=== PATIENT | female | born 1995 | race African-American/Black ===

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

== ENCOUNTER 2017-03-13 23:59 | Emergency (ER) | payer MEDICAID ==
[~2017-03-13] VITALS: Ht 165.1 cm; Wt 60.0 kg
[~2017-03-13 23:59] MED LIST changes: +HYDR-3533 PO
[2017-03-14 00:01] VITALS: BP 138/60; PULSE 87; RESP 18; TEMP 98.9; O2SAT 91
[2017-03-14] MEDS ORDERED: SODIUM CHLOR 0.9% 1000 ML INJ 1,000 ML IV ONE (01:26)
[2017-03-14] MEDS ORDERED: KETOROLAC TROMETHAMINE 30 MG/ML (IVP) VIAL IVP ONE (01:30)
[2017-03-14] MEDS ORDERED: HYDROmorphone HCL PF 1 MG/ML VIAL IVS ONE (01:30)
[2017-03-14] MEDS ORDERED: ONDANSETRON HCL 4 MG/2 ML VIAL IVP ONE (01:30)
[2017-03-14] MEDS ORDERED: diphenhydrAMINE HCL 50 MG/ML VIAL IV PUSH ONE (01:30)
[2017-03-14] MEDS ORDERED: SODIUM CHLORIDE 0.9% FLUSH 10 ML FLUSH IVF PRN (01:30)
--- NOTE | 2017-03-14 01:33 | PD ---
HPI Chief Complaint: Sickle Cell Time Seen by Provider: 01:21 Travel History International Travel<30 days: No Contact w/Intl Traveler<30days: No Traveled to known affect area: No History of Present Illness HPI 21-year-old female complains of back pain, lower extremity pain and anterior chest wall pain. Patient has history of sickle cell disease with frequent sickle cell pain crisis. Patient states that the pain started yesterday. Patient states the pain is sharp pain localized anterior chest wall area, low back area and lower extremity area. Patient denies any fever chills. Patient denies any dysuria or frequency. Patient denies any vaginal discharge or bleeding. Patient denies any nausea vomiting diarrhea. PFSH Past Medical History Hx Anticoagulant Therapy: No Anemia: Yes (sickle cell) Asthma: Yes Autoimmune Disease: No Blood Disorders: No Anxiety: No Depression: No Heart Rhythm Problems: No Cancer: No Cardiovascular Problems: Yes (sickle cell disease and crisis) High Cholesterol: No Chemotherapy: No Chest Pain: No Congestive Heart Failure: No COPD: No Cerebrovascular Accident: No Cystic Fibrosis: No Developmental Delay: No Diabetes: No Diminished Hearing: No Endocrine: No Gastrointestinal Disorders: No Genitourinary: No Heparin Induced Thrombocytopen: No Immune Disorder: No Implanted Vascular Access Dvce: Yes Musculoskeletal: No Neurologic: No Psychiatric: No Reproductive: No Respiratory: Yes (ASTHMA) Immunizations Current: Yes Pneumonia: Yes Radiation Therapy: No Seizures: No Sickle Cell Disease: Yes Sleep Apnea: Yes Thyroid Disease: No PNEUMOCCOCAL Vaccine (Year): 2 ?: Not LMP: 02/13/17 Menopausal: No : 1 Para: 0 Miscarriage: 0 : 0 Past Surgical History Surgical History: No Previous Surgery Hysterectomy: No Other Surgery: No Social History Alcohol Use: No Tobacco Use: No Substance Use: No Allergies-Medications (Allergen,Severity, Reaction): Coded Allergies: codeine (Unverified Allergy, Intermediate, wheezing, SOB, 03/14/17) Reported Meds & Prescriptions Reported Meds & Active Scripts Active Lortab (Hydrocodone-Acetaminophen) 5-325 Mg Tab 1 Tab PO Q6H PRN Reported Flovent Hfa 12 GM Inh (Fluticasone Propionate) 220 Mcg/Act Inh 2 Puff INH BID Use daily at the same time. Folic Acid 1 Mg Tablet 1 Tab PO DAILY Ventolin Hfa 18 GM Inh (Albuterol Sulfate) 90 Mcg/Act Aer 1 Puff INH Q4H PRN Review of Systems General / Constitutional: No: Fever Eyes: No: Visual changes HENT: No: Headaches Cardiovascular: No: Chest Pain or Discomfort Respiratory: No: Shortness of Breath Gastrointestinal: No: Abdominal Pain Genitourinary: No: Dysuria Musculoskeletal: Positive: Pain Skin: No Rash Neurologic: No: Weakness Psychiatric: No: Depression Endocrine: No: Polydipsia Hematologic/Lymphatic: No: Easy Bruising Physical Exam Narrative GENERAL: Well-nourished, well-developed patient. SKIN: Focused skin assessment warm/dry. HEAD: Normocephalic. EYES: No scleral icterus. No injection or drainage. NECK: Supple, trachea midline. No JVD or lymphadenopathy. CARDIOVASCULAR: Regular rate and rhythm without murmurs, gallops, or rubs. RESPIRATORY: Breath sounds equal bilaterally. No accessory muscle use. GASTROINTESTINAL: Abdomen soft, non-tender, nondistended. MUSCULOSKELETAL: No cyanosis, or edema. Mild diffuse tenderness over the low extremity. BACK: Mild diffuse tenderness over the lumbar area, without obvious deformity. No CVA tenderness. Neurologic exam normal. Data Data Last Documented VS Vital Signs Date Time Temp Pulse Resp B/P (MAP) Pulse Ox O2 Delivery O2 Flow Rate FiO2 03/14/17 00:01 98.9 87 18 138/60 (86) 91 Room Air Orders Orders Basic Metabolic Panel (Bmp) (03/14/17 01:26) Complete Blood Count With Diff (03/14/17:26) Retic Count (03/14/17:26) Ecg Monitoring (03/14/17:26) Iv Access Insert/Monitor (03/14/17:26) Oximetry (03/14/17:26) Ketorolac Inj (Toradol Inj) (03/14/17 01:30) Ondansetron Inj (Zofran Inj) (03/14/17 01:30) Sodium Chloride 0.9% Flush (Ns Flush) (03/14/17 01:30) Sodium Chlor 0.9% 1000 Ml Inj (Ns 1000 M (03/14/17 01:26) Hydromorphone Pf Inj (Dilaudid Pf Inj) (03/14/17 01:30) Diphenhydramine Inj (Benadryl Inj) (03/14/17 01:30) Labs Laboratory Tests Test 03/14/17 01:30 White Blood Count 13.5 TH/MM3 Red Blood Count 2.45 MIL/MM3 Hemoglobin 7.7 GM/DL Hematocrit 21.6 % Mean Corpuscular Volume 88.1 FL Mean Corpuscular Hemoglobin 31.5 PG Mean Corpuscular Hemoglobin Concent 35.7 % Red Cell Distribution Width 24.3 % Platelet Count 442 TH/MM3 Mean Platelet Volume 8.3 FL Neutrophils (%) (Auto) 47.2 % Lymphocytes (%) (Auto) 30.7 % Monocytes (%) (Auto) 20.6 % Eosinophils (%) (Auto) 1.1 % Basophils (%) (Auto) 0.4 % Neutrophils # (Auto) 6.4 TH/MM3 Lymphocytes # (Auto) 4.1 TH/MM3 Monocytes # (Auto) 2.8 TH/MM3 Eosinophils # (Auto) 0.2 TH/MM3 Basophils # (Auto) 0.1 TH/MM3 CBC Comment AUTO DIFF Differential Total Cells Counted 100 Neutrophils % (Manual) 41 % Lymphocytes % 41 % Monocytes % 15 % Eosinophils % 2 % Basophils % 1 % Neutrophils # (Manual) 5.5 TH/MM3 Nucleated Red Blood Cells 8 /100 WBC Differential Comment FINAL DIFF MANUAL Platelet Estimate HIGH Platelet Morphology Comment NORMAL Polychromasia 7.3 % Sickle Cells 1+ Target Cells 1+ Vu-[place] Bodies PRESENT Reticulocyte Count 10.9 % Absolute Reticulocyte Count 267.6 MIL/L Blood Urea Nitrogen 4 MG/DL Creatinine 0.38 MG/DL Random Glucose 74 MG/DL Calcium Level 8.4 MG/DL Sodium Level 138 MEQ/L Potassium Level 4.0 MEQ/L Chloride Level 106 MEQ/L Carbon Dioxide Level 25.5 MEQ/L Anion Gap 7 MEQ/L Estimat Glomerular Filtration Rate 264 ML/MIN [facility] Medical Decision Making Medical Screen Exam Complete: Yes Emergency Medical Condition: Yes Interpretation(s) 2:49 AM. CBC WBC 13.5. Hemoglobin 7.7 hematocrit 21.6. Patient at baseline. BMP within normal limit. Calcium 8.4. Reticulocyte count 10.9. Differential Diagnosis Differential diagnosis including sickle cell pain crisis, myalgia, arthralgia. Narrative Course 21-year-old female with back pain chest pain and extremity pain. History of sickle cell disease. Normal saline solution 1 L IV bolus. Dilaudid 1 mg IV. Zofran 4 mg IV. Benadryl 25 mg IV. Toradol 30 mg IV. Diagnosis Primary Impression: Sickle cell pain crisis Patient Instructions: General Instructions Additional Instructions: Encourage by mouth fluids. Follow-up with personal physician. Return if worse. Med/Other Pt SpecificInfo: No Change to Meds Disposition: 01 DISCHARGE HOME Condition: Stable Pa Mcfadden MD Mar 14, 2017 01:33
[2017-03-14 01:48] LABS: AUTOMATED NEUTROPHIL # 6.4 TH/MM3 (1.8-7.7); BASOPHIL # 0.1 TH/MM3 (0-0.2); BASOPHIL % 0.4 % (0.0-2.0); EOSINOPHIL # 0.2 TH/MM3 (0-0.4); EOSINOPHIL % 1.1 % (0.0-4.0); HEMATOCRIT 21.6 % (35.0-46.0); LYMPH % 30.7 % (9.0-44.0); LYMPHOCYTE # 4.1 TH/MM3 (1.0-4.8); MEAN CELL VOLUME 88.1 FL (80.0-100.0); MEAN CORPUSCULAR HEMOGLOBIN 31.5 PG (27.0-34.0); MEAN CORPUSCULAR HGB CONC 35.7 % (32.0-36.0); MONO % 20.6 % (0.0-8.0); NEUT % 47.2 % (16.0-70.0); PLATELET COUNT 442 TH/MM3 (150-450); RED BLOOD COUNT 2.45 MIL/MM3 (4.00-5.30); RED CELL DISTRIBUTION WIDTH 24.3 % (11.6-17.2); RETIC % 10.9 % (0.4-3.0); WHITE BLOOD COUNT 13.5 TH/MM3 (4.0-11.0)
[2017-03-14 01:49] LABS: HEMO FLAGS AUTO DIFF; REVIEW FLAG AUTO DIFF
[2017-03-14 02:14] LABS: BICARBONATE 25.5 MEQ/L (21.0-32.0)
[2017-03-14 02:27] LABS: BASOPHILS 1 % (0-2); CORRECTED NUCLEATED RBC 8 /100 WBC (0-0); EOSINOPHILS 2 % (0-4); NEUTROPHIL # MANUAL DIFF 5.5 TH/MM3 (1.8-7.7); POLYS (SEG NEUTROPHILS) 41 % (16-70); SCAN/DIFF FINAL DIFF MANUAL; WBC DIFF SAMPLE 100
[2017-03-14 02:28] LABS: HOWELL-JOLLY BODIES PRESENT (NONE SEEN); PLATELET ESTIMATE SMEAR HIGH (NORMAL); PLATELET MORPHOLOGY NORMAL (NORMAL); SICKLE CELLS 1+ (NORMAL)
[2017-03-14 02:31] LABS: POLYCHROMASIA 7.3 % (0.0-1.9); TARGET CELLS 1+ (NORMAL)
== END 2017-03-14 03:44 | disposition home or self-care (01) ==
LOC: NEPC 23:59
DX: D57.00 Hb-SS disease with crisis, unspecified (principal); J45.909 Unspecified asthma, uncomplicated; Z79.899 Other long term (current) drug therapy
CPT/HCPCS: 80048; 85007; 85027; 85044; 96361; 96374; 96375; 99284; J1170; J1200; J1885; J2405; J7030

== ENCOUNTER 2017-07-18 20:44 | Emergency (ER) | payer MEDICAID ==
[~2017-07-18] VITALS: Ht 165.1 cm; Wt 62.5 kg
[2017-07-18 20:45] VITALS: BP 126/53; PULSE 95; RESP 18; TEMP 98.7; O2SAT 98
[2017-07-18] MEDS ORDERED: SODIUM CHLOR 0.9% 1000 ML INJ 1,000 ML IV ONE (20:58)
[2017-07-18] MEDS ORDERED: ONDANSETRON HCL 4 MG/2 ML VIAL IVP ONE (21:00)
[2017-07-18] MEDS ORDERED: diphenhydrAMINE HCL 50 MG/ML VIAL IV PUSH ONE ×2 (21:00→23:15)
[2017-07-18] MEDS ORDERED: SODIUM CHLORIDE 0.9% FLUSH 10 ML FLUSH IVF PRN (21:00)
[2017-07-18] MEDS ORDERED: HYDROmorphone HCL PF 1 MG/ML VIAL IVS ONE (21:00)
[2017-07-18 21:05] VITALS: BP 126/53; PULSE 95; RESP 18; TEMP 98.7; O2SAT 98
--- NOTE | 2017-07-18 21:11 | PD ---
HPI Chief Complaint: Sickle Cell Time Seen by Provider: 20:56 Travel History International Travel<30 days: No Contact w/Intl Traveler<30days: No Traveled to known affect area: No History of Present Illness HPI The patient is a 21-year-old female who complains of bilateral back and bilateral leg pain, typical of her sickle cell pain crisis going on for 4 days. She states the pain is a 10 over 10 in both sharp and achy-type pain. She states that she believes she is and her last menstrual period was sometime in May. She states she wants an . She denies any vaginal bleeding. PFSH Past Medical History Hx Anticoagulant Therapy: No Anemia: Yes (sickle cell) Asthma: Yes Autoimmune Disease: No Blood Disorders: No Anxiety: No Depression: No Heart Rhythm Problems: No Cancer: No Cardiovascular Problems: Yes (sickle cell disease and crisis) High Cholesterol: No Chemotherapy: No Chest Pain: No Congestive Heart Failure: No COPD: No Cerebrovascular Accident: No Cystic Fibrosis: No Developmental Delay: No Diabetes: No Diminished Hearing: No Endocrine: No Gastrointestinal Disorders: No Genitourinary: No Heparin Induced Thrombocytopen: No Immune Disorder: No Implanted Vascular Access Dvce: Yes Musculoskeletal: No Neurologic: No Psychiatric: No Reproductive: No Respiratory: Yes (ASTHMA) Immunizations Current: Yes Pneumonia: Yes Radiation Therapy: No Seizures: No Sickle Cell Disease: Yes Sleep Apnea: Yes Thyroid Disease: No PNEUMOCCOCAL Vaccine (Year): 2 Menopausal: No : 1 Para: 0 Miscarriage: 0 : 0 Past Surgical History Hysterectomy: No Other Surgery: No Social History Alcohol Use: No Tobacco Use: No Substance Use: No Allergies-Medications (Allergen,Severity, Reaction): Coded Allergies: codeine (Verified Allergy, Intermediate, wheezing, SOB, 07/18/17) Reported Meds & Prescriptions Reported Meds & Active Scripts Active Reported Hydrocodone-Acetaminophen 5-325 mg Tab 1 Tab PO Q4H PRN Flovent Hfa 12 GM Inh (Fluticasone Propionate) 220 Mcg/Act Inh 2 Puff INH BID Use daily at the same time. Folic Acid 1 Mg Tablet 1 Tab PO DAILY Ventolin Hfa 18 GM Inh (Albuterol Sulfate) 90 Mcg/Act Aer 1 Puff INH Q4H PRN Review of Systems Except as stated in HPI: all other systems reviewed are Neg Physical Exam Narrative GENERAL: The patient is alert, oriented 3 in moderate apparent distress with her back and leg pain. Her vital signs are normal. She does appear at least mildly dehydrated. SKIN: Focused skin assessment warm/dry. HEAD: Atraumatic. Normocephalic. EYES: Pupils equal and round. No scleral icterus. No injection or drainage. ENT: No nasal bleeding or discharge. Mucous membranes pink and moist. NECK: Trachea midline. No JVD. CARDIOVASCULAR: Regular rate and rhythm. No murmur appreciated. RESPIRATORY: No accessory muscle use. Clear to auscultation. Breath sounds equal bilaterally. GASTROINTESTINAL: Abdomen soft, non-tender, nondistended. Hepatic and splenic margins not palpable. The uterus is palpable and feels approximately 10 weeks in size. MUSCULOSKELETAL: No obvious deformities. No clubbing. No cyanosis. No edema. There is tenderness to direct palpation of the musculature of the back and bilateral upper legs. NEUROLOGICAL: Awake and alert. No obvious cranial nerve deficits. Motor grossly within normal limits. Normal speech. PSYCHIATRIC: Appropriate mood and affect; insight and judgment normal. Data Data Last Documented VS Vital Signs Date Time Temp Pulse Resp B/P (MAP) Pulse Ox O2 Delivery O2 Flow Rate FiO2 07/18/17 22:58 98 14 117/47 (70) 96 Room Air 07/18/17 21:05 98.7 Orders Orders Basic Metabolic Panel (Bmp) (07/18/17 20:58) Complete Blood Count With Diff (07/18/17 20:58) Retic Count (07/18/17 20:58) Urinalysis - C+S If Indicated (07/18/17 20:58) Ecg Monitoring (07/18/17 20:58) Iv Access Insert/Monitor (07/18/17 20:58) Oximetry (07/18/17 20:58) Ondansetron Inj (Zofran Inj) (07/18/17 21:00) Sodium Chloride 0.9% Flush (Ns Flush) (07/18/17 21:00) Sodium Chlor 0.9% 1000 Ml Inj (Ns 1000 M (07/18/17 20:58) Diphenhydramine Inj (Benadryl Inj) (07/18/17 21:00) Beta Hcg (Quant/Titer) (07/18/17 20:58) Hydromorphone Pf Inj (Dilaudid Pf Inj) (07/18/17 21:45) Ondansetron Inj (Zofran Inj) (07/18/17 22:45) Hydromorphone Pf Inj (Dilaudid Pf Inj) (07/18/17 22:45) Sodium Chlor 0.9% 1000 Ml Inj (Ns 1000 M (07/18/17 22:45) Diphenhydramine Inj (Benadryl Inj) (07/18/17 23:15) Labs Laboratory Tests Test 07/18/17 21:35 07/18/17 23:50 White Blood Count 25.3 TH/MM3 Corrected White Blood Count 21.6 TH/MM3 Red Blood Count 2.76 MIL/MM3 Hemoglobin 8.9 GM/DL Hematocrit 25.7 % Mean Corpuscular Volume 93.3 FL Mean Corpuscular Hemoglobin 32.4 PG Mean Corpuscular Hemoglobin Concent 34.8 % Red Cell Distribution Width 22.4 % Platelet Count 491 TH/MM3 Mean Platelet Volume 7.9 FL CBC Comment AUTO DIFF Differential Total Cells Counted 100 Neutrophils % (Manual) 64 % Lymphocytes % 22 % Monocytes % 12 % Eosinophils % 1 % Basophils % 1 % Neutrophils # (Manual) 13.8 TH/MM3 Nucleated Red Blood Cells 17 /100 WBC Differential Comment FINAL DIFF MANUAL Platelet Estimate HIGH Platelet Morphology Comment NORMAL Sickle Cells 3+ Target Cells 1+ Tear Drop Cells 1+ Ovalocytes 2+ Vu-[place] Bodies PRESENT Keratocytes 1+ Reticulocyte Count 10.9 % Absolute Reticulocyte Count 293.1 MIL/L Blood Urea Nitrogen 7 MG/DL Creatinine 0.42 MG/DL Random Glucose 74 MG/DL Calcium Level 8.7 MG/DL Sodium Level 135 MEQ/L Potassium Level 3.8 MEQ/L Chloride Level 104 MEQ/L Carbon Dioxide Level 23.2 MEQ/L Anion Gap 8 MEQ/L Estimat Glomerular Filtration Rate 235 ML/MIN Human Chorionic Gonadotropin, Quant 642548 MIU/ML Urine Color YELLOW Urine Turbidity CLEAR Urine pH 6.5 Urine Specific [place] 1.010 Urine Protein NEG mg/dL Urine Glucose (UA) NEG mg/dL Urine Ketones NEG mg/dL Urine Occult Blood TRACE Urine Nitrite NEG Urine Bilirubin NEG Urine Leukocyte Esterase NEG Urine RBC 0-3 /hpf Urine WBC 0-2 /hpf Urine Squamous Epithelial Cells 0-5 /hpf Urine Bacteria NONE /hpf Microscopic Urinalysis Comment CULT NOT INDICATED MDM Medical Decision Making Medical Screen Exam Complete: Yes Emergency Medical Condition: Yes Medical Record Reviewed: Yes Interpretation(s) The white count shows 25,300 with corrected white count 21,600. The hemoglobin is 8.9 and the hematocrit is 25.7. The absolute reticulocyte count is 293. The sodium is 135 but the basic metabolic profile is otherwise normal. The beta -hCG is 117,711. The urinalysis is normal. Differential Diagnosis Sickle cell pain crisis, anemia, , electrolyte disorder, aplastic crisis, urinary tract infection, other infection Narrative Course The patient's white count is usually elevated. Today's white count elevation was more than it has been in the past. This may be due to dehydration. The white count is also elevated by the . It is now 0035 in the morning and the patient feels better and wants to go home. She will be given a prescription for Percocet 5/325-# 20. Impressions: Sickle cell pain crisis, dehydration, intrauterine Diagnosis Primary Impression: Sickle cell pain crisis Additional Impressions: Dehydration, mild Intrauterine Med/Other Pt SpecificInfo: Prescription(s) given Disposition: 01 DISCHARGE HOME Condition: Stable Antoine Alba MD Jul 18, 2017 21:11
[2017-07-18] MEDS ORDERED: HYDROmorphone HCL PF 2 MG/ML VIAL IV PUSH ONE ×2 (21:45→22:45)
[2017-07-18 22:10] LABS: HEMATOCRIT 25.7 % (35.0-46.0); HEMOGLOBIN 8.9 GM/DL (11.6-15.3); MEAN CELL VOLUME 93.3 FL (80.0-100.0); MEAN CORPUSCULAR HEMOGLOBIN 32.4 PG (27.0-34.0); MEAN CORPUSCULAR HGB CONC 34.8 % (32.0-36.0); MEAN PLATELET VOLUME 7.9 FL (7.0-11.0); PLATELET COUNT 491 TH/MM3 (150-450); RED BLOOD COUNT 2.76 MIL/MM3 (4.00-5.30); RED CELL DISTRIBUTION WIDTH 22.4 % (11.6-17.2); WHITE BLOOD COUNT 25.3 TH/MM3 (4.0-11.0)
[2017-07-18 22:23] LABS: BICARBONATE 23.2 MEQ/L (21.0-32.0); CALCIUM 8.7 MG/DL (8.5-10.1)
[2017-07-18 22:27] LABS: CREATININE 0.42 MG/DL (0.50-1.00)
[2017-07-18 22:36] LABS: BASOPHILS 1 % (0-2); CORRECTED NUCLEATED RBC 17 /100 WBC (0-0); CORRECTED WBC 21.6 TH/MM3 (4.0-11.0); LYMPHOCYTES 22 % (9-44); MONOCYTES 12 % (0-8); NEUTROPHIL # MANUAL DIFF 13.8 TH/MM3 (1.8-7.7); NUCLEATED RED BLOOD CELL 17 (0-0); POLYS (SEG NEUTROPHILS) 64 % (16-70)
[2017-07-18 22:37] LABS: KERATOCYTES 1+ (NORMAL); OVALOCYTES 2+ (NORMAL); SICKLE CELLS 3+ (NORMAL); TARGET CELLS 1+ (NORMAL); TEARDROP RBCS 1+ (NORMAL)
[2017-07-18 22:38] LABS: HOWELL-JOLLY BODIES PRESENT (NONE SEEN)
[2017-07-18] MEDS ORDERED: SODIUM CHLOR 0.9% 1000 ML INJ 1,000 ML IV SCH (22:45)
[2017-07-18] MEDS ORDERED: ONDANSETRON HCL 4 MG/2 ML VIAL IV ONE (22:45)
[2017-07-18 22:48] LABS: RETIC # 293.1 MIL/L (20.0-150.0); RETIC % 10.9 % (0.4-3.0)
[2017-07-18 22:58] VITALS: BP 117/47; PULSE 98; RESP 14; O2SAT 96
[2017-07-18] MEDS ORDERED: HYDR-3516 PO (23:34)
[2017-07-19] LABS: BILIRUBIN, URINE NEG (NEG); GLUCOSE,URINE NEG (NEG); KETONE, URINE NEG (NEG); NITRITE,URINE NEG (NEG); PH, URINE 6.5 (5.0-8.5); URINE LEUKOCYTE ESTERASE NEG (NEG)
[2017-07-19 00:03] LABS: BLOOD, URINE TRACE (NEG)
[2017-07-19 00:04] LABS: RBC, URINE 0-3 /hpf (0-3); SQUAMOUS EPITHELIAL CELL URINE 0-5 /hpf (0-5); URINE COLOR YELLOW (YELLW/STRAW); WBC, URINE 0-2 /hpf (0-5)
[2017-07-19] MEDS ORDERED: PERC5TAB12 PO (00:39)
[2017-07-19 00:45] VITALS: BP 114/58; PULSE 93; RESP 14; O2SAT 92
== END 2017-07-19 01:00 | disposition home or self-care (01) ==
LOC: PHED 20:44
DX: O99.019 Anemia complicating pregnancy, unspecified trimester (principal); D57.00 Hb-SS disease with crisis, unspecified; O99.280 Endocrine, nutritional and metabolic diseases complicating pregnancy, unspecified trimester; E86.0 Dehydration; Z3A.00 Weeks of gestation of pregnancy not specified
CPT/HCPCS: 80048; 81001; 84702; 85007; 85027; 85044; 96361; 96374; 96375; 99284; J1170; J1200; J2405; J7030

== ENCOUNTER 2017-08-21 14:21 | Emergency (ER) | payer MEDICAID ==
[~2017-08-21] VITALS: Ht 165.1 cm; Wt 62.5 kg
[~2017-08-21 14:21] MED LIST changes: +HYDR-3516 PO; -HYDR-3533 PO; +PERC5TAB12 PO
[2017-08-21 14:23] VITALS: BP 126/58; PULSE 94; RESP 18; TEMP 98.6; O2SAT 94
[2017-08-21] MEDS ORDERED: SODIUM CHLOR 0.9% 1000 ML INJ 1,000 ML IV ONE (14:43)
[2017-08-21] MEDS ORDERED: MONT10TA2 PO (14:43)
[2017-08-21] MEDS ORDERED: ONDANSETRON HCL 4 MG/2 ML VIAL IVP ONE (14:45)
[2017-08-21] MEDS ORDERED: SODIUM CHLORIDE 0.9% FLUSH 10 ML FLUSH IVF PRN (14:45)
[2017-08-21] MEDS ORDERED: HYDROmorphone HCL PF 2 MG/ML VIAL IV PUSH ONE ×2 (14:45→16:30)
--- NOTE | 2017-08-21 14:51 | PD ---
HPI Chief Complaint: Sickle Cell Time Seen by Provider: 14:32 Travel History International Travel<30 days: No Contact w/Intl Traveler<30days: No Traveled to known affect area: No History of Present Illness HPI This 22-year-old female is complaining of pain all over. She has a history of sickle cell anemia and says she is having a crisis. She is currently and is scheduled for termination of . She has not had fever or chills. She has not been taking BC powder at home for pain. PFSH Past Medical History Hx Anticoagulant Therapy: No Anemia: Yes (sickle cell) Asthma: Yes Autoimmune Disease: No Blood Disorders: No Anxiety: No Depression: No Heart Rhythm Problems: No Cancer: No Cardiovascular Problems: Yes (sickle cell disease and crisis) High Cholesterol: No Chemotherapy: No Chest Pain: No Congestive Heart Failure: No COPD: No Cerebrovascular Accident: No Cystic Fibrosis: No Developmental Delay: No Diabetes: No Diminished Hearing: No Endocrine: No Gastrointestinal Disorders: No Genitourinary: No Headaches: No Heparin Induced Thrombocytopen: No Immune Disorder: No Implanted Vascular Access Dvce: Yes Musculoskeletal: No Neurologic: No Psychiatric: No Reproductive: No Respiratory: Yes (ASTHMA) Immunizations Current: Yes Pneumonia: Yes Radiation Therapy: No Seizures: No Sickle Cell Disease: Yes Sleep Apnea: Yes Thyroid Disease: No PNEUMOCCOCAL Vaccine (Year): 2 ?: LMP: 17wks Menopausal: No : 1 Para: 0 Miscarriage: 0 : 0 Past Surgical History Abdominal Surgery: No Hysterectomy: No Neurologic Surgery: No Thoracic Surgery: No Other Surgery: No Social History Alcohol Use: No Tobacco Use: No Substance Use: No Allergies-Medications (Allergen,Severity, Reaction): Coded Allergies: codeine (Verified Allergy, Intermediate, wheezing, SOB, 08/21/17) Reported Meds & Prescriptions Reported Meds & Active Scripts Active Reported Singulair (Montelukast Sodium) 10 Mg Tab 10 Mg PO HS Flovent Hfa 12 GM Inh (Fluticasone Propionate) 220 Mcg/Act Inh 2 Puff INH BID Use daily at the same time. Folic Acid 1 Mg Tablet 1 Tab PO DAILY Ventolin Hfa 18 GM Inh (Albuterol Sulfate) 90 Mcg/Act Aer 1 Puff INH Q4H PRN Review of Systems General / Constitutional: No: Fever, Chills Eyes: No: Diploplia, Blurred Vision HENT: No: Headaches, Vertigo Cardiovascular: No: Chest Pain or Discomfort, Palpitations Respiratory: No: Cough, Shortness of Breath Gastrointestinal: No: Nausea, Vomiting Genitourinary: No: Urgency, Frequency Musculoskeletal: No: Myalgias, Arthralgias Skin: No Rash, No Itching Neurologic: No: Weakness Hematologic/Lymphatic: No: Easy Bruising Physical Exam Narrative GENERAL: Well-developed female SKIN: Focused skin assessment warm/dry. HEAD: Atraumatic. Normocephalic. EYES: Pupils equal and round. No scleral icterus. No injection or drainage. ENT: No nasal bleeding or discharge. Mucous membranes pink and moist. NECK: Trachea midline. No JVD. CARDIOVASCULAR: Regular rate and rhythm. No murmur appreciated. RESPIRATORY: No accessory muscle use. Clear to auscultation. Breath sounds equal bilaterally. GASTROINTESTINAL: Abdomen soft, non-tender, uterus palpable just below the umbilicus hepatic and splenic margins not palpable. MUSCULOSKELETAL: No obvious deformities. No clubbing. No cyanosis. No edema. NEUROLOGICAL: Awake and alert. No obvious cranial nerve deficits. Motor grossly within normal limits. Normal speech. PSYCHIATRIC: Appropriate mood and affect; insight and judgment normal. Data Data Last Documented VS Vital Signs Date Time Temp Pulse Resp B/P (MAP) Pulse Ox O2 Delivery O2 Flow Rate FiO2 08/21/17 14:58 16 93 Room Air 08/21/17 14:23 98.6 94 126/58 (80) Orders Orders Complete Blood Count With Diff (08/21/17 14:43) Comprehensive Metabolic Panel (08/21/17 14:43) Ecg Monitoring (08/21/17 14:43) Iv Access Insert/Monitor (08/21/17 14:43) Oximetry (08/21/17 14:43) Ondansetron Inj (Zofran Inj) (08/21/17 14:45) Sodium Chloride 0.9% Flush (Ns Flush) (08/21/17 14:45) Sodium Chlor 0.9% 1000 Ml Inj (Ns 1000 M (08/21/17 14:43) Hydromorphone Pf Inj (Dilaudid Pf Inj) (08/21/17 14:45) Diphenhydramine Inj (Benadryl Inj) (08/21/17 15:30) Labs Laboratory Tests Test 08/21/17 14:49 White Blood Count 24.4 TH/MM3 Red Blood Count 2.58 MIL/MM3 Hemoglobin 8.9 GM/DL Hematocrit 24.9 % Mean Corpuscular Volume 96.4 FL Mean Corpuscular Hemoglobin 34.5 PG Mean Corpuscular Hemoglobin Concent 35.8 % Red Cell Distribution Width 25.5 % Platelet Count 411 TH/MM3 Mean Platelet Volume 7.6 FL CBC Comment AUTO DIFF Blood Urea Nitrogen 5 MG/DL Creatinine 0.38 MG/DL Random Glucose 72 MG/DL Total Protein 7.7 GM/DL Albumin 3.3 GM/DL Calcium Level 8.4 MG/DL Alkaline Phosphatase 93 U/L Aspartate Amino Transf (AST/SGOT) 102 U/L Alanine Aminotransferase (ALT/SGPT) 52 U/L Total Bilirubin 2.3 MG/DL Sodium Level 134 MEQ/L Potassium Level 4.0 MEQ/L Chloride Level 105 MEQ/L Carbon Dioxide Level 21.5 MEQ/L Anion Gap 8 MEQ/L Estimat Glomerular Filtration Rate 261 ML/MIN [facility] Medical Decision Making Medical Screen Exam Complete: Yes Emergency Medical Condition: Yes Medical Record Reviewed: Yes Differential Diagnosis Differential includes sickle cell crisis Narrative Course Hemoglobin is 8.9. Her white count is elevated at 24,000. She was in the ER a few weeks ago and was 25,000 and then thought elevated secondary to as well as the sickle cell. She is feeling better after with a single dose of Dilaudid. She will be released Diagnosis Primary Impression: Sickle cell pain crisis Scripts Oxycodone-Acetaminophen (Percocet) 10-325 mg Tab 1 TAB PO Q4H Y for PAIN, #12 TAB 0 Refills Prov: Calixto Collins MD 08/21/17 Disposition: 01 DISCHARGE HOME Condition: Stable Calixto Collins MD Aug 21, 2017 14:51
[2017-08-21 14:58] VITALS: RESP 16; O2SAT 93
[2017-08-21 15:09] LABS: HEMATOCRIT 24.9 % (35.0-46.0); HEMOGLOBIN 8.9 GM/DL (11.6-15.3); MEAN CELL VOLUME 96.4 FL (80.0-100.0); MEAN CORPUSCULAR HEMOGLOBIN 34.5 PG (27.0-34.0); MEAN CORPUSCULAR HGB CONC 35.8 % (32.0-36.0); MEAN PLATELET VOLUME 7.6 FL (7.0-11.0); PLATELET COUNT 411 TH/MM3 (150-450); RED BLOOD COUNT 2.58 MIL/MM3 (4.00-5.30); RED CELL DISTRIBUTION WIDTH 25.5 % (11.6-17.2); WHITE BLOOD COUNT 24.4 TH/MM3 (4.0-11.0)
[2017-08-21 15:22] LABS: CHLORIDE 105 MEQ/L (98-107); SODIUM (NA) 134 MEQ/L (136-145)
[2017-08-21 15:25] LABS: CALCIUM 8.4 MG/DL (8.5-10.1)
[2017-08-21 15:26] LABS: ALBUMIN 3.3 GM/DL (3.4-5.0); BICARBONATE 21.5 MEQ/L (21.0-32.0); BLOOD UREA NITROGEN 5 MG/DL (7-18); GLUCOSE,RANDOM 72 MG/DL (74-106)
[2017-08-21 15:29] LABS: ALT (GPT) 52 U/L (9-42); AST (GOT) 102 U/L (16-38); CREATININE 0.38 MG/DL (0.50-1.00); GLOMERULAR FILTRATION RATE 261 ML/MIN (>89)
[2017-08-21] MEDS ORDERED: diphenhydrAMINE HCL 50 MG/ML VIAL IV PUSH ONE ×2 (15:30→16:30)
[2017-08-21 15:31] LABS: TOTAL BILIRUBIN ADULT 2.3 MG/DL (0.2-1.0); TOTAL PROTEIN 7.7 GM/DL (6.4-8.2)
[2017-08-21 15:32] LABS: ALKALINE PHOSPHATASE 93 U/L (45-117)
[2017-08-21] MEDS ORDERED: PERC10TA27 PO (15:45)
[2017-08-21 16:43] LABS: CORRECTED NUCLEATED RBC 17 /100 WBC (0-0); CORRECTED WBC 20.9 TH/MM3 (4.0-11.0); LYMPHOCYTES 8 % (9-44); MONOCYTES 3 % (0-8); NEUTROPHIL # MANUAL DIFF 18.6 TH/MM3 (1.8-7.7); NUCLEATED RED BLOOD CELL 17 (0-0); POLYS (SEG NEUTROPHILS) 89 % (16-70)
[2017-08-21 16:44] LABS: SICKLE CELLS 3+ (NORMAL); TARGET CELLS 1+ (NORMAL); TEARDROP RBCS 2+ (NORMAL)
[2017-08-21 16:45] LABS: OVALOCYTES 2+ (NORMAL)
[2017-08-21 17:09] VITALS: BP 121/63
== END 2017-08-21 17:17 | disposition home or self-care (01) ==
LOC: PHED 14:21
DX: O99.019 Anemia complicating pregnancy, unspecified trimester (principal); D57.00 Hb-SS disease with crisis, unspecified; D72.829 Elevated white blood cell count, unspecified; J45.909 Unspecified asthma, uncomplicated; G47.30 Sleep apnea, unspecified; Z3A.00 Weeks of gestation of pregnancy not specified
CPT/HCPCS: 80053; 85007; 85027; 96361; 96374; 96375; 96376; 99284; J1170; J1200; J2405; J7030

== ENCOUNTER 2017-08-23 21:02 | Emergency (ER) | payer MEDICAID ==
[~2017-08-23 21:02] MED LIST changes: -HYDR-3516 PO; +MONT10TA2 PO; +PERC10TA27 PO; -PERC5TAB12 PO
[2017-08-23 21:09] VITALS: BP 129/59; PULSE 98; RESP 20; TEMP 99.2; O2SAT 94
[2017-08-23 21:43] VITALS: RESP 18; O2SAT 91; O2SAT 95
[2017-08-23 23:11] LABS: HEMATOCRIT 24.6 % (35.0-46.0); HEMOGLOBIN 8.4 GM/DL (11.6-15.3); MEAN CELL VOLUME 97.7 FL (80.0-100.0); MEAN CORPUSCULAR HEMOGLOBIN 33.3 PG (27.0-34.0); MEAN CORPUSCULAR HGB CONC 34.1 % (32.0-36.0); MEAN PLATELET VOLUME 8.3 FL (7.0-11.0); PLATELET COUNT 426 TH/MM3 (150-450); RED BLOOD COUNT 2.52 MIL/MM3 (4.00-5.30); RED CELL DISTRIBUTION WIDTH 25.9 % (11.6-17.2); WHITE BLOOD COUNT 24.9 TH/MM3 (4.0-11.0)
[2017-08-24 00:02] LABS: CORRECTED NUCLEATED RBC 75 /100 WBC (0-0); CORRECTED WBC 14.2 TH/MM3 (4.0-11.0); LYMPHOCYTES 29 % (9-44); MONOCYTES 12 % (0-8); NEUTROPHIL # MANUAL DIFF 8.2 TH/MM3 (1.8-7.7); NUCLEATED RED BLOOD CELL 75 (0-0); OVALOCYTES 2+ (NORMAL); PLASMA CELLS 1 % (0-0); POLYS (SEG NEUTROPHILS) 58 % (16-70); SICKLE CELLS 3+ (NORMAL); TEARDROP RBCS 1+ (NORMAL)
[2017-08-24 00:03] LABS: KERATOCYTES 1+ (NORMAL); TARGET CELLS 1+ (NORMAL)
[2017-08-24] MEDS ORDERED: SODIUM CHLOR 0.9% 1000 ML INJ 1,000 ML IV ONE (00:08)
[2017-08-24] MEDS ORDERED: SODIUM CHLORIDE 0.9% FLUSH 10 ML FLUSH IVF PRN (00:15)
[2017-08-24] MEDS ORDERED: HYDROmorphone HCL PF 1 MG/ML VIAL IVS ONE (00:15)
[2017-08-24] MEDS ORDERED: HYDROmorphone HCL PF 2 MG/ML VIAL IV ONE (00:15)
[2017-08-24] MEDS ORDERED: diphenhydrAMINE HCL 50 MG/ML VIAL IV PUSH ONE ×3 (00:15→04:30)
[2017-08-24] MEDS ORDERED: ONDANSETRON HCL 4 MG/2 ML VIAL IVP ONE (00:15)
[2017-08-24 00:32] LABS: RETIC # 371.3 MIL/L (20.0-150.0); RETIC % 16.9 % (0.4-3.0)
[2017-08-24 00:36] VITALS: BP 128/64; PULSE 109; RESP 19; O2SAT 96
[2017-08-24] MEDS ORDERED: diphenhydrAMINE HCL 50 MG/ML VIAL IV ONE (02:45)
[2017-08-24 03:05] VITALS: BP 138/78; PULSE 88; RESP 17; O2SAT 98
--- NOTE | 2017-08-24 03:05 | PD ---
HPI Chief Complaint: Sickle Cell Time Seen by Provider: 23:35 Travel History International Travel<30 days: No Contact w/Intl Traveler<30days: No Traveled to known affect area: No History of Present Illness HPI The patient is a 22-year-old female with a history of sickle cell and frequent visitor to emergency department who complains of sickle cell pain for 5 days. She was recently admitted to [facility]. She was just here 2 days ago. She states she has a low-grade fever. The temperature here is 99.2. She does have a very minimal cough. The patient is 17 weeks . Initially she told me she wanted to have an but now she says she wants to keep the baby. The patient is G2, P0, A1-spontaneous . PFSH Past Medical History Hx Anticoagulant Therapy: No Anemia: Yes (sickle cell) Asthma: Yes Autoimmune Disease: No Blood Disorders: No Anxiety: No Depression: No Heart Rhythm Problems: No Cancer: No Cardiovascular Problems: Yes (sickle cell disease and crisis) High Cholesterol: No Chemotherapy: No Chest Pain: No Congestive Heart Failure: No COPD: No Cerebrovascular Accident: No Cystic Fibrosis: No Developmental Delay: No Diabetes: No Diminished Hearing: No Endocrine: No Gastrointestinal Disorders: No Genitourinary: No Headaches: No Heparin Induced Thrombocytopen: No Immune Disorder: No Implanted Vascular Access Dvce: Yes Musculoskeletal: No Neurologic: No Psychiatric: No Reproductive: No Respiratory: Yes (ASTHMA) Immunizations Current: Yes Pneumonia: Yes Radiation Therapy: No Seizures: No Sickle Cell Disease: Yes Sleep Apnea: Yes Thyroid Disease: No Tetanus Vaccination: > 5 Years Influenza Vaccination: Yes PNEUMOCCOCAL Vaccine (Year): 2 ?: Unknown Menopausal: No : 1 Para: 0 Miscarriage: 0 : 0 Past Surgical History Surgical History: No Previous Surgery Abdominal Surgery: No Hysterectomy: No Neurologic Surgery: No Thoracic Surgery: No Other Surgery: No Social History Alcohol Use: No Tobacco Use: No Substance Use: No Allergies-Medications (Allergen,Severity, Reaction): Coded Allergies: codeine (Verified Allergy, Intermediate, wheezing, SOB, 08/23/17) Reported Meds & Prescriptions Reported Meds & Active Scripts Active Percocet (Oxycodone-Acetaminophen) 10-325 mg Tab 1 Tab PO Q4H PRN Reported Singulair (Montelukast Sodium) 10 Mg Tab 10 Mg PO HS Flovent Hfa 12 GM Inh (Fluticasone Propionate) 220 Mcg/Act Inh 2 Puff INH BID Use daily at the same time. Folic Acid 1 Mg Tablet 1 Tab PO DAILY Ventolin Hfa 18 GM Inh (Albuterol Sulfate) 90 Mcg/Act Aer 1 Puff INH Q4H PRN Review of Systems Except as stated in HPI: all other systems reviewed are Neg Physical Exam Narrative GENERAL: The patient is alert, oriented 3 in moderate apparent distress with her sickle cell pain. Her vital signs show pulse of 98, blood pressure 129/59 on oximetry 94%. SKIN: Focused skin assessment warm/dry. HEAD: Atraumatic. Normocephalic. EYES: Pupils equal and round. No scleral icterus. No injection or drainage. ENT: No nasal bleeding or discharge. Mucous membranes pink and moist. NECK: Trachea midline. No JVD. CARDIOVASCULAR: Regular rate and rhythm. No murmur appreciated. RESPIRATORY: No accessory muscle use. Clear to auscultation. Breath sounds equal bilaterally. GASTROINTESTINAL: Abdomen soft, with tenderness to direct palpation of the bilateral lower quadrants, nondistended. Hepatic and splenic margins not palpable. No flank tenderness is present and no guarding or rebound is present. MUSCULOSKELETAL: No obvious deformities. No clubbing. No cyanosis. No edema. NEUROLOGICAL: Awake and alert. No obvious cranial nerve deficits. Motor grossly within normal limits. Normal speech. PSYCHIATRIC: Appropriate mood and affect; insight and judgment normal. Data Data Last Documented VS Vital Signs Date Time Temp Pulse Resp B/P (MAP) Pulse Ox O2 Delivery O2 Flow Rate FiO2 08/24/17 03:05 88 17 138/78 (98) 98 Room Air 08/24/17 00:36 3.00 08/23/17 21:09 99.2 Orders Orders Complete Blood Count With Diff (08/23/17 22:47) Retic Count (08/23/17 22:47) Iv Access Insert/Monitor (08/23/17 22:47) Ecg Monitoring (08/24/17 00:08) Oximetry (08/24/17 00:08) Ondansetron Inj (Zofran Inj) (08/24/17 00:15) Sodium Chloride 0.9% Flush (Ns Flush) (08/24/17 00:15) Sodium Chlor 0.9% 1000 Ml Inj (Ns 1000 M (08/24/17 00:08) Diphenhydramine Inj (Benadryl Inj) (08/24/17 00:15) Hydromorphone Pf Inj (Dilaudid Pf Inj) (08/24/17 00:15) Diphenhydramine Inj (Benadryl Inj) (08/24/17 02:45) Urinalysis - C+S If Indicated (08/24/17 03:05) Hydromorphone Pf Inj (Dilaudid Pf Inj) (08/24/17 03:15) Diphenhydramine Inj (Benadryl Inj) (08/24/17 03:15) Hydromorphone Pf Inj (Dilaudid Pf Inj) (08/24/17 04:30) Diphenhydramine Inj (Benadryl Inj) (08/24/17 04:30) Labs Laboratory Tests Test 08/23/17 22:52 08/24/17 03:10 White Blood Count 24.9 TH/MM3 Corrected White Blood Count 14.2 TH/MM3 Red Blood Count 2.52 MIL/MM3 Hemoglobin 8.4 GM/DL Hematocrit 24.6 % Mean Corpuscular Volume 97.7 FL Mean Corpuscular Hemoglobin 33.3 PG Mean Corpuscular Hemoglobin Concent 34.1 % Red Cell Distribution Width 25.9 % Platelet Count 426 TH/MM3 Mean Platelet Volume 8.3 FL CBC Comment AUTO DIFF Differential Total Cells Counted 100 Neutrophils % (Manual) 58 % Lymphocytes % 29 % Monocytes % 12 % Neutrophils # (Manual) 8.2 TH/MM3 Nucleated Red Blood Cells 75 /100 WBC Differential Comment FINAL DIFF MANUAL Atypical Lymphocytes % Plasma Cells 1 % Platelet Estimate NORMAL Platelet Morphology Comment NORMAL Sickle Cells 3+ Target Cells 1+ Tear Drop Cells 1+ Ovalocytes 2+ Crenated Cell 1+ Keratocytes 1+ Reticulocyte Count 16.9 % Absolute Reticulocyte Count 371.3 MIL/L Urine Color YELLOW Urine Turbidity SL CLOUDY Urine pH 6.0 Urine Specific [place] 1.010 Urine Protein NEG mg/dL Urine Glucose (UA) NEG mg/dL Urine Ketones NEG mg/dL Urine Occult Blood NEG Urine Nitrite NEG Urine Bilirubin NEG Urine Urobilinogen 0.2 MG/DL Urine Leukocyte Esterase SMALL Urine RBC 0-3 /hpf Urine WBC 3-5 /hpf Urine Squamous Epithelial Cells 0-5 /hpf Microscopic Urinalysis Comment CULT NOT INDICATED MDM Medical Decision Making Medical Screen Exam Complete: Yes Emergency Medical Condition: Yes Medical Record Reviewed: Yes Interpretation(s) The CBC shows a white count of 24,900. The reticulocyte count is 17%. Differential Diagnosis Sepsis, sickle cell pain crisis, drug-seeking behavior, anemia Narrative Course It is now 440 in the morning and the patient feels better and wants to go home. It took 3 shots of 1 mg Dilaudid this time. Possibly due to the increased metabolism of the Dilaudid did not work as it usually does. The elevated white count is likely due to . Impression: Sickle cell pain crisis Diagnosis Primary Impression: Sickle cell pain crisis Additional Instructions: As you know, increase her liquid intake. Follow-up with your primary care physician. You are running out of time to have an in this state. Make sure you follow-up with your physician quickly. Med/Other Pt SpecificInfo: No Change to Meds Disposition: 01 DISCHARGE HOME Condition: Stable Antoine Alba MD Aug 24, 2017 03:05
[2017-08-24] MEDS ORDERED: HYDROmorphone HCL PF 1 MG/ML VIAL IV PUSH ONE ×2 (03:15→04:30)
[2017-08-24 03:41] LABS: BILIRUBIN, URINE NEG (NEG); BLOOD, URINE NEG (NEG); GLUCOSE,URINE NEG (NEG); KETONE, URINE NEG (NEG); NITRITE,URINE NEG (NEG); URINE COLOR YELLOW (YELLW/STRAW); URINE LEUKOCYTE ESTERASE SMALL (NEG)
[2017-08-24 03:59] LABS: RBC, URINE 0-3 /hpf (0-3); SQUAMOUS EPITHELIAL CELL URINE 0-5 /hpf (0-5)
[2017-08-24 05:40] VITALS: BP 119/63
== END 2017-08-24 05:53 | disposition home or self-care (01) ==
LOC: PHED 21:02
DX: O99.012 Anemia complicating pregnancy, second trimester (principal); D57.00 Hb-SS disease with crisis, unspecified; R50.81 Fever presenting with conditions classified elsewhere; O99.512 Diseases of the respiratory system complicating pregnancy, second trimester; J45.909 Unspecified asthma, uncomplicated; Z3A.17 17 weeks gestation of pregnancy
CPT/HCPCS: 81001; 85007; 85027; 85044; 96361; 96374; 96375; 96376; 99284; J1170; J1200; J2405; J7030

== ENCOUNTER → 2017-10-08 | Outpatient (CLI) | payer MEDICAID ==
[~2017-10-08] MED LIST changes: +CEPH-460 PO
== END ==
LOC: HPND 08:06
PROVIDERS: ATTEND Obstetrics & Gynecology
DX: O35.1XX0 Maternal care for (suspected) chromosomal abnormality in fetus, not applicable or unspecified (principal); O99.012 Anemia complicating pregnancy, second trimester; O35.8XX0 Maternal care for other (suspected) fetal abnormality and damage, not applicable or unspecified
CPT/HCPCS: 76811; 76825; 76827; 93325

== ENCOUNTER → 2017-10-15 | Outpatient (CLI) | payer MEDICAID ==
[~2017-10-15] MED LIST changes: +ACET325T15 PO; +OXYC-395 PO; +PRENCAP PO
== END ==
LOC: HPND 10:41
PROVIDERS: ATTEND Obstetrics & Gynecology
DX: O35.8XX0 Maternal care for other (suspected) fetal abnormality and damage, not applicable or unspecified (principal); O99.012 Anemia complicating pregnancy, second trimester; O35.1XX0 Maternal care for (suspected) chromosomal abnormality in fetus, not applicable or unspecified; Z3A.00 Weeks of gestation of pregnancy not specified
CPT/HCPCS: 76815

== ENCOUNTER 2017-10-16 13:18 | Emergency (ER) | END 2017-10-16 16:45 | disposition home or self-care (01) | DX: O99.012 Anemia complicating pregnancy, second trimester (principal); D57.00 Hb-SS disease with crisis, unspecified; O23.12 Infections of bladder in pregnancy, second trimester; Z3A.26 26 weeks gestation of pregnancy | CPT/HCPCS: 71045; 80048; 81001; 85007; 85027; 85044; 87077; 87086; 87186; 96374; 96375; 99284; J1170; J1200; J7030 ==

== ENCOUNTER 2017-10-23 23:18 | Inpatient (IN) | payer MEDICAID ==
[~2017-10-23] VITALS: Ht 165.1 cm; Wt 67.0 kg
[~2017-10-23 23:18] MED LIST changes: -ACET325T15 PO; -MONT10TA2 PO; -OXYC-395 PO; -PERC10TA27 PO; -PRENCAP PO
[2017-10-23 23:36] VITALS: BP 103/66; PULSE 89; RESP 16; TEMP 98.9; O2SAT 92
[2017-10-24] MEDS ORDERED: SODIUM CHLORID 0.9% 500 ML INJ 500 ML in SYRINGE/BAG 1 EA IV STA (01:39)
[2017-10-24] MEDS ORDERED: SODIUM CHLOR 0.9% 1000 ML INJ 1,000 ML IV SCH ×2 (01:45→03:30)
[2017-10-24 02:18] LABS: HEMATOCRIT 23.7 % (35.0-46.0); HEMOGLOBIN 8.6 GM/DL (11.6-15.3); MEAN CELL VOLUME 91.8 FL (80.0-100.0); MEAN CORPUSCULAR HEMOGLOBIN 33.6 PG (27.0-34.0); MEAN PLATELET VOLUME 7.8 FL (7.0-11.0); PLATELET COUNT 438 TH/MM3 (150-450); RED BLOOD COUNT 2.58 MIL/MM3 (4.00-5.30); RED CELL DISTRIBUTION WIDTH 24.6 % (11.6-17.2); RETIC # 418.3 MIL/L (20.0-150.0); RETIC % 16.2 % (0.4-3.0)
[2017-10-24 02:19] LABS: MEAN CORPUSCULAR HGB CONC 36.5 % (32.0-36.0)
[2017-10-24 02:39] LABS: BICARBONATE 24.2 MEQ/L (21.0-32.0); CALCIUM 9.2 MG/DL (8.5-10.1); CREATININE 0.45 MG/DL (0.50-1.00)
[2017-10-24 02:57] LABS: BANDS 1 % (0-6); CORRECTED NUCLEATED RBC 24 /100 WBC (0-0); LYMPHOCYTES 11 % (9-44); MONOCYTES 13 % (0-8); NUCLEATED RED BLOOD CELL 24 (0-0); POLYS (SEG NEUTROPHILS) 75 % (16-70)
[2017-10-24 02:58] LABS: POLYCHROMASIA 3.8 % (0.0-1.9); SICKLE CELLS 3+ (NORMAL)
[2017-10-24 02:59] LABS: HOWELL-JOLLY BODIES PRESENT (NONE SEEN)
[2017-10-24 03:00] LABS: TOXIC VACUOLATION PRESENT (NONE SEEN)
[2017-10-24] MEDS ORDERED: PRENCAP PO (03:10)
[2017-10-24 03:15] LABS: BACTERIA, URINE RARE /hpf; BILIRUBIN, URINE NEG (NEG); BLOOD, URINE NEG (NEG); GLUCOSE,URINE NEG (NEG); KETONE, URINE NEG (NEG); MUCUS URINE FEW /lpf (OCC); NITRITE,URINE NEG (NEG); RENAL EPITHELIAL CELLS <1 /hpf; SQUAMOUS EPITHELIAL CELL URINE 8 /hpf (0-5); URINE COLOR YELLOW (YELLW/STRAW); URINE LEUKOCYTE ESTERASE TRACE (NEG)
[2017-10-24] MEDS ORDERED: ONDANSETRON ODT 4 MG TAB SL PRN (03:30)
[2017-10-24] MEDS ORDERED: diphenhydrAMINE HCL 50 MG/ML VIAL IV PRN (03:30)
[2017-10-24] MEDS: diphenhydrAMINE HCL 50 MG/ML VIAL IV PRN ×4 (03:40→20:56)
[2017-10-24] MEDS: LACTATED RINGER'S 1000 ML INJ 1,000 ML IV SCH ×2 (03:40→11:19)
--- NOTE | 2017-10-24 08:54 | PD ---
HPI Chief Complaint Diffuse pain Date Seen: October 24, 2017 Travel History International Travel<30 Days: No Contact w/Intl Traveler<30Days: No Known Affected Area: No History of Present Illness HPI The patient is a very pleasant 22-year-old woman with PMH significant for sickle cell anemia and asthma at 27/2 weeks gestation who presented with complaints of diffuse and severe pain. She states she has been feeling this character pain for about the past 2 weeks duration. She endorses pain primarily in her lower extremities bilaterally. Endorses a less sharp centrally located chest pain, nonpleuritic. She reports possibly having a subjective fever about 2-3 days ago. Denies fevers or chills more recently. She does endorse feeling mildly short of breath as well as having a dry nonproductive cough. Denies urinary complaints, no dysuria or pyuria. She reports history of being hospitalized with a pneumonia about 4 times total in her life. She does not currently have a supply chain planner. She states she last had a supply chain planner about 2 years ago and had been taking folic acid as well as hydroxyurea however these were discontinued as she was having very frequent hospitalizations. She is not currently taking any medications for her sickle cell anemia. She also endorses nausea and vomiting, she reports one episode of emesis nonbloody nonbilious. She reports trying to be adequately hydrated with good p.o. intake of solids at home and denies having symptoms of nausea or vomiting at home prior to her admission here. Para: 0 : 2 Miscarriage: 1 History Past Medical History Narrative Medical Sickle cell anemia Asthma Obstetric History Obstetric History 1 prior miscarriage at about 12-13 weeks gestation Past Surgical History Surgical History: No Previous Surgery Family History Family History: Negative Social History Alcohol Use: No Tobacco Use: No Substance Abuse: No Allergies-Medications (Allergen,Severity, Reaction): Coded Allergies: codeine (Verified Allergy, Intermediate, wheezing, SOB, 10/23/17) Home Meds Reported Medications 57/Iron/Folic/Dss/Dha (Extra-Virt Plus Dha Softgel) 29 Mg Iron-1.25 Mg- 55 Mg-350 Mg Capsule, 1 TAB PO BID 10/24/17 Fluticasone 12 GM Inh (Flovent Hfa 12 GM Inh) 220 Mcg/Act Inh, 2 PUFF INH BID for Asthma Management, #1 INHALER 0 Refills Use daily at the same time. 12/04/16 Albuterol 18 GM Inh (Ventolin Hfa 18 GM Inh) 90 Mcg/Act Aer, 1 PUFF INH Q4H Y for SHORTNESS OF BREATH, INHALER 0 Refills 04/06/16 Discontinued Reported Medications Folic Acid (Folic Acid) 1 Mg Tablet, 1 TAB PO DAILY 11/08/16 Discontinued Scripts Cephalexin (Keflex) 500 Mg Cap, 500 MG PO Q12H for Infection for 7 Days, #14 CAP 0 Refills Prov:Alexia Gamble 10/16/17 Review of Systems Except as stated in HPI: all other systems reviewed are Neg Physical Exam Vital Signs Date Time Temp Pulse Resp B/P (MAP) Pulse Ox O2 Delivery O2 Flow Rate FiO2 10/24/17 07:22 18 10/23/17 23:36 98.9 89 16 103/66 (78) 92 Narrative GENERAL: Well-nourished, well-developed patient. SKIN: Warm and dry. HEAD: Normocephalic and atraumatic. EYES: No scleral icterus. No injection or drainage. ENT: No nasal drainage noted. Mucous membranes pink. Airway patent. NECK: Supple, trachea midline. No JVD. CARDIOVASCULAR: Regular rate and rhythm without murmurs, gallops, or rubs. RESPIRATORY: Breath sounds equal bilaterally. No accessory muscle use. ABDOMEN/GI: Abdomen soft, non-tender, bowel sounds present, no rebound, no guarding Gravid to 27 weeks size Uterine Contractions: Irregular FHT's: Category: I Baseline: 140s Reactive: +accels Variability: Moderate Decels: None noted EXTREMITIES: No cyanosis or edema. BACK: Nontender without obvious deformity. No CVA tenderness. NEUROLOGICAL: Awake and alert. Motor and sensory grossly within normal limits. Normal speech. Data Data Vital Signs Reviewed: Yes Orders Orders Basic Metabolic Panel (Bmp) (10/24/17 01:39) Complete Blood Count With Diff (10/24/17 01:39) Urinalysis - C+S If Indicated (10/24/17 01:39) Ldh Serum (10/24/17 01:39) Retic Count (10/24/17 01:39) Fentanyl Inj (Fentanyl Inj) (10/24/17 01:45) Resp Oxygen Nicanor C Titrat 1-4 L (10/24/17 ) Sodium Chlor 0.9% 1000 Ml Inj (Ns 1000 M (10/24/17 01:45) Sodium Chlorid 0.9% 500 Ml Inj (Ns 500 M (10/24/17 01:39) Ob (2e) Additional Admit Info (10/24/17 02:06) Diphenhydramine Inj (Benadryl Inj) (10/24/17 03:30) Diphenhydramine Inj (Benadryl Inj) (10/24/17 03:30) Ondansetron Odt (Zofran Odt) (10/24/17 03:30) Diet Regular Basic (10/24/17 Breakfast) Sodium Chlor 0.9% 1000 Ml Inj (Ns 1000 M (10/24/17 03:30) Lactated Ringer's 1000 Ml Inj (Lr 1000 M (10/24/17 07:30) Labs Laboratory Tests Test 10/24/17 02:00 10/24/17 02:20 White Blood Count 21.0 Red Blood Count 2.58 Hemoglobin 8.6 Hematocrit 23.7 Mean Corpuscular Volume 91.8 Mean Corpuscular Hemoglobin 33.6 Mean Corpuscular Hemoglobin Concent 36.5 Red Cell Distribution Width 24.6 Platelet Count 438 Mean Platelet Volume 7.8 CBC Comment AUTO DIFF Differential Total Cells Counted 100 Neutrophils % (Manual) 75 Band Neutrophils % 1 Lymphocytes % 11 Monocytes % 13 Neutrophils # (Manual) 16.0 Nucleated Red Blood Cells 24 Differential Comment FINAL DIFF MANUAL Toxic Vacuolation PRESENT Platelet Estimate NORMAL Platelet Morphology Comment NORMAL Polychromasia 3.8 Sickle Cells 3+ Vu-[place] Bodies PRESENT Reticulocyte Count 16.2 Absolute Reticulocyte Count 418.3 Blood Urea Nitrogen 9 Creatinine 0.45 Random Glucose 72 Calcium Level 9.2 Lactate Dehydrogenase 627 Sodium Level 141 Potassium Level 4.3 Chloride Level 106 Carbon Dioxide Level 24.2 Anion Gap 11 Estimat Glomerular Filtration Rate 215 Urine Color YELLOW Urine Turbidity CLEAR Urine pH 7.0 Urine Specific [place] 1.009 Urine Protein NEG Urine Glucose (UA) NEG Urine Ketones NEG Urine Occult Blood NEG Urine Nitrite NEG Urine Bilirubin NEG Urine Urobilinogen LESS THAN 2.0 Urine Leukocyte Esterase TRACE Urine RBC LESS THAN 1 Urine WBC 2 Urine Squamous Epithelial Cells 8 Urine Renal Epithelial Cells <1 Urine Bacteria RARE Urine Mucus FEW Microscopic Urinalysis Comment CULT NOT INDICATED MDM Medical Record Reviewed: Yes Plan 22 year old at 27/2 weeks gestation with PMH significant for sickle cell anemia and asthma admitted with vaso-occlusive pain crisis during her . 1. Sickle cell anemia complicated by vaso-occlusive pain crisis - Pain control attempted initially with Fentanyl 50 mcg IV q1h however noted to not adequately be controlling her pain - Will start patient on a Dilaudid CUB REPORTER pump at 0.2 mg q10 minutes with basal at 1mg/hour, no maximum - Discontinue IV fentanyl - Continue MIVF with LR at 125 cc/hr - Reticulocyte count appropriate, will repeat CBC, retic count, and LDH - Chest pain improving, no hypoxia or increasing O2 requirements, no concerns for acute chest syndrome at this time - Will give patient Pneumovax, as previously recommended by MFM 2. IUP, maguire - Category I tracing, will place patient on continuous EFM while receiving CUB REPORTER with Dilaudid - Monitor FHTs closely as well as maternal VS - Irregular contractions - Patient is following at [facility] with [facility]FM, last seen on 10/15 and noted to have normal amniotic fluid, normal cardiac rate and rhythm, patient was scheduled for rescan in 3 weeks for follow-up growth from that appointment, and recommended to start testing at 32 weeks [address] MD R2 October 24, 2017 08:54
[2017-10-24] MEDS ORDERED: NALOXONE HCL 0.4 MG/ML AMP IV PUSH PRN (10:45)
[2017-10-24] MEDS ORDERED: HYDROmorphone HCL PF 1 MG/ML VIAL IV PUSH SCH (10:45)
--- NOTE | 2017-10-24 11:19 | HHI.HP ---
History & Physical H&P HPI Chief Complaint Diffuse pain Date Seen: October 24, 2017 Travel History International Travel<30 Days: No Contact w/Intl Traveler<30Days: No Known Affected Area: No History of Present Illness HPI The patient is a very pleasant 22-year-old woman with PMH significant for sickle cell anemia and asthma at 27/2 weeks gestation who presented with complaints of diffuse and severe pain. She states she has been feeling this character pain for about the past 2 weeks duration. She endorses pain primarily in her lower extremities bilaterally. Endorses a less sharp centrally located chest pain, nonpleuritic. She reports possibly having a subjective fever about 2-3 days ago. Denies fevers or chills more recently. She does endorse feeling mildly short of breath as well as having a dry nonproductive cough. Denies urinary complaints, no dysuria or pyuria. She reports history of being hospitalized with a pneumonia about 4 times total in her life. She does not currently have a ell tutor. She states she last had a ell tutor about 2 years ago and had been taking folic acid as well as hydroxyurea however these were discontinued as she was having very frequent hospitalizations. She is not currently taking any medications for her sickle cell anemia. She also endorses nausea and vomiting, she reports one episode of emesis nonbloody nonbilious. She reports trying to be adequately hydrated with good p.o. intake of solids at home and denies having symptoms of nausea or vomiting at home prior to her admission here. Para: 0 : 2 Miscarriage: 1 History Past Medical History Narrative Medical Sickle cell anemia Asthma Obstetric History Obstetric History 1 prior miscarriage at about 12-13 weeks gestation Past Surgical History Surgical History: No Previous Surgery Family History Family History: Negative Social History Alcohol Use: No Tobacco Use: No Substance Abuse: No Allergies-Medications (Allergen,Severity, Reaction): Coded Allergies: codeine (Verified Allergy, Intermediate, wheezing, SOB, 10/23/17) Home Meds Reported Medications 57/Iron/Folic/Dss/Dha (Extra-Virt Plus Dha Softgel) 29 Mg Iron-1.25 Mg- 55 Mg-350 Mg Capsule, 1 TAB PO BID 10/24/17 Fluticasone 12 GM Inh (Flovent Hfa 12 GM Inh) 220 Mcg/Act Inh, 2 PUFF INH BID for Asthma Management, #1 INHALER 0 Refills Use daily at the same time. 12/04/16 Albuterol 18 GM Inh (Ventolin Hfa 18 GM Inh) 90 Mcg/Act Aer, 1 PUFF INH Q4H Y for SHORTNESS OF BREATH, INHALER 0 Refills 04/06/16 Discontinued Reported Medications Folic Acid (Folic Acid) 1 Mg Tablet, 1 TAB PO DAILY 11/08/16 Discontinued Scripts Cephalexin (Keflex) 500 Mg Cap, 500 MG PO Q12H for Infection for 7 Days, #14 CAP 0 Refills Prov:Alexia Gamble 10/16/17 Review of Systems Except as stated in HPI: all other systems reviewed are Neg Physical Exam Vital Signs Date Time Temp Pulse Resp B/P (MAP) Pulse Ox O2 Delivery O2 Flow Rate FiO2 10/24/17 07:22 18 10/23/17 23:36 98.9 89 16 103/66 (78) 92 Narrative GENERAL: Well-nourished, well-developed patient. SKIN: Warm and dry. HEAD: Normocephalic and atraumatic. EYES: No scleral icterus. No injection or drainage. ENT: No nasal drainage noted. Mucous membranes pink. Airway patent. NECK: Supple, trachea midline. No JVD. CARDIOVASCULAR: Regular rate and rhythm without murmurs, gallops, or rubs. RESPIRATORY: Breath sounds equal bilaterally. No accessory muscle use. ABDOMEN/GI: Abdomen soft, non-tender, bowel sounds present, no rebound, no guarding Gravid to 27 weeks size Uterine Contractions: Irregular FHT's: Category: I Baseline: 140s Reactive: +accels Variability: Moderate Decels: None noted EXTREMITIES: No cyanosis or edema. BACK: Nontender without obvious deformity. No CVA tenderness. NEUROLOGICAL: Awake and alert. Motor and sensory grossly within normal limits. Normal speech. Data Data Vital Signs Reviewed: Yes Orders Orders Basic Metabolic Panel (Bmp) (10/24/17 01:39) Complete Blood Count With Diff (10/24/17 01:39) Urinalysis - C+S If Indicated (10/24/17 01:39) Ldh Serum (10/24/17 01:39) Retic Count (10/24/17 01:39) Fentanyl Inj (Fentanyl Inj) (10/24/17 01:45) Resp Oxygen Nicanor C Titrat 1-4 L (10/24/17 ) Sodium Chlor 0.9% 1000 Ml Inj (Ns 1000 M (10/24/17 01:45) Sodium Chlorid 0.9% 500 Ml Inj (Ns 500 M (10/24/17 01:39) Ob (2e) Additional Admit Info (10/24/17 02:06) Diphenhydramine Inj (Benadryl Inj) (10/24/17 03:30) Diphenhydramine Inj (Benadryl Inj) (10/24/17 03:30) Ondansetron Odt (Zofran Odt) (10/24/17 03:30) Diet Regular Basic (10/24/17 Breakfast) Sodium Chlor 0.9% 1000 Ml Inj (Ns 1000 M (10/24/17 03:30) Lactated Ringer's 1000 Ml Inj (Lr 1000 M (10/24/17 07:30) Labs Laboratory Tests Test 10/24/17 02:00 10/24/17 02:20 White Blood Count 21.0 Red Blood Count 2.58 Hemoglobin 8.6 Hematocrit 23.7 Mean Corpuscular Volume 91.8 Mean Corpuscular Hemoglobin 33.6 Mean Corpuscular Hemoglobin Concent 36.5 Red Cell Distribution Width 24.6 Platelet Count 438 Mean Platelet Volume 7.8 CBC Comment AUTO DIFF Differential Total Cells Counted 100 Neutrophils % (Manual) 75 Band Neutrophils % 1 Lymphocytes % 11 Monocytes % 13 Neutrophils # (Manual) 16.0 Nucleated Red Blood Cells 24 Differential Comment FINAL DIFF MANUAL Toxic Vacuolation PRESENT Platelet Estimate NORMAL Platelet Morphology Comment NORMAL Polychromasia 3.8 Sickle Cells 3+ Vu-[place] Bodies PRESENT Reticulocyte Count 16.2 Absolute Reticulocyte Count 418.3 Blood Urea Nitrogen 9 Creatinine 0.45 Random Glucose 72 Calcium Level 9.2 Lactate Dehydrogenase 627 Sodium Level 141 Potassium Level 4.3 Chloride Level 106 Carbon Dioxide Level 24.2 Anion Gap 11 Estimat Glomerular Filtration Rate 215 Urine Color YELLOW Urine Turbidity CLEAR Urine pH 7.0 Urine Specific [place]cc[place] 1.009 Urine Protein NEG Urine Glucose (UA) NEG Urine Ketones NEG Urine Occult Blood NEG Urine Nitrite NEG Urine Bilirubin NEG Urine Urobilinogen LESS THAN 2.0 Urine Leukocyte Esterase TRACE Urine RBC LESS THAN 1 Urine WBC 2 Urine Squamous Epithelial Cells 8 Urine Renal Epithelial Cells <1 Urine Bacteria RARE Urine Mucus FEW Microscopic Urinalysis Comment CULT NOT INDICATED MDM Medical Record Reviewed: Yes Plan 22 year old at 27/2 weeks gestation with PMH significant for sickle cell anemia and asthma admitted with vaso-occlusive pain crisis during her . 1. Sickle cell anemia complicated by vaso-occlusive pain crisis - Pain control attempted initially with Fentanyl 50 mcg IV q1h however noted to not adequately be controlling her pain - Will start patient on a Dilaudid TUBE DISPATCHER pump at 0.2 mg q10 minutes with basal at 1mg/hour, no maximum - Discontinue IV fentanyl - Continue MIVF with LR at 125 cc/hr - Reticulocyte count appropriate, will repeat CBC, retic count, and LDH - Chest pain improving, no hypoxia or increasing O2 requirements, no concerns for acute chest syndrome at this time - Will give patient Pneumovax, as previously recommended by [facility] 2. IUP, maguire - Category I tracing, will place patient on continuous EFM while receiving TUBE DISPATCHER with Dilaudid - Monitor FHTs closely as well as maternal VS - Irregular contractions - Patient is following at OB diagnostics with [facility], last seen on 10/15 and noted to have normal amniotic fluid, normal cardiac rate and rhythm, patient was scheduled for rescan in 3 weeks for follow-up growth from that appointment, and recommended to start testing at [address] MD R2 October 24, 2017 11:19
[2017-10-24] MEDS: HYDROmorphone HCL PCA 6 MG/30 ML IV SCH ×2 (11:38→15:37)
[2017-10-24] MEDS ORDERED: PNEUMOCOCCAL POLYVALENT INJ 25 MCG/0.5 ML SYR IM ONE (12:00)
[2017-10-24 12:10] LABS: AUTOMATED NEUTROPHIL # 11.8 TH/MM3 (1.8-7.7); BASOPHIL # 0.1 TH/MM3 (0-0.2); BASOPHIL % 0.3 % (0.0-2.0); EOSINOPHIL % 0.3 % (0.0-4.0); HEMATOCRIT 23.4 % (35.0-46.0); HEMOGLOBIN 8.3 GM/DL (11.6-15.3); LYMPH % 15.4 % (9.0-44.0); LYMPHOCYTE # 2.7 TH/MM3 (1.0-4.8); MEAN CELL VOLUME 92.6 FL (80.0-100.0); MEAN CORPUSCULAR HEMOGLOBIN 32.7 PG (27.0-34.0); MEAN CORPUSCULAR HGB CONC 35.3 % (32.0-36.0); MEAN PLATELET VOLUME 7.8 FL (7.0-11.0); MONO % 17.6 % (0.0-8.0); MONOCYTE # 3.1 TH/MM3 (0-0.9); NEUT % 66.4 % (16.0-70.0); PLATELET COUNT 432 TH/MM3 (150-450); RED BLOOD COUNT 2.53 MIL/MM3 (4.00-5.30); RED CELL DISTRIBUTION WIDTH 23.4 % (11.6-17.2); RETIC # 357.8 MIL/L (20.0-150.0); RETIC % 14.2 % (0.4-3.0); WHITE BLOOD COUNT 17.8 TH/MM3 (4.0-11.0)
[2017-10-24 12:48] LABS: CORRECTED NUCLEATED RBC 32 /100 WBC (0-0); LYMPHOCYTES 7 % (9-44); MONOCYTES 13 % (0-8); NEUTROPHIL # MANUAL DIFF 14.1 TH/MM3 (1.8-7.7); NUCLEATED RED BLOOD CELL 32 (0-0); POLYS (SEG NEUTROPHILS) 79 % (16-70)
[2017-10-24 12:49] LABS: OVALOCYTES 1+ (NORMAL); SICKLE CELLS 2+ (NORMAL); TARGET CELLS 1+ (NORMAL)
[2017-10-24 12:50] LABS: TEARDROP RBCS 1+ (NORMAL)
[2017-10-24] MEDS ORDERED: EUCERIN CREAM 120 GM JAR TOPICAL PRN (14:45)
[2017-10-24] MEDS ORDERED: HYDROmorphone HCL PCA 6 MG/30 ML IV ONE (15:33)
[2017-10-24] MEDS ORDERED: diphenhydrAMINE HCL 50 MG/ML VIAL ONE (17:06)
--- NOTE | 2017-10-24 18:33 | PD.CONS ---
History of Present Illness Service Hematology/oncology. Consult Requested By Inpatient obstetrics service. Reason for Consult Patient with diagnosis of hemoglobin sickle cell disease (SS) presenting with sickle cell crisis for the past 2 weeks. Primary Care Physician No Primary Care Physician Diagnoses: History of Present Illness Chief complaint: Generalized skeletal pain for the past 2 weeks. Pain particularly is intense in her legs. History of presenting illness: Ms. Canas is a 22-year-old female who is at 27 months gestation, she is . 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 She had been primarily following with her primary care physician and intermittently had been seeing a pediatric set up mechanic at the [facility]. The patient tells me she has been in the process of trying to establish hematology follow-up with an adult set up mechanic. Presently she is not on any disease modifying therapy and reports not having been on hydroxyurea for well over one year. Ms. Canas reports developing muscular skeletal aches and pains consistent with a typical sickle cell pain crisis about 2 weeks ago, she had been trying to control her pain with extra strength Tylenol tablets and oral hydration. Her symptoms progressed and she presented to [facility] on 10/24/2017 for further evaluation. She is currently in the OB observation unit, she is receiving IV fluid hydration with Ringer's lactate and is also on a hydromorphone PUMP SERVICER pump. She tells me her pain control is slightly improved with the PUMP SERVICER pump. Additional issues include hypoxia, she is currently dependent on oxygen supplementation via nasal cannula to maintain O2 sats over 94%. The OB nurse was at bedside, the nurse reports the monitor indicates decelerations when the patient uses her Hydromorphone PUMP SERVICER. Review of Systems Constitutional: COMPLAINS OF: Fatigue, Weight gain, DENIES: Diaphoretic episodes, Fever, Weight loss, Chills, Dizziness, Change in appetite, Night Sweats Endocrine: DENIES: Abnorml menstrual pattern, Heat/cold intolerance, Polydipsia , Polyuria, Polyphagia Eyes: DENIES: Blurred vision, Diplopia, Eye inflammation, Eye pain, Vision loss , Photosensitivity, Double Vision Ears, nose, mouth, throat: DENIES: Tinnitus, Hearing loss, Vertigo, Nasal discharge, Oral lesions, Throat pain, Hoarseness, Ear Pain, Running Nose, Epistaxis, Sinus Pain, Toothache, Odynophagia Respiratory: COMPLAINS OF: Apneas (At nighttime), Wheezing (Has history of asthma), Shortness of breath, DENIES: Cough, Snoring, Hemoptysis, Sputum production Cardiovascular: COMPLAINS OF: Palpitations, Dyspnea on Exertion, Lower Extremity Edema, DENIES: Chest pain, Syncope, PND, Orthopnea, Claudication Gastrointestinal: COMPLAINS OF: Nausea, DENIES: Abdominal pain, Black stools, Bloody stools, Constipation, Diarrhea, Vomiting, Difficulty Swallowing, Anorexia Genitourinary: COMPLAINS OF: Abnormal vaginal bleeding, DENIES: Dysmenorrhea, Dyspareunia, Sexual dysfunction, Urinary frequency, Urinary incontinence, Urgency, Hematuria, Dysuria, Nocturia, Vaginal discharge Musculoskeletal: COMPLAINS OF: Joint pain, Muscle aches, Stiffness, Back pain, Neck pain, DENIES: Joint Swelling Integumentary: DENIES: Abnormal pigmentation, Pruritus, Rash, Nail changes, Breast masses, Breast skin changes, Nipple discharge Hematologic/lymphatic: DENIES: Bruising, Lymphadenopathy Immunologic/allergic: DENIES: Eczema, Urticaria Neurologic: COMPLAINS OF: Headache, DENIES: Abnormal gait, Localized weakness, Paresthesias, Seizures, Speech Problems, Tremor, Poor Balance Psychiatric: COMPLAINS OF: Anxiety, Confusion, DENIES: Mood changes, Depression , Hallucinations, Agitation, Suicidal Ideation, Homicidal Ideation, Delusions Except as stated in HPI: all other systems reviewed are Neg Past Family Social History Allergies: Coded Allergies: codeine (Verified Allergy, Intermediate, wheezing, SOB, 10/23/17) Past Medical History Hemoglobin sickle cell disease. Asthma Sleep apnea Recurrent pain crises Multiple red cell transfusions Reported history of acute chest syndrome Past Surgical History She denies any major surgical interventions. Active Ordered Medications Half normal saline 1 25 cc/h Diphenhydramine 25 milligrams IV every 4 hours needed for itching hydromorphone via PUMP SERVICER pump intravenous Zofran 4 mg p.o. every 4 hours needed for nausea and vomiting Naloxone 0.4 mg IV push as needed for respiratory suppression. Family History Mother: Sickle cell trait and hypertension. Father: Sickle cell trait. Social History Lives at home with her mother, high school graduate. Previously had been working at a [employer]. Physical Exam Vital Signs Vital Signs Date Time Temp Pulse Resp B/P (MAP) Pulse Ox O2 Delivery O2 Flow Rate FiO2 10/24/17 12:23 16 10/24/17 07:22 18 10/23/17 23:36 98.9 89 16 103/66 (78) 92 Physical Exam GENERAL: Young female sitting up in bed, appears to be in pain, she does not appear to be in respiratory distress. She has nasal cannulas on. SKIN: No rashes, ecchymoses or lesions. Cool and dry. HEAD: Atraumatic. Normocephalic. No temporal or scalp tenderness. EYES: Pupils equal round and reactive. Extraocular motions intact. No injection or drainage. Conjunctivae are pale sclerae mildly icteric ENT: Nose without bleeding, purulent drainage or septal hematoma. Throat without erythema, tonsillar hypertrophy or exudate. Uvula midline. Airway patent. NECK: Trachea midline. No JVD or lymphadenopathy. Supple, nontender, no meningeal signs. CARDIOVASCULAR: Regular rate and rhythm without murmurs, gallops, or rubs. RESPIRATORY: Clear to auscultation. Breath sounds equal bilaterally. No wheezes , rales, or rhonchi. GASTROINTESTINAL: Gravid abdomen no palpable organ enlargement noted no tenderness. MUSCULOSKELETAL: Extremities without clubbing, cyanosis, or edema. No joint tenderness, effusion, or edema noted. No calf tenderness. Negative Homans sign bilaterally. Reports tenderness involving the legs NEUROLOGICAL: Awake and alert. Cranial nerves II through XII intact. Motor and sensory grossly within normal limits. Five out of 5 muscle strength in all muscle groups. Normal speech. Laboratory Laboratory Tests Test 10/24/17 02:00 10/24/17 02:20 10/24/17 11:45 White Blood Count 21.0 17.8 Red Blood Count 2.58 2.53 Hemoglobin 8.6 8.3 Hematocrit 23.7 23.4 Mean Corpuscular Volume 91.8 92.6 Mean Corpuscular Hemoglobin 33.6 32.7 Mean Corpuscular Hemoglobin Concent 36.5 35.3 Red Cell Distribution Width 24.6 23.4 Platelet Count 438 432 Mean Platelet Volume 7.8 7.8 CBC Comment AUTO DIFF AUTO DIFF Differential Total Cells Counted 100 100 Neutrophils % (Manual) 75 79 Band Neutrophils % 1 Lymphocytes % 11 7 Monocytes % 13 13 Neutrophils # (Manual) 16.0 14.1 Nucleated Red Blood Cells 24 32 Differential Comment FINAL DIFF MANUAL FINAL DIFF MANUAL Toxic Vacuolation PRESENT Platelet Estimate NORMAL HIGH Platelet Morphology Comment NORMAL NORMAL Polychromasia 3.8 Sickle Cells 3+ 2+ Vu-[place] Bodies PRESENT Reticulocyte Count 16.2 14.2 Absolute Reticulocyte Count 418.3 357.8 Blood Urea Nitrogen 9 Creatinine 0.45 Random Glucose 72 Calcium Level 9.2 Lactate Dehydrogenase 627 542 Sodium Level 141 Potassium Level 4.3 Chloride Level 106 Carbon Dioxide Level 24.2 Anion Gap 11 Estimat Glomerular Filtration Rate 215 Urine Color YELLOW Urine Turbidity CLEAR Urine pH 7.0 Urine Specific [place] 1.009 Urine Protein NEG Urine Glucose (UA) NEG Urine Ketones NEG Urine Occult Blood NEG Urine Nitrite NEG Urine Bilirubin NEG Urine Urobilinogen LESS THAN 2.0 Urine Leukocyte Esterase TRACE Urine RBC LESS THAN 1 Urine WBC 2 Urine Squamous Epithelial Cells 8 Urine Renal Epithelial Cells <1 Urine Bacteria RARE Urine Mucus FEW Microscopic Urinalysis Comment CULT NOT INDICATED Neutrophils (%) (Auto) 66.4 Lymphocytes (%) (Auto) 15.4 Monocytes (%) (Auto) 17.6 Eosinophils (%) (Auto) 0.3 Basophils (%) (Auto) 0.3 Neutrophils # (Auto) 11.8 Lymphocytes # (Auto) 2.7 Monocytes # (Auto) 3.1 Eosinophils # (Auto) 0.0 Basophils # (Auto) 0.1 Eosinophils % 1 Target Cells 1+ Tear Drop Cells 1+ Ovalocytes 1+ Result Diagram: 10/24/17 1145 10/24/17 0200 Imaging Chest x-ray dated 10/16/2017: Normal examination for patient of this age noted.no significant changes symmetric aeration of the lungs. No infiltrates or effusions. Mediastinal contours are unremarkable. Osseous structures are intact. Assessment and Plan Assessment and Plan Ms. Garcia is a 22-year-old female with a diagnosis of hemoglobin sickle cell disease, she is 27 weeks . She presents for further workup and management of a sickle cell pain crisis. Patient reports her current crisis started about 2 weeks ago and has not responded to oral hydration and oral analgesia (patient had been using extra strength Tylenol tablets at home). Hematology has been asked to see her to help manage her sickle cell crisis. Plan: 1. Sickle cell pain crisis: I would recommend hydration with a hypotonic saline solution to help intracellular hydration of the red cells and in doing so help prevent further sickling. Continue oxygen supplementation. I will initiate incentive spirometry as this has been shown to decrease hospitalization length and help improve pain control. Continue analgesia with the hydromorphone PUMP SERVICER pump, if she is not requiring as needed dosing every hour I would recommend transitioning her to an oral opioid analgesic. I would have a low threshold for transfusing red blood cells to manage her pain crisis because she is . Consider DVT prophylaxis with Lovenox. 2. Hypoxia: May be related to sickle cell disease. Consider obtaining an echocardiogram to assess right heart function and to rule out pulmonary hypertension. Discussed Condition With Patient and obstetrics nurse. Ian Liu MD October 24, 2017 18:33
[2017-10-24] MEDS: PCA - TOTAL MG DILAUDID DELIVERED PER SHIFT OTHER SCH ×2 (19:15→22:00)
[2017-10-24] MEDS: SODIUM CHLOR 0.45% 1000 ML INJ 1,000 ML IV SCH (21:05)
[2017-10-24] MEDS: hydrOXYzine HCL 25 MG TAB PO PRN (22:31)
[2017-10-25] MEDS: ACETAMINOPHEN 325 MG TAB PO PRN ×2 (00:59→17:20)
[2017-10-25] MEDS: diphenhydrAMINE HCL 50 MG/ML VIAL IV PRN ×5 (00:59→21:28)
[2017-10-25] MEDS: SODIUM CHLOR 0.45% 1000 ML INJ 1,000 ML IV SCH ×3 (02:00→22:41)
[2017-10-25] MEDS: PCA - TOTAL MG DILAUDID DELIVERED PER SHIFT OTHER SCH ×3 (05:59→22:00)
[2017-10-25] MEDS: hydrOXYzine HCL 25 MG TAB PO PRN ×3 (06:04→18:25)
--- NOTE | 2017-10-25 08:38 | PD.OB.ANTE ---
Subjective Diagnosis: (1) Sickle cell anemia with pain (2) Sickle cell disease Interval History 27 week intrauterine with sickle cell crisis she has a required a Dilaudid pump for pain control and still complains of pain in her legs mainly also is having a lot of itching from the narcotic. She has noted a very small amount of spotting after she has been checked a couple of times. I did a speculum exam last night because they described a discharge that time. The speculum exam was negative for any abnormality and her cervix is closed and posterior, her NST is reactive she is not keo. She was seen by hem onc last night and they recommended an echo for today to rule out pulmonary hypertension since she had had a decrease in her O2 sat in the night also decrease in respiratory rate and a maternal bradycardia Objective Vital Signs Vital Signs Date Time Temp Pulse Resp B/P (MAP) Pulse Ox O2 Delivery O2 Flow Rate FiO2 10/25/17 05:59 16 10/25/17 04:02 16 10/24/17 22:36 Nasal Cannula 2.00 10/24/17 22:00 16 10/24/17 21:04 16 10/24/17 19:15 18 10/24/17 12:23 16 Lab & Micro Results Test 10/24/17 11:45 White Blood Count 17.8 TH/MM3 Red Blood Count 2.53 MIL/MM3 Hemoglobin 8.3 GM/DL Hematocrit 23.4 % Mean Corpuscular Volume 92.6 FL Mean Corpuscular Hemoglobin 32.7 PG Mean Corpuscular Hemoglobin Concent 35.3 % Red Cell Distribution Width 23.4 % Platelet Count 432 TH/MM3 Mean Platelet Volume 7.8 FL Neutrophils (%) (Auto) 66.4 % Lymphocytes (%) (Auto) 15.4 % Monocytes (%) (Auto) 17.6 % Eosinophils (%) (Auto) 0.3 % Basophils (%) (Auto) 0.3 % Neutrophils # (Auto) 11.8 TH/MM3 Lymphocytes # (Auto) 2.7 TH/MM3 Monocytes # (Auto) 3.1 TH/MM3 Eosinophils # (Auto) 0.0 TH/MM3 Basophils # (Auto) 0.1 TH/MM3 CBC Comment AUTO DIFF Differential Total Cells Counted 100 Neutrophils % (Manual) 79 % Lymphocytes % 7 % Monocytes % 13 % Eosinophils % 1 % Neutrophils # (Manual) 14.1 TH/MM3 Nucleated Red Blood Cells 32 /100 WBC Differential Comment FINAL DIFF MANUAL Platelet Estimate HIGH Platelet Morphology Comment NORMAL Sickle Cells 2+ Target Cells 1+ Tear Drop Cells 1+ Ovalocytes 1+ Reticulocyte Count 14.2 % Absolute Reticulocyte Count 357.8 MIL/L Lactate Dehydrogenase 542 U/L Physical Exam GENERAL: Well-nourished, well-developed patient. CARDIOVASCULAR: Regular rate and rhythm without murmurs, gallops, or rubs. RESPIRATORY: Breath sounds equal bilaterally. No accessory muscle use. ABDOMEN/GI: Abdomen soft, non-tender. Fundus: [-] GENITOURINARY: External Genitalia: intact and normal in appearance Cervix: [-] Dilatation: [-0] Effacement: [0-] Station: [-3] [-] Membranes: [Intact-] Uterine Contractions: [-none] FHT's: Category: [1-] Baseline: [133-] Reactive: [-R] Variability: [-mod] Decels: [0-] EXTREMITIES: No cyanosis or edema, non-tender, without signs of DVT. Assessment and Plan Assessment and Plan 27 week intrauterine with sickle cell crisis on a Dilaudid pump plan to try and switch that over to p.o. Dilaudid today As recommended by hem onc to get echo to evaluate right-sided heart function and pulmonary artery pressure Also recommended by Hem onc starting Lovenox will begin 40 subcu daily Justin Montenegro II, MD October 25, 2017 08:38
[2017-10-25] MEDS: ENOXAPARIN SODIUM 40 MG/0.4 ML SYRINGE SQ SCH (10:17)
--- NOTE | 2017-10-25 10:41 | ECHRPT ---
Indication: Shortness Of Breath CONCLUSIONS Normal left ventricular size and wall thickness. The left ventricular systolic function is normal wi th an estimated ejection fraction in the range of 60-65%. Normal wall motion. Normal right ventricular size and systolic function. Structurally normal mitral valve. Mild mitral valve regurgitation. There is mild tricuspid regurgitation. The estimated pulmonary arterial pressure is 40 mmHg. There is a trivial pericardial effusion present. BP: / HR: 89 Rhythm: Sinus MEASUREMENTS (Male / Female) Normal Values Technical Quality:Fair 2D ECHO LV Diastolic Diameter PLAX 5.5 cm 4.2 - 5.9 / 3.9 - 5.3 cm LV Systolic Diameter PLAX 3.9 cm IVS Diastolic Thickness 0.8 cm 0.6 - 1.0 / 0.6 - 0.9 cm LVPW Diastolic Thickness 0.8 cm 0.6 - 1.0 / 0.6 - 0.9 cm LV Relative Wall Thickness 0.3 RV Internal Dim ED PLAX 3.0 cm LVOT Diameter 2.1 cm LA Systolic Diameter LX 3.5 cm 3.0 - 4.0 / 2.7 - 3.8 cm M-MODE Aortic Root Diameter MM 2.3 cm LA Systolic Diameter MM 3.6 cm LA Ao Ratio MM 1.6 AV Cusp Separation MM 1.9 cm DOPPLER AV Peak Velocity 175.0 cm/s AV Peak Gradient 12.3 mmHg LVOT Peak Velocity 128.0 cm/s LVOT Peak Gradient 6.6 mmHg AV Area Cont Eq pk 2.5 cm MV Area PHT 4.3 cm Mitral E Point Velocity 145.0 cm/s Mitral A Point Velocity 48.0 cm/s Mitral E to A Ratio 3.0 LV E' Lateral Velocity 17.5 cm/s Mitral E to LV E' Lateral Ratio 8.3 LV E' Septal Velocity 13.2 cm/s Mitral E to LV E' Septal Ratio 11.0 TR Peak Velocity 279.0 cm/s TR Peak Gradient 31.1 mmHg Right Atrial Pressure 10.0 mmHg Pulmonary Artery Systolic Pressu 41.1 mmHg Right Ventricular Systolic Press 41.1 mmHg FINDINGS LEFT VENTRICLE Normal left ventricular size and wall thickness. The left ventricular systolic function is normal wi th an estimated ejection fraction in the range of 60-65%. Normal wall motion. RIGHT VENTRICLE Normal right ventricular size and systolic function. LEFT ATRIUM The left atrial size is normal. RIGHT ATRIUM The right atrial size is normal. ATRIAL SEPTUM Normal atrial septal thickness without atrial level shunting by limited color doppler interrogation. AORTA The aortic root and proximal ascending aorta are normal in size on limited imaging. MITRAL VALVE Structurally normal mitral valve. Mild mitral valve regurgitation. AORTIC VALVE Trileaflet aortic valve. No aortic valve stenosis or regurgitation. TRICUSPID VALVE Structurally normal tricuspid valve. There is mild tricuspid regurgitation. The estimated pulmonary arterial pressure is 40 mmHg. PULMONARY VALVE Mild pulmonary valve regurgitation. VESSELS The inferior vena cava is normal in size. PERICARDIUM There is a trivial pericardial effusion present. Ken Chavarria MD (Electronically Signed) Final Date:25 Oct 2017 10:40
[2017-10-25 13:24] LABS: AUTOMATED NEUTROPHIL # 10.7 TH/MM3 (1.8-7.7); BASOPHIL # 0.1 TH/MM3 (0-0.2); BASOPHIL % 0.3 % (0.0-2.0); EOSINOPHIL # 0.2 TH/MM3 (0-0.4); EOSINOPHIL % 1.1 % (0.0-4.0); HEMOGLOBIN 7.4 GM/DL (11.6-15.3); MEAN CELL VOLUME 90.2 FL (80.0-100.0); MEAN PLATELET VOLUME 7.6 FL (7.0-11.0); MONO % 17.1 % (0.0-8.0); MONOCYTE # 2.7 TH/MM3 (0-0.9); NEUT % 68.5 % (16.0-70.0); PLATELET COUNT 371 TH/MM3 (150-450); RED BLOOD COUNT 2.25 MIL/MM3 (4.00-5.30); RED CELL DISTRIBUTION WIDTH 23.1 % (11.6-17.2); RETIC # 250.8 MIL/L (20.0-150.0); RETIC % 11.2 % (0.4-3.0); WHITE BLOOD COUNT 15.7 TH/MM3 (4.0-11.0)
[2017-10-25 13:29] LABS: MEAN CORPUSCULAR HGB CONC 36.6 % (32.0-36.0)
[2017-10-25 13:32] LABS: HEMATOCRIT 20.3 % (35.0-46.0)
[2017-10-25] MEDS: HYDROmorphone HCL PCA 6 MG/30 ML IV SCH (13:50)
[2017-10-25 13:51] LABS: BICARBONATE 27.4 MEQ/L (21.0-32.0); CALCIUM 8.4 MG/DL (8.5-10.1); CREATININE 0.47 MG/DL (0.50-1.00)
[2017-10-25 14:01] LABS: BANDS 1 % (0-6); CORRECTED NUCLEATED RBC 13 /100 WBC (0-0); LYMPHOCYTES 11 % (9-44); MONOCYTES 22 % (0-8); NEUTROPHIL # MANUAL DIFF 10.5 TH/MM3 (1.8-7.7); NUCLEATED RED BLOOD CELL 13 (0-0); POLYS (SEG NEUTROPHILS) 66 % (16-70); SICKLE CELLS 1+ (NORMAL)
[2017-10-25 14:02] LABS: POLYCHROMASIA 2.1 % (0.0-1.9)
[2017-10-25 14:04] LABS: HOWELL-JOLLY BODIES PRESENT (NONE SEEN)
--- NOTE | 2017-10-25 14:10 | PD.ONC.PN ---
Subjective Subjective Remarks Patient reports she feels better but still has pain Denies any shortness of breath at rest Per antepartum RN, they are planning to transition her from the GALLEY STRIPPER pump to oral analgesics later today Objective Data Date Time Temp Pulse Resp B/P (MAP) Pulse Ox O2 Delivery O2 Flow Rate FiO2 10/25/17 13:50 17 10/25/17 13:45 17 10/25/17 05:59 16 10/25/17 04:02 16 10/24/17 22:36 Nasal Cannula 2.00 10/24/17 22:00 16 10/24/17 21:04 16 10/24/17 19:15 18 Result Diagram: 10/25/17 1312 10/25/17 1312 Laboratory Results Laboratory Tests Test 10/25/17 13:12 White Blood Count 15.7 TH/MM3 Red Blood Count 2.25 MIL/MM3 Hemoglobin 7.4 GM/DL Hematocrit 20.3 % Mean Corpuscular Volume 90.2 FL Mean Corpuscular Hemoglobin 33.0 PG Mean Corpuscular Hemoglobin Concent 36.6 % Red Cell Distribution Width 23.1 % Platelet Count 371 TH/MM3 Mean Platelet Volume 7.6 FL Neutrophils (%) (Auto) 68.5 % Lymphocytes (%) (Auto) 13.0 % Monocytes (%) (Auto) 17.1 % Eosinophils (%) (Auto) 1.1 % Basophils (%) (Auto) 0.3 % Neutrophils # (Auto) 10.7 TH/MM3 Lymphocytes # (Auto) 2.0 TH/MM3 Monocytes # (Auto) 2.7 TH/MM3 Eosinophils # (Auto) 0.2 TH/MM3 Basophils # (Auto) 0.1 TH/MM3 CBC Comment AUTO DIFF Differential Total Cells Counted 100 Neutrophils % (Manual) 66 % Band Neutrophils % 1 % Lymphocytes % 11 % Monocytes % 22 % Neutrophils # (Manual) 10.5 TH/MM3 Nucleated Red Blood Cells 13 /100 WBC Differential Comment FINAL DIFF MANUAL Platelet Estimate NORMAL Platelet Morphology Comment NORMAL Polychromasia 2.1 % Sickle Cells 1+ Vu-[place] Bodies PRESENT Reticulocyte Count 11.2 % Absolute Reticulocyte Count 250.8 MIL/L Blood Urea Nitrogen 4 MG/DL Creatinine 0.47 MG/DL Random Glucose 89 MG/DL Calcium Level 8.4 MG/DL Lactate Dehydrogenase 573 U/L Sodium Level 138 MEQ/L Potassium Level 4.0 MEQ/L Chloride Level 104 MEQ/L Carbon Dioxide Level 27.4 MEQ/L Anion Gap 7 MEQ/L Estimat Glomerular Filtration Rate 204 ML/MIN Administered Medications Medications (Trade) Dose Ordered Sig/[place]apito Route PRN Reason Start Time Stop Time Status Last Admin Dose Admin Diphenhydramine HCl (Benadryl Inj) 25 mg Q4H PRN IV PAIN 1-5 10/24/17 03:30 10/25/17 11:42 Diphenhydramine HCl (Benadryl Inj) 25 mg Q4H PRN IV FOR REPEAT DOSE FOR PAIN 5-10 10/24/17 03:30 10/24/17 03:50 Ondansetron HCl (Zofran Odt) 4 mg Q4H PRN SL NAUSEA OR VOMITING 10/24/17 03:30 10/25/17 00:58 Hydromorphone HCl (Dilaudid GALLEY STRIPPER Inj) 6 mg UNSCH IV 10/24/17 10:45 10/25/17 13:50 GALLEY STRIPPER Dosage Infused (Pha) 1 Q8HR OTHER 10/24/17 14:00 10/25/17 13:45 Multi-Ingredient Ointment (Eucerin Cream) 1 applic Q6H PRN TOPICAL ITCHING, dry skin 10/24/17 14:45 10/24/17 21:05 Sodium Chloride 1,000 ml @ 125 mls/hr Q8H IV 10/24/17 18:00 10/25/17 11:37 Hydroxyzine HCl (Atarax) 25 mg Q6H PRN PO ITCHING 10/24/17 21:45 10/25/17 11:42 Acetaminophen (Tylenol) 650 mg Q4H PRN PO HEADACHE OR FEVER 10/25/17 01:00 10/25/17 00:59 Enoxaparin Sodium (Lovenox Inj) 40 mg Q24H SQ 10/25/17 09:00 10/25/17 10:17 Objective Remarks GENERAL: Young female resting in bed in no obvious distress SKIN: Warm and dry. HEAD: Normocephalic. EYES: No scleral icterus. No injection or drainage. NECK: Supple, trachea midline. No JVD or lymphadenopathy. CARDIOVASCULAR: Regular rate and rhythm without murmurs. RESPIRATORY: clear anteriorly. Breathing unlabored at rest. GASTROINTESTINAL: Abdomen soft, non-tender, nondistended. EXTREMITIES: No cyanosis MUSCULOSKELETAL: Adequate muscle tone. NEUROLOGICAL: No obvious focal deficit. Awake, alert, and oriented x3. Assessment/Plan Problem List: (1) Sickle cell disease ICD Codes: D57.1 - Sickle-cell disease without crisis Status: Acute Assessment Ms. Canas is a 22-year-old female who is at 27 months gestation, she is . 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 She had been primarily following with her primary care physician and intermittently had been seeing a pediatric assembler camper at the [facility]. The patient tells me she has been in the process of trying to establish hematology follow-up with an adult assembler camper. Presently she is not on any disease modifying therapy and reports not having been on hydroxyurea for well over one year. Ms. Canas reports developing muscular skeletal aches and pains consistent with a typical sickle cell pain crisis about 2 weeks ago, she had been trying to control her pain with extra strength Tylenol tablets and oral hydration. Her symptoms progressed and she presented to [facility] on 10/24/2017 for further evaluation. She is currently in the OB observation unit, she is receiving IV fluid hydration with Ringer's lactate and is also on a hydromorphone GALLEY STRIPPER pump. She tells me her pain control is slightly improved with the GALLEY STRIPPER pump. Additional issues include hypoxia, she is currently dependent on oxygen supplementation via nasal cannula to maintain O2 sats over 94%. Plan 1. Continue hypotonic IV fluids. 2. Reviewed echocardiogram; there does not appear to be any sign of right heart dysfunction 3. Noted antepartum team started Lovenox; monitor for bleeding 4. Monitor CBC, reticulocyte count Attending Statement The exam, history, and the medical decision-making described in the above note were completed with the assistance of the mid-level provider. I reviewed and agree with the findings presented. I attest that I had a [id number] encounter with the patient on the same day, and personally performed and documented my assessment and findings in the medical record. Patient seen and examined, vital signs, labs, medications and overnight events reviewed. Case discussed with the patient's nurse as well as the obstetrics attending physician. Overnight, the patient had periods of bradycardia and desaturation. She had been on the GALLEY STRIPPER pump with a basal infusion rate. Basal infusion rate of the hydromorphone was discontinued. She has not had desaturations or bradycardic episodes since then. Patient tells me her pain persists and involves mostly her legs. She has had no additional bleeding vaginally since yesterday evening. Patient underwent echocardiogram yesterday, she was noted to have normal cardiac function without evidence of right heart or right ventricular hypertrophy. Peak pulmonary arterial pressure was 40 mmHg which is within normal limits. I have advised continuing hydration with half normal saline, continue analgesia with hydromorphone GALLEY STRIPPER pump. Proceed with 1 unit packed red blood cell transfusion for hemoglobin 7.4 g/dL. I will arrange outpatient follow-up with myself to coordinate hydration in the clinic. Hopefully periodic and routine hydration will prevent additional pain crises or mitigate them. Plan discussed with the patient's nurse and attending. May Clark October 25, 2017 14:10 Ian Liu MD October 25, 2017 15:00
[2017-10-25] MEDS ORDERED: ACETAMINOPHEN 325 MG TAB PO PRN (14:30)
[2017-10-25] MEDS ORDERED: SODIUM CHLOR 0.9% 250 ML INJ 250 ML IV ONE (14:30)
[2017-10-25] MEDS ORDERED: diphenhydrAMINE HCL 25 MG CAP PO PRN (14:30)
--- NOTE | 2017-10-25 16:12 | RADRPT ---
EXAM DATE: 10/25/2017 4:07 PM EDT AGE/SEX: 22 years / Female INDICATIONS: Leg swelling. CLINICAL DATA: This is the patient's initial encounter. Patient reports that signs and symptoms have been present for 1 day and indicates a pain score of 4/10. MEDICAL/SURGICAL HISTORY: Asthma. Sickle Cell disease. Chronic back pain. . COMPARISON: . No external comparison. TECHNIQUE: Venous ultrasound of both lower extremities was performed from the inguinal ligament to t he proximal calf. Real-time, color Doppler and spectral tracing, compression and augmentation techni ques were used. FINDINGS: Right Leg: There is normal compressibility of the deep venous system from the inguinal region to the proximal calf. No echogenic clot is seen in the lumen of the common femoral, femoral, popliteal, an d posterior tibial veins. There is a normal response of the venous system to proximal and distal aug mentation and respiration. Left Leg: There is normal compressibility of the deep venous system from the inguinal region to the proximal calf. No echogenic clot is seen in the lumen of the common femoral, femoral, popliteal, and posterior tibial veins. There is a normal response of the venous system to proximal and distal augm entation and respiration. CONCLUSION: 1. The study is negative for bilateral lower extremity deep venous thrombosis. Electronically signed by: Vineet Araiza MD 10/25/2017 4:10 PM EDT
[2017-10-25 17:49] VITALS: BP 111/58; PULSE 99; RESP 19; TEMP 99.2; O2SAT 96
[2017-10-25 18:01] VITALS: BP 116/61; PULSE 106; RESP 17; TEMP 98.7; O2SAT 98
[2017-10-25 20:19] VITALS: BP 118/54; PULSE 101; RESP 16; TEMP 98.4; O2SAT 98
[2017-10-25 20:30] VITALS: O2SAT 96
[2017-10-26] MEDS: hydrOXYzine HCL 25 MG TAB PO PRN ×2 (00:49→21:43)
[2017-10-26] MEDS: diphenhydrAMINE HCL 50 MG/ML VIAL IV PRN ×2 (02:14→11:35)
[2017-10-26] MEDS: PCA - TOTAL MG DILAUDID DELIVERED PER SHIFT OTHER SCH (06:00)
[2017-10-26] MEDS: SODIUM CHLOR 0.45% 1000 ML INJ 1,000 ML IV SCH ×3 (06:01→22:22)
[2017-10-26 07:00] VITALS: RESP 16
[2017-10-26] MEDS: HYDROmorphone HCL PCA 6 MG/30 ML IV SCH (07:00)
[2017-10-26 07:16] LABS: AUTOMATED NEUTROPHIL # 9.7 TH/MM3 (1.8-7.7); BASOPHIL # 0.1 TH/MM3 (0-0.2); BASOPHIL % 0.4 % (0.0-2.0); EOSINOPHIL # 0.3 TH/MM3 (0-0.4); EOSINOPHIL % 1.8 % (0.0-4.0); HEMATOCRIT 24.6 % (35.0-46.0); HEMOGLOBIN 9.1 GM/DL (11.6-15.3); LYMPH % 14.6 % (9.0-44.0); LYMPHOCYTE # 2.1 TH/MM3 (1.0-4.8); MEAN CELL VOLUME 92.2 FL (80.0-100.0); MEAN PLATELET VOLUME 7.9 FL (7.0-11.0); MONO % 16.2 % (0.0-8.0); MONOCYTE # 2.3 TH/MM3 (0-0.9); PLATELET COUNT 328 TH/MM3 (150-450); RED BLOOD COUNT 2.67 MIL/MM3 (4.00-5.30); RETIC # 262.9 MIL/L (20.0-150.0); RETIC % 9.9 % (0.4-3.0); WHITE BLOOD COUNT 14.5 TH/MM3 (4.0-11.0)
[2017-10-26 07:17] LABS: MEAN CORPUSCULAR HGB CONC 36.9 % (32.0-36.0)
[2017-10-26 07:28] LABS: BICARBONATE 28.1 MEQ/L (21.0-32.0); CALCIUM 8.3 MG/DL (8.5-10.1); CREATININE 0.48 MG/DL (0.50-1.00)
[2017-10-26 09:03] LABS: CORRECTED NUCLEATED RBC 14 /100 WBC (0-0); HOWELL-JOLLY BODIES PRESENT (NONE SEEN); LYMPHOCYTES 17 % (9-44); MONOCYTES 15 % (0-8); NEUTROPHIL # MANUAL DIFF 9.7 TH/MM3 (1.8-7.7); NUCLEATED RED BLOOD CELL 14 (0-0); POLYS (SEG NEUTROPHILS) 67 % (16-70); SICKLE CELLS 1+ (NORMAL)
[2017-10-26] MEDS: ENOXAPARIN SODIUM 40 MG/0.4 ML SYRINGE SQ SCH (09:39)
--- NOTE | 2017-10-26 09:44 | PD.OB.ANTE ---
Subjective Diagnosis: (1) Sickle cell anemia with pain Diagnosis: Principal (2) Sickle cell disease Diagnosis: Principal Interval History 22 yo at 27/4 weeks with h/o sickle cell anemia admitted for pain crisis. Still feels "a little rough" regarding pain, primarily in BLE and chest. Does not feel short of breath. Overall improved from admission but not 100%. Antepartum ROS: Reports: movement normal, Denies: New complaints, Loss of fluid, Vaginal bleeding, Contractions Objective Vital Signs Vital Signs Date Time Temp Pulse Resp B/P (MAP) Pulse Ox O2 Delivery O2 Flow Rate FiO2 10/26/17 07:00 16 10/26/17 06:00 16 10/25/17 22:00 16 10/25/17 20:30 96 Nasal Cannula 1.00 10/25/17 20:19 98.4 101 16 118/54 98 10/25/17 18:01 98.7 106 17 116/61 98 10/25/17 17:49 99.2 99 19 111/58 96 10/25/17 13:50 17 10/25/17 13:45 17 Intake & Output 10/26/17 10/26/17 07:00 19:00 Intake Total 430 ml Balance 430 ml Packed Cells 400 ml Blood Product IV Normal Saline Flush 30 ml Lab & Micro Results Test 10/25/17 13:12 10/26/17 06:50 White Blood Count 15.7 TH/MM3 14.5 TH/MM3 Red Blood Count 2.25 MIL/MM3 2.67 MIL/MM3 Hemoglobin 7.4 GM/DL 9.1 GM/DL Hematocrit 20.3 % 24.6 % Mean Corpuscular Volume 90.2 FL 92.2 FL Mean Corpuscular Hemoglobin 33.0 PG 34.0 PG Mean Corpuscular Hemoglobin Concent 36.6 % 36.9 % Red Cell Distribution Width 23.1 % 21.0 % Platelet Count 371 TH/MM3 328 TH/MM3 Mean Platelet Volume 7.6 FL 7.9 FL Neutrophils (%) (Auto) 68.5 % 67.0 % Lymphocytes (%) (Auto) 13.0 % 14.6 % Monocytes (%) (Auto) 17.1 % 16.2 % Eosinophils (%) (Auto) 1.1 % 1.8 % Basophils (%) (Auto) 0.3 % 0.4 % Neutrophils # (Auto) 10.7 TH/MM3 9.7 TH/MM3 Lymphocytes # (Auto) 2.0 TH/MM3 2.1 TH/MM3 Monocytes # (Auto) 2.7 TH/MM3 2.3 TH/MM3 Eosinophils # (Auto) 0.2 TH/MM3 0.3 TH/MM3 Basophils # (Auto) 0.1 TH/MM3 0.1 TH/MM3 CBC Comment AUTO DIFF AUTO DIFF Differential Total Cells Counted 100 100 Neutrophils % (Manual) 66 % 67 % Band Neutrophils % 1 % Lymphocytes % 11 % 17 % Monocytes % 22 % 15 % Neutrophils # (Manual) 10.5 TH/MM3 9.7 TH/MM3 Nucleated Red Blood Cells 13 /100 WBC 14 /100 WBC Differential Comment FINAL DIFF MANUAL FINAL DIFF MANUAL Platelet Estimate NORMAL NORMAL Platelet Morphology Comment NORMAL NORMAL Polychromasia 2.1 % 2.0 % Sickle Cells 1+ 1+ Vu-[place] Bodies PRESENT PRESENT Reticulocyte Count 11.2 % 9.9 % Absolute Reticulocyte Count 250.8 MIL/L 262.9 MIL/L Blood Urea Nitrogen 4 MG/DL 5 MG/DL Creatinine 0.47 MG/DL 0.48 MG/DL Random Glucose 89 MG/DL 75 MG/DL Calcium Level 8.4 MG/DL 8.3 MG/DL Lactate Dehydrogenase 573 U/L Sodium Level 138 MEQ/L 139 MEQ/L Potassium Level 4.0 MEQ/L 4.0 MEQ/L Chloride Level 104 MEQ/L 104 MEQ/L Carbon Dioxide Level 27.4 MEQ/L 28.1 MEQ/L Anion Gap 7 MEQ/L 7 MEQ/L Estimat Glomerular Filtration Rate 204 ML/MIN 200 ML/MIN Eosinophils % 1 % Physical Exam GENERAL: Well-nourished, well-developed patient. CARDIOVASCULAR: Regular rate and rhythm, loud blowing 2/6 MIGUEL ÁNGEL heard best at LUSB RESPIRATORY: Breath sounds equal bilaterally. No accessory muscle use. ABDOMEN/GI: Abdomen soft, non-tender. FHT's: Category: 1 Baseline: 150 Reactive: Y Variability: moderate Decels: None EXTREMITIES: No cyanosis or edema, non-tender, without signs of DVT. Assessment and Plan Problem List: (1) Sickle cell anemia with pain ICD Codes: D57.00 - Hb-SS disease with crisis Status: Acute (2) Sickle cell disease ICD Codes: D57.1 - Sickle-cell disease without crisis Status: Chronic Assessment and Plan 27 week intrauterine with sickle cell crisis 1. Sickle Cell pain - Switch to oral tylenol scheduled 1 gm Q6H, oxycodone 5-10 mg PO Q4H PRN for pain scale, Dilaudid 0.2 mg Q3H IV PRN for breakthrough - Heme/onc consulted, appreciate recs - hydration with a hypotonic saline solution to help intracellular hydration of the red cells and in doing so help prevent further sickling - Continue oxygen supplementation - incentive spirometry as this has been shown to decrease hospitalization length and help improve pain control - low threshold for transfusing red blood cells to manage her pain crisis because she is . - Will give 1 unit leuk-reduced RBC today 2. Hypoxia - Down to only 1 L nasal cannula; likely was due to anemia - Echocardiogram showed EF 60-65%, no significant valvular disease, and PA pressure of 40 mmHg - Lower extremity US bilateral negative for DVT - Transfuse 1 unit as above - Attempt to wean oxygen after transfusion - If symptoms develop will obtain chest x-ray Disposition: anticipate additional 1-2 day LOS for management of pain crisis German Garduno MD R2 October 26, 2017 09:43
[2017-10-26 09:54] VITALS: O2SAT 100
[2017-10-26] MEDS ORDERED: ACETAMINOPHEN 500 MG CPLT PO SCH (10:00)
--- NOTE | 2017-10-26 10:14 | PD.ONC.PN ---
Subjective Subjective Remarks Afebrile overnight Per antepartum RN the patient does drop into the 80s on ambulation Denies shortness of breath at rest Reports the pain in her legs is improved however she has somewhat worsening pain in her chest Reports overall she is feeling better Reports there is no blood on tissue paper when she wipes Objective Data Date Time Temp Pulse Resp B/P (MAP) Pulse Ox O2 Delivery O2 Flow Rate FiO2 10/26/17 09:54 100 Nasal Cannula 1.00 10/26/17 07:00 16 10/26/17 06:00 16 10/25/17 22:00 16 10/25/17 20:30 96 Nasal Cannula 1.00 10/25/17 20:19 98.4 101 16 118/54 98 10/25/17 18:01 98.7 106 17 116/61 98 10/25/17 17:49 99.2 99 19 111/58 96 10/25/17 13:50 17 10/25/17 13:45 17 Result Diagram: 10/26/17 0650 10/26/17 0650 Laboratory Results Laboratory Tests Test 10/25/17 13:12 10/26/17 06:50 White Blood Count 15.7 TH/MM3 14.5 TH/MM3 Red Blood Count 2.25 MIL/MM3 2.67 MIL/MM3 Hemoglobin 7.4 GM/DL 9.1 GM/DL Hematocrit 20.3 % 24.6 % Mean Corpuscular Volume 90.2 FL 92.2 FL Mean Corpuscular Hemoglobin 33.0 PG 34.0 PG Mean Corpuscular Hemoglobin Concent 36.6 % 36.9 % Red Cell Distribution Width 23.1 % 21.0 % Platelet Count 371 TH/MM3 328 TH/MM3 Mean Platelet Volume 7.6 FL 7.9 FL Neutrophils (%) (Auto) 68.5 % 67.0 % Lymphocytes (%) (Auto) 13.0 % 14.6 % Monocytes (%) (Auto) 17.1 % 16.2 % Eosinophils (%) (Auto) 1.1 % 1.8 % Basophils (%) (Auto) 0.3 % 0.4 % Neutrophils # (Auto) 10.7 TH/MM3 9.7 TH/MM3 Lymphocytes # (Auto) 2.0 TH/MM3 2.1 TH/MM3 Monocytes # (Auto) 2.7 TH/MM3 2.3 TH/MM3 Eosinophils # (Auto) 0.2 TH/MM3 0.3 TH/MM3 Basophils # (Auto) 0.1 TH/MM3 0.1 TH/MM3 CBC Comment AUTO DIFF AUTO DIFF Differential Total Cells Counted 100 100 Neutrophils % (Manual) 66 % 67 % Band Neutrophils % 1 % Lymphocytes % 11 % 17 % Monocytes % 22 % 15 % Neutrophils # (Manual) 10.5 TH/MM3 9.7 TH/MM3 Nucleated Red Blood Cells 13 /100 WBC 14 /100 WBC Differential Comment FINAL DIFF MANUAL FINAL DIFF MANUAL Platelet Estimate NORMAL NORMAL Platelet Morphology Comment NORMAL NORMAL Polychromasia 2.1 % 2.0 % Sickle Cells 1+ 1+ Vu-[place] Bodies PRESENT PRESENT Reticulocyte Count 11.2 % 9.9 % Absolute Reticulocyte Count 250.8 MIL/L 262.9 MIL/L Blood Urea Nitrogen 4 MG/DL 5 MG/DL Creatinine 0.47 MG/DL 0.48 MG/DL Random Glucose 89 MG/DL 75 MG/DL Calcium Level 8.4 MG/DL 8.3 MG/DL Lactate Dehydrogenase 573 U/L Sodium Level 138 MEQ/L 139 MEQ/L Potassium Level 4.0 MEQ/L 4.0 MEQ/L Chloride Level 104 MEQ/L 104 MEQ/L Carbon Dioxide Level 27.4 MEQ/L 28.1 MEQ/L Anion Gap 7 MEQ/L 7 MEQ/L Estimat Glomerular Filtration Rate 204 ML/MIN 200 ML/MIN Eosinophils % 1 % Administered Medications Medications (Trade) Dose Ordered Sig/[place] Route PRN Reason Start Time Stop Time Status Last Admin Dose Admin Diphenhydramine HCl (Benadryl Inj) 25 mg Q4H PRN IV ITCHING SCALE 1-5 10/24/17 03:30 10/26/17 02:14 Diphenhydramine HCl (Benadryl Inj) 25 mg Q4H PRN IV REPEAT DOSE DOSE ITCHING 5-10 10/24/17 03:30 10/24/17 03:50 Ondansetron HCl (Zofran Odt) 4 mg Q4H PRN SL NAUSEA OR VOMITING 10/24/17 03:30 10/25/17 00:58 Multi-Ingredient Ointment (Eucerin Cream) 1 applic Q6H PRN TOPICAL ITCHING, dry skin 10/24/17 14:45 10/24/17 21:05 Sodium Chloride 1,000 ml @ 125 mls/hr Q8H IV 10/24/17 18:00 10/26/17 06:01 Hydroxyzine HCl (Atarax) 25 mg Q6H PRN PO ITCHING 10/24/17 21:45 10/26/17 00:49 Enoxaparin Sodium (Lovenox Inj) 40 mg Q24H SQ 10/25/17 09:00 10/26/17 09:39 Acetaminophen (Tylenol) 1,000 mg Q6H PO 10/26/17 10:00 10/26/17 09:40 Objective Remarks GENERAL: Young female resting in bed in no obvious distress SKIN: Warm and dry. HEAD: Normocephalic. EYES: No scleral icterus. No injection or drainage. NECK: Supple, trachea midline. No JVD or lymphadenopathy. CARDIOVASCULAR: Regular rate and rhythm without murmurs. RESPIRATORY: clear anteriorly. Breathing unlabored at rest. GASTROINTESTINAL: + EXTREMITIES: No cyanosis MUSCULOSKELETAL: Adequate muscle tone. NEUROLOGICAL: No obvious focal deficit. Awake, alert, and oriented x3. Assessment/Plan Problem List: (1) Sickle cell disease ICD Codes: D57.1 - Sickle-cell disease without crisis Status: Acute Assessment Ms. Canas is a 22-year-old female who is at 27 months gestation, she is . 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 She had been primarily following with her primary care physician and intermittently had been seeing a pediatric student liaison officer at the [facility]. The patient tells me she has been in the process of trying to establish hematology follow-up with an adult student liaison officer. Presently she is not on any disease modifying therapy and reports not having been on hydroxyurea for well over one year. Ms. Canas reports developing muscular skeletal aches and pains consistent with a typical sickle cell pain crisis about 2 weeks ago, she had been trying to control her pain with extra strength Tylenol tablets and oral hydration. Her symptoms progressed and she presented to [facility] on 10/24/2017 for further evaluation. She is currently in the OB observation unit, she is receiving IV fluid hydration with Ringer's lactate and is also on a hydromorphone REMEDIATION TECHNICIAN pump. She tells me her pain control is slightly improved with the REMEDIATION TECHNICIAN pump. Additional issues include hypoxia, she is currently dependent on oxygen supplementation via nasal cannula to maintain O2 sats over 94%. Plan 1. Continue IV fluids 2. Continue to monitor CBC; hemoglobin much improved after packed red blood cells yesterday. 3. Supportive care Attending Statement The exam, history, and the medical decision-making described in the above note were completed with the assistance of the mid-level provider. I reviewed and agree with the findings presented. I attest that I had a [id number] encounter with the patient on the same day, and personally performed and documented my assessment and findings in the medical record. Patient was seen and examined, labs, vital signs reviewed. Medications also reviewed. Overall, patient reports improvement in her pain, she is no longer on the hydromorphone REMEDIATION TECHNICIAN infusion pump. She is now on oral analgesics and is tolerating that well. Her pain is presently localized to her lower back. She denies overt bleeding. Oxygen requirements are decreasing and she is ambulating more comfortably. She remains on IV fluid hydration. She tells me her baby is active and has been taking. Clinical exam was positive for decreased bibasilar breath sounds with inspiratory crackles. The patient tells me she is only using her incentive spirometer's to 3 times a day. I have encouraged her to use the incentive spirometer 5-10 times per hour while she is awake. Recommendations: Continue IV fluid hydration. Continue pain control with oral analgesics. I will order a heat pack or warming blanket for her lower back. May Clark October 26, 2017 10:14 Ian Liu MD October 26, 2017 18:20
[2017-10-26] MEDS: ACETAMINOPHEN 325 MG TAB PO SCH ×3 (11:00→22:24)
[2017-10-26] MEDS: HYDROmorphone HCL PF 0.5 MG/0.5 ML SYRINGE IV PUSH PRN ×2 (14:11→19:59)
[2017-10-26] MEDS ORDERED: DOCUSATE SODIUM 100 MG CAP PO PRN (18:00)
[2017-10-27] MEDS: SODIUM CHLOR 0.45% 1000 ML INJ 1,000 ML IV SCH (02:00)
[2017-10-27] MEDS: ACETAMINOPHEN 325 MG TAB PO SCH (06:26)
--- NOTE | 2017-10-27 08:01 | PD.OB.ANTE ---
Subjective Diagnosis: (1) Sickle cell anemia with pain Diagnosis: Principal (2) Sickle cell disease Diagnosis: Principal Interval History 22 yo at 27/5 weeks with h/o sickle cell anemia admitted for pain crisis. Patient reports she is doing better, states that pain is well controlled. Still complaints of BL back pain and LE pain, stable. Does not feel short of breath. O2 saturation at 100% on 1 L NC. Antepartum ROS: Reports: movement normal, Denies: Loss of fluid, Vaginal bleeding, Contractions Objective Vital Signs Vital Signs Date Time Temp Pulse Resp B/P (MAP) Pulse Ox O2 Delivery O2 Flow Rate FiO2 10/26/17 09:54 100 Nasal Cannula 1.00 Physical Exam GENERAL: Well-nourished, well-developed patient. CARDIOVASCULAR: Regular rate and rhythm without murmurs, gallops, or rubs. RESPIRATORY: Breath sounds equal bilaterally. No accessory muscle use. ABDOMEN/GI: Abdomen soft, non-tender. gravid at 27 weeks GENITOURINARY: External Genitalia: intact and normal in appearance Uterine Contractions: none FHT's: 145 EXTREMITIES: No cyanosis or edema, non-tender, without signs of DVT. Assessment and Plan Problem List: (1) Sickle cell anemia with pain ICD Codes: D57.00 - Hb-SS disease with crisis Status: Acute (2) Sickle cell disease ICD Codes: D57.1 - Sickle-cell disease without crisis Status: Chronic Assessment and Plan 27 week intrauterine with sickle cell crisis 1. Sickle Cell pain - Switch to oral tylenol scheduled 1 gm Q6H, oxycodone 5-10 mg PO Q4H PRN for pain scale, Dilaudid 0.2 mg Q3H IV PRN for breakthrough - Heme/onc consulted, appreciate recs - hydration with a hypotonic saline solution to help intracellular hydration of the red cells and in doing so help prevent further sickling - incentive spirometry as this has been shown to decrease hospitalization length and help improve pain control - s/p 1 unit leuk-reduced RBC on 10/25 with appropriate response 2. Hypoxia - Down to only 1 L nasal cannula; likely was due to anemia - Echocardiogram showed EF 60-65%, no significant valvular disease, and PA pressure of 40 mmHg - Lower extremity US bilateral negative for DVT - Attempt to wean oxygen after transfusion - If symptoms develop will obtain chest x-ray Disposition: anticipate discharge today pending results of oxygen walk test Jose Scruggs MD, R1 October 27, 2017 08:01
[2017-10-27] MEDS: ENOXAPARIN SODIUM 40 MG/0.4 ML SYRINGE SQ SCH (09:25)
[2017-10-27] MEDS ORDERED: ACET325T15 PO (10:08)
[2017-10-27] MEDS ORDERED: OXYC-395 PO (10:08)
--- NOTE | 2017-10-27 10:15 | HHI.DCPOC ---
Discharge Care Plan Diagnosis: (1) 27 weeks gestation of (2) Sickle cell anemia with pain (3) Sickle cell pain crisis Goals to Promote Your Health * To prevent worsening of your condition and complications * To maintain your health at the optimal level Directions to Meet Your Goals Take your medications as prescribed Follow your dietary instruction Follow activity as directed Keep your appointments as scheduled Take your immunizations and boosters as scheduled If your symptoms worsen call your PCP, if no PCP go to Urgent Care Center or Emergency Room Smoking is Dangerous to Your Health. Avoid second hand smoke Call the 24-hour hour crisis hotline for domestic abuse at Jose Scrugsg MD, R1 October 27, 2017 10:15
--- NOTE | 2017-10-27 10:47 | PD.ONC.PN ---
Subjective Subjective Remarks Patient seen and examined, vital signs, labs, medications and overnight events reviewed. Patient is preparing to go home this morning, she reports her pain is improved and the heating pad helped a lot to control the lower back pain. She denies difficulty breathing this morning, she had a walk test and her O2 sats remained over 92% while walking, at rest her O2 sats are 95% on room air. Clinically she appears to be doing well. Objective Data Result Diagram: 10/26/17 0650 10/26/17 0650 Administered Medications Medications (Trade) Dose Ordered Sig/Papito Route PRN Reason Start Time Stop Time Status Last Admin Dose Admin Diphenhydramine HCl (Benadryl Inj) 25 mg Q4H PRN IV ITCHING SCALE 1-5 10/24/17 03:30 10/26/17 11:35 Diphenhydramine HCl (Benadryl Inj) 25 mg Q4H PRN IV REPEAT DOSE DOSE ITCHING 5-10 10/24/17 03:30 10/24/17 03:50 Ondansetron HCl (Zofran Odt) 4 mg Q4H PRN SL NAUSEA OR VOMITING 10/24/17 03:30 10/25/17 00:58 Multi-Ingredient Ointment (Eucerin Cream) 1 applic Q6H PRN TOPICAL ITCHING, dry skin 10/24/17 14:45 10/24/17 21:05 Sodium Chloride 1,000 ml @ 125 mls/hr Q8H IV 10/24/17 18:00 10/27/17 02:00 Hydroxyzine HCl (Atarax) 25 mg Q6H PRN PO ITCHING 10/24/17 21:45 10/26/17 21:43 Enoxaparin Sodium (Lovenox Inj) 40 mg Q24H SQ 10/25/17 09:00 10/27/17 09:25 Diphenhydramine HCl (Benadryl) 25 mg Q4H PRN PO SEE LABEL COMMENTS 10/25/17 14:30 10/27/17 09:41 Oxycodone HCl (Roxicodone) 10 mg Q4H PRN PO PAIN SCALE 6 TO 10 10/26/17 09:30 10/27/17 07:21 Hydromorphone HCl (Dilaudid Pf Inj) 0.2 mg Q3H PRN IV PUSH BREAKTHROUGH PAIN 5/27/18 09:30 10/26/17 19:59 Acetaminophen (Tylenol) 650 mg Q6H PO 10/26/17 11:00 10/27/17 06:26 Docusate Sodium (Colace) 100 mg BID PRN PO CONSTIPATION 10/26/17 18:00 10/26/17 18:04 Objective Remarks GENERAL: Young female sitting up at bedside, nurses in the room with her. Patient denies acute complaints. SKIN: Warm and dry. HEAD: Normocephalic. EYES: No scleral icterus. No injection or drainage. NECK: Supple, trachea midline. No JVD or lymphadenopathy. CARDIOVASCULAR: Regular rate and rhythm without murmurs. RESPIRATORY: clear anteriorly. Breathing unlabored at rest. GASTROINTESTINAL: + EXTREMITIES: No cyanosis MUSCULOSKELETAL: Adequate muscle tone. NEUROLOGICAL: No obvious focal deficit. Awake, alert, and oriented x3. Assessment/Plan Problem List: (1) Sickle cell disease ICD Codes: D57.1 - Sickle-cell disease without crisis Status: Acute Assessment Ms. Canas is a 22-year-old female who is at 27 months gestation, she is . 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 She had been primarily following with her primary care physician and intermittently had been seeing a pediatric office admin at the [facility]. The patient tells me she has been in the process of trying to establish hematology follow-up with an adult office admin. Presently she is not on any disease modifying therapy and reports not having been on hydroxyurea for well over one year. Ms. Canas reports developing muscular skeletal aches and pains consistent with a typical sickle cell pain crisis about 2 weeks ago, she had been trying to control her pain with extra strength Tylenol tablets and oral hydration. Her symptoms progressed and she presented to [facility] on 10/24/2017 for further evaluation. She is currently in the OB observation unit, she is receiving IV fluid hydration with Ringer's lactate and is also on a hydromorphone SENIOR CLIENT ADVISOR pump. She tells me her pain control is slightly improved with the SENIOR CLIENT ADVISOR pump. Additional issues include hypoxia, she is currently dependent on oxygen supplementation via nasal cannula to maintain O2 sats over 94%. Plan 1. Hemoglobin sickle cell disease: I will see her in my office this week to coordinate outpatient hydration. Due to her frequent pain crises she will be candidate for red cell exchange transfusions. I may want to wait until after she delivers her baby to initiate this. 2. I have advised the patient to continue using the incentive spirometer at home. 3. I have advised her to hydrate herself aggressively at home with water and salt-containing solutions. I have provided her my office phone number as well as my new patient referral's office phone number. Her face sheet was faxed over to my new patient referral office to coordinate outpatient follow-up. Ian Liu MD October 27, 2017 10:47
--- NOTE | 2017-10-28 11:16 | HHI.DS ---
Discharge Summary Admission Date October 24, 2017 at 10:50 Discharge Date: October 27, 2017 Admitting Diagnosis Sickle cell pain crisis (1) Sickle cell pain crisis Diagnosis: Principal ICD Codes: D57.00 - Sickle cell pain crisis Status: Acute (2) 27 weeks gestation of Diagnosis: Principal ICD Codes: Z3A.27 - 27 weeks gestation of Consultants Hematology- Dr. Liu CBC/BMP: 10/26/17 0650 10/26/17 0650 Significant Findings Laboratory Tests Test 10/25/17 13:12 10/26/17 06:50 White Blood Count 15.7 TH/MM3 (4.0-11.0) 14.5 TH/MM3 (4.0-11.0) Red Blood Count 2.25 MIL/MM3 (4.00-5.30) 2.67 MIL/MM3 (4.00-5.30) Hemoglobin 7.4 GM/DL (11.6-15.3) 9.1 GM/DL (11.6-15.3) Hematocrit 20.3 % (35.0-46.0) 24.6 % (35.0-46.0) Mean Corpuscular Hemoglobin Concent 36.6 % (32.0-36.0) 36.9 % (32.0-36.0) Red Cell Distribution Width 23.1 % (11.6-17.2) 21.0 % (11.6-17.2) Monocytes (%) (Auto) 17.1 % (0.0-8.0) 16.2 % (0.0-8.0) Neutrophils # (Auto) 10.7 TH/MM3 (1.8-7.7) 9.7 TH/MM3 (1.8-7.7) Monocytes # (Auto) 2.7 TH/MM3 (0-0.9) 2.3 TH/MM3 (0-0.9) Monocytes % 22 % (0-8) 15 % (0-8) Neutrophils # (Manual) 10.5 TH/MM3 (1.8-7.7) 9.7 TH/MM3 (1.8-7.7) Nucleated Red Blood Cells 13 /100 WBC (0-0) 14 /100 WBC (0-0) Polychromasia 2.1 % (0.0-1.9) 2.0 % (0.0-1.9) Sickle Cells 1+ (NORMAL) 1+ (NORMAL) Reticulocyte Count 11.2 % (0.4-3.0) 9.9 % (0.4-3.0) Absolute Reticulocyte Count 250.8 MIL/L (20.0-150.0) 262.9 MIL/L (20.0-150.0) Blood Urea Nitrogen 4 MG/DL (7-18) 5 MG/DL (7-18) Creatinine 0.47 MG/DL (0.50-1.00) 0.48 MG/DL (0.50-1.00) Calcium Level 8.4 MG/DL (8.5-10.1) 8.3 MG/DL (8.5-10.1) Lactate Dehydrogenase 573 U/L (84-246) Hospital Course 22 yo at 27/5 weeks with h/o sickle cell anemia admitted for management of sickle cell pain crisis. Hematology was consulted. Patient received 1 unit of PRBCs with appropriate response. Pain was initially controlled with [employer] UT[employer] SUPERVISOR pump and she was then transitioned to po Roxicodone. Patient reported improvement of pain and SBO. Patient passed oxygen walk test prior to discharge. Patient was hemodynamically stable upon discharge. Patient was advised to f/u with OB doctor within a wk and hematology as an outpatient. Pt Condition on Discharge: Stable Discharge Disposition: Discharge Home Discharge Instructions DIET: Follow Instructions for: As Tolerated, No Restrictions Activities you can perform: Regular-No Restrictions Follow up Referrals: Hematology - 1 Week with Ian Liu MD SURVEY RESEARCH MANAGER - 10/29/17 with Joselo Hernández MD New Medications: Acetaminophen (Eq Acetaminophen) 325 Mg Tab 650 MG PO Q6H, #30 TAB Oxycodone (Oxycodone) 10 Mg Tab 10 MG PO Q4H PRN for PAIN SCALE 6 TO 10, #10 TAB Continued Medications: Albuterol 18 GM Inh (Ventolin Hfa 18 GM Inh) 90 Mcg/Act Aer 1 PUFF INH Q4H PRN for SHORTNESS OF BREATH, INHALER 0 Refills Fluticasone 12 GM Inh (Flovent Hfa 12 GM Inh) 220 Mcg/Act Inh 2 PUFF INH BID for Asthma Management, #1 INHALER 0 Refills Use daily at the same time. 57/Iron/Folic/Dss/Dha (Extra-Virt Plus Dha Softgel) 29 Mg Iron-1.25 Mg- 55 Mg-350 Mg Capsule 1 TAB PO BID Jose Scruggs MD, R1 October 28, 2017 11:16
== END 2017-10-27 10:44 | disposition home or self-care (01) | DRG 781 ==
LOC: HOBED 23:18 → H2EA 10-24 02:07 → OBSVTOIN 10-24 10:50
PROVIDERS: ADMIT Obstetrics & Gynecology; ATTEND Obstetrics & Gynecology
PROC: 30233N1 Transfusion of Nonautologous Red Blood Cells into Peripheral Vein, Percutaneous Approach (ICD-10-PCS; principal; 2017-10-25)
DX: O99.012 Anemia complicating pregnancy, second trimester (principal); D57.00 Hb-SS disease with crisis, unspecified; R00.1 Bradycardia, unspecified; O99.89 Other specified diseases and conditions complicating pregnancy, childbirth and the puerperium; O99.512 Diseases of the respiratory system complicating pregnancy, second trimester; J45.909 Unspecified asthma, uncomplicated; R09.02 Hypoxemia; M79.605 Pain in left leg; M79.604 Pain in right leg; O9A.212 Injury, poisoning and certain other consequences of external causes complicating pregnancy, second trimester; L29.9 Pruritus, unspecified; T50.995A Adverse effect of other drugs, medicaments and biological substances, initial encounter; Z3A.27 27 weeks gestation of pregnancy; Z87.01 Personal history of pneumonia (recurrent); Z23 Encounter for immunization
CPT/HCPCS: 36430; 80048; 81001; 83615; 85007; 85027; 85044; 86850; 86900; 86901; 86920; 86922; 90732; 93306; 93970; 94150; 94618; J1170; J1200; J1650; J3010; J7030; J7050; J7120; P9016

== ENCOUNTER 2017-10-30 00:08 | Inpatient (IN) | payer MEDICAID ==
[2017-10-30] VITALS (7 sets, daily range): BP systolic 111–134; BP diastolic 51–65; PULSE 82–101; RESP 16–18; TEMP 97.9–98.2; O2SAT 94–100
[~2017-10-30] VITALS: Ht 165.1 cm; Wt 68.0 kg
[~2017-10-30 00:08] MED LIST changes: +ACET325T15 PO; -CEPH-460 PO; -FOLI1TAB6 PO; +OXYC-395 PO; +PRENCAP PO
--- NOTE | 2017-10-30 00:56 | PD ---
HPI Chief Complaint Abdominal, back, and lower extremity pain Date Seen: October 30, 2017 Time Seen: 00:52 Travel History International Travel<30 Days: No Contact w/Intl Traveler<30Days: No Known Affected Area: No History of Present Illness HPI 22-year-old who is at 28 weeks 1 day comes in complaining of pain which is most likely from a sickle cell crisis. Patient was admitted about a week ago due to pain crisis and was treated with hydration 1 unit of transfusion and pain medication. She was discharged home on oxycodone 10 mg which she states has not helped and feels that she is gotten steadily worse since the first day after her discharge. Patient has a urine culture that was resulted from 15 October that shows it was positive for 100,000 colonies of E. coli and sensitivities are noted in the chart but she did not unfortunately receive any antibiotics at that time. Patient also had multiple episodes of oxygen desaturation that improved as patient's hematocrit increased and was placed on O2 with nasal cannula at that time. Patient had a hematology oncology consultation while she was here to help with care. Weeks Gestation: 28 Para: 0 : 2 Miscarriage: 1 History Past Medical History Narrative Medical Sickle cell disease Asthma well-controlled with inhaler Obstetric History Obstetric History Spontaneous miscarriage Past Surgical History Surgical History: No Previous Surgery Family History Family History: Negative Social History Alcohol Use: No Tobacco Use: No Substance Abuse: No Allergies-Medications (Allergen,Severity, Reaction): Coded Allergies: codeine (Verified Allergy, Intermediate, wheezing, SOB, 10/23/17) Home Meds Active Scripts Acetaminophen (Eq Acetaminophen) 325 Mg Tab, 650 MG PO Q6H, #30 TAB Prov:Brandy Malhotra MD R2 10/27/17 Oxycodone (Oxycodone) 10 Mg Tab, 10 MG PO Q4H Y for PAIN SCALE 6 TO 10, #10 TAB Prov:Brandy Malhotra MD R2 10/27/17 Reported Medications 57/Iron/Folic/Dss/Dha (Extra-Virt Plus Dha Softgel) 29 Mg Iron-1.25 Mg- 55 Mg-350 Mg Capsule, 1 TAB PO BID 10/24/17 Fluticasone 12 GM Inh (Flovent Hfa 12 GM Inh) 220 Mcg/Act Inh, 2 PUFF INH BID for Asthma Management, #1 INHALER 0 Refills Use daily at the same time. 12/04/16 Albuterol 18 GM Inh (Ventolin Hfa 18 GM Inh) 90 Mcg/Act Aer, 1 PUFF INH Q4H Y for SHORTNESS OF BREATH, INHALER 0 Refills 04/06/16 Discontinued Reported Medications Folic Acid (Folic Acid) 1 Mg Tablet, 1 TAB PO DAILY 11/08/16 Discontinued Scripts Cephalexin (Keflex) 500 Mg Cap, 500 MG PO Q12H for Infection for 7 Days, #14 CAP 0 Refills Prov:Alexia Gamble 10/16/17 Review of Systems Except as stated in HPI: all other systems reviewed are Neg Physical Exam Narrative GENERAL: Well-nourished, well-developed patient. SKIN: Warm and dry. HEAD: Normocephalic and atraumatic. EYES: No scleral icterus. No injection or drainage. ENT: No nasal drainage noted. Mucous membranes pink. Airway patent. NECK: Supple, trachea midline. No JVD. CARDIOVASCULAR: Regular rate and rhythm without murmurs, gallops, or rubs. RESPIRATORY: Breath sounds equal bilaterally. No accessory muscle use. ABDOMEN/GI: Abdomen soft, non-tender, bowel sounds present, no rebound, no guarding Gravid to [26-] weeks size Fundal Height: [-] GENITOURINARY: Deferred External Genitalia: intact and normal in appearance BUS glands: [-] Cervix: [-] Dilatation: [-] Effacement: [-] Station: [-] Presentation: [-] Membranes: [intact or ruptured] Uterine Contractions: [-] FHT's: Category: [-] 1 Baseline: [-] 140 Reactive: [-] Moderate Variability: [-] Moderate Decels: [-] Absent EXTREMITIES: No cyanosis or edema. BACK: Nontender without obvious deformity. No CVA tenderness. NEUROLOGICAL: Awake and alert. Motor and sensory grossly within normal limits. Five out of 5 muscle strength in all muscle groups. Normal speech. Data Data Vital Signs Reviewed: Yes [facility] Medical Record Reviewed: Yes Plan 22-year-old G1 to P1 who is at 28 weeks gestation will sickle cell disease and most likely vaso-occlusive crisis episode that has not resolved since her admission 2 weeks ago Patient is also experiencing some dizziness and occasional desaturation episodes most likely due to anemia of made worse by her sickle cell status Asthma under good control Urinary tract infection with culture showing sensitivity profile -Rocephin will be given to her on this admission Pain crisis will be controlled using [employer] MAINFRAME SYSTEMS PROGRAMMER Goal for hematocrit would be 35% Diagnosis Diagnosis: Primary Impression: 28 weeks gestation of Additional Impressions: Sickle cell crisis Anemia affecting in second trimester Asthma affecting in second trimester Urinary tract infection during in third trimester, antepartum Vanessa Sanabria MD October 30, 2017 00:56
[2017-10-30] MEDS ORDERED: LACTATED RINGER'S 1000 ML INJ 1,000 ML IV ONE (01:15)
[2017-10-30] MEDS ORDERED: diphenhydrAMINE HCL 50 MG/ML VIAL IV PUSH PRN (01:15)
[2017-10-30] MEDS ORDERED: SODIUM CHLORIDE 0.9% FLUSH 10 ML FLUSH IV FLUSH PRN (01:15)
[2017-10-30] MEDS ORDERED: NALOXONE HCL 0.4 MG/ML AMP IV PUSH PRN (01:15)
[2017-10-30 01:54] LABS: AUTOMATED NEUTROPHIL # 11.5 TH/MM3 (1.8-7.7); BASOPHIL # 0.1 TH/MM3 (0-0.2); BASOPHIL % 0.4 % (0.0-2.0); EOSINOPHIL # 0.2 TH/MM3 (0-0.4); HEMATOCRIT 23.4 % (35.0-46.0); HEMOGLOBIN 8.6 GM/DL (11.6-15.3); LYMPH % 16.2 % (9.0-44.0); MEAN CELL VOLUME 89.4 FL (80.0-100.0); MEAN CORPUSCULAR HEMOGLOBIN 32.7 PG (27.0-34.0); MEAN PLATELET VOLUME 8.1 FL (7.0-11.0); MONO % 20.7 % (0.0-8.0); MONOCYTE # 3.9 TH/MM3 (0-0.9); NEUT % 61.7 % (16.0-70.0); PLATELET COUNT 405 TH/MM3 (150-450); RED BLOOD COUNT 2.62 MIL/MM3 (4.00-5.30); RED CELL DISTRIBUTION WIDTH 20.3 % (11.6-17.2); RETIC # 289.8 MIL/L (20.0-150.0); RETIC % 11.1 % (0.4-3.0); WHITE BLOOD COUNT 18.6 TH/MM3 (4.0-11.0)
[2017-10-30] MEDS: cefTRIAXone INJ 1,000 MG in SODIUM CHLORIDE 0.9% INJ 100 ML IV SCH (01:54)
[2017-10-30 01:59] LABS: MEAN CORPUSCULAR HGB CONC 36.6 % (32.0-36.0)
[2017-10-30 02:03] LABS: BACTERIA, URINE RARE /hpf; BILIRUBIN, URINE NEG (NEG); BLOOD, URINE NEG (NEG); GLUCOSE,URINE NEG (NEG); HYALINE CAST, URINE 2 /lpf (RARE); KETONE, URINE NEG (NEG); NITRITE,URINE NEG (NEG); SQUAMOUS EPITHELIAL CELL URINE <1 /hpf (0-5); URINE COLOR YELLOW (YELLW/STRAW); URINE LEUKOCYTE ESTERASE NEG (NEG)
[2017-10-30] MEDS: LACTATED RINGER'S 1000 ML INJ 1,000 ML IV SCH ×3 (02:18→22:52)
[2017-10-30 02:22] LABS: ALKALINE PHOSPHATASE 122 U/L (45-117); TOTAL PROTEIN 6.7 GM/DL (6.4-8.2)
[2017-10-30 02:23] LABS: CORRECTED NUCLEATED RBC 13 /100 WBC (0-0); LYMPHOCYTES 18 % (9-44); MONOCYTES 28 % (0-8); NEUTROPHIL # MANUAL DIFF 9.7 TH/MM3 (1.8-7.7); NUCLEATED RED BLOOD CELL 13 (0-0); POLYS (SEG NEUTROPHILS) 52 % (16-70)
[2017-10-30 02:25] LABS: ALBUMIN 2.6 GM/DL (3.4-5.0); ALT (GPT) 37 U/L (9-42); AST (GOT) 75 U/L (16-38); BICARBONATE 24.1 MEQ/L (21.0-32.0); BLOOD UREA NITROGEN 6 MG/DL (7-18); CALCIUM 8.7 MG/DL (8.5-10.1); CHLORIDE 104 MEQ/L (98-107); CREATININE 0.38 MG/DL (0.50-1.00); GLOMERULAR FILTRATION RATE 261 ML/MIN (>89); GLUCOSE,RANDOM 67 MG/DL (74-106); SICKLE CELLS 2+ (NORMAL); SODIUM (NA) 139 MEQ/L (136-145)
[2017-10-30] MEDS: ENOXAPARIN SODIUM 40 MG/0.4 ML SYRINGE SQ SCH (02:28)
[2017-10-30] MEDS: HYDROmorphone HCL PCA 6 MG/30 ML IV SCH ×2 (02:35→14:13)
[2017-10-30] MEDS: PCA - TOTAL MG DILAUDID DELIVERED PER SHIFT OTHER SCH (06:00)
[2017-10-30] MEDS ORDERED: SODIUM CHLOR 0.9% 250 ML INJ 250 ML IV ONE (08:30)
[2017-10-30] MEDS: SODIUM CHLORIDE 0.9% FLUSH 10 ML FLUSH IV FLUSH SCH ×2 (09:00→21:00)
[2017-10-30] MEDS: DOCUSATE SODIUM 100 MG CAP PO SCH (09:30)
[2017-10-30] MEDS: MULTIVIT/MIN/PREN/FOL AC/IRON PRENATAL TAB PO SCH (09:30)
[2017-10-30] MEDS: FOLIC ACID 1 MG TAB PO SCH (09:30)
[2017-10-30] MEDS: diphenhydrAMINE HCL 50 MG/ML VIAL IV PUSH PRN ×4 (09:48→21:41)
[2017-10-30] MEDS: ONDANSETRON ODT 4 MG TAB PO PRN (09:48)
[2017-10-30] MEDS ORDERED: HYDROmorphone HCL PCA 6 MG/30 ML IV ONE (13:45)
[2017-10-30] MEDS ORDERED: PSEUDOEPHEDRINE HCL 30 MG TAB PO PRN (23:30)
[2017-10-30] MEDS: ZOLPIDEM TARTRATE 5 MG TAB PO PRN (23:56)
[2017-10-30] MEDS: PSEUDOEPHEDRINE HCL 30 MG TAB PO PRN (23:56)
[2017-10-31] MEDS: diphenhydrAMINE HCL 50 MG/ML VIAL IV PUSH PRN ×4 (01:17→22:18)
[2017-10-31] MEDS: ENOXAPARIN SODIUM 40 MG/0.4 ML SYRINGE SQ SCH (01:17)
[2017-10-31] MEDS: cefTRIAXone INJ 1,000 MG in SODIUM CHLORIDE 0.9% INJ 100 ML IV SCH (01:18)
[2017-10-31] MEDS: HYDROmorphone HCL PCA 6 MG/30 ML IV SCH ×2 (03:39→21:23)
[2017-10-31] MEDS: LACTATED RINGER'S 1000 ML INJ 1,000 ML IV SCH (07:23)
[2017-10-31] MEDS: FOLIC ACID 1 MG TAB PO SCH (08:26)
[2017-10-31] MEDS: DOCUSATE SODIUM 100 MG CAP PO SCH (08:26)
[2017-10-31] MEDS: MULTIVIT/MIN/PREN/FOL AC/IRON PRENATAL TAB PO SCH (08:26)
[2017-10-31 08:47] LABS: AUTOMATED NEUTROPHIL # 6.7 TH/MM3 (1.8-7.7); BASOPHIL # 0.1 TH/MM3 (0-0.2); BASOPHIL % 0.6 % (0.0-2.0); EOSINOPHIL # 0.3 TH/MM3 (0-0.4); HEMATOCRIT 33.2 % (35.0-46.0); HEMOGLOBIN 11.7 GM/DL (11.6-15.3); LYMPHOCYTE # 2.6 TH/MM3 (1.0-4.8); MEAN CELL VOLUME 90.9 FL (80.0-100.0); MEAN CORPUSCULAR HEMOGLOBIN 32.1 PG (27.0-34.0); MEAN CORPUSCULAR HGB CONC 35.3 % (32.0-36.0); MEAN PLATELET VOLUME 7.8 FL (7.0-11.0); MONOCYTE # 2.7 TH/MM3 (0-0.9); NEUT % 54.4 % (16.0-70.0); PLATELET COUNT 352 TH/MM3 (150-450); RED BLOOD COUNT 3.66 MIL/MM3 (4.00-5.30); RED CELL DISTRIBUTION WIDTH 18.2 % (11.6-17.2); RETIC # 424.6 MIL/L (20.0-150.0); RETIC % 11.6 % (0.4-3.0); WHITE BLOOD COUNT 12.4 TH/MM3 (4.0-11.0)
[2017-10-31] MEDS: SODIUM CHLORIDE 0.9% FLUSH 10 ML FLUSH IV FLUSH SCH ×2 (09:00→21:00)
[2017-10-31 09:15] LABS: BICARBONATE 22.8 MEQ/L (21.0-32.0); CALCIUM 8.8 MG/DL (8.5-10.1); CREATININE 0.43 MG/DL (0.50-1.00)
--- NOTE | 2017-10-31 09:18 | PD.OB.ANTE ---
Subjective Interval History 22 year old at 28w2d female with history of sickle cell disease doing better today. VS stable overnight. She felt better after receiving 2 units of RBCs yesterday. She notes that she has difficulty ambulating secondary to the pain in her legs. Reports achy pain is mostly in her lower back and legs, grades it a 4/10. Controlled with Dilaudid. She is hydrating well, and tolerating 2 L of O2. Her appetite is decreased. She denies chest pain, shortness of breath, abdominal pain, or dizziness. Antepartum ROS: Denies: Loss of fluid, Vaginal bleeding, Contractions Objective Vital Signs Vital Signs Date Time Temp Pulse Resp B/P (MAP) Pulse Ox O2 Delivery O2 Flow Rate FiO2 10/31/17 03:39 16 10/30/17 14:13 18 10/30/17 14:03 98.2 85 18 115/57 100 10/30/17 13:52 16 10/30/17 13:05 98.1 87 18 114/65 100 10/30/17 11:50 97.9 88 16 111/51 94 10/30/17 11:36 97.9 100 16 118/59 100 10/30/17 09:50 98.0 82 16 134/56 100 10/30/17 09:32 98.2 101 16 120/58 10/30/17 09:24 98.0 85 16 120/58 100 Lab & Micro Results Test 10/31/17 08:35 White Blood Count 12.4 TH/MM3 Red Blood Count 3.66 MIL/MM3 Hemoglobin 11.7 GM/DL Hematocrit 33.2 % Mean Corpuscular Volume 90.9 FL Mean Corpuscular Hemoglobin 32.1 PG Mean Corpuscular Hemoglobin Concent 35.3 % Red Cell Distribution Width 18.2 % Platelet Count 352 TH/MM3 Mean Platelet Volume 7.8 FL Neutrophils (%) (Auto) 54.4 % Lymphocytes (%) (Auto) 21.0 % Monocytes (%) (Auto) 22.0 % Eosinophils (%) (Auto) 2.0 % Basophils (%) (Auto) 0.6 % Neutrophils # (Auto) 6.7 TH/MM3 Lymphocytes # (Auto) 2.6 TH/MM3 Monocytes # (Auto) 2.7 TH/MM3 Eosinophils # (Auto) 0.3 TH/MM3 Basophils # (Auto) 0.1 TH/MM3 CBC Comment AUTO DIFF Reticulocyte Count 11.6 % Absolute Reticulocyte Count 424.6 MIL/L Physical Exam GENERAL: Well-nourished, well-developed patient. CARDIOVASCULAR: Regular rate and rhythm without murmurs, gallops, or rubs. RESPIRATORY: Breath sounds equal bilaterally. No accessory muscle use. ABDOMEN/GI: Abdomen soft, non-tender. no CVA tenderness. EXTREMITIES: No cyanosis or edema, mild tenderness of lower extremities, negative Mariajose sign. Assessment and Plan Problem List: (1) Sickle cell pain crisis ICD Codes: D57.00 - Sickle cell pain crisis Status: Acute Plan: 22 year old at 28w2d presents in sickle cell pain crisis. Received 2 units of blood yesterday. H/H improved from 8.6/23.4 to 11.7/33.2 U/S was done yesterday which showed normal growth. start IV 1/2NS at 125ml/hr. Encouraged patient to continue to hydrate well, and ambulate as tolerated. Pain managed with Dilaudid. will continue to monitor. Heme/onc was consulted and would appreciate further recommendations Ralph Anderson MS4 Jose Scruggs MD, R1 Oct 31, 2017 09:18
[2017-10-31 09:53] LABS: BANDS 2 % (0-6); BASOPHILS 1 % (0-2); CORRECTED NUCLEATED RBC 44 /100 WBC (0-0); LYMPHOCYTES 21 % (9-44); MONOCYTES 10 % (0-8); NEUTROPHIL # MANUAL DIFF 7.8 TH/MM3 (1.8-7.7); NUCLEATED RED BLOOD CELL 44 (0-0); POLYS (SEG NEUTROPHILS) 61 % (16-70); SICKLE CELLS 1+ (NORMAL)
[2017-10-31] MEDS: SODIUM CHLOR 0.45% 1000 ML INJ 1,000 ML IV SCH ×2 (11:31→23:46)
[2017-10-31] MEDS ORDERED: diphenhydrAMINE HCL 50 MG/ML VIAL ONE (12:09)
[2017-10-31] MEDS: PSEUDOEPHEDRINE HCL 30 MG TAB PO PRN ×2 (16:16→22:17)
--- NOTE | 2017-10-31 17:25 | PD.CONS ---
History of Present Illness Service Hematology Consult Requested By Obstetrics Reason for Consult Hemoglobin sickle cell disease with crisis. Primary Care Physician Unknown Diagnoses: History of Present Illness CHIEF COMPLAINT: Increased pain in the bones. Difficulty breathing. Fever and chills. HISTORY OF PRESENTING ILLNESS: Ms. Garcia is a 22-year-old female, she is 2 para 0 currently in week 28 of her . She has a diagnosis of hemoglobin sickle cell disease and has had a history of recurrent pain crises, the pain crises have seemingly become more frequent since she started her third trimester of this . She has previously lost a last year in the first trimester ( spontaneous miscarriage). The patient currently has not established herself with an outpatient milled rice broker in this area, she previously had been following with a pediatric milled rice broker at the [facility] (Dr. Mari). She previously was on disease modifying therapy with hydroxyurea but has not been on this in well over a year. The patient was hospitalized last weekend for similar symptoms i.e. pain, difficulty breathing and fatigue. She was noted to be in sickle cell crisis and was discharged home on 10/27/2017 after a 3 day hospitalization. During that hospitalization she did receive 1 unit packed red blood cells, IV fluid hydration, oxygen supplementation and pain control; initially with a hydromorphone FINANCIAL ENGINEER pump and then later with oral oxycodone tablets. The patient reports feeling dizzy almost as soon as she got home, she tells me she spent most of the next 48 hours in bed and drank and ate very little. Yesterday her boyfriend felt that she was "not breathing well "and had a fever as well. She was therefore brought back into the hospital. In the emergency department she underwent blood work and was noted to have a hemoglobin of 8.6 g/dL, she is transfused 2 units packed red blood cells with an improvement in her hemoglobin to 11.5 g/dL. The patient reports her symptoms of pain persist, she feels her breathing is a little bit more comfortable with the oxygen supplementation. I have been asked to see her for assistance in management of her hemoglobin sickle cell disease related crisis. Review of Systems Constitutional: COMPLAINS OF: Fatigue, Fever, Chills, Dizziness, Change in appetite, DENIES: Diaphoretic episodes, Weight gain, Weight loss, Night Sweats ( Decreased appetite) Endocrine: DENIES: Abnorml menstrual pattern, Heat/cold intolerance, Polydipsia , Polyuria, Polyphagia Eyes: COMPLAINS OF: Photosensitivity, DENIES: Blurred vision, Diplopia, Eye inflammation, Eye pain, Vision loss, Double Vision Ears, nose, mouth, throat: DENIES: Tinnitus, Hearing loss, Vertigo, Nasal discharge, Oral lesions, Throat pain, Hoarseness, Ear Pain, Running Nose, Epistaxis, Sinus Pain, Toothache, Odynophagia Respiratory: COMPLAINS OF: Cough, Shortness of breath, DENIES: Apneas, Snoring , Wheezing, Hemoptysis, Sputum production Cardiovascular: COMPLAINS OF: Palpitations, Dyspnea on Exertion, Lower Extremity Edema, DENIES: Chest pain, Syncope, PND, Orthopnea, Claudication Gastrointestinal: DENIES: Abdominal pain, Black stools, Bloody stools, Constipation, Diarrhea, Nausea, Vomiting, Difficulty Swallowing, Anorexia Genitourinary: COMPLAINS OF: Abnormal vaginal bleeding (Reports having had some spotting during her recent hospitalization.), DENIES: Dysmenorrhea, Dyspareunia (8), Sexual dysfunction, Urinary frequency, Urinary incontinence, Urgency, Hematuria, Dysuria, Nocturia, Vaginal discharge Musculoskeletal: COMPLAINS OF: Joint pain, Muscle aches, Back pain, DENIES: Stiffness, Joint Swelling, Neck pain Integumentary: DENIES: Abnormal pigmentation, Pruritus, Rash, Nail changes, Breast masses, Breast skin changes, Nipple discharge Hematologic/lymphatic: DENIES: Bruising, Lymphadenopathy Immunologic/allergic: DENIES: Eczema, Urticaria Neurologic: COMPLAINS OF: Headache, DENIES: Abnormal gait, Localized weakness, Paresthesias, Seizures, Speech Problems, Tremor, Poor Balance Psychiatric: COMPLAINS OF: Anxiety, DENIES: Confusion, Mood changes, Depression , Hallucinations, Agitation, Suicidal Ideation, Homicidal Ideation, Delusions Except as stated in HPI: all other systems reviewed are Neg Past Family Social History Allergies: Coded Allergies: codeine (Verified Allergy, Intermediate, wheezing, SOB, 10/30/17) Past Medical History Hemoglobin sickle cell disease Asthma Sleep apnea Recurrent pain crises Reported history of acute chest syndrome Repeated red cell transfusions. Hemochromatosis Past Surgical History Denies any major surgical interventions. Active Ordered Medications Ceftriaxone 1 g IV every 24 hours Half normal saline 1 25 cc/h Tylenol 650 mg p.o. every 4 hours as needed for pain Diphenhydramine 25 mg IV every 4 hours as needed for itching Colace 100 mg p.o. daily as needed for constipation Lovenox 30 mg subcu every 24 hours Folic acid 5 mg p.o. daily Hydromorphone FINANCIAL ENGINEER pump multivitamins Zofran 4 mg p.o. every 6 hours needed for nausea and vomiting. Pseudoephedrine 30 mg p.o. every 6 hours needed for congestion Ambien 5 mg p.o. nightly as needed for insomnia Family History Mother and father both with sickle cell trait. Social History Lives at home with her mother, high school graduate. Had been working at [employer] up until recently. Physical Exam Vital Signs Vital Signs Date Time Temp Pulse Resp B/P (MAP) Pulse Ox O2 Delivery O2 Flow Rate FiO2 10/31/17 03:39 16 Physical Exam GENERAL: Young female sitting up in bed, appears to be in pain, she does not appear to be in respiratory distress. She has nasal cannulas on. SKIN: No rashes, ecchymoses or lesions. Cool and dry. HEAD: Atraumatic. Normocephalic. No temporal or scalp tenderness. EYES: Pupils equal round and reactive. Extraocular motions intact. No injection or drainage. Conjunctivae are pale sclerae mildly icteric ENT: Nose without bleeding, purulent drainage or septal hematoma. Throat without erythema, tonsillar hypertrophy or exudate. Uvula midline. Airway patent. NECK: Trachea midline. No JVD or lymphadenopathy. Supple, nontender, no meningeal signs. CARDIOVASCULAR: Regular rate and rhythm without murmurs, gallops, or rubs. RESPIRATORY: Clear to auscultation. Breath sounds equal bilaterally. No wheezes , rales, or rhonchi. GASTROINTESTINAL: Gravid abdomen no palpable organ enlargement noted no tenderness. MUSCULOSKELETAL: Extremities without clubbing, cyanosis, or edema. No joint tenderness, effusion, or edema noted. No calf tenderness. Negative Homans sign bilaterally. Reports tenderness involving the legs NEUROLOGICAL: Awake and alert. Cranial nerves II through XII intact. Motor and sensory grossly within normal limits. Five out of 5 muscle strength in all muscle groups. Normal speech. Laboratory Laboratory Tests Test 10/31/17 08:35 White Blood Count 12.4 Red Blood Count 3.66 Hemoglobin 11.7 Hematocrit 33.2 Mean Corpuscular Volume 90.9 Mean Corpuscular Hemoglobin 32.1 Mean Corpuscular Hemoglobin Concent 35.3 Red Cell Distribution Width 18.2 Platelet Count 352 Mean Platelet Volume 7.8 Neutrophils (%) (Auto) 54.4 Lymphocytes (%) (Auto) 21.0 Monocytes (%) (Auto) 22.0 Eosinophils (%) (Auto) 2.0 Basophils (%) (Auto) 0.6 Neutrophils # (Auto) 6.7 Lymphocytes # (Auto) 2.6 Monocytes # (Auto) 2.7 Eosinophils # (Auto) 0.3 Basophils # (Auto) 0.1 CBC Comment AUTO DIFF Differential Total Cells Counted 100 Neutrophils % (Manual) 61 Band Neutrophils % 2 Lymphocytes % 21 Monocytes % 10 Eosinophils % 5 Basophils % 1 Neutrophils # (Manual) 7.8 Nucleated Red Blood Cells 44 Differential Comment FINAL DIFF MANUAL Platelet Estimate NORMAL Platelet Morphology Comment NORMAL Polychromasia 3.0 Sickle Cells 1+ Red Cell Morphology Comment Reticulocyte Count 11.6 Absolute Reticulocyte Count 424.6 Blood Urea Nitrogen 5 Creatinine 0.43 Random Glucose 59 Calcium Level 8.8 Lactate Dehydrogenase 718 Sodium Level 137 Potassium Level 4.6 Chloride Level 103 Carbon Dioxide Level 22.8 Anion Gap 11 Estimat Glomerular Filtration Rate 227 Result Diagram: 10/31/17 0835 10/31/17 0835 Assessment and Plan Assessment and Plan 22-year-old female with a diagnosis of hemoglobin sickle cell disease, currently in week 28 of her second (previous suffered spontaneous miscarriage in the first trimester in 2017). Presents to the hospital for the second time this week with sickle cell related pain crisis. She also has an E. coli urinary tract infection which may in part be the provoking factor. She has been admitted to the hospital for supportive care and pain management. She has been initiated on appropriate antibiotic therapy with ceftriaxone, she is on IV fluid hydration and has been appropriately transfused 2 units packed red blood cells. I did review expert guidelines recommendations for management of individuals with homozygous hemoglobin sickle cell disease during . Recommendations include treating with prophylactic transfusions during the third trimester to help decrease the risk of maternal mortality and to help improve the chances of the being carried to term. The goal/objective of the frequent transfusions is to maintain a hemoglobin sickle cell fraction of between 35 and 40% and peripheral circulation to avoid hemostasis at the level of the placenta. Additional recommendations include increasing daily folic acid supplementation to 5 mg once a day and to consider prophylactic anticoagulation continuously especially for those women who have had previous spontaneous miscarriages (such as Ms. Garcia has had). Recommendations: 1. Hemoglobin sickle cell disease: At this point I would recommend transfusing her to maintain a hemoglobin of greater than 10 g/dL or higher if that is what is required to decrease her hemoglobin sickle cell fraction to less than 40%. To this end I requested hemoglobin electrophoresis to be done to objectively quantify her hemoglobin S fraction following the 2 unit packed red blood cell transfusion she received last night and the unit she received over the past weekend. Continue hydration with hypotonic saline solution. I have increased folic acid supplementation to 5 mg once a day. I will order an incentive spirometer for her to use 10 times per hour while she is awake. Continue prophylactic anticoagulation and consider continuing this even after discharge. Hematology service to follow along with you. Thank you for involving us in the care of this patient. Also, please note my office has been working with the patient and her insurance company to arrange reliable outpatient follow-up. Ian Liu MD Oct 31, 2017 17:25
[2017-10-31] MEDS: ZOLPIDEM TARTRATE 5 MG TAB PO PRN (23:46)
[2017-11-01] MEDS ORDERED: ENOXAPARIN SODIUM 30 MG/0.3 ML SYRINGE SQ ONE (00:15)
[2017-11-01] MEDS: cefTRIAXone INJ 1,000 MG in SODIUM CHLORIDE 0.9% INJ 100 ML IV SCH (02:02)
[2017-11-01] MEDS: diphenhydrAMINE HCL 50 MG/ML VIAL IV PUSH PRN ×5 (02:03→19:44)
[2017-11-01] MEDS: SODIUM CHLOR 0.45% 1000 ML INJ 1,000 ML IV SCH ×2 (03:30→19:43)
[2017-11-01] MEDS: PSEUDOEPHEDRINE HCL 30 MG TAB PO PRN (07:02)
[2017-11-01] MEDS: SODIUM CHLORIDE 0.9% FLUSH 10 ML FLUSH IV FLUSH SCH ×2 (07:36→20:16)
[2017-11-01] MEDS: DOCUSATE SODIUM 100 MG CAP PO SCH (08:24)
[2017-11-01] MEDS: FOLIC ACID 1 MG TAB PO SCH (08:25)
[2017-11-01] MEDS: MULTIVIT/MIN/PREN/FOL AC/IRON PRENATAL TAB PO SCH (08:25)
--- NOTE | 2017-11-01 08:33 | PD.OB.ANTE ---
Subjective Diagnosis: (1) Sickle cell pain crisis Interval History Patient seen and examined this morning. She states her pain continues to primarily be a 10/10. She states most of her pain is in her bilateral lower extremities. She denies significant pain elsewhere. Denies chest pain at this time. Denies dyspnea or cough. Denies leakage of fluid. Endorses positive movements. Denies contractions. Denies fevers or chills. Antepartum ROS: Reports: New complaints (Worsening lower extremity pain bilaterally), movement normal, Denies: Loss of fluid, Vaginal bleeding, Contractions (Param Mancini MD R2) Objective Vital Signs Vital Signs Date Time Temp Pulse Resp B/P (MAP) Pulse Ox O2 Delivery O2 Flow Rate FiO2 11/01/17 03:05 18 10/31/17 21:23 18 Lab & Micro Results Test 10/31/17 08:35 White Blood Count 12.4 TH/MM3 Red Blood Count 3.66 MIL/MM3 Hemoglobin 11.7 GM/DL Hematocrit 33.2 % Mean Corpuscular Volume 90.9 FL Mean Corpuscular Hemoglobin 32.1 PG Mean Corpuscular Hemoglobin Concent 35.3 % Red Cell Distribution Width 18.2 % Platelet Count 352 TH/MM3 Mean Platelet Volume 7.8 FL Neutrophils (%) (Auto) 54.4 % Lymphocytes (%) (Auto) 21.0 % Monocytes (%) (Auto) 22.0 % Eosinophils (%) (Auto) 2.0 % Basophils (%) (Auto) 0.6 % Neutrophils # (Auto) 6.7 TH/MM3 Lymphocytes # (Auto) 2.6 TH/MM3 Monocytes # (Auto) 2.7 TH/MM3 Eosinophils # (Auto) 0.3 TH/MM3 Basophils # (Auto) 0.1 TH/MM3 CBC Comment AUTO DIFF Differential Total Cells Counted 100 Neutrophils % (Manual) 61 % Band Neutrophils % 2 % Lymphocytes % 21 % Monocytes % 10 % Eosinophils % 5 % Basophils % 1 % Neutrophils # (Manual) 7.8 TH/MM3 Nucleated Red Blood Cells 44 /100 WBC Differential Comment FINAL DIFF MANUAL Platelet Estimate NORMAL Platelet Morphology Comment NORMAL Polychromasia 3.0 % Sickle Cells 1+ Red Cell Morphology Comment Reticulocyte Count 11.6 % Absolute Reticulocyte Count 424.6 MIL/L Blood Urea Nitrogen 5 MG/DL Creatinine 0.43 MG/DL Random Glucose 59 MG/DL Calcium Level 8.8 MG/DL Lactate Dehydrogenase 718 U/L Sodium Level 137 MEQ/L Potassium Level 4.6 MEQ/L Chloride Level 103 MEQ/L Carbon Dioxide Level 22.8 MEQ/L Anion Gap 11 MEQ/L Estimat Glomerular Filtration Rate 227 ML/MIN Physical Exam GENERAL: Well-nourished, well-developed patient. CARDIOVASCULAR: Regular rate and rhythm without murmurs, gallops, or rubs. RESPIRATORY: Breath sounds equal and clear bilaterally. No accessory muscle use. ABDOMEN/GI: Abdomen soft, non-tender. GENITOURINARY: Baseline: 140s Reactive: +accels Variability: Moderate Decels: Absent EXTREMITIES: No cyanosis or edema, non-tender, without signs of DVT. (Param Mancini MD R2) Assessment and Plan Problem List: (1) Sickle cell pain crisis ICD Codes: D57.00 - Sickle cell pain crisis Status: Acute Plan: The patient is a very pleasant 22-year-old woman at 28/3 weeks gestation with a diagnosis of hemoglobin sickle cell disease admitted to antepartum with a sickle cell related pain crisis. -Appreciate recommendations of Dr. Liu, licensed club manager -Pain control with Dilaudid TALENT ACQUISITION ASSOCIATE, will increase with 1 mg basal rate per hour and continue 0.3 mg Dilaudid TALENT ACQUISITION ASSOCIATE with 6 minute lock-out, maximum daily hour dose of 4 mg -Continue folic acid supplementation of 5 mg once daily per hematology recommendations -Continue IVF hydration with 1/2 NS at 125 cc/hr -Goal hemoglobin is greater than 10 g/dL per hematology if this is what may be required to decrease her hemoglobin sickle-cell fraction to < 40% -Will follow-up hemoglobin electrophoresis -Continue to monitor H/H, transfuse PRBCs if needed -Incentive spirometer to bedside -Continue prophylactic anticoagulation with Lovenox 30 mg daily, will consider continuing this on discharge for prevention of hemostasis placenta -Continue Rocephin 1g q24h for E. coli UTI which showed sensitivity to Rocephin from 10/18 -Continue to monitor vital signs and pulse oximetry closely sdw Dr. Campos (Param Mancini MD R2) Param Mancini MD R2 Nov 01, 2017 08:33 Julito Campos MD Nov 02, 2017 16:50
[2017-11-01] MEDS ORDERED: ENOXAPARIN SODIUM 30 MG/0.3 ML SYRINGE SQ SCH (09:00)
[2017-11-01 09:50] LABS: AUTOMATED NEUTROPHIL # 7.6 TH/MM3 (1.8-7.7); BASOPHIL # 0.1 TH/MM3 (0-0.2); BASOPHIL % 0.8 % (0.0-2.0); EOSINOPHIL # 0.3 TH/MM3 (0-0.4); EOSINOPHIL % 2.3 % (0.0-4.0); HEMATOCRIT 31.7 % (35.0-46.0); HEMOGLOBIN 11.2 GM/DL (11.6-15.3); LYMPH % 19.8 % (9.0-44.0); LYMPHOCYTE # 2.5 TH/MM3 (1.0-4.8); MEAN CELL VOLUME 91.2 FL (80.0-100.0); MEAN CORPUSCULAR HEMOGLOBIN 32.2 PG (27.0-34.0); MEAN CORPUSCULAR HGB CONC 35.3 % (32.0-36.0); MEAN PLATELET VOLUME 8.2 FL (7.0-11.0); MONO % 17.4 % (0.0-8.0); MONOCYTE # 2.2 TH/MM3 (0-0.9); NEUT % 59.7 % (16.0-70.0); PLATELET COUNT 416 TH/MM3 (150-450); RED BLOOD COUNT 3.47 MIL/MM3 (4.00-5.30); RED CELL DISTRIBUTION WIDTH 18.9 % (11.6-17.2); WHITE BLOOD COUNT 12.6 TH/MM3 (4.0-11.0)
[2017-11-01 10:04] LABS: ALBUMIN 2.7 GM/DL (3.4-5.0); DIRECT BILIRUBIN ADULT 0.4 MG/DL (0.0-0.2)
[2017-11-01 10:06] LABS: INDIRECT BILIRUBIN 0.6 MG/DL (0.0-0.8)
[2017-11-01 10:50] LABS: CORRECTED NUCLEATED RBC 24 /100 WBC (0-0); LYMPHOCYTES 18 % (9-44); MONOCYTES 12 % (0-8); NEUTROPHIL # MANUAL DIFF 8.6 TH/MM3 (1.8-7.7); NUCLEATED RED BLOOD CELL 24 (0-0); POLYS (SEG NEUTROPHILS) 68 % (16-70); SICKLE CELLS 2+ (NORMAL); STOMATOCYTES 1+ (NORMAL); TARGET CELLS 1+ (NORMAL)
[2017-11-01 10:51] LABS: HOWELL-JOLLY BODIES PRESENT (NONE SEEN)
[2017-11-01 10:52] LABS: POLYCHROMASIA 2.8 % (0.0-1.9)
--- NOTE | 2017-11-01 11:13 | PD.ONC.PN ---
Subjective Subjective Remarks Afebrile overnight. Patient resting in bed in nad. still having crisis type pain in her legs. Otherwise without complaint. Objective Data Date Time Temp Pulse Resp B/P (MAP) Pulse Ox O2 Delivery O2 Flow Rate FiO2 11/01/17 03:05 18 10/31/17 21:23 18 Result Diagram: 11/01/17 0930 10/31/17 0835 Laboratory Results Laboratory Tests Test 11/01/17 09:30 White Blood Count 12.6 TH/MM3 Red Blood Count 3.47 MIL/MM3 Hemoglobin 11.2 GM/DL Hematocrit 31.7 % Mean Corpuscular Volume 91.2 FL Mean Corpuscular Hemoglobin 32.2 PG Mean Corpuscular Hemoglobin Concent 35.3 % Red Cell Distribution Width 18.9 % Platelet Count 416 TH/MM3 Mean Platelet Volume 8.2 FL Neutrophils (%) (Auto) 59.7 % Lymphocytes (%) (Auto) 19.8 % Monocytes (%) (Auto) 17.4 % Eosinophils (%) (Auto) 2.3 % Basophils (%) (Auto) 0.8 % Neutrophils # (Auto) 7.6 TH/MM3 Lymphocytes # (Auto) 2.5 TH/MM3 Monocytes # (Auto) 2.2 TH/MM3 Eosinophils # (Auto) 0.3 TH/MM3 Basophils # (Auto) 0.1 TH/MM3 CBC Comment AUTO DIFF Differential Total Cells Counted 100 Neutrophils % (Manual) 68 % Lymphocytes % 18 % Monocytes % 12 % Eosinophils % 2 % Neutrophils # (Manual) 8.6 TH/MM3 Nucleated Red Blood Cells 24 /100 WBC Differential Comment FINAL DIFF MANUAL Platelet Estimate NORMAL Platelet Morphology Comment NORMAL Polychromasia 2.8 % Sickle Cells 2+ Target Cells 1+ Stomatocytes 1+ Vu-[place] Bodies PRESENT Total Bilirubin 1.0 MG/DL Direct Bilirubin 0.4 MG/DL Indirect Bilirubin 0.6 MG/DL Aspartate Amino Transf (AST/SGOT) 46 U/L Alanine Aminotransferase (ALT/SGPT) 30 U/L Alkaline Phosphatase 132 U/L Total Protein 7.0 GM/DL Albumin 2.7 GM/DL Administered Medications Medications (Trade) Dose Ordered Sig/Papito Route PRN Reason Start Time Stop Time Status Last Admin Dose Admin Prenat Multivit/ Armstrong/Iron/Folic Ac (Stuartnatal Plus 3 ) 1 tab DAILY PO 10/30/17 09:00 11/01/17 08:25 Docusate Sodium (Colace) 100 mg DAILY PO 10/30/17 09:00 11/01/17 08:24 Zolpidem Tartrate (Ambien) 5 mg HS PRN PO SLEEP 10/30/17 01:15 10/31/17 23:46 Ondansetron HCl (Zofran Odt) 4 mg Q6H PRN PO NAUSEA 10/30/17 01:15 10/30/17 09:48 Ceftriaxone Sodium 1000 mg/ Sodium Chloride 100 ml @ 200 mls/hr Q24H IV 10/30/17 02:00 11/01/17 02:02 Hydromorphone HCl (Dilaudid UI LEAD DEVELOPER Inj) 6 mg UNSCH IV 10/30/17 01:15 10/31/17 21:23 UI LEAD DEVELOPER Dosage Infused (Pha) 1 Q8HR OTHER 10/30/17 06:00 10/30/17 06:00 Diphenhydramine HCl (Benadryl Inj) 25 mg Q4H PRN IV PUSH ITCHING 10/30/17 04:15 11/01/17 10:44 Pseudoephedrine HCl (Sudafed) 30 mg Q6H PRN PO NASAL CONGESTION 10/30/17 23:30 11/01/17 07:02 Sodium Chloride 1,000 ml @ 125 mls/hr Q8H IV 10/31/17 09:15 11/01/17 03:30 Folic Acid (Folate) 5 mg DAILY PO 11/01/17 09:00 11/01/17 08:25 Objective Remarks GENERAL: Young woman, lying in bed, she appears comfortable and in nad. SKIN: Warm and dry. HEAD: Normocephalic. EYES: No injection or drainage. NECK: Supple, trachea midline. CARDIOVASCULAR: Regular rate and rhythm RESPIRATORY: Breath sounds equal bilaterally. No accessory muscle use. GASTROINTESTINAL: Abdomen soft, non-tender, nondistended. +gravid uterus. EXTREMITIES: No cyanosis NEUROLOGICAL: awake and alert. normal speech. Assessment/Plan Assessment 22y/o female with sickle cell disease admitted in pain crisis. --patient in week 28 of second (previous had spontaneous miscarriage in first trimester in 2017) Plan 1. hemoglobin sickle cell disease + pain crisis --maintain hgb>10mg/dL --continue hydration with 1/2 NS --continue judicious pain management --recommend maintaining a hemoglobin sickle cell fraction of between 35 and 40% and peripheral circulation to avoid hemostasis at the level of the placenta--> hgb electrophoresis is pending. --continue daily folic acid supplementation at 5mg --continue prophylactic anticoagulation with Lovenox. Attending Statement The exam, history, and the medical decision-making described in the above note were completed with the assistance of the mid-level provider. I reviewed and agree with the findings presented. I attest that I had a [id number] encounter with the patient on the same day, and personally performed and documented my assessment and findings in the medical record sickle cell with crisis gestation 28 weeks transfuse to keep Hb > 10 Hb stable today on UI LEAD DEVELOPER Dilaudid on lovenox prophy e.coli UTI on Roseanne Aviles Nov 01, 2017 11:13 David Hare MD Nov 01, 2017 11:36
[2017-11-01] MEDS ORDERED: HYDROmorphone HCL PCA 6 MG/30 ML IV ONE ×2 (12:24→23:31)
[2017-11-01] MEDS: HYDROmorphone HCL PCA 6 MG/30 ML IV SCH ×4 (12:36→23:35)
[2017-11-01] MEDS ORDERED: diphenhydrAMINE HCL 50 MG/ML VIAL ONE (14:45)
[2017-11-01] MEDS: HYDROmorphone HCL PF 2 MG/ML VIAL IV PUSH PRN ×3 (14:51→22:49)
[2017-11-01] MEDS: ONDANSETRON ODT 4 MG TAB PO PRN (18:20)
[2017-11-01] MEDS: PCA - TOTAL MG DILAUDID DELIVERED PER SHIFT OTHER SCH (21:15)
[2017-11-01] MEDS: ENOXAPARIN SODIUM 30 MG/0.3 ML SYRINGE SQ SCH (22:34)
[2017-11-02] MEDS: diphenhydrAMINE HCL 50 MG/ML VIAL IV PUSH PRN ×5 (00:05→17:40)
[2017-11-02] MEDS: cefTRIAXone INJ 1,000 MG in SODIUM CHLORIDE 0.9% INJ 100 ML IV SCH (01:58)
[2017-11-02] MEDS: SODIUM CHLOR 0.45% 1000 ML INJ 1,000 ML IV SCH ×3 (01:58→17:46)
[2017-11-02] MEDS: ONDANSETRON ODT 4 MG TAB PO PRN ×4 (01:59→21:43)
[2017-11-02] MEDS: HYDROmorphone HCL PCA 6 MG/30 ML IV SCH ×3 (03:57→17:44)
[2017-11-02] MEDS ORDERED: diphenhydrAMINE HCL 50 MG/ML VIAL IV PUSH ONE (04:45)
[2017-11-02] MEDS: PCA - TOTAL MG DILAUDID DELIVERED PER SHIFT OTHER SCH ×3 (06:00→23:30)
[2017-11-02] MEDS: FOLIC ACID 1 MG TAB PO SCH (08:51)
[2017-11-02] MEDS: DOCUSATE SODIUM 100 MG CAP PO SCH ×2 (08:52→21:43)
[2017-11-02] MEDS: ACETAMINOPHEN 325 MG TAB PO PRN ×2 (08:52→17:40)
[2017-11-02] MEDS: MULTIVIT/MIN/PREN/FOL AC/IRON PRENATAL TAB PO SCH (08:52)
--- NOTE | 2017-11-02 09:57 | PD.ONC.PN ---
Subjective Subjective Remarks Afebrile overnight. Patient had difficulty sleeping last night. she states her pain is improved. per report her difficulty sleeping was due to some family issues at home. per report her saturations drop down into the 80s when she gets out of bed. Objective Data Date Time Temp Pulse Resp B/P (MAP) Pulse Ox O2 Delivery O2 Flow Rate FiO2 11/02/17 06:00 18 11/02/17 04:52 18 11/02/17 03:57 18 11/01/17 23:35 15 11/01/17 19:56 14 11/01/17 16:17 18 11/01/17 12:36 18 Result Diagram: 11/01/17 0930 10/31/17 0835 Administered Medications Medications (Trade) Dose Ordered Sig/Papito Route PRN Reason Start Time Stop Time Status Last Admin Dose Admin Acetaminophen (Tylenol) 650 mg Q4H PRN PO PAIN SCALE 1 TO 5 10/30/17 01:15 11/02/17 08:52 Prenat Multivit/ Member Services Coordinator/Iron/Folic Ac (Stuartnatal Plus 3 ) 1 tab DAILY PO 10/30/17 09:00 11/02/17 08:52 Docusate Sodium (Colace) 100 mg DAILY PO 10/30/17 09:00 11/02/17 08:52 Zolpidem Tartrate (Ambien) 5 mg HS PRN PO SLEEP 10/30/17 01:15 10/31/17 23:46 Ondansetron HCl (Zofran Odt) 4 mg Q6H PRN PO NAUSEA 10/30/17 01:15 11/02/17 08:52 Ceftriaxone Sodium 1000 mg/ Sodium Chloride 100 ml @ 200 mls/hr Q24H IV 10/30/17 02:00 11/02/17 01:58 Hydromorphone HCl (Dilaudid RADIOTELEPHONE OPERATOR Inj) 6 mg UNSCH IV 10/30/17 01:15 11/02/17 08:40 RADIOTELEPHONE OPERATOR Dosage Infused (Pha) 1 Q8HR OTHER 10/30/17 06:00 11/02/17 06:00 Diphenhydramine HCl (Benadryl Inj) 25 mg Q4H PRN IV PUSH ITCHING 10/30/17 04:15 11/02/17 08:53 Pseudoephedrine HCl (Sudafed) 30 mg Q6H PRN PO NASAL CONGESTION 10/30/17 23:30 11/01/17 07:02 Sodium Chloride 1,000 ml @ 125 mls/hr Q8H IV 10/31/17 09:15 11/02/17 01:58 Folic Acid (Folate) 5 mg DAILY PO 11/01/17 09:00 11/02/17 08:51 Enoxaparin Sodium (Lovenox Inj) 30 mg Q24H SQ 11/01/17 22:00 11/01/17 22:34 Hydromorphone HCl (Dilaudid Pf Inj) 1 mg Q2HR PRN IV PUSH BREAKTHROUGH PAIN 11/01/17 11:45 11/01/17 22:49 Objective Remarks GENERAL: Young woman, lying in bed with fan blowing on her. she appears comfortable and resting. SKIN: Warm and dry. HEAD: Normocephalic. EYES: No injection or drainage. NECK: Supple, trachea midline. CARDIOVASCULAR: Regular rate and rhythm RESPIRATORY: Breath sounds equal bilaterally. No accessory muscle use. GASTROINTESTINAL: +gravid uterus. abdomen non-tender. EXTREMITIES: No cyanosis NEUROLOGICAL: awake and alert. normal speech. moving all extremities. Assessment/Plan Assessment 22y/o female with sickle cell disease admitted in pain crisis. --patient in week 28 of second (previous had spontaneous miscarriage in first trimester in 2017) Plan 1. hemoglobin sickle cell disease + pain crisis --maintain hgb>10mg/dL --continue hydration with 1/2 NS --continue judicious pain management --recommend maintaining a hemoglobin sickle cell fraction of between 35 and 40% and peripheral circulation to avoid hemostasis at the level of the placenta--> hgb electrophoresis is pending. --continue daily folic acid supplementation at 5mg --continue prophylactic anticoagulation with Lovenox. 2. hypoxia --will obtain chest x-ray --may also need to obtain CTA or V/Q scan if persistent or concern for PE. no tachycardia on my exam or in the record. at this point, I think we should start with a chest x-ray and monitor the patient. Attending Statement The exam, history, and the medical decision-making described in the above note were completed with the assistance of the mid-level provider. I reviewed and agree with the findings presented. I attest that I had a [id number] encounter with the patient on the same day, and personally performed and documented my assessment and findings in the medical record Hb stable desaturates when ambulates get Chest X-ray low threshold to get CTA to r/o PE if dyspnea worsens monitor CBC supportive care Roseanne Ely Nov 02, 2017 09:57 David Hare MD Nov 02, 2017 11:12
[2017-11-02 10:26] LABS: AUTOMATED NEUTROPHIL # 7.6 TH/MM3 (1.8-7.7); BASOPHIL % 0.4 % (0.0-2.0); EOSINOPHIL # 0.2 TH/MM3 (0-0.4); EOSINOPHIL % 1.9 % (0.0-4.0); HEMATOCRIT 31.4 % (35.0-46.0); LYMPH % 14.5 % (9.0-44.0); LYMPHOCYTE # 1.7 TH/MM3 (1.0-4.8); MEAN CELL VOLUME 91.1 FL (80.0-100.0); MEAN CORPUSCULAR HEMOGLOBIN 31.9 PG (27.0-34.0); MEAN PLATELET VOLUME 8.1 FL (7.0-11.0); MONO % 18.5 % (0.0-8.0); MONOCYTE # 2.2 TH/MM3 (0-0.9); NEUT % 64.7 % (16.0-70.0); PLATELET COUNT 395 TH/MM3 (150-450); RED BLOOD COUNT 3.45 MIL/MM3 (4.00-5.30); RED CELL DISTRIBUTION WIDTH 18.5 % (11.6-17.2); RETIC # 173.6 MIL/L (20.0-150.0); WHITE BLOOD COUNT 11.8 TH/MM3 (4.0-11.0)
--- NOTE | 2017-11-02 10:46 | PD.OB.ANTE ---
Subjective Diagnosis: (1) Sickle cell pain crisis Diagnosis: Principal Interval History Patient seen and examined this morning. Patient states she a little more sleep last night. States her pain has improved today. Otherwise, denies any new complaints. Denies any chest pain, shortness of breath, abdominal pain. Leg pain is the same. O2 saturation did drop down to 80% when walking yesterday. She is on oxygen now. Antepartum ROS: Reports: movement normal, Denies: New complaints, Loss of fluid, Vaginal bleeding, Contractions Objective Vital Signs Vital Signs Date Time Temp Pulse Resp B/P (MAP) Pulse Ox O2 Delivery O2 Flow Rate FiO2 11/02/17 06:00 18 11/02/17 04:52 18 11/02/17 03:57 18 11/01/17 23:35 15 11/01/17 19:56 14 11/01/17 16:17 18 11/01/17 12:36 18 Lab & Micro Results Test 11/02/17 09:58 White Blood Count 11.8 TH/MM3 Red Blood Count 3.45 MIL/MM3 Hemoglobin 11.0 GM/DL Hematocrit 31.4 % Mean Corpuscular Volume 91.1 FL Mean Corpuscular Hemoglobin 31.9 PG Mean Corpuscular Hemoglobin Concent 35.0 % Red Cell Distribution Width 18.5 % Platelet Count 395 TH/MM3 Mean Platelet Volume 8.1 FL Neutrophils (%) (Auto) 64.7 % Lymphocytes (%) (Auto) 14.5 % Monocytes (%) (Auto) 18.5 % Eosinophils (%) (Auto) 1.9 % Basophils (%) (Auto) 0.4 % Neutrophils # (Auto) 7.6 TH/MM3 Lymphocytes # (Auto) 1.7 TH/MM3 Monocytes # (Auto) 2.2 TH/MM3 Eosinophils # (Auto) 0.2 TH/MM3 Basophils # (Auto) 0.0 TH/MM3 CBC Comment AUTO DIFF Reticulocyte Count 5.0 % Absolute Reticulocyte Count 173.6 MIL/L Physical Exam GENERAL: Well-nourished, well-developed patient. CARDIOVASCULAR: Regular rate and rhythm without murmurs, gallops, or rubs. RESPIRATORY: Breath sounds equal bilaterally. No accessory muscle use. ABDOMEN/GI: Abdomen soft, non-tender. Gravid to 28 weeks FHT's: Baseline: 140s Reactive: yes, +accels Variability: Moderate Decels: Absent EXTREMITIES: No cyanosis or edema, without signs of DVT. 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 -Appreciate recommendations of Dr. Liu, security systems installer -CXR today -Monitor for PE -Pain control with Dilaudid HARDWOOD SAWYER: 0.3 mg Dilaudid HARDWOOD SAWYER with 6 minute lock-out, maximum daily hour dose of 4 mg -Will hold basal rate as pain is improving -Continue folic acid supplementation of 5 mg once daily per hematology recommendations -Continue IVF hydration with 1/2 NS at 125 cc/hr -Goal hemoglobin is greater than 10 g/dL per hematology if this is what may be required to decrease her hemoglobin sickle-cell fraction to < 40% -Will follow-up hemoglobin electrophoresis -Monitor H/H, transfuse PRBCs if needed -Incentive spirometer to bedside -Continue prophylactic anticoagulation with Lovenox 30 mg daily, will consider continuing this on discharge for prevention of hemostasis placenta -Rocephin 1g q24h for E. coli UTI which showed sensitivity to Rocephin from 10/18 -Continue to monitor vital signs and pulse oximetry closely sdw Dr. Gary Hess,[place] PETERSON R2 Nov 02, 2017 10:46
[2017-11-02 10:51] LABS: BICARBONATE 25.9 MEQ/L (21.0-32.0); CALCIUM 9.3 MG/DL (8.5-10.1); CREATININE 0.49 MG/DL (0.50-1.00)
--- NOTE | 2017-11-02 11:01 | RADRPT ---
EXAM DATE: 11/02/2017 10:45 AM EDT AGE/SEX: 22 years / Female INDICATIONS: Dyspnea CLINICAL DATA: This is the patient's initial encounter. Patient reports that signs and symptoms have been present for 3 days and indicates a pain score of 0/10. MEDICAL/SURGICAL HISTORY: . Asthma. Sickle Cell disease. Chronic back pain None. [place]PAR[place] [facility] [place]. . FINDINGS: Single AP portable view of the chest demonstrates hypoinflation of the lungs. No evidence of focal ai rspace consolidation. Heart size appears mildly enlarged which may be artifactual secondary to portab le technique. CONCLUSION: Negative examination. Electronically signed by: Lotus Price MD 11/02/2017 10:59 AM EDT
[2017-11-02 11:39] LABS: BASOPHILS 2 % (0-2); CORRECTED NUCLEATED RBC 23 /100 WBC (0-0); LYMPHOCYTES 11 % (9-44); MONOCYTES 14 % (0-8); NEUTROPHIL # MANUAL DIFF 8.5 TH/MM3 (1.8-7.7); NUCLEATED RED BLOOD CELL 23 (0-0); POLYS (SEG NEUTROPHILS) 72 % (16-70)
[2017-11-02 11:41] LABS: HOWELL-JOLLY BODIES PRESENT (NONE SEEN); SICKLE CELLS 2+ (NORMAL)
[2017-11-02] MEDS: SODIUM CHLORIDE 0.9% FLUSH 10 ML FLUSH IV FLUSH SCH ×2 (12:53→21:00)
[2017-11-02] MEDS ORDERED: diphenhydrAMINE HCL 50 MG/ML VIAL IV ONE (21:30)
[2017-11-02] MEDS: ENOXAPARIN SODIUM 30 MG/0.3 ML SYRINGE SQ SCH (22:00)
--- NOTE | 2017-11-02 23:28 | PD.LABORPN ---
Subjective Subjective Patient reports some increase in contraction intensity. Objective Vital Signs Vital Signs Date Time Temp Pulse Resp B/P (MAP) Pulse Ox O2 Delivery O2 Flow Rate FiO2 11/02/17 17:44 17 11/02/17 17:42 17 Objective Pelvic Exam: Cervix: [-] Dilatation: [-4] Effacement: [-60] Station: [-3-] Presentation: [-] Membranes: [spont ruptured] Uterine Contractions: [-Adequate] FHT's: Category: [-2] Baseline: [-] Reactive: [-] Variability: [Moderate-] Decels: [Nonrepetitive-] Weeks Gestation: 28 Assessment/Plan Problem List: (1) Sickle cell pain crisis ICD Codes: D57.00 - Sickle cell pain crisis Status: Acute Plan: The patient is a very pleasant 22-year-old woman at 28/4 weeks gestation with a diagnosis of hemoglobin sickle cell disease admitted to antepartum with a sickle cell related pain crisis. -Appreciate recommendations of Dr. Liu, business communications instructor -CXR today -Monitor for PE -Pain control with Dilaudid TRUCK JUMPER: 0.3 mg Dilaudid TRUCK JUMPER with 6 minute lock-out, maximum daily hour dose of 4 mg -Will hold basal rate as pain is improving -Continue folic acid supplementation of 5 mg once daily per hematology recommendations -Continue IVF hydration with 1/2 NS at 125 cc/hr -Goal hemoglobin is greater than 10 g/dL per hematology if this is what may be required to decrease her hemoglobin sickle-cell fraction to < 40% -Will follow-up hemoglobin electrophoresis -Monitor H/H, transfuse PRBCs if needed -Incentive spirometer to bedside -Continue prophylactic anticoagulation with Lovenox 30 mg daily, will consider continuing this on discharge for prevention of hemostasis placenta -Rocephin 1g q24h for E. coli UTI which showed sensitivity to Rocephin from 10/18 -Continue to monitor vital signs and pulse oximetry closely sdw Dr. Vega Assessment and Plan Assessment: Protracted latent phase, spontaneous rupture membranes with temporary decrease in variability which is now resolved Plan: We will attempt to decrease the Pitocin and see if she will continue to contract spontaneously. We discussed placing the epidural at this time but the patient prefers to wait. Julito Campos MD Nov 02, 2017 23:28
[2017-11-03] MEDS: cefTRIAXone INJ 1,000 MG in SODIUM CHLORIDE 0.9% INJ 100 ML IV SCH (02:04)
[2017-11-03] MEDS: SODIUM CHLOR 0.45% 1000 ML INJ 1,000 ML IV SCH ×3 (02:04→22:05)
[2017-11-03 04:15] VITALS: PULSE 92; O2SAT 100
[2017-11-03 04:20] VITALS: PULSE 89; O2SAT 100
[2017-11-03 04:25] VITALS: PULSE 90; O2SAT 100
[2017-11-03] MEDS: PCA - TOTAL MG DILAUDID DELIVERED PER SHIFT OTHER SCH (06:00)
[2017-11-03] MEDS: SODIUM CHLORIDE 0.9% FLUSH 10 ML FLUSH IV FLUSH SCH ×2 (07:05→21:00)
--- NOTE | 2017-11-03 07:50 | PD.ONC.PN ---
Subjective Subjective Remarks Patient seen and examined, vital signs, labs, medications and events over the past 24 hours reviewed. Patient is presently on a opioid COMFORT FILLER pump for management of pain related to sickle cell crisis. She has been using the COMFORT FILLER periodically for breakthrough pain. She tells me overall her pain is slightly improved when compared to yesterday. She continues to feel short of breath and requires oxygen supplementation. Objective Data Date Time Temp Pulse Resp B/P (MAP) Pulse Ox O2 Delivery O2 Flow Rate FiO2 11/03/17 06:00 18 11/02/17 23:30 18 11/02/17 17:44 17 11/02/17 17:42 17 Result Diagram: 11/02/17 0958 11/02/17 0958 Laboratory Results Laboratory Tests Test 11/02/17 09:58 White Blood Count 11.8 TH/MM3 Red Blood Count 3.45 MIL/MM3 Hemoglobin 11.0 GM/DL Hematocrit 31.4 % Mean Corpuscular Volume 91.1 FL Mean Corpuscular Hemoglobin 31.9 PG Mean Corpuscular Hemoglobin Concent 35.0 % Red Cell Distribution Width 18.5 % Platelet Count 395 TH/MM3 Mean Platelet Volume 8.1 FL Neutrophils (%) (Auto) 64.7 % Lymphocytes (%) (Auto) 14.5 % Monocytes (%) (Auto) 18.5 % Eosinophils (%) (Auto) 1.9 % Basophils (%) (Auto) 0.4 % Neutrophils # (Auto) 7.6 TH/MM3 Lymphocytes # (Auto) 1.7 TH/MM3 Monocytes # (Auto) 2.2 TH/MM3 Eosinophils # (Auto) 0.2 TH/MM3 Basophils # (Auto) 0.0 TH/MM3 CBC Comment AUTO DIFF Differential Total Cells Counted 100 Neutrophils % (Manual) 72 % Lymphocytes % 11 % Monocytes % 14 % Eosinophils % 1 % Basophils % 2 % Neutrophils # (Manual) 8.5 TH/MM3 Nucleated Red Blood Cells 23 /100 WBC Differential Comment FINAL DIFF MANUAL Platelet Estimate NORMAL Platelet Morphology Comment NORMAL Sickle Cells 2+ Vu-Ruso Bodies PRESENT Reticulocyte Count 5.0 % Absolute Reticulocyte Count 173.6 MIL/L Blood Urea Nitrogen 7 MG/DL Creatinine 0.49 MG/DL Random Glucose 77 MG/DL Calcium Level 9.3 MG/DL Lactate Dehydrogenase 607 U/L Sodium Level 137 MEQ/L Potassium Level 4.5 MEQ/L Chloride Level 102 MEQ/L Carbon Dioxide Level 25.9 MEQ/L Anion Gap 9 MEQ/L Estimat Glomerular Filtration Rate 195 ML/MIN Administered Medications Medications (Trade) Dose Ordered Sig/Papito Route PRN Reason Start Time Stop Time Status Last Admin Dose Admin Acetaminophen (Tylenol) 650 mg Q4H PRN PO PAIN SCALE 1 TO 5 10/30/17 01:15 11/02/17 17:40 Prenat Multivit/ Shipping Point Inspector/Iron/Folic Ac (Stuartnatal Plus 3 ) 1 tab DAILY PO 10/30/17 09:00 11/02/17 08:52 Docusate Sodium (Colace) 100 mg DAILY PO 10/30/17 09:00 11/02/17 21:43 Sodium Chloride (NS Flush) 2 ml BID IV FLUSH 10/30/17 09:00 11/02/17 12:53 Zolpidem Tartrate (Ambien) 5 mg HS PRN PO SLEEP 10/30/17 01:15 10/31/17 23:46 Ondansetron HCl (Zofran Odt) 4 mg Q6H PRN PO NAUSEA 10/30/17 01:15 11/02/17 21:43 Ceftriaxone Sodium 1000 mg/ Sodium Chloride 100 ml @ 200 mls/hr Q24H IV 10/30/17 02:00 11/03/17 02:04 Hydromorphone HCl (Dilaudid COMFORT FILLER Inj) 6 mg UNSCH IV 10/30/17 01:15 11/02/17 17:44 COMFORT FILLER Dosage Infused (Pha) 1 Q8HR OTHER 10/30/17 06:00 11/03/17 06:00 Diphenhydramine HCl (Benadryl Inj) 25 mg Q4H PRN IV PUSH ITCHING 10/30/17 04:15 11/02/17 17:40 Pseudoephedrine HCl (Sudafed) 30 mg Q6H PRN PO NASAL CONGESTION 10/30/17 23:30 11/01/17 07:02 Sodium Chloride 1,000 ml @ 125 mls/hr Q8H IV 10/31/17 09:15 11/03/17 02:04 Folic Acid (Folate) 5 mg DAILY PO 11/01/17 09:00 11/02/17 08:51 Enoxaparin Sodium (Lovenox Inj) 30 mg Q24H SQ 11/01/17 22:00 11/02/17 22:00 Hydromorphone HCl (Dilaudid Pf Inj) 1 mg Q2HR PRN IV PUSH BREAKTHROUGH PAIN 11/01/17 11:45 11/01/17 22:49 Objective Remarks GENERAL: Young female sitting up in bed, she is just waking up, she does not appear to be in respiratory distress. She has nasal cannulas on. She does not appear to be in pain. SKIN: No rashes, ecchymoses or lesions. Cool and dry. HEAD: Atraumatic. Normocephalic. No temporal or scalp tenderness. EYES: Pupils equal round and reactive. Extraocular motions intact. No injection or drainage. Conjunctivae are pale sclerae mildly icteric ENT: Nose without bleeding, purulent drainage or septal hematoma. Throat without erythema, tonsillar hypertrophy or exudate. Uvula midline. Airway patent. NECK: Trachea midline. No JVD or lymphadenopathy. Supple, nontender, no meningeal signs. CARDIOVASCULAR: Regular rate and rhythm without murmurs, gallops, or rubs. RESPIRATORY: Clear to auscultation. Breath sounds equal bilaterally. No wheezes , rales, or rhonchi. GASTROINTESTINAL: Gravid abdomen no palpable organ enlargement noted no tenderness. MUSCULOSKELETAL: Extremities without clubbing, cyanosis, or edema. No joint tenderness, effusion, or edema noted. No calf tenderness. Negative Homans sign bilaterally. Reports tenderness involving the legs NEUROLOGICAL: Awake and alert. Cranial nerves II through XII intact. Motor and sensory grossly within normal limits. Five out of 5 muscle strength in all muscle groups. Normal speech. Assessment/Plan Assessment 22y/o female with sickle cell disease admitted in pain crisis. --patient in week 28 of second (previous had spontaneous miscarriage in first trimester in 2017). Plan 1. Hemoglobin sickle cell disease + pain crisis --maintain hgb>10mg/dL --continue hydration with 1/2 NS --continue judicious pain management --recommend maintaining a hemoglobin sickle cell fraction of between 35 and 40% in peripheral circulation to avoid hemostasis at the level of the placenta--> hgb electrophoresis is pending. --continue daily folic acid supplementation at 5mg to meet requirements and maternal requirements. --continue prophylactic anticoagulation with Lovenox. 2. Hypoxia --Chest x-ray performed on 11/02/2017 was without acute abnormalities. --May also need to obtain CTA should she continue to have desaturations. I would prefer not to obtain a VQ scan given the typical VQ mismatch that occurs as a part of vaso-occlusive crisis. I have asked the nursing staff to perform a walk test on room air to assess O2 saturations. I have asked him to call me with the results on my cell phone; [phone]. Ian Liu MD Nov 03, 2017 07:50
[2017-11-03] MEDS: FOLIC ACID 1 MG TAB PO SCH (10:31)
--- NOTE | 2017-11-03 10:31 | HHI.PR ---
Subjective Remarks Patient is doing well this morning. She slept most of the night. No shortness of breath or chest pain. Pain is well-controlled with the Dilaudid pump. Objective Vital Signs Date Time Temp Pulse Resp B/P (MAP) Pulse Ox O2 Delivery O2 Flow Rate FiO2 11/03/17 06:00 18 11/02/17 23:30 18 11/02/17 17:44 17 11/02/17 17:42 17 Result Diagram: 11/02/17 0958 11/02/17 0958 Imaging Last Impressions Chest X-Ray 11/02/17 0000 Signed Impressions: CONCLUSION: Negative examination. Xochilt Hernandez MD R2 Nov 03, 2017 10:31
[2017-11-03] MEDS: MULTIVIT/MIN/PREN/FOL AC/IRON PRENATAL TAB PO SCH (10:32)
[2017-11-03] MEDS: DOCUSATE SODIUM 100 MG CAP PO SCH (10:32)
--- NOTE | 2017-11-03 10:32 | PD.OB.ANTE ---
Subjective Diagnosis: (1) Sickle cell pain crisis Objective Vital Signs Vital Signs Date Time Temp Pulse Resp B/P (MAP) Pulse Ox O2 Delivery O2 Flow Rate FiO2 11/03/17 06:00 18 11/02/17 23:30 18 11/02/17 17:44 17 11/02/17 17:42 17 Lab & Micro Results Test 11/03/17 10:25 Physical Exam GENERAL: Well-nourished, well-developed patient. CARDIOVASCULAR: Regular rate and rhythm without murmurs, gallops, or rubs. RESPIRATORY: Breath sounds equal bilaterally. No accessory muscle use. ABDOMEN/GI: Abdomen soft, non-tender. Fundus: [-] GENITOURINARY: External Genitalia: intact and normal in appearance Cervix: [-] Dilatation: [-] Effacement: [-] Station: [-] Presentation: [-] Membranes: [-] Uterine Contractions: [-] FHT's: Category: [-] Baseline: [-] Reactive: [-] Variability: [-] Decels: [-] EXTREMITIES: No cyanosis or edema, non-tender, without signs of DVT. 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 -Appreciate recommendations of Dr. Liu, captain waiter -CXR today -Monitor for PE -Pain control with Dilaudid PAPER MAKING MACHINE OPERATOR: 0.3 mg Dilaudid PAPER MAKING MACHINE OPERATOR with 6 minute lock-out, maximum daily hour dose of 4 mg -Will hold basal rate as pain is improving -Continue folic acid supplementation of 5 mg once daily per hematology recommendations -Continue IVF hydration with 1/2 NS at 125 cc/hr -Goal hemoglobin is greater than 10 g/dL per hematology if this is what may be required to decrease her hemoglobin sickle-cell fraction to < 40% -Will follow-up hemoglobin electrophoresis -Monitor H/H, transfuse PRBCs if needed -Incentive spirometer to bedside -Continue prophylactic anticoagulation with Lovenox 30 mg daily, will consider continuing this on discharge for prevention of hemostasis placenta -Rocephin 1g q24h for E. coli UTI which showed sensitivity to Rocephin from 10/18 -Continue to monitor vital signs and pulse oximetry closely sdw Dr. Gary Hernandez,Xochilt PETERSON R2 Nov 03, 2017 10:32
--- NOTE | 2017-11-03 10:34 | PD.OB.ANTE ---
Subjective Diagnosis: (1) Sickle cell pain crisis Diagnosis: Principal (2) 28 weeks gestation of Diagnosis: Principal Interval History Patient is doing well this morning. She slept most of the night. No shortness of breath or chest pain. Pain is well-controlled with the Dilaudid pump. Objective Vital Signs Vital Signs Date Time Temp Pulse Resp B/P (MAP) Pulse Ox O2 Delivery O2 Flow Rate FiO2 11/03/17 06:00 18 11/02/17 23:30 18 11/02/17 17:44 17 11/02/17 17:42 17 Lab & Micro Results Test 11/03/17 10:25 Physical Exam GENERAL: Well-nourished, well-developed patient. CARDIOVASCULAR: Regular rate and rhythm, 1-2/6 systolic murmur RESPIRATORY: Breath sounds equal bilaterally. No accessory muscle use. ABDOMEN/GI: Abdomen soft, non-tender. Fundus: gravid GENITOURINARY: External Genitalia: intact and normal in appearance Cervix: [-] Dilatation: [-] Effacement: [-] Station: [-] Presentation: [-] Membranes: [-] Uterine Contractions: None FHT's: Category: I Baseline: 150 Reactive: yes,multiple accels Variability: Moderate Decels: None EXTREMITIES: No cyanosis or edema, non-tender, without signs of DVT. 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 -Appreciate recommendations of Dr. Liu, benefits manager -CXR on 11/02 was negative -Monitor for PE -Transition to PO pain medications today * Tylenol 650mg PO PRN pain 1-2 * Roxicodone 5mg PO PRN Pain 3-5 * Roxicodone 10mg PO PRN Pain 6-10 * Dilaudid 0.2mg IV PRN breakthrough pain -Respiratory oxygen walk test * if drops below 90%, will send for CTA to rule out PE -Goal hemoglobin is greater than 10 g/dL per hematology if this is what may be required to decrease her hemoglobin sickle-cell fraction to < 40% * H/H 11.1/31.6 today 11/03 * Retic count wnl at 67.1 * Continue folic acid supplementation of 5 mg once daily per hematology recommendations * Daily H/H, transfuse PRBCs if needed * Hemoglobin electrophoresis still pending -Continue IVF hydration with 1/2 NS at 125 cc/hr -Continue prophylactic anticoagulation with Lovenox 30 mg daily, will consider continuing this on discharge for prevention of hemostasis placenta -Incentive spirometer to bedside SDW dr. Vega (2) 28 weeks gestation of ICD Codes: Z3A.28 - 28 weeks gestation of ; J45.909 - Unspecified asthma, uncomplicated Status: Acute Plan: -FHT category I and reactive - reassuring, baseline 150 -Continue NSTs Qshift (3) Urinary tract infection during in third trimester, antepartum ICD Codes: O23.43 - Unspecified infection of urinary tract in , third trimester; J45.909 - Unspecified asthma, uncomplicated Status: Acute Plan: -Rocephin 1g q24h for E. coli UTI which showed sensitivity to Rocephin from 10/18 * Day 5, started on 10/30/2017 Xochilt Hernandez MD R2 Nov 03, 2017 10:34 am
[2017-11-03] MEDS: ONDANSETRON ODT 4 MG TAB PO PRN (10:41)
[2017-11-03 10:44] LABS: AUTOMATED NEUTROPHIL # 7.1 TH/MM3 (1.8-7.7); BASOPHIL % 0.4 % (0.0-2.0); EOSINOPHIL # 0.1 TH/MM3 (0-0.4); EOSINOPHIL % 0.8 % (0.0-4.0); HEMATOCRIT 31.6 % (35.0-46.0); HEMOGLOBIN 11.1 GM/DL (11.6-15.3); LYMPHOCYTE # 1.7 TH/MM3 (1.0-4.8); MEAN CELL VOLUME 90.9 FL (80.0-100.0); MEAN CORPUSCULAR HGB CONC 35.2 % (32.0-36.0); MEAN PLATELET VOLUME 8.1 FL (7.0-11.0); MONO % 16.2 % (0.0-8.0); MONOCYTE # 1.7 TH/MM3 (0-0.9); NEUT % 66.6 % (16.0-70.0); PLATELET COUNT 368 TH/MM3 (150-450); RED BLOOD COUNT 3.47 MIL/MM3 (4.00-5.30); RED CELL DISTRIBUTION WIDTH 18.8 % (11.6-17.2); RETIC # 67.1 MIL/L (20.0-150.0); RETIC % 1.9 % (0.4-3.0); WHITE BLOOD COUNT 10.6 TH/MM3 (4.0-11.0)
[2017-11-03 11:08] LABS: BICARBONATE 23.4 MEQ/L (21.0-32.0); CALCIUM 9.1 MG/DL (8.5-10.1); CREATININE 0.47 MG/DL (0.50-1.00)
[2017-11-03] MEDS: diphenhydrAMINE HCL 50 MG/ML VIAL IV PUSH PRN ×3 (11:48→23:31)
[2017-11-03 12:58] LABS: BASOPHILS 1 % (0-2); CORRECTED NUCLEATED RBC 8 /100 WBC (0-0); LYMPHOCYTES 14 % (9-44); MONOCYTES 13 % (0-8); NEUTROPHIL # MANUAL DIFF 7.6 TH/MM3 (1.8-7.7); NUCLEATED RED BLOOD CELL 8 (0-0); POLYS (SEG NEUTROPHILS) 72 % (16-70); SICKLE CELLS 2+ (NORMAL)
[2017-11-03] MEDS: ACETAMINOPHEN 325 MG TAB PO PRN (14:49)
[2017-11-03] MEDS: HYDROmorphone HCL PF 2 MG/ML VIAL IV PUSH PRN ×2 (18:49→23:19)
[2017-11-03] MEDS: ENOXAPARIN SODIUM 30 MG/0.3 ML SYRINGE SQ SCH (22:04)
[2017-11-04] VITALS (147 sets, daily range): BP systolic 103–123; BP diastolic 43–55; PULSE 84–115; RESP 16–18; TEMP 97.9–99; O2SAT 91–100
[2017-11-04] MEDS: cefTRIAXone INJ 1,000 MG in SODIUM CHLORIDE 0.9% INJ 100 ML IV SCH (02:09)
[2017-11-04] MEDS: SODIUM CHLOR 0.45% 1000 ML INJ 1,000 ML IV SCH ×4 (03:58→23:49)
[2017-11-04] MEDS: diphenhydrAMINE HCL 50 MG/ML VIAL IV PUSH PRN ×4 (04:00→20:28)
--- NOTE | 2017-11-04 07:13 | PD.OB.ANTE ---
Subjective Diagnosis: (1) Sickle cell pain crisis Diagnosis: Principal (2) 28 weeks gestation of Diagnosis: Principal (3) Urinary tract infection during in third trimester, antepartum Diagnosis: Secondary Interval History Patient states that she did not sleep well last night due to pain. The pain in her legs is currently 7/10 and is really bothering her. Roxicodone does not touch her pain, and she does not want to take narcotics if she can avoid them because of how they can affect her baby. She denies chest pain, shortness of breath, n/v, fever or chills. Objective Vital Signs Vital Signs Date Time Temp Pulse Resp B/P (MAP) Pulse Ox O2 Delivery O2 Flow Rate FiO2 11/04/17 02:08 18 11/03/17 23:15 18 Lab & Micro Results Test 11/03/17 10:25 White Blood Count 10.6 TH/MM3 Red Blood Count 3.47 MIL/MM3 Hemoglobin 11.1 GM/DL Hematocrit 31.6 % Mean Corpuscular Volume 90.9 FL Mean Corpuscular Hemoglobin 32.0 PG Mean Corpuscular Hemoglobin Concent 35.2 % Red Cell Distribution Width 18.8 % Platelet Count 368 TH/MM3 Mean Platelet Volume 8.1 FL Neutrophils (%) (Auto) 66.6 % Lymphocytes (%) (Auto) 16.0 % Monocytes (%) (Auto) 16.2 % Eosinophils (%) (Auto) 0.8 % Basophils (%) (Auto) 0.4 % Neutrophils # (Auto) 7.1 TH/MM3 Lymphocytes # (Auto) 1.7 TH/MM3 Monocytes # (Auto) 1.7 TH/MM3 Eosinophils # (Auto) 0.1 TH/MM3 Basophils # (Auto) 0.0 TH/MM3 CBC Comment AUTO DIFF Differential Total Cells Counted 100 Neutrophils % (Manual) 72 % Lymphocytes % 14 % Monocytes % 13 % Basophils % 1 % Neutrophils # (Manual) 7.6 TH/MM3 Nucleated Red Blood Cells 8 /100 WBC Differential Comment FINAL DIFF MANUAL Platelet Estimate NORMAL Platelet Morphology Comment NORMAL Sickle Cells 2+ Red Cell Morphology Comment Reticulocyte Count 1.9 % Absolute Reticulocyte Count 67.1 MIL/L Blood Urea Nitrogen 7 MG/DL Creatinine 0.47 MG/DL Random Glucose 68 MG/DL Calcium Level 9.1 MG/DL Sodium Level 137 MEQ/L Potassium Level 4.6 MEQ/L Chloride Level 104 MEQ/L Carbon Dioxide Level 23.4 MEQ/L Anion Gap 10 MEQ/L Estimat Glomerular Filtration Rate 204 ML/MIN Lactate Dehydrogenase 676 U/L Physical Exam GENERAL: Well-nourished, well-developed patient. CARDIOVASCULAR: Regular rate and rhythm, 1-2/6 systolic murmur heard best in the LSB RESPIRATORY: Breath sounds equal bilaterally. No accessory muscle use. ABDOMEN/GI: Abdomen soft, non-tender. Fundus: gravid GENITOURINARY: External Genitalia: intact and normal in appearance Cervix: [-] Dilatation: [-] Effacement: [-] Station: [-] Presentation: [-] Membranes: [-] Uterine Contractions: [-] FHT's: Category: I Baseline: 150 Reactive: accels present Variability: moderate Decels: None EXTREMITIES: No cyanosis or edema, non-tender, without signs of DVT. 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 IUP -NST reassuring, FHT reassuring -Continue NSTs qshift Sickle cell crisis -Appreciate recommendations of Dr. Liu, framing mechanic -CXR on 11/02 was negative -Monitor for PE -Switch PO pain medications * Tylenol 650mg PO PRN pain 1-2 * Percocet 5-325 PO PRN Pain 3-5 * Percocet 10-325 PO PRN Pain 6-10 * Dilaudid 0.2mg IV PRN breakthrough pain -Goal hemoglobin is greater than 10 g/dL per hematology if this is what may be required to decrease her hemoglobin sickle-cell fraction to < 40% * H/H 9.9/28.2 today compared to 11.1/31.6 on 11/03 * Will monitor pt closely today and transfuse tomorrow if worsens * Retic count wnl at 49 point * Continue folic acid supplementation of 5 mg once daily per hematology recommendations * Daily H/H, transfuse PRBCs if needed * Hemoglobin electrophoresis still pending -Continue IVF hydration with 1/2 NS at 125 cc/hr -Continue prophylactic anticoagulation with Lovenox 30 mg daily, will consider continuing this on discharge for prevention of hemostasis placenta -Encouraged use of incentive spirometer DW Dr. Vega (2) 28 weeks gestation of ICD Codes: Z3A.28 - 28 weeks gestation of ; J45.909 - Unspecified asthma, uncomplicated Status: Acute Plan: -FHT category I and reactive - reassuring, baseline 150 -Continue NSTs Qshift (3) Urinary tract infection during in third trimester, antepartum ICD Codes: O23.43 - Unspecified infection of urinary tract in , third trimester; J45.909 - Unspecified asthma, uncomplicated Status: Acute Plan: Resolved -Was on Rocephin 1g q24h for E. coli UTI which showed sensitivity to Rocephin from 10/18 * Day 5, started on 10/30/2017 - discontinue today Xochilt Hernandez MD R2 Nov 04, 2017 07:13
[2017-11-04] MEDS: HYDROmorphone HCL PF 2 MG/ML VIAL IV PUSH PRN ×2 (07:48→22:35)
[2017-11-04 08:07] LABS: HEMATOCRIT 28.2 % (35.0-46.0); HEMOGLOBIN 9.9 GM/DL (11.6-15.3); MEAN CELL VOLUME 90.1 FL (80.0-100.0); MEAN CORPUSCULAR HEMOGLOBIN 31.6 PG (27.0-34.0); MEAN PLATELET VOLUME 8.5 FL (7.0-11.0); PLATELET COUNT 380 TH/MM3 (150-450); RED BLOOD COUNT 3.13 MIL/MM3 (4.00-5.30); RED CELL DISTRIBUTION WIDTH 18.1 % (11.6-17.2); RETIC # 49.8 MIL/L (20.0-150.0); RETIC % 1.6 % (0.4-3.0); WHITE BLOOD COUNT 11.9 TH/MM3 (4.0-11.0)
--- NOTE | 2017-11-04 08:14 | PD.ONC.PN ---
Subjective Subjective Remarks Pt was seen and examined this morning, vital signs and labs are reviewed. Events overnight were reviewed as well. The patient reports having had a walk test yesterday, ambulatory saturation on room air was noted to be 93%, at rest her O2 saturations are approximately 96-97 % on room air. She reports her pain is improved, she is no longer using the hydromorphone COMMUNITY MARKETING MANAGER pump, she has been on oxycodone mainly for pain management. She tells me she is hydrating herself well And has been getting up out of bed. She tells me her baby has been very active. Objective Data Date Time Temp Pulse Resp B/P (MAP) Pulse Ox O2 Delivery O2 Flow Rate FiO2 11/04/17 02:08 18 11/03/17 23:15 18 Result Diagram: 11/03/17 1025 11/03/17 1025 Laboratory Results Laboratory Tests Test 11/03/17 10:25 11/04/17 07:29 White Blood Count 10.6 TH/MM3 Red Blood Count 3.47 MIL/MM3 Hemoglobin 11.1 GM/DL Hematocrit 31.6 % Mean Corpuscular Volume 90.9 FL Mean Corpuscular Hemoglobin 32.0 PG Mean Corpuscular Hemoglobin Concent 35.2 % Red Cell Distribution Width 18.8 % Platelet Count 368 TH/MM3 Mean Platelet Volume 8.1 FL Neutrophils (%) (Auto) 66.6 % Lymphocytes (%) (Auto) 16.0 % Monocytes (%) (Auto) 16.2 % Eosinophils (%) (Auto) 0.8 % Basophils (%) (Auto) 0.4 % Neutrophils # (Auto) 7.1 TH/MM3 Lymphocytes # (Auto) 1.7 TH/MM3 Monocytes # (Auto) 1.7 TH/MM3 Eosinophils # (Auto) 0.1 TH/MM3 Basophils # (Auto) 0.0 TH/MM3 CBC Comment AUTO DIFF Differential Total Cells Counted 100 Neutrophils % (Manual) 72 % Lymphocytes % 14 % Monocytes % 13 % Basophils % 1 % Neutrophils # (Manual) 7.6 TH/MM3 Nucleated Red Blood Cells 8 /100 WBC Differential Comment FINAL DIFF MANUAL Platelet Estimate NORMAL Platelet Morphology Comment NORMAL Sickle Cells 2+ Red Cell Morphology Comment Reticulocyte Count 1.9 % Absolute Reticulocyte Count 67.1 MIL/L Blood Urea Nitrogen 7 MG/DL Creatinine 0.47 MG/DL Random Glucose 68 MG/DL Calcium Level 9.1 MG/DL Sodium Level 137 MEQ/L Potassium Level 4.6 MEQ/L Chloride Level 104 MEQ/L Carbon Dioxide Level 23.4 MEQ/L Anion Gap 10 MEQ/L Estimat Glomerular Filtration Rate 204 ML/MIN Lactate Dehydrogenase 676 U/L Administered Medications Medications (Trade) Dose Ordered Sig/Papito Route PRN Reason Start Time Stop Time Status Last Admin Dose Admin Prenat Multivit/ Manager Transfer/Iron/Folic Ac (Stuartnatal Plus 3 ) 1 tab DAILY PO 10/30/17 09:00 11/03/17 10:32 Docusate Sodium (Colace) 100 mg DAILY PO 10/30/17 09:00 11/03/17 10:32 Sodium Chloride (NS Flush) 2 ml BID IV FLUSH 10/30/17 09:00 11/02/17 12:53 Zolpidem Tartrate (Ambien) 5 mg HS PRN PO SLEEP 10/30/17 01:15 10/31/17 23:46 Ondansetron HCl (Zofran Odt) 4 mg Q6H PRN PO NAUSEA 10/30/17 01:15 11/03/17 10:41 Ceftriaxone Sodium 1000 mg/ Sodium Chloride 100 ml @ 200 mls/hr Q24H IV 10/30/17 02:00 11/04/17 02:09 Hydromorphone HCl (Dilaudid COMMUNITY MARKETING MANAGER Inj) 6 mg UNSCH IV 10/30/17 01:15 Future Hold 11/02/17 17:44 COMMUNITY MARKETING MANAGER Dosage Infused (Pha) 1 Q8HR OTHER 10/30/17 06:00 Future Hold 11/03/17 06:00 Diphenhydramine HCl (Benadryl Inj) 25 mg Q4H PRN IV PUSH ITCHING 10/30/17 04:15 11/04/17 04:00 Pseudoephedrine HCl (Sudafed) 30 mg Q6H PRN PO NASAL CONGESTION 10/30/17 23:30 11/01/17 07:02 Sodium Chloride 1,000 ml @ 125 mls/hr Q8H IV 10/31/17 09:15 11/04/17 03:58 Folic Acid (Folate) 5 mg DAILY PO 11/01/17 09:00 11/03/17 10:31 Enoxaparin Sodium (Lovenox Inj) 30 mg Q24H SQ 11/01/17 22:00 11/03/17 22:04 Acetaminophen (Tylenol) 650 mg Q6H PRN PO PAIN SCALE 1 TO 2 11/03/17 11:00 11/03/17 14:49 Oxycodone HCl (Roxicodone) 10 mg Q4H PRN PO PAIN SCALE 6 TO 10 11/03/17 11:00 11/04/17 03:59 Hydromorphone HCl (Dilaudid Pf Inj) 0.2 mg Q3H PRN IV PUSH BREAKTHROUGH PAIN 11/03/17 11:00 11/04/17 07:48 Objective Remarks GENERAL: Young female sitting up in bed, she is just waking up, she does not appear to be in respiratory distress. She does not appear to be in pain. SKIN: No rashes, ecchymoses or lesions. Cool and dry. HEAD: Atraumatic. Normocephalic. No temporal or scalp tenderness. EYES: Pupils equal round and reactive. Extraocular motions intact. No injection or drainage. Conjunctivae are pale sclerae mildly icteric ENT: Nose without bleeding, purulent drainage or septal hematoma. Throat without erythema, tonsillar hypertrophy or exudate. Uvula midline. Airway patent. NECK: Trachea midline. No JVD or lymphadenopathy. Supple, nontender, no meningeal signs. CARDIOVASCULAR: Regular rate and rhythm without murmurs, gallops, or rubs. RESPIRATORY: Clear to auscultation. Breath sounds equal bilaterally. No wheezes , rales, or rhonchi. GASTROINTESTINAL: Gravid abdomen no palpable organ enlargement noted no tenderness. MUSCULOSKELETAL: Extremities without clubbing, cyanosis, or edema. No joint tenderness, effusion, or edema noted. No calf tenderness. Negative Homans sign bilaterally. Reports tenderness involving the legs NEUROLOGICAL: Awake and alert. Cranial nerves II through XII intact. Motor and sensory grossly within normal limits. Five out of 5 muscle strength in all muscle groups. Normal speech. Assessment/Plan Assessment 22y/o female with sickle cell disease admitted in pain crisis. --patient in week 28 of second (previous had spontaneous miscarriage in first trimester in 2017). Plan 1. 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 She also had an E. coli urinary tract infection which is currently being treated. Over the past 24 hours her pain has improved, she no longer requires the COMMUNITY MARKETING MANAGER pump. Going forward, she will be monitored very closely in the outpatient setting and per expert panel recommendations she will be maintained during her third trimester with periodic red cell transfusions in an effort to decrease her hemoglobin sickle cell fraction to a range between 35 and 40%. She will also be receiving outpatient IV fluid hydration in the outpatient setting for management of pain crises. Based on observational studies women with hemoglobin sickle cell disease have a 7 times greater risk of maternal mortality with and that risk can be mitigated significantly with transfusion support in the third trimester. Given the fact that this patient has previously lost a in the first trimester and has had recurrent hospitalizations with pain crisis I would estimate her mortality risk to be significant. Continue pain control with long-acting opioids if needed and short acting opioids. 2. I would also recommend she be discharged home on prophylactic anticoagulation with Lovenox at a dose of between 30 and 40 mg daily. This will be to mitigate the risk of venous thrombosis especially given her history of previous loss. My new patient office has been working closely with the patient and her grandmother as well as the patient's insurance company to transition her to my outpatient clinic. Ian Liu MD Nov 04, 2017 08:14
[2017-11-04] MEDS: SODIUM CHLORIDE 0.9% FLUSH 10 ML FLUSH IV FLUSH SCH ×2 (08:28→20:29)
[2017-11-04] MEDS: FOLIC ACID 1 MG TAB PO SCH (08:28)
[2017-11-04] MEDS: MULTIVIT/MIN/PREN/FOL AC/IRON PRENATAL TAB PO SCH (08:29)
[2017-11-04] MEDS: DOCUSATE SODIUM 100 MG CAP PO SCH (08:29)
[2017-11-04 08:33] LABS: BICARBONATE 24.1 MEQ/L (21.0-32.0); CREATININE 0.45 MG/DL (0.50-1.00)
[2017-11-04] MEDS ORDERED: oxyCODONE/ACETAMINOPHEN 5 MG/325 MG TAB PO PRN (09:45)
[2017-11-04] MEDS: oxyCODONE/ACETAMINOPHEN 10 MG/325 MG TAB PO PRN ×2 (10:43→18:59)
--- NOTE | 2017-11-04 16:29 | HHI.FPPN ---
Addendum to progress note ADDENDUM Reason for addendum: Additonal documentation Additional information Spoke with bird sitter Dr. Liu to review patient's H/H from today at 9.9/28.2 Decision was made to transfuse 1 unit leukoreduced PRBC to maintain H/H above 10 and 30 respectively. Discussed plan with patient who expressed understanding and agreement. DW OB attending Xochilt Rodriguez MD R2 Nov 04, 2017 16:29
[2017-11-04] MEDS ORDERED: diphenhydrAMINE HCL 25 MG CAP PO PRN (16:30)
[2017-11-04] MEDS ORDERED: SODIUM CHLOR 0.9% 250 ML INJ 250 ML IV ONE (16:30)
[2017-11-04] MEDS: FLUTICASONE PROPIONATE 50 MCG/ACT 16 GM NASAL SPRAY NASAL SCH ×2 (17:00→20:28)
[2017-11-04] MEDS: ONDANSETRON ODT 4 MG TAB PO PRN (19:34)
[2017-11-04] MEDS: ACETAMINOPHEN 325 MG TAB PO PRN (21:37)
[2017-11-04] MEDS: ENOXAPARIN SODIUM 30 MG/0.3 ML SYRINGE SQ SCH (21:37)
[2017-11-05] VITALS (7 sets, daily range): BP systolic 119–125; BP diastolic 61–65; PULSE 91–103; RESP 16–20; TEMP 98.2–99.1; O2SAT 96–98
[2017-11-05] MEDS: diphenhydrAMINE HCL 50 MG/ML VIAL IV PUSH PRN ×3 (00:31→23:12)
[2017-11-05] MEDS: ACETAMINOPHEN 325 MG TAB PO PRN ×3 (05:46→21:24)
--- NOTE | 2017-11-05 07:11 | PD.OB.ANTE ---
Subjective Diagnosis: (1) Sickle cell pain crisis Diagnosis: Principal (2) 28 weeks gestation of Diagnosis: Principal Interval History Patient complains of 9/10 pain in her legs bilaterally. Otherwise, she has no issues. She is eating well and had minimal abdominal pain overnight. She has no chest pain or shortness of breath. Objective Vital Signs Vital Signs Date Time Temp Pulse Resp B/P (MAP) Pulse Ox O2 Delivery O2 Flow Rate FiO2 11/04/17 21:00 99.0 93 18 117/53 95 11/04/17 20:41 98.8 95 18 115/55 94 Intake & Output 11/05/17 11/05/17 07:00 19:00 Intake Total 650 ml Balance 650 ml Packed Cells 400 ml Blood Product IV Normal Saline Flush 250 ml Lab & Micro Results Test 11/04/17 07:29 White Blood Count 11.9 TH/MM3 Red Blood Count 3.13 MIL/MM3 Hemoglobin 9.9 GM/DL Hematocrit 28.2 % Mean Corpuscular Volume 90.1 FL Mean Corpuscular Hemoglobin 31.6 PG Mean Corpuscular Hemoglobin Concent 35.0 % Red Cell Distribution Width 18.1 % Platelet Count 380 TH/MM3 Mean Platelet Volume 8.5 FL Reticulocyte Count 1.6 % Absolute Reticulocyte Count 49.8 MIL/L Blood Urea Nitrogen 7 MG/DL Creatinine 0.45 MG/DL Random Glucose 68 MG/DL Calcium Level 9.0 MG/DL Lactate Dehydrogenase 613 U/L Sodium Level 137 MEQ/L Potassium Level 4.3 MEQ/L Chloride Level 103 MEQ/L Carbon Dioxide Level 24.1 MEQ/L Anion Gap 10 MEQ/L Estimat Glomerular Filtration Rate 215 ML/MIN Physical Exam GENERAL: Well-nourished, well-developed patient. CARDIOVASCULAR: Regular rate and rhythm, 1-2 systolic flow murmur heard best in the LSB RESPIRATORY: Breath sounds equal bilaterally. No accessory muscle use. ABDOMEN/GI: Abdomen soft, non-tender. Fundus: 29 weeks GENITOURINARY: EXTREMITIES: No cyanosis or edema, non-tender, without signs of DVT. Assessment and Plan Problem List: (1) Sickle cell pain crisis ICD Codes: D57.00 - Sickle cell pain crisis Status: Acute Plan: The patient is a very pleasant 22-year-old at 29/0 weeks gestation with a diagnosis of hemoglobin sickle cell disease admitted to antepartum with a sickle cell pain crisis. IUP * NST reassuring, FHT category I, consistent with a 29 week fetus: baseline 150 , reactive, moderate variability, no decels * Continue NSTs qshift Sickle cell crisis * Appreciate recommendations of Dr. Liu, manufacturing tech * Goal hemoglobin is greater than 10 g/dL per hematology if this is what may be required to decrease her hemoglobin sickle-cell fraction to < 40% * H/H 9.9/28.2 on 02/04, received 1 unit PRBC * H/H this am 03/29.6 - will transfuse 1 unit PRBC to keep hemoglobin >10 * Absolute retic count wnl at 59.1, monitor daily * Continue folic acid supplementation of 5 mg once daily per hematology recommendations * Daily CBC, transfuse PRBCs if needed * Hemoglobin electrophoresis still pending * Continue IVF hydration with 1/2 NS at 125 cc/hr * Continue prophylactic anticoagulation with Lovenox 30 mg daily, will consider continuing this on discharge for prevention of hemostasis placenta * Continue incentive spirometer Continue PO pain medications * Tylenol 650mg PO PRN pain 1-2 * Percocet 5-325 PO PRN Pain 3-5 * Percocet 10-325 PO PRN Pain 6-10 * Dilaudid 0.2mg IV PRN breakthrough pain DW Dr. Dr. Montenegro (2) 29 weeks gestation of ICD Codes: Z3A.29 - 29 weeks gestation of Plan: -FHT category I and reactive - reassuring, baseline -Continue NSTs Qshift Xochilt Hernandez MD R2 Nov 05, 2017 7:11 am
[2017-11-05] MEDS: oxyCODONE/ACETAMINOPHEN 10 MG/325 MG TAB PO PRN ×2 (07:33→17:22)
[2017-11-05] MEDS: SODIUM CHLOR 0.45% 1000 ML INJ 1,000 ML IV SCH ×2 (08:14→20:19)
[2017-11-05] MEDS: SODIUM CHLORIDE 0.9% FLUSH 10 ML FLUSH IV FLUSH SCH ×2 (08:44→20:19)
[2017-11-05] MEDS: DOCUSATE SODIUM 100 MG CAP PO SCH (08:56)
[2017-11-05] MEDS: MULTIVIT/MIN/PREN/FOL AC/IRON PRENATAL TAB PO SCH (08:56)
[2017-11-05] MEDS: FLUTICASONE PROPIONATE 50 MCG/ACT 16 GM NASAL SPRAY NASAL SCH ×2 (08:56→20:19)
[2017-11-05] MEDS: FOLIC ACID 1 MG TAB PO SCH (09:03)
[2017-11-05 09:06] LABS: HEMATOCRIT 28.6 % (35.0-46.0); MEAN CELL VOLUME 88.5 FL (80.0-100.0); MEAN CORPUSCULAR HEMOGLOBIN 31.1 PG (27.0-34.0); MEAN CORPUSCULAR HGB CONC 35.1 % (32.0-36.0); MEAN PLATELET VOLUME 8.7 FL (7.0-11.0); PLATELET COUNT 342 TH/MM3 (150-450); RED BLOOD COUNT 3.23 MIL/MM3 (4.00-5.30); RED CELL DISTRIBUTION WIDTH 17.7 % (11.6-17.2); RETIC # 59.1 MIL/L (20.0-150.0); RETIC % 1.8 % (0.4-3.0); WHITE BLOOD COUNT 11.7 TH/MM3 (4.0-11.0)
[2017-11-05 09:15] LABS: BICARBONATE 21.7 MEQ/L (21.0-32.0); CALCIUM 9.1 MG/DL (8.5-10.1); CREATININE 0.36 MG/DL (0.50-1.00)
[2017-11-05] MEDS ORDERED: diphenhydrAMINE HCL 25 MG CAP PO PRN (09:45)
[2017-11-05] MEDS ORDERED: SODIUM CHLOR 0.9% 250 ML INJ 250 ML IV ONE (09:45)
--- NOTE | 2017-11-05 15:48 | PD.ONC.PN ---
Subjective Subjective Remarks Afebrile Patient reports she has pain in her legs Denies chest pain or shortness of breath Overall doing "so-so" Reports baby is moving frequently Objective Data Date Time Temp Pulse Resp B/P (MAP) Pulse Ox O2 Delivery O2 Flow Rate FiO2 11/05/17 13:14 98.8 96 18 119/65 98 11/05/17 11:30 91 20 121/63 96 11/05/17 11:25 98.2 97 20 123/64 97 11/05/17 11:20 98 20 122/65 97 11/05/17 11:16 98 18 123/61 97 11/05/17 11:12 103 18 125/62 96 11/05/17 11:09 99.1 93 16 120/62 97 11/04/17 21:00 99.0 93 18 117/53 95 11/04/17 20:41 98.8 95 18 115/55 94 11/05/17 11/05/17 11/05/17 07:00 15:00 23:00 Intake Total 415 ml Balance 415 ml Result Diagram: 11/05/17 0827 11/05/17 0827 Laboratory Results Laboratory Tests Test 11/05/17 08:27 White Blood Count 11.7 TH/MM3 Red Blood Count 3.23 MIL/MM3 Hemoglobin 10.0 GM/DL Hematocrit 28.6 % Mean Corpuscular Volume 88.5 FL Mean Corpuscular Hemoglobin 31.1 PG Mean Corpuscular Hemoglobin Concent 35.1 % Red Cell Distribution Width 17.7 % Platelet Count 342 TH/MM3 Mean Platelet Volume 8.7 FL Reticulocyte Count 1.8 % Absolute Reticulocyte Count 59.1 MIL/L Blood Urea Nitrogen 6 MG/DL Creatinine 0.36 MG/DL Random Glucose 79 MG/DL Calcium Level 9.1 MG/DL Lactate Dehydrogenase 538 U/L Sodium Level 137 MEQ/L Potassium Level 3.8 MEQ/L Chloride Level 104 MEQ/L Carbon Dioxide Level 21.7 MEQ/L Anion Gap 11 MEQ/L Estimat Glomerular Filtration Rate 278 ML/MIN Administered Medications Medications (Trade) Dose Ordered Sig/Papito Route PRN Reason Start Time Stop Time Status Last Admin Dose Admin Prenat Multivit/ Radio Sales Account Executive/Iron/Folic Ac (Stuartnatal Plus 3 ) 1 tab DAILY PO 10/30/17 09:00 11/05/17 08:56 Docusate Sodium (Colace) 100 mg DAILY PO 10/30/17 09:00 11/05/17 08:56 Sodium Chloride (NS Flush) 2 ml BID IV FLUSH 10/30/17 09:00 11/04/17 20:29 Zolpidem Tartrate (Ambien) 5 mg HS PRN PO SLEEP 10/30/17 01:15 10/31/17 23:46 Ondansetron HCl (Zofran Odt) 4 mg Q6H PRN PO NAUSEA 10/30/17 01:15 11/04/17 19:34 Hydromorphone HCl (Dilaudid MANAGER DELIVERY Inj) 6 mg UNSCH IV 10/30/17 01:15 Future Hold 11/02/17 17:44 MANAGER DELIVERY Dosage Infused (Pha) 1 Q8HR OTHER 10/30/17 06:00 Future Hold 11/03/17 06:00 Diphenhydramine HCl (Benadryl Inj) 25 mg Q4H PRN IV PUSH ITCHING 10/30/17 04:15 11/05/17 06:40 Pseudoephedrine HCl (Sudafed) 30 mg Q6H PRN PO NASAL CONGESTION 10/30/17 23:30 11/01/17 07:02 Sodium Chloride 1,000 ml @ 125 mls/hr Q8H IV 10/31/17 09:15 11/05/17 08:14 Folic Acid (Folate) 5 mg DAILY PO 11/01/17 09:00 11/05/17 09:03 Enoxaparin Sodium (Lovenox Inj) 30 mg Q24H SQ 11/01/17 22:00 11/04/17 21:37 Acetaminophen (Tylenol) 650 mg Q6H PRN PO PAIN SCALE 1 TO 2 11/03/17 11:00 11/05/17 13:24 Hydromorphone HCl (Dilaudid Pf Inj) 0.2 mg Q3H PRN IV PUSH BREAKTHROUGH PAIN 11/03/17 11:00 11/04/17 22:35 Oxycodone/ Acetaminophen (Percocet 10-325 Mg) 1 tab Q6H PRN PO PAIN SCALE 6 TO 10 11/04/17 09:45 11/05/17 07:33 Fluticasone Propionate (Flonase Nicanor Spr) 1 spray BID NASAL 11/04/17 12:00 11/05/17 08:56 Sodium Chloride 250 ml @ 15 mls/hr ONCE ONCE IV 11/05/17 09:45 11/06/17 02:24 11/05/17 11:25 Diphenhydramine HCl (Benadryl) 25 mg Q4H PRN PO SEE LABEL COMMENTS 11/05/17 09:45 11/05/17 10:46 Objective Remarks GENERAL: Young female resting in bed in no obvious distress SKIN: Warm and dry. HEAD: Normocephalic. EYES: No scleral icterus. No injection or drainage. NECK: Supple, trachea midline. No JVD or lymphadenopathy. CARDIOVASCULAR: Regular rate and rhythm without murmurs. RESPIRATORY: Clear anteriorly. Breathing unlabored at rest. GASTROINTESTINAL: + EXTREMITIES: No cyanosis, or edema. MUSCULOSKELETAL: Adequate muscle tone. NEUROLOGICAL: No obvious focal deficit. Awake, alert, and oriented x3. Assessment/Plan Assessment 22y/o female with sickle cell disease admitted in pain crisis. --patient in week 28 of second (previous had spontaneous miscarriage in first trimester in 2017). Plan 1. 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 Patient remains off MANAGER DELIVERY pump. Going forward, she will be monitored very closely in the outpatient setting and per expert panel recommendations she will be maintained during her third trimester with periodic red cell transfusions in an effort to decrease her hemoglobin sickle cell fraction to a range between 35 and 40%. She will also be receiving outpatient IV fluid hydration in the outpatient setting for management of pain crises. Based on observational studies women with hemoglobin sickle cell disease have a 7 times greater risk of maternal mortality with and that risk can be mitigated significantly with transfusion support in the third trimester. Given the fact that this patient has previously lost a in the first trimester and has had recurrent hospitalizations with pain crisis I would estimate her mortality risk to be significant. Agree with packed red blood cell transfusion today as her hemoglobin did not rise much from yesterday. Continue pain control with long-acting opioids if needed and short acting opioids. 2. Continue Lovenox to mitigate the risk of venous thrombosis especially given her history of previous loss. 3. Continue to monitor CBC May Clark Nov 05, 2017 15:48
[2017-11-05] MEDS: ENOXAPARIN SODIUM 30 MG/0.3 ML SYRINGE SQ SCH (21:24)
[2017-11-05] MEDS: HYDROmorphone HCL PF 2 MG/ML VIAL IV PUSH PRN (23:12)
[2017-11-06] VITALS (8 sets, daily range): BP systolic 132; BP diastolic 62; PULSE 97–108; RESP 16; TEMP 98; O2SAT 97–98
[2017-11-06] MEDS: ACETAMINOPHEN 325 MG TAB PO PRN (03:33)
[2017-11-06] MEDS: diphenhydrAMINE HCL 50 MG/ML VIAL IV PUSH PRN (03:33)
[2017-11-06] MEDS: SODIUM CHLOR 0.45% 1000 ML INJ 1,000 ML IV SCH ×2 (03:35→10:46)
--- NOTE | 2017-11-06 06:45 | PD.OB.ANTE ---
Subjective Diagnosis: (1) Sickle cell pain crisis Diagnosis: Principal (2) 29 weeks gestation of Diagnosis: Principal Interval History Patient is doing well this morning. The pain in her legs is much reduced and is down to a 5/10. She states that she has been more active with walking. She denies chest pain, SOB, and abdominal pain. She understands the need for close follow-up with heme-onc if discharged from the hospital. Objective Vital Signs Vital Signs Date Time Temp Pulse Resp B/P (MAP) Pulse Ox O2 Delivery O2 Flow Rate FiO2 11/05/17 13:14 98.8 96 18 119/65 98 11/05/17 11:30 91 20 121/63 96 11/05/17 11:25 98.2 97 20 123/64 97 11/05/17 11:20 98 20 122/65 97 11/05/17 11:16 98 18 123/61 97 11/05/17 11:12 103 18 125/62 96 11/05/17 11:09 99.1 93 16 120/62 97 Lab & Micro Results Test 11/05/17 08:27 White Blood Count 11.7 TH/MM3 Red Blood Count 3.23 MIL/MM3 Hemoglobin 10.0 GM/DL Hematocrit 28.6 % Mean Corpuscular Volume 88.5 FL Mean Corpuscular Hemoglobin 31.1 PG Mean Corpuscular Hemoglobin Concent 35.1 % Red Cell Distribution Width 17.7 % Platelet Count 342 TH/MM3 Mean Platelet Volume 8.7 FL Reticulocyte Count 1.8 % Absolute Reticulocyte Count 59.1 MIL/L Blood Urea Nitrogen 6 MG/DL Creatinine 0.36 MG/DL Random Glucose 79 MG/DL Calcium Level 9.1 MG/DL Lactate Dehydrogenase 538 U/L Sodium Level 137 MEQ/L Potassium Level 3.8 MEQ/L Chloride Level 104 MEQ/L Carbon Dioxide Level 21.7 MEQ/L Anion Gap 11 MEQ/L Estimat Glomerular Filtration Rate 278 ML/MIN Physical Exam GENERAL: Well-nourished, well-developed patient. CARDIOVASCULAR: Regular rate and rhythm without murmurs, gallops, or rubs. RESPIRATORY: Breath sounds equal bilaterally. No accessory muscle use. ABDOMEN/GI: Abdomen soft, non-tender. Fundus: Gravid GENITOURINARY: External Genitalia: intact and normal in appearance FHT's: NST performed for at least 20 minutes starting at 20:15 the previous night: Category: I Baseline: 150 Reactive: multiple accels Variability: Moderate Decels:None This is a category 1 tracing, reactive NST EXTREMITIES: No cyanosis or edema, non-tender, without signs of DVT. Assessment and Plan Problem List: (1) Sickle cell pain crisis ICD Codes: D57.00 - Sickle cell pain crisis Status: Acute Plan: The patient is a very pleasant 22-year-old at 29/1 weeks gestation with a diagnosis of hemoglobin sickle cell disease admitted to antepartum with a sickle cell pain crisis. IUP * NST reassuring, FHT category I, consistent with a 29 week fetus: baseline 150 , reactive, moderate variability, no decels from previous night * NSTs this am to follow * Continue NSTs qshift Sickle cell crisis * Appreciate recommendations of Dr. Liu, marine cargo inspector * Goal hemoglobin is greater than 10 g/dL per hematology if this is what may be required to decrease her hemoglobin sickle-cell fraction to < 40% * H/H 10/28.6 on 02/05, received an additional 1 unit PRBC yesterday because H/H did not improve after initial 1 unit of PRBC (H/H on 02/04 was 9.9/28.2) * H/H this am pending * Continue daily CBCs * Per hematology recommendation, transfuse to keep hemoglobin >10 * Absolute retic count wnl, monitor daily * Continue folic acid supplementation of 5 mg once daily per hematology recommendations * Hemoglobin electrophoresis still pending * Continue IVF hydration with 1/2 NS at 125 cc/hr * Continue prophylactic anticoagulation with Lovenox 30 mg daily, will consider continuing this on discharge for prevention of hemostasis placenta * Continue incentive spirometer Continue PO pain medications * Tylenol 650mg PO PRN pain 1-2 * Percocet 5-325 PO PRN Pain 3-5 * Percocet 10-325 PO PRN Pain 6-10 * Dilaudid 0.2mg IV PRN breakthrough pain DW OB attending (2) 29 weeks gestation of ICD Codes: Z3A.29 - 29 weeks gestation of Plan: -FHT category I and reactive - reassuring, baseline -Continue NSTs Qshift Xochilt Hernandez MD R2 Nov 06, 2017 06:45
--- NOTE | 2017-11-06 08:20 | PD.ONC.PN ---
Subjective Subjective Remarks Patient seen and examined, vital signs, labs and medications reviewed. Subjectively; patient reports patient most recent red cell transfusion was yesterdayOverall improvement in her pain but she continues to have some pain in her legs. The pain does respond to oral pain medications. She is no longer requiring IV pain medications.. Her only complaint is that of cloudiness in the urine, she tells me the urine "tingles". Objective Data Date Time Temp Pulse Resp B/P (MAP) Pulse Ox O2 Delivery O2 Flow Rate FiO2 11/05/17 13:14 98.8 96 18 119/65 98 11/05/17 11:30 91 20 121/63 96 11/05/17 11:25 98.2 97 20 123/64 97 11/05/17 11:20 98 20 122/65 97 11/05/17 11:16 98 18 123/61 97 11/05/17 11:12 103 18 125/62 96 11/05/17 11:09 99.1 93 16 120/62 97 Result Diagram: 11/05/17 0827 11/05/17 0827 Laboratory Results Laboratory Tests Test 11/05/17 08:27 White Blood Count 11.7 TH/MM3 Red Blood Count 3.23 MIL/MM3 Hemoglobin 10.0 GM/DL Hematocrit 28.6 % Mean Corpuscular Volume 88.5 FL Mean Corpuscular Hemoglobin 31.1 PG Mean Corpuscular Hemoglobin Concent 35.1 % Red Cell Distribution Width 17.7 % Platelet Count 342 TH/MM3 Mean Platelet Volume 8.7 FL Reticulocyte Count 1.8 % Absolute Reticulocyte Count 59.1 MIL/L Blood Urea Nitrogen 6 MG/DL Creatinine 0.36 MG/DL Random Glucose 79 MG/DL Calcium Level 9.1 MG/DL Lactate Dehydrogenase 538 U/L Sodium Level 137 MEQ/L Potassium Level 3.8 MEQ/L Chloride Level 104 MEQ/L Carbon Dioxide Level 21.7 MEQ/L Anion Gap 11 MEQ/L Estimat Glomerular Filtration Rate 278 ML/MIN Administered Medications Medications (Trade) Dose Ordered Sig/[place] Route PRN Reason Start Time Stop Time Status Last Admin Dose Admin Prenat Multivit/ [place]/Iron/Folic Ac (Stuartnatal Plus 3 ) 1 tab DAILY PO 10/30/17 09:00 11/05/17 08:56 Docusate Sodium (Colace) 100 mg DAILY PO 10/30/17 09:00 11/05/17 08:56 Sodium Chloride (NS Flush) 2 ml BID IV FLUSH 10/30/17 09:00 11/04/17 20:29 Zolpidem Tartrate (Ambien) 5 mg HS PRN PO SLEEP 10/30/17 01:15 10/31/17 23:46 Ondansetron HCl (Zofran Odt) 4 mg Q6H PRN PO NAUSEA 10/30/17 01:15 11/04/17 19:34 Hydromorphone HCl (Dilaudid OPERATING ENGINEER APPRENTICE Inj) 6 mg UNSCH IV 10/30/17 01:15 Future Hold 11/02/17 17:44 OPERATING ENGINEER APPRENTICE Dosage Infused (Pha) 1 Q8HR OTHER 10/30/17 06:00 Future Hold 11/03/17 06:00 Diphenhydramine HCl (Benadryl Inj) 25 mg Q4H PRN IV PUSH ITCHING 10/30/17 04:15 11/06/17 03:33 Pseudoephedrine HCl (Sudafed) 30 mg Q6H PRN PO NASAL CONGESTION 10/30/17 23:30 11/01/17 07:02 Sodium Chloride 1,000 ml @ 125 mls/hr Q8H IV 10/31/17 09:15 11/06/17 03:35 Folic Acid (Folate) 5 mg DAILY PO 11/01/17 09:00 11/05/17 09:03 Enoxaparin Sodium (Lovenox Inj) 30 mg Q24H SQ 11/01/17 22:00 11/05/17 21:24 Acetaminophen (Tylenol) 650 mg Q6H PRN PO PAIN SCALE 1 TO 2 11/03/17 11:00 11/06/17 03:33 Hydromorphone HCl (Dilaudid Pf Inj) 0.2 mg Q3H PRN IV PUSH BREAKTHROUGH PAIN 11/03/17 11:00 11/05/17 23:12 Oxycodone/ Acetaminophen (Percocet 10-325 Mg) 1 tab Q6H PRN PO PAIN SCALE 6 TO 10 11/04/17 09:45 11/05/17 17:22 Fluticasone Propionate (Flonase Nicanor Spr) 1 spray BID NASAL 11/04/17 12:00 6/6/18 20:19 Diphenhydramine HCl (Benadryl) 25 mg Q4H PRN PO SEE LABEL COMMENTS 11/05/17 09:45 11/05/17 10:46 Objective Remarks GENERAL: Young female sitting up in bed, she is just waking up, she does not appear to be in respiratory distress. She does not appear to be in pain. SKIN: No rashes, ecchymoses or lesions. Cool and dry. HEAD: Atraumatic. Normocephalic. No temporal or scalp tenderness. EYES: Pupils equal round and reactive. Extraocular motions intact. No injection or drainage. Conjunctivae are pale sclerae mildly icteric ENT: Nose without bleeding, purulent drainage or septal hematoma. Throat without erythema, tonsillar hypertrophy or exudate. Uvula midline. Airway patent. NECK: Trachea midline. No JVD or lymphadenopathy. Supple, nontender, no meningeal signs. CARDIOVASCULAR: Regular rate and rhythm without murmurs, gallops, or rubs. RESPIRATORY: Clear to auscultation. Breath sounds equal bilaterally. No wheezes , rales, or rhonchi. GASTROINTESTINAL: Gravid abdomen no palpable organ enlargement noted no tenderness. MUSCULOSKELETAL: Extremities without clubbing, cyanosis, or edema. No joint tenderness, effusion, or edema noted. No calf tenderness. Negative Homans sign bilaterally. Reports tenderness involving the legs NEUROLOGICAL: Awake and alert. Cranial nerves II through XII intact. Motor and sensory grossly within normal limits. Five out of 5 muscle strength in all muscle groups. Normal speech. Assessment/Plan Assessment 22y/o female with sickle cell disease admitted in pain crisis. --patient in week 28 of second (previous had spontaneous miscarriage in first trimester in 2017). Plan 1. 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 Going forward, she will be monitored very closely in the outpatient setting and per expert panel recommendations she will be maintained during her third trimester with periodic red cell transfusions in an effort to decrease her hemoglobin. She is clinically improved. 2. Continue Lovenox to mitigate the risk of venous thrombosis especially given her history of previous loss. Please continue Lovenox at discharge. 3. Continue to monitor CBC. Ian Liu MD Nov 06, 2017 08:20
[2017-11-06] MEDS: FOLIC ACID 1 MG TAB PO SCH (09:00)
[2017-11-06] MEDS: MULTIVIT/MIN/PREN/FOL AC/IRON PRENATAL TAB PO SCH (09:06)
[2017-11-06] MEDS: DOCUSATE SODIUM 100 MG CAP PO SCH (09:06)
[2017-11-06] MEDS: FLUTICASONE PROPIONATE 50 MCG/ACT 16 GM NASAL SPRAY NASAL SCH (09:06)
[2017-11-06] MEDS: ONDANSETRON ODT 4 MG TAB PO PRN (10:51)
[2017-11-06 10:59] LABS: BICARBONATE 21.3 MEQ/L (21.0-32.0); CALCIUM 9.1 MG/DL (8.5-10.1); CREATININE 0.4 MG/DL (0.50-1.00)
[2017-11-06 11:17] LABS: HEMATOCRIT 33.2 % (35.0-46.0); HEMOGLOBIN 11.5 GM/DL (11.6-15.3); MEAN CELL VOLUME 88.4 FL (80.0-100.0); MEAN CORPUSCULAR HEMOGLOBIN 30.6 PG (27.0-34.0); MEAN CORPUSCULAR HGB CONC 34.6 % (32.0-36.0); MEAN PLATELET VOLUME 9.5 FL (7.0-11.0); PLATELET COUNT 416 TH/MM3 (150-450); RED BLOOD COUNT 3.75 MIL/MM3 (4.00-5.30); RETIC # 152.2 MIL/L (20.0-150.0); RETIC % 4.1 % (0.4-3.0); WHITE BLOOD COUNT 13.4 TH/MM3 (4.0-11.0)
[2017-11-06] MEDS ORDERED: OXYC1TAB63 PO (13:53)
--- NOTE | 2017-11-06 13:54 | HHI.DCPOC ---
Discharge Care Plan Diagnosis: (1) Sickle cell pain crisis (2) Report Symptoms to Your Doctor -Temperature above 100.5 degrees -Redness, of incision or excessive or foul smelling drainage -Unusual pain or calf pain -Increased vaginal bleeding -Painful or difficulty urinating -Feelings of extreme sadness or anxiety after 2 weeks Goals to Promote Your Health * To prevent worsening of your condition and complications * To maintain your health at the optimal level Directions to Meet Your Goals Take your medications as prescribed Follow your dietary instruction Follow activity as directed Ensure plenty of rest for recovery Drink fluids for hydration Keep your appointments as scheduled Take your immunizations and boosters as scheduled If your symptoms worsen call your PCP, if no PCP go to Urgent Care Center or Emergency Room Smoking is Dangerous to Your Health. Avoid second hand smoke Call the 24-hour crisis hotline for domestic abuse at Natan Thurston MD R1 Nov 06, 2017 13:53
[2017-11-06] MEDS ORDERED: ENOX30P SQ (14:01)
--- NOTE | 2017-11-06 15:30 | HHI.DS ---
Discharge Summary Admission Date October 30, 2017 at 21:21 Discharge Date: Nov 06, 2017 Admitting Diagnosis Sickle cell pain crisis CBC/BMP: 11/06/17 1008 11/06/17 1008 Significant Findings Laboratory Tests Test 11/04/17 07:29 11/05/17 08:27 11/06/17 10:08 White Blood Count 11.9 TH/MM3 (4.0-11.0) 11.7 TH/MM3 (4.0-11.0) 13.4 TH/MM3 (4.0-11.0) Red Blood Count 3.13 MIL/MM3 (4.00-5.30) 3.23 MIL/MM3 (4.00-5.30) 3.75 MIL/MM3 (4.00-5.30) Hemoglobin 9.9 GM/DL (11.6-15.3) 10.0 GM/DL (11.6-15.3) 11.5 GM/DL (11.6-15.3) Hematocrit 28.2 % (35.0-46.0) 28.6 % (35.0-46.0) 33.2 % (35.0-46.0) Red Cell Distribution Width 18.1 % (11.6-17.2) 17.7 % (11.6-17.2) Creatinine 0.45 MG/DL (0.50-1.00) 0.36 MG/DL (0.50-1.00) 0.40 MG/DL (0.50-1.00) Random Glucose 68 MG/DL (74-106) 108 MG/DL (74-106) Lactate Dehydrogenase 613 U/L (84-246) 538 U/L (84-246) 580 U/L (84-246) Blood Urea Nitrogen 6 MG/DL (7-18) 5 MG/DL (7-18) Reticulocyte Count 4.1 % (0.4-3.0) Absolute Reticulocyte Count 152.2 MIL/L (20.0-150.0) Hospital Course Patient is a 22-year-old who was admitted during the 28th week gestation for sickle cell pain crisis. Patient had recently been discharged with the same complaint. Patient was treated with IV pain medications and hematology was consulted. Patient was also found to have a UTI which was treated with a 6 day course of Rocephin. Hematology recommended transfusing 2 units of packed red blood cells and starting patient on Lovenox. Patient ultimately required 2 more units of packed red blood cells during hospitalization. She was able to transition to p.o. pain medications and was discharged on 11/06 with recommended close follow-up with hematology and SPORTS INSTRUCTOR. Also discharged on Lovenox per hematology recommendations. Pt Condition on Discharge: Stable Discharge Disposition: Discharge Home Discharge Instructions DIET: Follow Instructions for: As Tolerated, No Restrictions Activities you can perform: Regular-No Restrictions Follow up Referrals: Hematology - 11/10/17 with Ian Liu MD SPORTS INSTRUCTOR - 1 Week New Orders: CBC WITH DIFF - 11/10/17 New Medications: Enoxaparin Inj (Lovenox Inj) 30 Mg/0.3 Ml Syr 30 MG SQ Q24H, #30 INJECTION Oxycodone HCl/Acetaminophen (Oxycodone-Acetaminophen 5-325) 5 Mg-325 Mg Tablet 1 TAB PO Q6H PRN for PAIN SCALE 3 TO 5, #30 Continued Medications: Acetaminophen (Eq Acetaminophen) 325 Mg Tab 650 MG PO Q6H, #30 TAB Albuterol 18 GM Inh (Ventolin Hfa 18 GM Inh) 90 Mcg/Act Aer 1 PUFF INH Q4H PRN for SHORTNESS OF BREATH, INHALER 0 Refills Fluticasone 12 GM Inh (Flovent Hfa 12 GM Inh) 220 Mcg/Act Inh 2 PUFF INH BID for Asthma Management, #1 INHALER 0 Refills Use daily at the same time. 57/Iron/Folic/Dss/Dha (Extra-Virt Plus Dha Softgel) 29 Mg Iron-1.25 Mg- 55 Mg-350 Mg Capsule 1 TAB PO BID Discontinued Medications: Oxycodone (Oxycodone) 10 Mg Tab 10 MG PO Q4H PRN for PAIN SCALE 6 TO 10, #10 TAB Natan Thurston MD R1 Nov 06, 2017 15:30
== END 2017-11-06 14:05 | disposition home or self-care (01) | DRG 781 ==
LOC: HOBED 00:08 → H2EA 00:58 → OBSVTOIN 21:21
PROVIDERS: ADMIT Obstetrics & Gynecology; ATTEND Obstetrics & Gynecology
PROC: 30233N1 Transfusion of Nonautologous Red Blood Cells into Peripheral Vein, Percutaneous Approach (ICD-10-PCS; principal; 2017-10-30)
DX: O99.013 Anemia complicating pregnancy, third trimester (principal); D57.00 Hb-SS disease with crisis, unspecified; O23.43 Unspecified infection of urinary tract in pregnancy, third trimester; B96.20 Unspecified Escherichia coli [E. coli] as the cause of diseases classified elsewhere; O99.513 Diseases of the respiratory system complicating pregnancy, third trimester; J45.909 Unspecified asthma, uncomplicated; R09.02 Hypoxemia; Z3A.28 28 weeks gestation of pregnancy
CPT/HCPCS: 36430; 71045; 76816; 76937; 80048; 80053; 80076; 80307; 81001; 83020; 83021; 83615; 85007; 85014; 85018; 85027; 85041; 85044; 85660; 86850; 86900; 86901; 86902; 86920; 86922; 94150; 94618; G0481; J0696; J1170; J1200; J1650; J7050; J7120; P9016

== ENCOUNTER 2017-12-20 23:25 | Observation (INO) ==
[2017-12-21] MEDS ORDERED: HYDROmorphone PF Inj 2 MG/ML Vial IV.PUSH PRN (00:42)
[2017-12-21] MEDS ORDERED: Enoxaparin Inj 30 MG/0.3 ML Syringe SQ SCH (00:45)
--- NOTE | 2017-12-21 01:05 | ED ---
History of Present Illness Service: GINA Primary Care Physician: UNKNOWN Chief Complaint: Pain History of Present Illness: Ms. Garcia is a 22yo at 35/4 with PMH of sickle cell disease here for pain. She describes one week of pain, diffusely in her abdomen, back, and chest. It is similar to her pain with previous pain crises. She reports being hospitalized twice since September for crises. She reports associated shortness of breath when the pain is the most intense. She denies any fevers. She endorses increased urinary urgency but denies any dysuria. She does report contractions about every half hour. She denies any vaginal bleeding or loss of fluid. movement is good. Her NST on was normal. Weeks Gestation:: 35 Para: 0 : 2 Total # of Miscarriage(s): 1 Review of Systems Constitutional: Denies chills, Denies fever(s), Denies headache(s) Cardiovascular: Reports chest pain Respiratory: Reports shortness of breath, Denies cough Gastrointestinal: Reports abdominal pain, Denies bright, red blood in stools, Denies change in bowel habits, Denies nausea, Denies vomiting Genitourinary: Reports urinary urgency, Denies abnormal vaginal bleeding, Denies painful urination Musculoskeletal: Reports joint pain, Reports muscle cramps PMFSH - Medical / Surgical Hx Neg / Unobtainable Surgical History: No Previous Surgery - Medical History Medical History: Medical History (Last Updated 12/21/17 @ 01:11 by Tayler Willard MD, R1) Asthma Sickle cell disease - Tobacco History Tobacco Use In Past 30 Days: No - Alcohol History How Often Do You Have a Drink Containing Alcohol: Never (Not since ) - Substance Use History Substance History: No History of Abuse - Travel History Recent Travel in the [facility] Within the Last 8 Weeks: No Recent Travel Out of the Country Within the Last 8 Weeks: No Medications and Allergies Active Medications: Active Medications Enoxaparin Sodium (Lovenox Inj) 30 mg SQ Q24H ZACH Folic Acid (Folic Acid) 5 mg PO DAILY ZACH Hydromorphone HCl (Dilaudid Pf Inj) 2 mg IV.PUSH Q4H PRN PRN Reason: PAIN SCALE 6 TO 10 Dextrose/Sodium Chloride (D5w/1/2 Ns Inj) 1,000 mls @ 150 mls/hr IV.CONT .Q6H40M ZACH Ceftriaxone Sodium 1,000 mg/ (Sodium Chloride) 100 mls @ 200 mls/hr IV.SIG Q24H AZCH Sodium Chloride (Ns Flush) 2 ml IV.FLUSH PRN PRN PRN Reason: FLUSH AFTER USING IV ACCESS Sodium Chloride (Ns Flush) 2 ml IV.FLUSH BID ZACH Allergies Allergy/AdvReac Type Severity Reaction Status Date / Time codeine Allergy Intermediate wheezing, Verified 10/30/17 01:21 SOB adhesive tape AdvReac Irritation Verified 12/21/17 01:18 Home Medications Medication Instructions Recorded Confirmed Type PNV cmb#95-ferrous fumarate-FA 1 tab PO DAILY 12/21/17 12/21/17 History [] [id number] oil 12/21/17 12/21/17 History [ Gummy] Exam Vital signs: Vital Signs 12/20/17 23:47 12/20/17 23:48 12/21/17 00:09 Temperature 98.3 F Pulse Rate 90 Respiratory Rate 18 Blood Pressure 112/56 L - Constitutional Comments: Mildly uncomfortable - Routine Respiratory Exam Present: CTA bilaterally. Absent: accessory muscle use, wheezes, crackles Comments: Decreased breath sounds that improved with increased patient effort - Routine Cardiovascular Exam Present: RRR, S1, S2 - Routine Abdominal Exam Comments: Gravid - Routine Extremities Exam Present: edema (Trace pedal bilaterally), pulses intact. Absent: calf tenderness - Additional findings Additional findings: FHT: Baseline 135 Moderate variability Reactive No decelerations Assessment and Plan - Plan 22yo at 35/4 with PMH of sickle cell disease here for pain crises -Admit to observation -CBC, UA, reticulocyte count -Folate 5mg daily -Lovenox 30mg daily -D5 1/2 NS at 175ml/hr -Rocephin 1g IV q24hr -Dilaudid PRESTRESSED CONCRETE LABORER -Consult to heme/onc DW Dr Campos and SDW Dr Thurston Discharge Plan - Discharge Disposition Patient Disposition: 30 Still Patient - Discharge Condition Condition: Stable - Physicians Team ED Provider: Julito Campos Primary Care Provider: UNKNOWN, Other Providers: David Hare MD
--- NOTE | 2017-12-21 01:35 | P.HPOB ---
Patient Name: Darryl Garcia Date of : 89 Patient Status: Observation Attending Provider: Julito Campos Date: 12/21/17 01:03 Initialization Date: 12/21/17 01:03 History of Present Illness Service: GINA Primary Care Physician: UNKNOWN Chief Complaint: Pain History of Present Illness: Ms. Garcia is a 22yo at 35/4 with PMH of sickle cell disease here for pain. She describes one week of pain, diffusely in her abdomen, back, and chest. It is similar to her pain with previous pain crises. She reports being hospitalized twice since September for crises. She reports associated shortness of breath when the pain is the most intense. She denies any fevers. She endorses increased urinary urgency but denies any dysuria. She does report contractions about every half hour. She denies any vaginal bleeding or loss of fluid. movement is good. Her NST on was normal. Weeks Gestation:: 35 Para: 0 : 2 Total # of Miscarriage(s): 1 Review of Systems Constitutional: Denies chills, Denies fever(s), Denies headache(s) Cardiovascular: Reports chest pain Respiratory: Reports shortness of breath, Denies cough Gastrointestinal: Reports abdominal pain, Denies bright, red blood in stools, Denies change in bowel habits, Denies nausea, Denies vomiting Genitourinary: Reports urinary urgency, Denies abnormal vaginal bleeding, Denies painful urination Musculoskeletal: Reports joint pain, Reports muscle cramps PMFSH - Medical / Surgical Hx Neg / Unobtainable Surgical History: No Previous Surgery - Medical History Medical History: Medical History (Last Updated 12/21/17 @ 01:11 by Tayler Willard MD, R1) Asthma Sickle cell disease - Tobacco History Tobacco Use In Past 30 Days: No - Alcohol History How Often Do You Have a Drink Containing Alcohol: Never (Not since ) - Substance Use History Substance History: No History of Abuse - Travel History Recent Travel in the [facility] Within the Last 8 Weeks: No Recent Travel Out of the Country Within the Last 8 Weeks: No Medications and Allergies Active Medications: Active Medications Enoxaparin Sodium (Lovenox Inj) 30 mg SQ Q24H ZACH Folic Acid (Folic Acid) 5 mg PO DAILY ZACH Hydromorphone HCl (Dilaudid Pf Inj) 2 mg IV.PUSH Q4H PRN PRN Reason: PAIN SCALE 6 TO 10 Dextrose/Sodium Chloride (D5w/1/2 Ns Inj) 1,000 mls @ 150 mls/hr IV.CONT .Q6H40M ZACH Ceftriaxone Sodium 1,000 mg/ (Sodium Chloride) 100 mls @ 200 mls/hr IV.SIG Q24H ZACH Sodium Chloride (Ns Flush) 2 ml IV.FLUSH PRN PRN PRN Reason: FLUSH AFTER USING IV ACCESS Sodium Chloride (Ns Flush) 2 ml IV.FLUSH BID ZACH Allergies Allergy/AdvReac Type Severity Reaction Status Date / Time codeine Allergy Intermediate wheezing, Verified 10/30/17 01:21 SOB adhesive tape AdvReac Irritation Verified 12/21/17 01:18 Home Medications Medication Instructions Recorded Confirmed Type PNV cmb#95-ferrous fumarate-FA 1 tab PO DAILY 12/21/17 12/21/17 History [] [id number] oil 12/21/17 12/21/17 History [ Gummy] Exam Vital signs: Vital Signs 12/20/17 23:47 12/20/17 23:48 12/21/17 00:09 Temperature 98.3 F Pulse Rate 90 Respiratory Rate 18 Blood Pressure 112/56 L - Constitutional Comments: Mildly uncomfortable - Routine Respiratory Exam Present: CTA bilaterally. Absent: accessory muscle use, wheezes, crackles Comments: Decreased breath sounds that improved with increased patient effort - Routine Cardiovascular Exam Present: RRR, S1, S2 - Routine Abdominal Exam Comments: Gravid - Routine Extremities Exam Present: edema (Trace pedal bilaterally), pulses intact. Absent: calf tenderness - Additional findings Additional findings: FHT: Baseline 135 Moderate variability Reactive No decelerations Assessment and Plan - Plan 22yo at 35/4 with PMH of sickle cell disease here for pain crises -Admit to observation -CBC, UA, reticulocyte count -Folate 5mg daily -Lovenox 30mg daily -D5 1/2 NS at 175ml/hr -Rocephin 1g IV q24hr -Dilaudid TEA BLENDER -Consult to heme/onc DW Dr Campos and SDW Dr Thurston Discharge Plan - Discharge Disposition Patient Disposition: 30 Still Patient - Discharge Condition Condition: Stable - Physicians Team ED Provider: Julito Campos Primary Care Provider: UNKNOWN, Other Providers: David Hare MD
[2017-12-21 01:38] LABS: Reticulocyte Percent 10.5 % (0.4-3.0)
[2017-12-21] MEDS: Dextrose 5%/NaCl 0.45% Inj 1,000 ML IV.CONT SCH ×3 (02:09→18:42)
[2017-12-21 02:20] LABS: Alanine Aminotransferase 24 U/L (9-42); Alkaline Phosphatase 149 U/L (45-117); Total Protein 6.8 g/dL (6.4-8.2)
[2017-12-21 02:39] LABS: Albumin 2.9 g/dL (3.4-5.0); Anion Gap 9 meq/L (5-15); Aspartate Aminotransferase 56 U/L (16-38); Blood Urea Nitrogen 9 mg/dL (7-18); Calcium 8.6 mg/dL (8.5-10.1); Carbon Dioxide 23.1 meq/L (21.0-32.0); Chloride 108 meq/L (98-107); Glomerular Filtration Rate Greater Than 89 mL/min (>89); Glucose,Random 68 mg/dL (74-106); Potassium 3.9 meq/L (3.5-5.1); Sodium 140 meq/L (136-145)
[2017-12-21 02:54] LABS: Baso # (Auto) 0.1 th/mm3 (0.0-0.2); Baso % (Auto) 0.4 % (0.0-2.0); Eos # (Auto) 0.2 th/mm3 (0.0-0.4); Eos % (Auto) 1.2 % (0.0-4.0); Hematocrit 24.1 % (35.0-46.0); Hemoglobin 8.7 gm/dL (11.6-15.3); Lymph % (Auto) 16.4 % (9.0-44.0); Mean Corpuscular HGB Conc 36.1 % (32.0-36.0); Mean Corpuscular Hemoglobin 32.2 pg (27.0-34.0); Mean Corpuscular Volume 89.3 fL (80.0-100.0); Mean Platelet Volume 9.1 fL (7.0-11.0); Mono # (Auto) 3.4 th/mm3 (0.0-0.9); Mono % (Auto) 18.2 % (0.0-8.0); Neut # (Auto) 11.8 th/mm3 (1.8-7.7); Neut % (Auto) 63.8 % (16.0-70.0); Platelet Count 412 th/mm3 (150-450); Red Blood Count 2.69 mil/mm3 (4.00-5.30); Red Cell Distribution Width 18.7 % (11.6-17.2); White Blood Count 18.5 th/mm3 (4.0-11.0)
[2017-12-21] MEDS ORDERED: Sodium Chlor 0.9% Inj 250 ML IV.SIG SCH (03:00)
[2017-12-21 03:02] LABS: Eosinophils 1 % (0-4); Lymphocytes 23 % (9-44); Metamyelocytes 1 % (0-1); Monocytes 15 % (0-8); Myelocytes 2 % (0-0); Platelet Estimate Normal (Normal); Sickle Cells 1+; Tallied Nucleated RBC 20 (0-0)
[2017-12-21 03:04] LABS: Platelet Morphology Normal (Normal); Polychromasia 6.2 % (0.0-1.9)
[2017-12-21 03:11] LABS: Bacteria,Urine Rare /hpf; Bilirubin,Urine Negative (Negative); Clarity,Urine Clear (Clear); Color,Urine Yellow (Yellw/Straw); Glucose,Urine (UA) Negative (Negative); Leukocyte Esterase,Urine Negative (Negative); Mucus,Urine Few /lpf (Occasional); Nitrite,Urine Negative (Negative); Specific Gravity,Urine 1.008 (1.002-1.035); Squamous Epithelial Cell,Urine 3 /hpf (0-5)
--- NOTE | 2017-12-21 08:00 | P.PNADD ---
Addendum to Inpatient Note Additional information: Ms Garcia is a 22yo at 35/4 here for pain crises. She is receiving blood products this am. She reports she feels as if her breathing is better. Her pain is improved but still present in her sides and the bones of her arms. She is no longer having any chest pain. PE: Cardiovascular- RRR, S1 and S2 heard Respiratory: stable from earlier this am. Again diminished breath sounds that improved with increased patient effort. CTAB. No wheezing or accessory muscle use Plan: Encouraged Incentive Spirometry Post transfusion H/H ordered. Continue with pain crises management as previously ordered
[2017-12-21] MEDS ORDERED: [UNRECOGNIZED DRUG - REMARK] OTHER SCH (09:00)
[2017-12-21] MEDS: Folic Acid 1 MG Tablet PO SCH (11:26)
[2017-12-21] MEDS ORDERED: Naloxone Inj 0.4 MG/ML Vial IV.PUSH PRN (11:45)
[2017-12-21] MEDS: HYDROmorphone PCA Inj 6 MG/30 ML PCA.VIAL PCA PRN (12:19)
[2017-12-21 12:35] LABS: Hematocrit 32.1 % (35.0-46.0); Hemoglobin 11.3 gm/dL (11.6-15.3)
--- NOTE | 2017-12-21 22:10 | P.CON ---
History of Present Illness Service: Hematology Consult date: 12/21/17 Primary Care Provider: UNKNOWN Family Provider: Valerie Santos Chief Complaint: Pain History of Present Illness: This is a 22-year-old female, she is 2 para 0 who is in week 35 of her . She has a history of Hb SS disease. She has had recurrent pain crises,Most recent crisis was in October, She has a history of first trimester spontaneous miscarriage. She used to see a pediatric xerox machine assembler Dr. Mari at the [facility]. She was on hydroxyurea in the past but developed various side-effects and it was discontinued. She now presents with 1 week history of of pain involving her back, and chest. This pain is similar to her previous episodes of sickle cell crisis. On admission patient's hemoglobin was 8.7. Reticulocyte count was elevated to 10.5. Total bilirubin was 2.3. She was transfused 2 units of packed red blood cells. Her hemoglobin today is 11.3. 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 She is currently comfortable. She denies any shortness of breath or chest pain. She denies having any cough or congestion. She is afebrile. Review of Systems All other systems reviewed negative except as stated in HPI PMFSH - Medical History Medical History: Medical History (Last Reviewed 12/21/17 @ 22:10 by David Hare MD) Asthma Sickle cell disease - Tobacco History Tobacco Use In Past 30 Days: No - Alcohol History How Often Do You Have a Drink Containing Alcohol: Never (Not since ) - Substance Use History Substance History: No History of Abuse - Travel History Recent Travel in the [place] Within the Last 8 Weeks: No Recent Travel Out of the Country Within the Last 8 Weeks: No Medications and Allergies Active Medications: Active Medications Diphenhydramine HCl (Benadryl Inj) 25 mg IV.PUSH Q6H PRN PRN Reason: ITCHING Last Admin: 12/21/17 13:34 Dose: 25 mg Enoxaparin Sodium (Lovenox Inj) 40 mg SQ DAILY [facility] Folic Acid (Folic Acid) 5 mg PO DAILY [facility] Last Admin: 12/21/17 11:26 Dose: Not Given Hydroxyzine Pamoate (Vistaril) 50 mg PO Q6H PRN PRN Reason: ITCHING Last Admin: 12/21/17 21:29 Dose: 50 mg Dextrose/Sodium Chloride (D5w/1/2 Ns Inj) 1,000 mls @ 150 mls/hr IV.CONT .Q6H40M [facility] Last Admin: 12/21/17 18:42 Dose: 150 mls/hr Ceftriaxone Sodium 1,000 mg/ (Sodium Chloride) 100 mls @ 200 mls/hr IV.SIG Q24H [facility] Last Admin: 12/21/17 02:10 Dose: 200 mls/hr Hydromorphone/Sodium Chloride (Dilaudid Equipment Cleaner Inj) 6 mg in 30 mls @ 0 mls/hr SECONDARY SCHOOL TEACHER UNSCH PRN PRN Reason: per SECONDARY SCHOOL TEACHER parameters Last Admin: 12/21/17 12:19 Dose: 0 mls/hr Naloxone HCl (Narcan Inj) 0.4 mg IV.PUSH PRN PRN PRN Reason: SEE LABEL COMMENTS Ondansetron HCl (Zofran Odt) 4 mg PO Q6H PRN PRN Reason: NAUSEA SECONDARY SCHOOL TEACHER Dosage Infused (Pha) (Equipment Cleaner Total Dose - Dilaudid) 1 each IV.SIG TITRATE PRN PRN Reason: Acute Pain Last Admin: 12/21/17 02:08 Dose: 1 each SECONDARY SCHOOL TEACHER Dosage Infused (Pha) (Equipment Cleaner Total Dose - Dilaudid) 1 each MISCELLANE Q8HR [facility] Last Admin: 12/21/17 13:36 Dose: 1 each Sodium Chloride (Ns Flush) 2 ml IV.FLUSH PRN PRN PRN Reason: FLUSH AFTER USING IV ACCESS Sodium Chloride (Ns Flush) 2 ml IV.FLUSH BID [facility] Last Admin: 12/21/17 10:13 Dose: Not Given Allergies Allergy/AdvReac Type Severity Reaction Status Date / Time codeine Allergy Intermediate wheezing, Verified 10/30/17 01:21 SOB adhesive tape AdvReac Irritation Verified 12/21/17 01:18 Home Medications Medication Instructions Recorded Confirmed Type PNV cmb#95-ferrous fumarate-FA 1 tab PO DAILY 12/21/17 12/21/17 History [] albuterol sulfate 2 puff INHALATION Q4-6H PRN 12/21/17 12/21/17 History aspirin [Aspir-81] 81 mg PO DAILY 12/21/17 12/21/17 History Physical Exam Vital signs: Vital Signs 12/20/17 23:47 12/20/17 23:48 12/21/17 00:09 Temperature 98.3 F Pulse Rate 90 Respiratory Rate 18 Blood Pressure 112/56 L 12/21/17 02:19 12/21/17 02:20 12/21/17 05:56 Temperature 98.1 F Pulse Rate 93 H 93 H Respiratory Rate 18 18 Blood Pressure 123/64 108/77 12/21/17 06:01 12/21/17 06:11 12/21/17 07:25 Temperature 97.7 F 97.7 F Pulse Rate 93 H 85 93 H Respiratory Rate Blood Pressure 108/77 115/65 124/49 L 12/21/17 07:30 12/21/17 07:46 12/21/17 08:00 Temperature 97.7 F 97.7 F Pulse Rate 93 H 89 Respiratory Rate 19 17 Blood Pressure 124/49 L 12/21/17 08:03 12/21/17 08:05 12/21/17 08:07 Temperature 97.8 F 97.8 F Pulse Rate 69 92 H Respiratory Rate 18 Blood Pressure 117/54 L 117/54 L 12/21/17 08:14 12/21/17 12:16 12/21/17 12:23 Temperature 97.8 F Pulse Rate 76 Respiratory Rate 18 17 Blood Pressure 104/63 12/21/17 16:30 12/21/17 17:41 12/21/17 19:32 Temperature 98.0 F Pulse Rate 93 H 86 Respiratory Rate 18 Blood Pressure 125/73 127/74 12/21/17 19:44 12/21/17 19:45 Temperature 98.0 F Pulse Rate 78 Respiratory Rate Blood Pressure Intake & Output 12/21/17 12/21/17 12/22/17 06:59 18:59 06:59 Intake Total 0 / 0 2800 / 2800 Balance 0 / 0 2800 / 2800 Weight 71.271 kg Intake: IV 1999 D5W/1/2 NS Inj 1,000 ML @ 150 2000 / 1999 mls/hr IV.CONT .Q6H40M [facility] Rx#: [id number] Intake (Blood Product) Amt 0 / 0 800 / 800 Rbc As-3 Leukoreduced Unit 400 / 400 [id number] Rbc As-3 Leukoreduced Unit 0 / 0 400 / 400 [id number] - Constitutional no acute distress - Routine HEENT Exam Head: Present: normocephalic Eye: Present: EOMI, PERRL, normal accommodation - Routine Neck Exam Present: supple - Routine Respiratory Exam Present: CTA bilaterally - Routine Cardiovascular Exam Present: RRR, S1, S2 - Routine Abdominal Exam Present: soft, normoactive bowel sounds - Routine Extremities Exam Present: full ROM, normal capillary refill - Routine Skin Exam Present: intact, dry, warm - Routine Neurological Exam Present: alert, oriented X3, CN II-XII intact - Routine Psychiatric Exam Present: normal affect, normal thought process Assessment and Plan - Assessment (1) Sickle cell anemia with crisis Code(s): D57.00 - Hb-SS disease with crisis, unspecified Status: Acute (2) Sickle cell pain crisis Code(s): D57.00 - Hb-SS disease with crisis, unspecified Status: Acute (3) and not yet delivered in third trimester Code(s): Z34.93 - Encounter for supervision of normal , unspecified, third trimester Status: Acute - Plan 22-year-old female with a history of sickle cell disease, who presents to the emergency department with increasing shortness of breath and pain involving her back and neck area. This pain is consistent with her previous episodes of sickle cell crisis. She is currently in 35 week of her 1. Sickle cell pain crisis Patient's hemoglobin was 8.7 on admission and after receiving 2 units of packed red blood cells it is 11.3. Currently she is completely asymptomatic. 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 Her oxygen saturations are good. She is not short of breath. Continue pain control. Transition to oral pain meds when possible. No further transfusions are indicated. We will try to keep her hemoglobin around 10. Check daily CBC, LDH, reticulocyte count and total bilirubin. Obtain Hb electrophoresis. Continue daily folic acid. Start incentive spirometry. Continue IV fluids. Recommend DVT prophylaxis with Lovenox.
[2017-12-22] MEDS: HYDROmorphone PCA Inj 6 MG/30 ML PCA.VIAL PCA PRN (00:02)
[2017-12-22] MEDS: Dextrose 5%/NaCl 0.45% Inj 1,000 ML IV.CONT SCH ×5 (01:37→22:19)
[2017-12-22 05:53] LABS: Baso # (Auto) 0.1 th/mm3 (0.0-0.2); Baso % (Auto) 0.4 % (0.0-2.0); Eos # (Auto) 0.2 th/mm3 (0.0-0.4); Eos % (Auto) 1.4 % (0.0-4.0); Hematocrit 32.4 % (35.0-46.0); Hemoglobin 11.5 gm/dL (11.6-15.3); Lymph # (Auto) 2.3 th/mm3 (1.0-4.8); Lymph % (Auto) 16.3 % (9.0-44.0); Mean Corpuscular HGB Conc 35.4 % (32.0-36.0); Mean Corpuscular Hemoglobin 30.4 pg (27.0-34.0); Mean Corpuscular Volume 86.1 fL (80.0-100.0); Mean Platelet Volume 8.5 fL (7.0-11.0); Mono # (Auto) 2.6 th/mm3 (0.0-0.9); Mono % (Auto) 18.7 % (0.0-8.0); Neut # (Auto) 8.9 th/mm3 (1.8-7.7); Neut % (Auto) 63.2 % (16.0-70.0); Platelet Count 392 th/mm3 (150-450); Red Blood Count 3.77 mil/mm3 (4.00-5.30); Red Cell Distribution Width 18.8 % (11.6-17.2)
[2017-12-22 07:18] LABS: Eosinophils 1 % (0-4); Lymphocytes 18 % (9-44); Monocytes 14 % (0-8); Myelocytes 1 % (0-0); Platelet Estimate Normal (Normal); Platelet Morphology Normal (Normal); Tallied Nucleated RBC 22 (0-0)
[2017-12-22 07:19] LABS: Howell-Jolly Bodies Present; Sickle Cells 2+
[2017-12-22 07:20] LABS: Polychromasia 3.5 % (0.0-1.9)
[2017-12-22 07:21] LABS: Ovalocytes 1+
[2017-12-22] MEDS: Folic Acid 1 MG Tablet PO SCH (08:58)
--- NOTE | 2017-12-22 09:40 | P.OBANTE ---
Subjective Interval History: Patient is a 22-year-old female at 35 weeks and 5 days. She is admitted for sickle cell crisis. Past medical history includes sickle cell disease and asthma. She denies any pain, vaginal bleeding, leakage of fluid, or contractions. She is feeling baby moving. She denies any new shortness of breath or chest pain. She says her pain has been controlled with the Dilaudid most of the time. Most of her pain is in her legs. She asked about having some vaginal swelling and moderate itching but no discharge. Objective Vital Signs and I&O: Vital Signs 12/21/17 12:16 12/21/17 12:23 12/21/17 16:30 Temperature 97.8 F 98.0 F Pulse Rate 76 Respiratory Rate 17 18 Blood Pressure 104/63 12/21/17 17:41 12/21/17 19:32 12/21/17 19:44 Temperature 98.0 F Pulse Rate 93 H 86 Respiratory Rate Blood Pressure 125/73 127/74 12/21/17 19:45 12/22/17 08:26 Temperature 98.0 F Pulse Rate 78 74 Respiratory Rate 16 Blood Pressure 126/70 Intake & Output 12/21/17 12/22/17 12/22/17 18:59 06:59 18:59 Intake Total 2800 / 2800 1000 / 1000 1000 / 1000 Balance 2800 / 2800 1000 / 1000 1000 / 1000 Weight 71.271 kg Intake: IV 2000 / 2000 1000 / 1000 1000 / 1000 D5W/1/2 NS Inj 1,000 ML @ 150 2000 / 2000 1000 / 1000 1000 / 1000 mls/hr IV.CONT .Q6H40M [facility] Rx#: [id number] Intake (Blood Product) Amt 800 / 800 Rbc As-3 Leukoreduced Unit 400 / 400 [id number] Rbc As-3 Leukoreduced Unit 400 / 400 [id number] Lab and Micro Results: Laboratory Results - last 24 hr 12/21/17 12/21/17 12/22/17 00:46 12:23 05:14 WBC 14.0 H RBC 3.77 L Hgb 11.3 L D 11.5 L Hct 32.1 L 32.4 L MCV 86.1 MCH 30.4 MCHC 35.4 RDW 18.8 H Plt Count 392 MPV 8.5 Prelim Diff (Auto) Slide review pending Neut % (Auto) 63.2 Lymph % (Auto) 16.3 [place] % (Auto) 18.7 H Eos % (Auto) 1.4 Baso % (Auto) 0.4 Neut # (Auto) 8.9 H Lymph # (Auto) 2.3 [place] # (Auto) 2.6 H Eos # (Auto) 0.2 Baso # (Auto) 0.1 WBC Differential Manual diff final Seg Neuts % (Manual) 65 Band Neuts % (Manual) 1 Lymphocytes % (Manual) 18 Monocytes % (Manual) 14 H Eosinophils % (Manual) 1 Myelocytes % (Man) 1 H Abs Neuts (Manual) 9.4 H Nucleated RBCs/100 WBC 22 H Differential Comment . Platelet Estimate Normal Platelet Morphology Normal Polychromasia 3.5 H Sickle Cells 2+ H Ovalocytes 1+ H Vu-[place] Bodies Present H MTS Gel Crossmatch See Detail Physical Exam: GENERAL: Well-nourished, well-developed patient. CARDIOVASCULAR: Regular rate and rhythm without murmurs, gallops, or rubs. RESPIRATORY: Breath sounds equal bilaterally. No accessory muscle use. ABDOMEN/GI: Abdomen soft, non-tender. GENITOURINARY: External Genitalia: No Uterine Contractions FHT's: Baseline: 130 Variability: moderate Decels:absent EXTREMITIES: No cyanosis or edema, non-tender, without signs of DVT. Assessment and Plan - Diagnosis (1) Sickle cell anemia with crisis Code(s): D57.00 - Hb-SS disease with crisis, unspecified Status: Acute Plan: 22-year-old female at 35 weeks and 5 days who presents with sickle cell crisis -Admit to observation -Hbg 8.7 and HCT 24.1. Transfused 2 units yesterday. Hbg improved to 11.3 and today 11.5 HCT improved to 32.1 and today 32.4 -Folate 5mg daily -Lovenox 30mg daily -D5 1/2 NS at 175ml/hr -Rocephin 1g IV q24hr : received 2 doses so far -Vistaril -Dilaudid MACHINE CLOTHING WORKER: requiring .2mg q 6min; DC MACHINE CLOTHING WORKER transitioned to scheduled PO Izaiah 5mg q 4hrs and izaiah 5mg q 4hrs PRN breakthrough pain; morphine PRN pain -Consult to heme/onc: requested daily CBC, LDH, reticulocyte count, total bilirubin asked for hemoglobin electrophoresis Transition to PO medications Continue on folate 5mg daily -Will need hemoc referral at discharge (2) and not yet delivered in third trimester Code(s): Z34.93 - Encounter for supervision of normal , unspecified, third trimester Status: Acute Plan: at 35 weeks and 5 days admitted for sickle cell crisis. Patient says she has no known plan for induction of labor with her sickle cell disease and recent hospitalizations. Currently not having consistent or strong contractions. -Encourage plan and OB appointment when discharged
[2017-12-22] MEDS ORDERED: Naloxone Inj 0.4 MG/ML Vial IV.PUSH PRN (10:27)
[2017-12-22 11:35] LABS: Reticulocyte Percent 11.6 % (0.4-3.0)
[2017-12-22] MEDS ORDERED: Acetaminophen 325 MG Tablet PO PRN (12:00)
--- NOTE | 2017-12-22 12:05 | P.PNONC ---
Subjective Interval history: --Patient sitting upright in bed, in no acute distress. She states that her pain has improved. She still has some in her bilateral minor area and intermittent sharp chest pain. She is now off the Dilaudid pump and has recently received her p.o. oxycodone. She denies any shortness of breath at this time. --Patient reports that she has not had hematology follow-up in the past, stating that she was "supposed to see Dr. Liu, however she never did." --Reports chronically being "itchy" with most medications and most fabrics. She states that she takes Benadryl prior to any narcotic pain medications, codeine makes her "wheezy". Denies any other anaphylactic type reactions. Objective Vital Signs/Intake & Output: Vital Signs 12/21/17 12:16 12/21/17 12:23 12/21/17 16:30 Temperature 97.8 F 98.0 F Pulse Rate 76 Respiratory Rate 17 18 Blood Pressure 104/63 12/21/17 17:41 12/21/17 19:32 12/21/17 19:44 Temperature 98.0 F Pulse Rate 93 H 86 Respiratory Rate Blood Pressure 125/73 127/74 12/21/17 19:45 12/22/17 08:26 Temperature 98.0 F Pulse Rate 78 74 Respiratory Rate 16 Blood Pressure 126/70 Intake & Output 12/21/17 12/22/17 12/22/17 18:59 06:59 18:59 Intake Total 2800 / 2800 1000 / 1000 1000 / 1000 Balance 2800 / 2800 1000 / 1000 1000 / 1000 Weight 71.271 kg Intake: IV 1999 1000 / 1000 1000 / 1000 D5W/1/2 NS Inj 1,000 ML @ 150 2000 / 2000 1000 / 1000 1000 / 1000 mls/hr IV.CONT .Q6H40M [facility] Rx#: [id number] Intake (Blood Product) Amt 800 / 800 Rbc As-3 Leukoreduced Unit 400 / 400 [id number] Rbc As-3 Leukoreduced Unit 400 / 400 [id number] Result Diagrams: 12/22/17 05:14 12/21/17 00:46 Laboratory Results: Laboratory Results - last 24 hr 12/21/17 12/22/17 12:23 05:14 WBC 14.0 H RBC 3.77 L Hgb 11.3 L D 11.5 L Hct 32.1 L 32.4 L MCV 86.1 MCH 30.4 MCHC 35.4 RDW 18.8 H Plt Count 392 MPV 8.5 Prelim Diff (Auto) Slide review pending Neut % (Auto) 63.2 Lymph % (Auto) 16.3 [place] % (Auto) 18.7 H Eos % (Auto) 1.4 Baso % (Auto) 0.4 Neut # (Auto) 8.9 H Lymph # (Auto) 2.3 [place] # (Auto) 2.6 H Eos # (Auto) 0.2 Baso # (Auto) 0.1 WBC Differential Manual diff final Seg Neuts % (Manual) 65 Band Neuts % (Manual) 1 Lymphocytes % (Manual) 18 Monocytes % (Manual) 14 H Eosinophils % (Manual) 1 Myelocytes % (Man) 1 H Abs Neuts (Manual) 9.4 H Nucleated RBCs/100 WBC 22 H Differential Comment . Platelet Estimate Normal Platelet Morphology Normal Polychromasia 3.5 H Sickle Cells 2+ H Ovalocytes 1+ H Vu-[place] Bodies Present H Medications: Active Medications Generic Name Dose Route Start Last Admin Trade Name Freq PRN Reason Stop Dose Admin Diphenhydramine HCl 25 mg 12/21/17 07:39 12/22/17 11:26 Benadryl Inj IV.PUSH 25 mg Q6H PRN Administration ITCHING Folic Acid 5 mg 12/21/17 09:00 12/22/17 08:58 Folic Acid PO 5 mg DAILY [facility]ACH Administration Hydroxyzine Pamoate 50 mg 12/21/17 21:20 12/22/17 08:58 Vistaril PO 50 mg Q6H PRN Administration ITCHING Dextrose/Sodium Chloride 1,000 mls @ 150 mls/hr 12/21/17 00:45 12/22/17 08:58 D5w/1/2 Ns Inj IV.CONT 150 mls/hr .Q6H40M [facility] Administration Ceftriaxone Sodium 1,000 mg/ 100 mls @ 200 mls/hr 12/21/17 01:00 12/22/17 01: 37 Sodium Chloride IV.SIG 200 mls/hr Q24H [facility] Administration Oxycodone HCl 5 mg 12/22/17 12:00 12/22/17 11:25 Roxicodone PO 5 mg Q4H [facility] Administration Sodium Chloride 2 ml 12/21/17 09:00 12/21/17 10:13 Ns Flush IV.FLUSH Not Given BID [facility] Objective Remarks: GENERAL: Well-nourished, well-developed young female patient. In no acute distress. SKIN: Warm and dry. HEAD: Normocephalic. EYES: No scleral icterus. No injection or drainage. NECK: Supple, trachea midline. CARDIOVASCULAR: Regular rate and rhythm without murmurs. RESPIRATORY: Posterior breath sounds clear, equal bilaterally. No accessory muscle use. GASTROINTESTINAL: Abdomen soft, non-tender, nondistended. EXTREMITIES: No cyanosis, or edema. MUSCULOSKELETAL: Adequate muscle tone. NEUROLOGICAL: No obvious focal deficit. Awake, alert, and oriented x3. PSYCHIATRIC: Appropriate mood and affect; insight and judgment normal. Assessment/Plan (1) Sickle cell anemia with crisis Code(s): D57.00 - Hb-SS disease with crisis, unspecified Status: Acute (2) Sickle cell pain crisis Code(s): D57.00 - Hb-SS disease with crisis, unspecified Status: Acute (3) and not yet delivered in third trimester Code(s): Z34.93 - Encounter for supervision of normal , unspecified, third trimester Status: Acute - Plan This is a pleasant 22-year-old female patient, currently 35 weeks 5 days . She has a history of sickle cell disease, with poor outpatient follow -up. She reports she used to see a pediatric sponge packer at however this has become increasingly difficult for her. She is currently admitted for sickle cell crisis with a 1 week history of pain involving her back, BLE and chest. This pain is similar to her previous episodes of sickle cell crisis. On admission patient's hemoglobin was 8.7. Reticulocyte count was elevated to 10.5. Total bilirubin was 2.3. She was transfused 2 units of packed red blood cells. 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 She is now oral pain medications. Plan: 1. Sickle cell crisis. Continue hydration with IV fluids. Encourage oral hydration as well. Continue to monitor pain control on oral medications. Once discharged the patient will need hematology follow-up and this has been discussed with her. 2. IUP. Management per OB team. 3. We will continue to monitor labs. 4. Continue to monitor oxygenation. 5. Hemoglobin stable at 11.5 today, status post 2 units of packed red blood cells on 12/21/2017. Continue to monitor and transfuse if hemoglobin<10.
[2017-12-22] MEDS: Morphine Inj 4 MG/ML Vial IV.PUSH PRN ×3 (13:36→21:59)
[2017-12-23] MEDS ORDERED: Morphine Sulfate Inj 8 MG/ML Vial IV.PUSH ONE (02:00)
[2017-12-23 05:58] LABS: Baso # (Auto) 0.1 th/mm3 (0.0-0.2); Baso % (Auto) 0.4 % (0.0-2.0); Eos # (Auto) 0.3 th/mm3 (0.0-0.4); Eos % (Auto) 1.9 % (0.0-4.0); Hematocrit 32.8 % (35.0-46.0); Hemoglobin 11.4 gm/dL (11.6-15.3); Lymph # (Auto) 2.5 th/mm3 (1.0-4.8); Mean Corpuscular HGB Conc 34.7 % (32.0-36.0); Mean Corpuscular Hemoglobin 30.4 pg (27.0-34.0); Mean Corpuscular Volume 87.6 fL (80.0-100.0); Mean Platelet Volume 8.3 fL (7.0-11.0); Mono # (Auto) 2.9 th/mm3 (0.0-0.9); Neut # (Auto) 8.1 th/mm3 (1.8-7.7); Neut % (Auto) 58.7 % (16.0-70.0); Platelet Count 381 th/mm3 (150-450); Red Blood Count 3.74 mil/mm3 (4.00-5.30); Red Cell Distribution Width 18.5 % (11.6-17.2); White Blood Count 13.8 th/mm3 (4.0-11.0)
[2017-12-23] MEDS: Dextrose 5%/NaCl 0.45% Inj 1,000 ML IV.CONT SCH ×4 (06:34→20:55)
[2017-12-23] MEDS: Morphine Inj 4 MG/ML Vial IV.PUSH PRN (06:35)
[2017-12-23 07:51] LABS: Eosinophils 2 % (0-4); Lymphocytes 11 % (9-44); Monocytes 25 % (0-8); Pappenheimer Bodies Present; Platelet Estimate Normal (Normal); Platelet Morphology Normal (Normal); Sickle Cells 2+; Tallied Nucleated RBC 16 (0-0)
[2017-12-23 07:52] LABS: Ovalocytes 1+; Polychromasia 2.3 % (0.0-1.9)
--- NOTE | 2017-12-23 08:24 | P.OBANTE ---
Subjective Interval History: Patient is a 22-year-old female at 35 weeks and 6 days. She is admitted for sickle cell crisis. Past medical history includes sickle cell disease and asthma. She denies any pain, vaginal bleeding, leakage of fluid, or contractions. She is feeling baby moving. She denies any new shortness of breath or chest pain. She says her pain has been controlled with the Izaiah most of the time. Used PRN morphine 4 mg consistently every 4 hours. She is having minimal white vaginal discharge but no itching Objective Vital Signs and I&O: Vital Signs 12/22/17 08:26 12/22/17 19:28 12/22/17 20:48 Temperature 98.0 F 98.3 F Pulse Rate 74 85 Respiratory Rate 16 18 17 Blood Pressure 126/70 115/68 12/22/17 22:01 12/22/17 23:09 12/22/17 23:10 Temperature 99.2 F Pulse Rate 88 Respiratory Rate 16 16 Blood Pressure 128/63 12/22/17 23:20 12/23/17 04:11 12/23/17 07:51 Temperature 97.7 F 98.0 F Pulse Rate 92 H 85 Respiratory Rate 17 Blood Pressure 117/69 12/23/17 07:52 Temperature Pulse Rate 77 Respiratory Rate 16 Blood Pressure 119/67 Intake & Output 12/22/17 12/23/17 12/23/17 18:59 06:59 18:59 Intake Total 1999 Balance 1999 Intake: IV 1999 D5W/1/2 NS Inj 1,000 ML @ 150 1999 mls/hr IV.CONT .Q6H40M [facility] Rx#: [id number] Rocephin Inj 1,000 MG In NS Inj 100 / 100 100 ML @ 200 mls/hr IV.SIG Q24H [facility] Rx#:[id number] Lab and Micro Results: Laboratory Results - last 24 hr 12/22/17 12/22/17 12/22/17 10:53 10:53 10:53 WBC RBC Hgb Hct MCV MCH MCHC RDW Plt Count MPV Prelim Diff (Auto) Neut % (Auto) Lymph % (Auto) [place] % (Auto) Eos % (Auto) Baso % (Auto) Neut # (Auto) Lymph # (Auto) [place] # (Auto) Eos # (Auto) Baso # (Auto) WBC Differential Seg Neuts % (Manual) Band Neuts % (Manual) Lymphocytes % (Manual) Monocytes % (Manual) Eosinophils % (Manual) Abs Neuts (Manual) Nucleated RBCs/100 WBC Differential Comment Platelet Estimate Platelet Morphology Polychromasia [place] Bodies Sickle Cells Ovalocytes Retic Count 11.6 H Absolute Retic 436.6 H Total Bilirubin 2.8 H Lactate Dehydrogenase 702 H 12/23/17 12/23/17 05:21 05:21 WBC 13.8 H RBC 3.74 L Hgb 11.4 L Hct 32.8 L MCV 87.6 MCH 30.4 MCHC 34.7 RDW 18.5 H Plt Count 381 MPV 8.3 Prelim Diff (Auto) Slide review pending Neut % (Auto) 58.7 Lymph % (Auto) 18.0 [place] % (Auto) 21.0 H Eos % (Auto) 1.9 Baso % (Auto) 0.4 Neut # (Auto) 8.1 H Lymph # (Auto) 2.5 [place] # (Auto) 2.9 H Eos # (Auto) 0.3 Baso # (Auto) 0.1 WBC Differential Manual diff final Seg Neuts % (Manual) 61 Band Neuts % (Manual) 1 Lymphocytes % (Manual) 11 Monocytes % (Manual) 25 H Eosinophils % (Manual) 2 Abs Neuts (Manual) 8.6 H Nucleated RBCs/100 WBC 16 H Differential Comment . Platelet Estimate Normal Platelet Morphology Normal Polychromasia 2.3 H Pappenheimer Bodies Present H Sickle Cells 2+ H Ovalocytes 1+ H Retic Count Absolute Retic Total Bilirubin Lactate Dehydrogenase 625 H Physical Exam: GENERAL: Well-nourished, well-developed patient. CARDIOVASCULAR: Regular rate and rhythm without murmurs, gallops, or rubs. RESPIRATORY: Breath sounds equal bilaterally. No accessory muscle use. ABDOMEN/GI: Abdomen soft, non-tender. GENITOURINARY: External Genitalia: Uterine Contractions: none FHT's: Category:1 Baseline: 140 Variability: yes Decels: absent EXTREMITIES: No cyanosis or edema, non-tender, without signs of DVT. Assessment and Plan - Diagnosis (1) Sickle cell anemia with crisis Code(s): D57.00 - Hb-SS disease with crisis, unspecified Status: Acute Plan: 22-year-old female at 35 weeks and 6 days who presents with sickle cell crisis -Admit to observation -Hbg 8.7 and HCT 24.1. Transfused 2 units 12/21. Hbg stable at 11.4 from 11.5 yesterday -Folate 5mg daily -Lovenox 30mg daily -D5 1/2 NS at 175ml/hr -Rocephin 1g IV q24hr : received 2 doses so far -Vistaril -Pain control: PO Izaiah 5mg q 4hrs and izaiah 5mg q 4hrs PRN breakthrough pain; morphine discontinued -Consult to heme/onc: continue to monitor Hbg and transfuse if less than 10. Continue with fluids. -Will need hemoc referral at discharge (2) and not yet delivered in third trimester Code(s): Z34.93 - Encounter for supervision of normal , unspecified, third trimester Status: Acute Plan: at 35 weeks and 6 days admitted for sickle cell crisis. Patient says she has no known plan for induction of labor with her sickle cell disease and recent hospitalizations. Currently not having consistent or strong contractions. -US 12/22 showed good growth and no anomalies; nl amniotic fluid; BPP 6/8 -2 for breathing; recommended FHR when in crisis and once resolved testing twice a week until delivery and daily kick counts -MFM referral for planning induction
[2017-12-23] MEDS: Enoxaparin Inj 40 MG/0.4 ML Syringe SQ SCH ×2 (09:00→19:18)
[2017-12-23] MEDS: Folic Acid 1 MG Tablet PO SCH (09:01)
[2017-12-24] MEDS: Dextrose 5%/NaCl 0.45% Inj 1,000 ML IV.CONT SCH (02:03)
[2017-12-24] MEDS: Enoxaparin Inj 40 MG/0.4 ML Syringe SQ SCH (08:04)
[2017-12-24] MEDS: Folic Acid 1 MG Tablet PO SCH (08:04)
--- NOTE | 2017-12-24 09:56 | P.OBANTE ---
Subjective Interval History: No acute events overnight. Patient denies any gush of fluid, vaginal bleeding, contractions or decreased movement. Patient states her pain is well- controlled on p.o. medications. Otherwise denies any fever or chills, nausea vomiting or dysuria. Patient had presented with chest discomfort associated with her pain crisis and that is continued to improve. Objective Vital Signs and I&O: Vital Signs 12/23/17 19:45 12/23/17 23:22 12/24/17 03:52 Temperature 98.2 F 97.8 F 98.4 F Pulse Rate 89 91 H 95 H Respiratory Rate 16 18 15 Blood Pressure 123/74 125/56 L 115/57 L 12/24/17 07:00 12/24/17 08:04 12/24/17 08:18 Temperature 97.8 F Pulse Rate 92 H Respiratory Rate 17 Blood Pressure 127/67 Intake & Output 12/23/17 12/24/17 12/24/17 18:59 06:59 18:59 Intake Total 1000 / 1000 1999 / 1999 Balance 1000 / 1000 1999 Intake: IV 1000 / 1000 1999 / 1999 D5W/1/2 NS Inj 1,000 ML @ 150 1000 / 1000 1999 / 1999 mls/hr IV.CONT .Q6H40M [facility] Rx#: [id number] Lab and Micro Results: Laboratory Results - last 24 hr 12/22/17 05:14 Hgb ELP Interp Physical Exam: GENERAL: Well-nourished, well-developed patient. CARDIOVASCULAR: Regular rate and rhythm without murmurs, gallops, or rubs. RESPIRATORY: Breath sounds equal bilaterally. No accessory muscle use. ABDOMEN/GI: Abdomen soft, non-tender. Fundus: 36 GENITOURINARY: External Genitalia: intact and normal in appearance Uterine Contractions: Absent FHT's: Category: 1 Baseline: 145 Reactive: y Variability: mod Decels: Absent EXTREMITIES: No cyanosis or edema, non-tender, without signs of DVT. Assessment and Plan - Diagnosis (1) Sickle cell anemia with crisis Code(s): D57.00 - Hb-SS disease with crisis, unspecified Status: Acute Plan: 22-year-old female at 36 weeks and 0 days who presents with sickle cell crisis -Hbg 8.7 and HCT 24.1. Transfused 2 units 12/21. Hbg stable at 11 -Folate 5mg daily -Lovenox 30mg daily -D5 1/2 NS at 175ml/hr -Rocephin 1g IV q24hr : received 3 doses so far -Vistaril -Pain control: PO Izaiah 5mg q 4hrs and izaiah 5mg q 4hrs PRN breakthrough pain - well-controlled -Consult to heme/onc: Reaching out today to determine if patient will need to be on Lovenox at home prior to delivery -Will need hemoc referral at discharge (2) and not yet delivered in third trimester Code(s): Z34.93 - Encounter for supervision of normal , unspecified, third trimester Status: Acute Plan: at 36 weeks and 0 days admitted for sickle cell crisis. Patient says she has no known plan for induction of labor with her sickle cell disease and recent hospitalizations. Currently not having consistent or strong contractions. Continues to have category 1 tracing. -MFM consult on 12/24. Recommending induction of labor at 37 weeks gestation.
--- NOTE | 2017-12-24 10:49 | P.DS ---
Date of admission: 12/21/17 00:52 Primary care physician: UNKNOWN Brief History from admission: HPI from admission: Ms. Garcia is a 22yo at 35/4 with PMH of sickle cell disease here for pain. She describes one week of pain, diffusely in her abdomen, back, and chest. It is similar to her pain with previous pain crises. She reports being hospitalized twice since September for crises. She reports associated shortness of breath when the pain is the most intense. She denies any fevers. She endorses increased urinary urgency but denies any dysuria. She does report contractions about every half hour. She denies any vaginal bleeding or loss of fluid. movement is good. Her NST on was normal. DS: Diagnosis - Discharge Diagnosis (1) Sickle cell anemia with crisis Status: Acute (2) and not yet delivered in third trimester Status: Acute DS: Medications - Discharge Medications Prescriptions: enoxaparin [Lovenox] 40 mg SUB-Q DAILY 6 Days #2.4 ml oxycodone-acetaminophen [Percocet] 1 tab PO Q6H PRN #28 tab PRN Reason: Pain DS: Summary Hospital Course: Patient was admitted to antepartum service for management of sickle cell pain crisis. Hemoglobin of 8.7 and a hematocrit of 24.1 on admission, so was transfused 2 units of PRBC. Hemoglobin responded to 11 and was stable during the hospitalization. Hematology was consulted, and recommended treating with Lovenox 30 mg daily until delivery. Patient was also treated with 3 days of Rocephin for suspected UTI. Pain was initially controlled with a Dilaudid MECHANICAL DESIGN TECHNICIAN and she was slowly transitioned to p.o. Roxicodone for pain control. Perinatology was consulted and recommended induction of labor at 37 weeks gestation. This was discussed with the patient and she was instructed to return for induction at that time. Patient had a category 1 tracing throughout the hospitalization, and the OB team patient felt she was safe for discharge on 12/24. - Time Spent with Patient Total time spent providing and/or coordinating discharge services: Exam Vital signs: Vital Signs 12/23/17 19:45 12/23/17 23:22 12/24/17 03:52 Temperature 98.2 F 97.8 F 98.4 F Pulse Rate 89 91 H 95 H Respiratory Rate 16 18 15 Blood Pressure 123/74 125/56 L 115/57 L 07/25/18 07:00 12/24/17 08:04 12/24/17 08:18 Temperature 97.8 F Pulse Rate 92 H Respiratory Rate 17 Blood Pressure 127/67 12/24/17 10:00 Temperature Pulse Rate Respiratory Rate 18 Blood Pressure Intake & Output 12/23/17 12/24/17 12/24/17 18:59 06:59 18:59 Intake Total 999 / 999 Balance 999 / 999 Intake: IV 999 / 999 D5W/1/2 NS Inj 1,000 ML @ 150 999 / 999 mls/hr IV.CONT .Q6H40M [facility] Rx#: [id number] Results Procedures completed during hospitalization: None Labs on day of discharge: Labs from last 24 hours 12/22/17 12/22/17 05:14 05:14 RBC (Send Out) Pending Hemoglobin (Send Out) Pending Hct (Send Out) Pending MCV (Send Out) Pending MCH (Send Out) Pending RDW Coeff of Patricia Send O Pending Hemoglobin A Pending Hemoglobin A2 Quant Pending Hemoglobin C % Pending Hemoglobin E Pending Hemoglobin F Percent Pending Hemoglobin S % Pending Abnormal Hemoglobin Pending Abnormal Hemoglobin 2 Pending Hgb ELP Pattern Pending Hgb ELP Interp Discharge Plan - Discharge Disposition Patient Disposition: 01 Discharge Home - Discharge Condition Condition: Stable - Discharge Order Discharge Orders: Discharge Order (Routine); Ordered 12/24/17 Ordered By: Natan Thurston - Physicians Team Primary Care Provider: UNKNOWN, Attending Provider: Julito Campos Other Providers: Ian Liu MD
[2017-12-29 19:54] LABS: HGB A2 Reference 3.2 % (1.8-3.5); HGB E Reference ND (()); MCVREF 88.7 fL (80.0-100.0)
== END 2017-12-24 11:30 | disposition home or self-care (01) ==
LOC: HOBED 23:25 → H2E 23:25
PROVIDERS: ADMIT Obstetrics & Gynecology; ATTEND Obstetrics & Gynecology

== ENCOUNTER 2017-12-31 18:23 | Inpatient (IN) ==
[2017-12-31] MEDS ORDERED: Sod Chloride 0.9% Inj 1,000 ML IV.CONT PRN (20:19)
[2017-12-31] MEDS ORDERED: fentaNYL Citrate Inj 100 MCG/2 ML Ampul IV.PUSH PRN ×2 (20:19)
[2017-12-31] MEDS ORDERED: Oxytocin 30 Units/500ml Premix 30 UNITS/500 ML BAG IV.SIG ONE (20:19)
[2017-12-31] MEDS ORDERED: Sodium Chlor 0.9% Inj 500 ML IV.SIG PRN (20:19)
[2017-12-31] MEDS ORDERED: Naloxone Inj 0.4 MG/ML Vial IV.PUSH PRN (20:19)
[2017-12-31] MEDS ORDERED: Citric Acid/Sodium Citrate Liq 30 ML UDC PO SCH (20:30)
[2017-12-31 21:30] LABS: Baso # (Auto) 0.1 th/mm3 (0.0-0.2); Baso % (Auto) 0.6 % (0.0-2.0); Eos # (Auto) 0.1 th/mm3 (0.0-0.4); Eos % (Auto) 0.7 % (0.0-4.0); Hematocrit 28.3 % (35.0-46.0); Hemoglobin 9.7 gm/dL (11.6-15.3); Lymph # (Auto) 3.1 th/mm3 (1.0-4.8); Lymph % (Auto) 20.4 % (9.0-44.0); Mean Corpuscular HGB Conc 34.4 % (32.0-36.0); Mean Corpuscular Hemoglobin 29.4 pg (27.0-34.0); Mean Corpuscular Volume 85.5 fL (80.0-100.0); Mean Platelet Volume 9.5 fL (7.0-11.0); Mono # (Auto) 2.9 th/mm3 (0.0-0.9); Mono % (Auto) 19.3 % (0.0-8.0); Neut # (Auto) 8.9 th/mm3 (1.8-7.7); Platelet Count 375 th/mm3 (150-450); Red Blood Count 3.31 mil/mm3 (4.00-5.30); Red Cell Distribution Width 17.4 % (11.6-17.2)
[2017-12-31 22:15] LABS: Eosinophils 1 % (0-4); Lymphocytes 14 % (9-44); Monocytes 22 % (0-8); Tallied Nucleated RBC 13 (0-0)
[2017-12-31 22:17] LABS: Ovalocytes 1+; Sickle Cells 2+
[2017-12-31 22:20] LABS: Howell-Jolly Bodies Present; Target Cells 1+
--- NOTE | 2017-12-31 22:50 | P.PN ---
Subjective Interval history: Cervidil was placed without incident for induction of labor. heart tones are reassuring. Patient tolerated procedure well. Physical Exam Vital signs: Vital Signs 12/31/17 18:51 12/31/17 18:52 Pulse Rate 92 H Respiratory Rate 18 Blood Pressure 110/66 Results - Labs CBC & Chem 7: 12/31/17 20:40 Laboratory Results - last 24 hr 12/31/17 12/31/17 12/31/17 18:45 20:40 20:40 WBC 15.0 H RBC 3.31 L Hgb 9.7 L Hct 28.3 L MCV 85.5 MCH 29.4 MCHC 34.4 RDW 17.4 H Plt Count 375 MPV 9.5 Prelim Diff (Auto) Slide review pending Neut % (Auto) 59.0 Lymph % (Auto) 20.4 [place] % (Auto) 19.3 H Eos % (Auto) 0.7 Baso % (Auto) 0.6 Neut # (Auto) 8.9 H Lymph # (Auto) 3.1 [place] # (Auto) 2.9 H Eos # (Auto) 0.1 Baso # (Auto) 0.1 WBC Differential Manual diff final Seg Neuts % (Manual) 61 Band Neuts % (Manual) 2 Lymphocytes % (Manual) 14 Monocytes % (Manual) 22 H Eosinophils % (Manual) 1 Abs Neuts (Manual) 9.5 H Nucleated RBCs/100 WBC 13 H Differential Comment . Basophilic Stippling Faint H Sickle Cells 2+ H Target Cells 1+ H Ovalocytes 1+ H Vu-[place] Bodies Present H Keratocytes Occ H Urine Opiates Screen Cancelled Ur Barbiturates Screen Cancelled Ur Amphetamines Screen Cancelled U Benzodiazepines Scrn Cancelled Urine Cocaine Screen Cancelled U Cannabinoids Screen Cancelled Blood Type O Positive
[2017-12-31 22:59] LABS: Amphetamine Urine With Conf Neg (Neg); Benzodiazepine Urine With Conf Neg (Neg); Bilirubin,Urine Negative (Negative); Clarity,Urine Clear (Clear); Color,Urine Yellow (Yellw/Straw); Glucose,Urine (UA) Negative (Negative); Leukocyte Esterase,Urine Trace (Negative); Mucus,Urine Few /lpf (Occasional); Nitrite,Urine Negative (Negative); Squamous Epithelial Cell,Urine 4 /hpf (0-5)
--- NOTE | 2017-12-31 23:08 | P.HPOB ---
History of Present Illness Primary Care Physician: Avtar Wang MD History of Present Illness: 22-year-old G-tube P0 010, IUP at 37.0 care complicated by sickle cell anemia with numerous admissions during her , asthma The patient presents for scheduled induction of labor at 37.0 weeks as per [facility] recommendations. The patient has been admitted numerous times during the course of her for sickle cell crises and has received several blood transfusions. She denies any leaking of fluid or vaginal bleeding. She reports good movement. She denies any painful contractions or cramping. She has no other obstetrical concerns or complaints tonight. 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 She does have a history of chlamydia and gonorrhea in the past. Social history: Denies drugs, alcohol, or tobacco use Surgical history: Denies Weeks Gestation:: 37 Para: 0 : 2 Total # of Miscarriage(s): 1 - Inpatient Certification I certify that the inpatient services were ordered in accordance with Medicare regulations governing the order. This includes certification that hospital inpatient services are reasonable and necessary and in the case of services not specified as inpatient-only under 42 CFR 419.22(n), that they are appropriately provided as inpatient services in accordance to with the 2-midnight benchmark under 43 CFR 412.3(e) Estimated Total Length of Stay (Days): 3 Plans for Post Hospital Care: Home Review of Systems All other systems reviewed negative except as stated in HPI [facility] - Medical History Medical History: Medical History (Last Reviewed 12/21/17 @ 22:10 by David Hare MD) Asthma Sickle cell disease - Alcohol History How Often Do You Have a Drink Containing Alcohol: Never (Not since ) - Substance Use History Substance History: No History of Abuse Medications and Allergies Active Medications: Active Medications Citric Acid/Sodium Citrate (Sodium Citrate/Citric Acid Liq) 30 ml PO GROUT MACHINE 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 ZACH Stop: 01/04/18 20:29 Fentanyl Citrate (Fentanyl Inj) 50 mcg IV.PUSH Q1H PRN PRN Reason: Pain Scale 3 - 5 Fentanyl Citrate (Fentanyl Inj) 100 mcg IV.PUSH Q1H PRN PRN Reason: PAIN SCALE 6 TO 10 Lactated Ringer's (Lr 1000 Ml Inj) 1,000 mls @ 125 mls/hr IV.CONT .Q8H [facility] Last Admin: 12/31/17 22:26 Dose: 125 mls/hr Lactated Ringer's (Lr 1000 Ml Inj) 1,000 mls @ 3,000 mls/hr IV.SIG UNSCH PRN PRN Reason: compromise or epidural Sodium Chloride (Ns Inj) 1,000 mls @ 100 mls/hr IV.CONT .Q10H PRN PRN Reason: SEE LABEL COMMENTS Sodium Chloride (Ns Inj) 500 mls @ 1,000 mls/hr IV.SIG UNSCH PRN PRN Reason: SEE LABEL COMMENTS Lactated Ringer's (Lr 1000 Ml Inj) 1,000 mls @ 125 mls/hr IV.CONT .Q8H [facility] Last Admin: 12/31/17 22:26 Dose: Not Given Lidocaine HCl (Xylocaine 1% Inj) 10 ml INFILTRATN PRN PRN PRN Reason: For episiotomy repair Stop: 01/02/18 20:18 Lidocaine HCl (Xylocaine 1% Inj) 0.1 ml I-DERMAL PRN PRN PRN Reason: For IV start Stop: 01/03/18 20:18 Mineral Oil (Muri-Lube Oil) 10 ml TOPICAL PRN PRN PRN Reason: PRN perineal massage Naloxone HCl (Narcan Inj) 0.1 mg IV.PUSH Q2M PRN PRN Reason: for opiate reversal Sodium Chloride (Ns Flush) 2 ml IV.FLUSH BID [facility] Last Admin: 12/31/17 22:25 Dose: Not Given Sodium Chloride (Ns Flush) 2 ml IV.FLUSH PRN PRN PRN Reason: FLUSH AFTER USING IV ACCESS Allergies Allergy/AdvReac Type Severity Reaction Status Date / Time codeine Allergy Intermediate wheezing, Verified 10/30/17 01:21 SOB adhesive tape AdvReac Irritation Verified 12/21/17 01:18 Home Medications Medication Instructions Recorded Confirmed Type PNV cmb#95-ferrous fumarate-FA 1 tab PO DAILY 12/21/17 12/21/17 History [] albuterol sulfate 2 puff INHALATION Q4-6H PRN 12/21/17 12/21/17 History aspirin [Aspir-81] 81 mg PO DAILY 12/21/17 12/21/17 History Exam Vital signs: Vital Signs 12/31/17 18:51 12/31/17 18:52 Pulse Rate 92 H Respiratory Rate 18 Blood Pressure 110/66 - Constitutional no acute distress - Routine HEENT Exam Head: Present: normocephalic, atraumatic Eye: Present: EOMI, PERRL, normal accommodation, conjunctivae pink ENT: Present: mucous membranes moist - Routine Neck Exam Present: supple, full ROM - Routine Respiratory Exam Present: CTA bilaterally - Routine Cardiovascular Exam Present: RRR - Routine Abdominal Exam Present: soft, normoactive bowel sounds - Routine Exam External: Present: normal urethra appearance Perineum Description: Intact Comments: Grossly normal leg press, no cervical or vaginal masses noted, grossly normal rugated, physiologic discharge, SVE closed/thick/high/posterior - Routine Extremities Exam Present: full ROM - Routine Skin Exam Present: intact, dry, warm - Routine Neurological Exam Present: alert, oriented X3, CN II-XII intact, moving all extremities, normal tone, vision grossly intact, hearing grossly intact, normal speech Results - Labs CBC & Chem 7: 12/31/17 20:40 Labs: Laboratory Results - last 24 hr 12/31/17 12/31/17 12/31/17 18:45 20:40 20:40 WBC 15.0 H RBC 3.31 L Hgb 9.7 L Hct 28.3 L MCV 85.5 MCH 29.4 MCHC 34.4 RDW 17.4 H Plt Count 375 MPV 9.5 Prelim Diff (Auto) Slide review pending Neut % (Auto) 59.0 Lymph % (Auto) 20.4 [place] % (Auto) 19.3 H Eos % (Auto) 0.7 Baso % (Auto) 0.6 Neut # (Auto) 8.9 H Lymph # (Auto) 3.1 [place] # (Auto) 2.9 H Eos # (Auto) 0.1 Baso # (Auto) 0.1 WBC Differential Manual diff final Seg Neuts % (Manual) 61 Band Neuts % (Manual) 2 Lymphocytes % (Manual) 14 Monocytes % (Manual) 22 H Eosinophils % (Manual) 1 Abs Neuts (Manual) 9.5 H Nucleated RBCs/100 WBC 13 H Differential Comment . Basophilic Stippling Faint H Sickle Cells 2+ H Target Cells 1+ H Ovalocytes 1+ H Vu-[place] Bodies Present H Keratocytes Occ H Urine Opiates Screen Cancelled Ur Barbiturates Screen Cancelled Ur Amphetamines Screen Cancelled U Benzodiazepines Scrn Cancelled Urine Cocaine Screen Cancelled U Cannabinoids Screen Cancelled Blood Type O Positive Caprini VTE Risk Assessment Caprini VTE Risk Assessment: No/Low Risk (score <= 1) Caprini Risk Assessment Model: Point Value = 1 Point Value = 2 Point Value = 3 Point Value = 5 Age 41-60 Minor surgery BMI > 25 kg/m2 Swollen legs Varicose veins or History of unexplained or recurrent spontaneous Oral contraceptives or hormone replacement Sepsis (< 1 month) Serious lung disease, including pneumonia (< 1 month) Abnormal pulmonary function Acute myocardial infarction Congestive heart failure (< 1 month) History of inflammatory bowel disease Medical patient at bed rest Age 61-74 Arthroscopic surgery Major open surgery (> 45 min) Laparoscopic surgery (> 45 min) Malignancy Confined to bed (> 72 hours) Immobilizing plaster cast Central venous access Age >= 75 History of VTE Family history of VTE Factor V Leiden Prothrombin [id number] Lupus anticoagulant Anticardiolipin antibodies Elevated serum homocysteine Heparin-induced thrombocytopenia Other congenital or acquired thrombophilia Stroke (< 1 month) Elective arthroplasty Hip, pelvis, or leg fracture Acute spinal cord injury (< 1 month) Prophylaxis Regimen: Total Risk Factor Score Risk Level Prophylaxis Regimen 0-1 Low Early ambulation 2 Moderate Order ONE of the following: *Sequential Compression Device (SCD) *Heparin 5000 units SQ BID 3-4 Higher Order ONE of the following medications: *Heparin 5000 units SQ TID *Enoxaparin/Lovenox 40 mg SQ daily (WT < 150 kg, CrCl > 30 mL/min) *Enoxaparin/Lovenox 30 mg SQ daily (WT < 150 kg, CrCl > 10-29 mL/min) *Enoxaparin/Lovenox 30 mg SQ BID (WT < 150 kg, CrCl > 30 mL/min) AND/OR *Sequential Compression Device (SCD) 5 or more Highest Order ONE of the following medications: *Heparin 5000 units SQ TID (Preferred with Epidurals) *Enoxaparin/Lovenox 40 mg SQ daily (WT < 150 kg, CrCl > 30 mL/min) *Enoxaparin/Lovenox 30 mg SQ daily (WT < 150 kg, CrCl > 10-29 mL/min) *Enoxaparin/Lovenox 30 mg SQ BID (WT < 150 kg, CrCl > 30 mL/min) AND *Sequential Compression Device (SCD) Assessment and Plan - Plan Assessment/plan: 1. IUP at 37.0 2. Induction of labor for sickle cell disease: Discussed with the patient the risks, benefits, and alternatives to induction of labor. We discussed medication alternatives. We discussed the risks, and indications of delivery including nonreassuring status, inability to tolerate labor , arrest of dilation/arrest of descent, and other indications. We discussed the risks of include but are not limited to pain, infection, bleeding , injury to other organs like the bladder/bowel/nerves/vessels, injury to the baby, need for repeat operation, need for blood transfusion, need for hysterectomy, wound infection/breakdown, and other possible complications. All the patient's questions were answered. 3. Sickle cell anemia: Patient has been admitted on numerous occasions during her including the necessity for blood transfusions. We will monitor closely overnight. She denies any symptoms of a crisis at this time. We will notify her staff design engineer of her admission in the morning. 4. well-being: heart tones are reassuring and appropriate for gestational age. This category 1 heart rate tracing a reactive NST. Will continue monitoring 5. GBS negative 6. Asthma: Continue home medications as indicated. NST report: Indications IUP at 37 weeks, sickle cell anemia with numerous crises during , and asthma heart tones are in the with moderate long-term variability, good accelerations, no decelerations noted. This category 1 heart rate tracing a reactive NST Final diagnosis: IUP at 37 weeks, sickle cell anemia with numerous crises during , asthma, reassuring testing Follow-up: Will admit with continued monitoring
[2018-01-01] MEDS ORDERED: Zolpidem Tartrate 5 MG Tablet PO SCH (01:30)
--- NOTE | 2018-01-01 09:17 | P.PN ---
Subjective Interval history: OBHG S: patient resting O: VSS AF FHT: 120s, moderate LTV, good accels, no decels [place]: irregular pattern SVE: closed/50/-3 A/P: 1. IUP at 37.1 2. IOL as per MFM for sickle cell anemia with multiple crisis during , s/p cervidil, will place cytotec 3. wellbeing: reassuring testing, continue EFM 4. GBS neg Physical Exam Vital signs: Vital Signs 12/31/17 18:51 12/31/17 18:52 12/31/17 21:00 Temperature Pulse Rate 92 H Respiratory Rate 18 18 Blood Pressure 110/66 12/31/17 22:00 12/31/17 23:44 12/31/17 23:46 Temperature 98.4 F Pulse Rate 90 Respiratory Rate 18 18 Blood Pressure 103/45 L 01/01/18 04:28 01/01/18 04:29 01/01/18 08:38 Temperature 97.9 F 98.2 F Pulse Rate 99 H Respiratory Rate 18 16 Blood Pressure 119/63 01/01/18 08:39 Temperature Pulse Rate 93 H Respiratory Rate Blood Pressure 102/43 L Intake & Output 12/31/17 01/01/18 01/01/18 18:59 06:59 18:59 Intake Total 1000 / 1000 Balance 1000 / 1000 Intake: IV 1000 / 1000 LR 1000 mL Inj 1,000 ML @ 125 1000 / 1000 mls/hr IV.CONT .Q8H [facility] Rx#: [id number] Results - Labs CBC & Chem 7: 12/31/17 20:40 Laboratory Results - last 24 hr 12/31/17 12/31/17 12/31/17 18:45 18:45 18:45 WBC RBC Hgb Hct MCV MCH MCHC RDW Plt Count MPV Prelim Diff (Auto) Neut % (Auto) Lymph % (Auto) [place] % (Auto) Eos % (Auto) Baso % (Auto) Neut # (Auto) Lymph # (Auto) [place] # (Auto) Eos # (Auto) Baso # (Auto) WBC Differential Seg Neuts % (Manual) Band Neuts % (Manual) Lymphocytes % (Manual) Monocytes % (Manual) Eosinophils % (Manual) Abs Neuts (Manual) Nucleated RBCs/100 WBC Differential Comment Basophilic Stippling Sickle Cells Target Cells Ovalocytes Vu-[place] Bodies Keratocytes Urine Color Yellow Urine Clarity Clear Urine pH 7.0 Ur Specific [place] 1.010 Urine Protein Negative Urine Glucose (UA) Negative Urine Ketones Negative Urine Occult Blood Small H Urine Nitrate Negative Urine Bilirubin Negative Urine Urobilinogen 2.0 H Ur Leukocyte Esterase Trace H Urine RBC 1 Urine WBC 5 Ur Squamous Epith Cells 4 Urine Mucus Few H Micro UA Comment Culture not ind Urine Culture Comments Culture not ind Urine Opiates Screen Cancelled Neg Ur Barbiturates Screen Cancelled Neg Ur Amphetamine Screen Neg Ur Amphetamines Screen Cancelled U Benzodiazepines Scrn Cancelled Neg Urine Cocaine Screen Cancelled Neg U Cannabinoids Screen Cancelled Neg Group B Strep (PCR) Blood Type 12/31/17 12/31/17 12/31/17 20:40 20:40 20:45 WBC 15.0 H RBC 3.31 L Hgb 9.7 L Hct 28.3 L MCV 85.5 MCH 29.4 MCHC 34.4 RDW 17.4 H Plt Count 375 MPV 9.5 Prelim Diff (Auto) Slide review pending Neut % (Auto) 59.0 Lymph % (Auto) 20.4 [place] % (Auto) 19.3 H Eos % (Auto) 0.7 Baso % (Auto) 0.6 Neut # (Auto) 8.9 H Lymph # (Auto) 3.1 [place] # (Auto) 2.9 H Eos # (Auto) 0.1 Baso # (Auto) 0.1 WBC Differential Manual diff final Seg Neuts % (Manual) 61 Band Neuts % (Manual) 2 Lymphocytes % (Manual) 14 Monocytes % (Manual) 22 H Eosinophils % (Manual) 1 Abs Neuts (Manual) 9.5 H Nucleated RBCs/100 WBC 13 H Differential Comment . Basophilic Stippling Faint H Sickle Cells 2+ H Target Cells 1+ H Ovalocytes 1+ H Vu-[place] Bodies Present H Keratocytes Occ H Urine Color Urine Clarity Urine pH Ur Specific [place] Urine Protein Urine Glucose (UA) Urine Ketones Urine Occult Blood Urine Nitrate Urine Bilirubin Urine Urobilinogen Ur Leukocyte Esterase Urine RBC Urine WBC Ur Squamous Epith Cells Urine Mucus Micro UA Comment Urine Culture Comments Urine Opiates Screen Ur Barbiturates Screen Ur Amphetamine Screen Ur Amphetamines Screen U Benzodiazepines Scrn Urine Cocaine Screen U Cannabinoids Screen Group B Strep (PCR) Negative Blood Type O Positive
[2018-01-02] MEDS ORDERED: Oxytocin 30 Units/500ml Premix 30 UNITS/500 ML BAG IV.SIG PRN (07:59)
[2018-01-02] MEDS ORDERED: Glycopyrrolate Inj 1 MG/5 ML Syringe IV.PUSH ONE (12:00)
[2018-01-02] MEDS ORDERED: Ketorolac Inj 30 MG/ML (IVP) Vial IV.PUSH ONE (12:00)
[2018-01-02] MEDS ORDERED: Morphine Sulfate PF Inj 5 MG/10 ML Ampul ONE (16:34)
[2018-01-02] MEDS ORDERED: Simethicone 80 MG Chew Tablet PO PRN (20:04)
[2018-01-02] MEDS ORDERED: Zolpidem Tartrate 5 MG Tablet PO PRN (20:04)
[2018-01-02] MEDS ORDERED: Oxytocin 30 Units/500ml Premix 30 UNITS/500 ML BAG IV.SIG ONE (20:04)
--- NOTE | 2018-01-02 20:18 | P.OP ---
- Preoperative Diagnosis (1) Failure to progress in labor, delivered, current hospitalization (2) Sickle cell anemia of mother during - Postoperative Diagnosis (1) Failure to progress in labor, delivered, current hospitalization Date of procedure: 01/02/18 Procedure: Primary low transverse section Anesthesia: spinal Surgeon: Justin Montenegro MD Estimated blood loss (mL): 150 IV fluids (mL): 1,000 Urine output (mL): 100 Operation and Findings: Patient had arrest of labor, patient never really was in a good labor in this hospitalization. She was induced due to her recurrent sickle cell crises and maternal- medicine's recommendation. She received a greater than 2 days of prostaglandin and Pitocin cervix never dilated. There was no artificial rupture membranes to augment her labor and is felt the section was needed Patient was taken to the operating room and placed in supine position after adequate spinal anesthesia she was prepped and draped for abdominal surgery. Pfannenstiel incision was made in the lower abdomen and carried to fascia sharply the fascia dissected laterally and off the rectus muscle. The peritoneal cavity entered in the midline sharply the incision extended superiorly and inferiorly. The bladder blade placed lower than incision and the incision stretched open. The bladder blade is used to cover the bladder area. The visceral peritoneum reflected off the lower uterine segment and placed on the bladder blade as well. A transverse hysterotomy was made extended bluntly bilaterally and the fetus was delivered from a cephalic presentation without difficulty. Delivery at 1929 baby's weight 2660 g male infant Apgars 8 /8 amniotic fluid was clear there was no complications. Placenta manually extracted cord blood obtained delayed cord clamping was observed. Uterus exteriorized and the hysterotomy closed in a running layer of 0 chromic followed by imbricating suture of the same hemostasis achieved. The visceral peritoneum reapproximated with a running stitch of 2-0 Vicryl. The uterus elevated blood suctioned the cul-de-sac gutters and the replaced in the peritoneal cavity. The ovaries and tubes within normal limits. The parietal peritoneum closed running layer 2-0 Vicryl. Rectus muscle reapproximated with stick ties of chromic and Vicryl. The fascia then closed in a running layer of 0 Vicryl. Subcutaneous tissues reapproximated with 3-0 plain catgut in a running suture. The skin closed with a subcuticular stitch of 3-0 Monocryl. Steri-Strips and pressure dressing applied. Estimate blood loss 150 cc there are no complications sponge and needle correct 2 the patient recovery in stable condition.
[2018-01-02] MEDS ORDERED: ceFAZolin Inj 2,000 MG in Sodium Chlor 0.9% Inj 80 ML IV.SIG SCH (21:00)
[2018-01-02] MEDS ORDERED: Naloxone Inj 0.4 MG/ML Vial IV.PUSH PRN (22:28)
[2018-01-03] MEDS ORDERED: Oxytocin 30 Units/500ml Premix 30 UNITS/500 ML BAG IV.SIG PRN (01:04)
[2018-01-03] MEDS: ceFAZolin Inj 2,000 MG in Sodium Chlor 0.9% Inj 80 ML IV.SIG SCH ×2 (04:26→11:06)
[2018-01-03] MEDS ORDERED: Naloxone Inj 0.4 MG/ML Vial IV.PUSH PRN (08:10)
--- NOTE | 2018-01-03 09:59 | P.PNOB ---
Subjective Post op day: 1 Interval history: Postop day 1 from primary for failed induction, vital signs are stable she is afebrile She is having a lot of leg and side pain which is typical for her sickle cell crisis symptoms she is not really complaining much of abdominal pain though that does hurt as well but not as badly. We have not been able to draw her posttransfusion H&H due to just difficult stick, she got 2 units of blood after her yesterday Objective Vital Signs/I&O: Vital Signs 01/02/18 10:00 01/02/18 10:58 01/02/18 11:01 Temperature Pulse Rate 97 H 79 Respiratory Rate 18 Blood Pressure 101/67 136/66 Pulse Oximetry 01/02/18 11:31 01/02/18 12:01 01/02/18 12:15 Temperature 98.2 F Pulse Rate 96 H 76 Respiratory Rate 17 Blood Pressure 128/72 120/66 Pulse Oximetry 01/02/18 12:30 01/02/18 12:31 01/02/18 13:15 Temperature Pulse Rate 81 Respiratory Rate 17 19 Blood Pressure 117/65 Pulse Oximetry 01/02/18 13:59 01/02/18 15:20 01/02/18 16:07 Temperature 98.5 F Pulse Rate 74 83 Respiratory Rate 18 18 Blood Pressure 123/62 122/86 Pulse Oximetry 01/02/18 16:30 01/02/18 17:00 01/02/18 18:00 Temperature Pulse Rate 82 77 80 Respiratory Rate Blood Pressure 115/61 114/53 L 106/47 L Pulse Oximetry 01/02/18 18:30 01/02/18 20:00 01/02/18 20:15 Temperature 97.5 F L Pulse Rate 75 83 81 Respiratory Rate 20 20 Blood Pressure 122/64 119/55 L 122/59 L Pulse Oximetry 01/02/18 20:30 01/02/18 20:43 01/02/18 20:45 Temperature 97.5 F L Pulse Rate 99 H 93 H 87 Respiratory Rate 19 19 Blood Pressure 117/55 L 117/56 L 105/52 L Pulse Oximetry 99 01/02/18 21:00 01/02/18 21:45 01/02/18 23:10 Temperature 97.5 F L 97.6 F 98.1 F Pulse Rate 76 79 78 Respiratory Rate 18 18 18 Blood Pressure 105/52 L 121/70 120/70 Pulse Oximetry 100 01/03/18 00:00 01/03/18 01:15 01/03/18 01:30 Temperature 97.7 F 97.7 F 97.7 F Pulse Rate 78 76 76 Respiratory Rate 18 20 20 Blood Pressure 135/66 128/70 128/70 Pulse Oximetry 100 01/03/18 04:07 01/03/18 08:00 Temperature 98.2 F 98.0 F Pulse Rate 71 73 Respiratory Rate 16 18 Blood Pressure 119/62 116/57 L Pulse Oximetry Intake & Output 01/02/18 01/03/18 01/03/18 18:59 06:59 18:59 Intake Total 1000 / 1000 800 / 800 Balance 1000 / 1000 800 / 800 Intake: IV 1000 / 1000 LR 1000 mL Inj 1,000 ML @ 125 1000 / 1000 mls/hr IV.CONT .Q8H [facility] Rx#: [id number] Intake (Blood Product) Amt 800 / 800 Rbc As-3 Leukoreduced Unit 400 / 400 [id number] Rbc As-3 Leukoreduced Unit 400 / 400 [id number] Result Diagrams: 12/31/17 20:40 Objective Remarks: GENERAL: Well-nourished, well-developed patient. CARDIOVASCULAR: Regular rate and rhythm without murmurs, gallops, or rubs. RESPIRATORY: Breath sounds equal bilaterally. No accessory muscle use. ABDOMEN/GI: Abdomen soft, non-tender, bowel sounds present. Incision: Clean, dry and intact. Bandage dry Fundus: Firm, non-tender at umbilicus. GENITOURINARY: Light to moderate bleeding. EXTREMITIES: No cyanosis or edema, non-tender, without signs of DVT. Medications and IVs: Active Medications Acetaminophen (Tylenol) 650 mg PO Q6H PRN PRN Reason: PAIN SCALE 1 TO 2 Albuterol (Ventolin Hfa Inh) 2 puff INH Q4H PRN PRN Reason: SHORTNESS OF BREATH/WHEEZING Citric Acid/Sodium Citrate (Sodium Citrate/Citric Acid Liq) 30 ml PO BURRER MARKER AXLE [facility] Stop: 01/04/18 20:29 Last Admin: 01/02/18 18:41 Dose: 30 ml Diphenhydramine HCl (Benadryl Inj) 25 mg IV.PUSH Q6H PRN PRN Reason: FOR ITCHING Last Admin: 01/03/18 00:50 Dose: 25 mg Diphenhydramine HCl (Benadryl) 50 mg PO Q6H PRN PRN Reason: MILD TO MODERATE ITCHING Stop: 01/03/18 22:27 Diphenhydramine HCl (Benadryl Inj) 25 mg IV.PUSH Q6H PRN PRN Reason: MILD TO MODERATE ITCHING Stop: 01/03/18 22:27 Diphtheria/Pertussis/Tetanus Vacc (Boostrix Vaccine Inj) 0.5 ml IM .ONCE ONE Stop: 01/03/18 16:01 Fentanyl Citrate (Fentanyl Inj) 50 mcg IV.PUSH Q1H PRN PRN Reason: Pain Scale 3 - 5 Fentanyl Citrate (Fentanyl Inj) 100 mcg IV.PUSH Q1H PRN PRN Reason: PAIN SCALE 6 TO 10 Hydromorphone HCl (Dilaudid) 1 mg PO Q4H PRN PRN Reason: ABDOMINAL PAIN Last Admin: 01/03/18 04:49 Dose: 1 mg Lactated Ringer's (Lr 1000 Ml Inj) 1,000 mls @ 125 mls/hr IV.CONT .Q8H [facility] Last Admin: 01/02/18 08:05 Dose: 125 mls/hr Lactated Ringer's (Lr 1000 Ml Inj) 1,000 mls @ 3,000 mls/hr IV.SIG UNSCH PRN PRN Reason: compromise or epidural Sodium Chloride (Ns Inj) 1,000 mls @ 100 mls/hr IV.CONT .Q10H PRN PRN Reason: SEE LABEL COMMENTS Sodium Chloride (Ns Inj) 500 mls @ 1,000 mls/hr IV.SIG UNSCH PRN PRN Reason: SEE LABEL COMMENTS Lactated Ringer's (Lr 1000 Ml Inj) 1,000 mls @ 125 mls/hr IV.CONT .Q8H [facility] Last Admin: 12/31/17 22:26 Dose: Not Given Oxytocin (Pitocin 30 Units/Ns 500 Ml Premix) 30 units in 500 mls @ 2 mls/hr IV.SIG TITRATE PRN; Protocol PRN Reason: For induction of labor Last Admin: 01/02/18 08:05 Dose: 2 milliunit/min, 2 mls/hr Lactated Ringer's (Lr 1000 Ml Inj) 1,000 mls @ 100 mls/hr IV.CONT .Q10H [facility] [place] Stop: 01/03/18 21:03 Oxytocin (Pitocin 30 Units/Ns 500 Ml Premix) 30 units in 500 mls @ 100 mls/hr IV.SIG PRN PRN PRN Reason: Heavy bleeding Stop: 01/04/18 01:03 Last Admin: 01/03/18 04:27 Dose: 100 mls/hr Cefazolin Sodium 2,000 mg/ (Sodium Chloride) 100 mls @ 200 mls/hr IV.SIG Q8H [facility] [place] Stop: 01/03/18 11:29 Last Admin: 01/03/18 04:26 Dose: 200 mls/hr Hydromorphone/Sodium Chloride (Dilaudid Roll Over Press Operator Inj) 6 mg in 30 mls @ 0 mls/hr STREETCAR DISPATCHER UNSCH PRN PRN Reason: per STREETCAR DISPATCHER parameters Ketorolac Tromethamine (Toradol Inj) 60 mg IM ONCE PRN PRN Reason: SEE LABEL COMMENTS Stop: 01/03/18 20:03 Ketorolac Tromethamine (Toradol Inj) 30 mg IM Q6H PRN PRN Reason: SEE LABEL COMMENTS Lidocaine HCl (Xylocaine 1% Inj) 0.1 ml I-DERMAL PRN PRN PRN Reason: For IV start Stop: 01/03/18 20:18 Measles/Mumps/Rubella Vaccine Live (M-M-R Ii Vaccine Inj) 0.5 ml SQ .ONCE ONE Stop: 01/03/18 16:01 Mineral Oil (Muri-Lube Oil) 10 ml TOPICAL PRN PRN PRN Reason: PRN perineal massage Miscellaneous Information (Misc Nursing Information) 1 each OTHER UNSCH PRN PRN Reason: SEE LABEL COMMENTS Stop: 01/03/18 22:27 Miscellaneous Information (Misc Nursing Information) 1 each OTHER UNSCH PRN PRN Reason: SEE LABEL COMMENTS Stop: 01/03/18 22:27 Misoprostol (Cytotec) 25 mcg VAGINAL Q4HR [facility] Last Admin: 01/02/18 07:59 Dose: Not Given Naloxone HCl (Narcan Inj) 0.1 mg IV.PUSH Q2M PRN PRN Reason: for opiate reversal Naloxone HCl (Narcan Inj) 0.4 mg IV.PUSH UNSCH PRN PRN Reason: SEE LABEL COMMENTS Stop: 01/03/18 22:27 Naloxone HCl (Narcan Inj) 0.4 mg IV.PUSH PRN PRN PRN Reason: SEE LABEL COMMENTS Ondansetron HCl (Zofran Inj) 4 mg IV.PUSH Q6H PRN PRN Reason: NAUSEA OR VOMITING Vit/Calcium/Iron/Folic Ac (Stuartnatal Plus 3) 1 tab PO DAILY ZACH Senna/Docusate Sodium (Rosmery-Colace) 2 tab PO Q12H PRN PRN Reason: CONSTIPATION Simethicone (Mylicon Chew) 80 mg PO QID PRN PRN Reason: FLATULENCE Sodium Chloride (Ns Flush) 2 ml IV.FLUSH BID [facility] Last Admin: 01/02/18 14:48 Dose: Not Given Sodium Chloride (Ns Flush) 2 ml IV.FLUSH PRN PRN PRN Reason: FLUSH AFTER USING IV ACCESS Sodium Chloride (Ns Flush) 2 ml IV.FLUSH BID ZACH Sodium Chloride (Ns Flush) 2 ml IV.FLUSH PRN PRN PRN Reason: FLUSH AFTER USING IV ACCESS Zolpidem Tartrate (Ambien) 5 mg PO HS PRN PRN Reason: INSOMNIA Assessment and Plan - Diagnosis (1) Failure to progress in labor, delivered, current hospitalization Code(s): O62.2 - Other uterine inertia Status: Acute (2) delivery delivered Code(s): O82 - Encounter for delivery without indication Status: Acute (3) Sickle cell anemia of mother during Code(s): O99.019 - Anemia complicating , unspecified trimester; D57.1 - Sickle-cell disease without crisis Status: Acute - Plan Assessment/plan: 1. IUP at 37.0 is now status post yesterday for failure to progress and failed induction Sickle cell anemia with crisis-like symptoms post Status post 2 unit blood transfusion after surgery initial hemoglobin 9 prior to surgery Plan-check H&H, continue a Dilaudid STREETCAR DISPATCHER for pain, advance postop care in a progressive fashion
[2018-01-03] MEDS: HYDROmorphone PCA Inj 6 MG/30 ML PCA.VIAL PCA PRN ×2 (10:18→21:44)
[2018-01-03] MEDS: Prenatal Vit/Ca/Iron/Folic Acid Tablet PO SCH (10:19)
[2018-01-03 10:44] LABS: Baso # (Auto) 0.1 th/mm3 (0.0-0.2); Baso % (Auto) 0.4 % (0.0-2.0); Eos % (Auto) 0.1 % (0.0-4.0); Hematocrit 25.6 % (35.0-46.0); Hemoglobin 8.9 gm/dL (11.6-15.3); Lymph # (Auto) 3.2 th/mm3 (1.0-4.8); Lymph % (Auto) 9.1 % (9.0-44.0); Mean Corpuscular HGB Conc 34.7 % (32.0-36.0); Mean Corpuscular Hemoglobin 30.6 pg (27.0-34.0); Mean Platelet Volume 8.5 fL (7.0-11.0); Mono # (Auto) 4.7 th/mm3 (0.0-0.9); Mono % (Auto) 13.4 % (0.0-8.0); Neut # (Auto) 26.9 th/mm3 (1.8-7.7); Platelet Count 245 th/mm3 (150-450); Red Blood Count 2.91 mil/mm3 (4.00-5.30); Red Cell Distribution Width 17.2 % (11.6-17.2); White Blood Count 34.9 th/mm3 (4.0-11.0)
[2018-01-03 11:41] LABS: Lymphocytes 8 % (9-44); Monocytes 16 % (0-8); Tallied Nucleated RBC 3 (0-0)
[2018-01-03 11:42] LABS: Polychromasia 2.7 % (0.0-1.9); Sickle Cells 1+
[2018-01-03 11:43] LABS: Howell-Jolly Bodies Present; Pappenheimer Bodies Present
[2018-01-03 11:44] LABS: Platelet Estimate Normal (Normal); Platelet Morphology Normal (Normal)
[2018-01-03] MEDS ORDERED: Measles/Mumps/Rubella Vaccine Inj 0.5 ML Vial SQ ONE (16:00)
[2018-01-03] MEDS ORDERED: Diphtheria/Tetanus/Pertussis Vaccine Inj 0.5 ML Syringe IM ONE (16:00)
[2018-01-04] MEDS: Senna/Docusate Sodium 8.6/50 MG Tablet PO PRN ×2 (06:43→23:18)
--- NOTE | 2018-01-04 07:17 | P.PNOB ---
Objective Vital Signs/I&O: Vital Signs 01/03/18 08:00 01/03/18 12:00 01/03/18 16:00 Temperature 98.0 F 98.4 F 97.6 F Pulse Rate 73 84 91 H Respiratory Rate 18 24 22 Blood Pressure 116/57 L 111/56 L 123/60 01/03/18 20:00 01/03/18 23:50 01/04/18 04:00 Temperature 98.3 F 98.4 F 98.2 F Pulse Rate 86 106 H 109 H Respiratory Rate 18 19 Blood Pressure 118/62 114/71 119/70 Result Diagrams: 01/03/18 10:35 Objective Remarks: GENERAL: Well-nourished, well-developed patient. CARDIOVASCULAR: Regular rate and rhythm without murmurs, gallops, or rubs. RESPIRATORY: Breath sounds equal bilaterally. No accessory muscle use. ABDOMEN/GI: Abdomen soft, non-tender. Fundus: Firm, non-tender at umbilicus. GENITOURINARY: Light to moderate bleeding. EXTREMITIES: No cyanosis or edema, non-tender, without signs of DVT. Medications and IVs: Active Medications Acetaminophen (Tylenol) 650 mg PO Q6H PRN PRN Reason: PAIN SCALE 1 TO 2 Albuterol (Ventolin Hfa Inh) 2 puff INH Q4H PRN PRN Reason: SHORTNESS OF BREATH/WHEEZING Citric Acid/Sodium Citrate (Sodium Citrate/Citric Acid Liq) 30 ml PO DOG CATCHER [facility] Stop: 01/04/18 20:29 Last Admin: 01/02/18 18:41 Dose: 30 ml Diphenhydramine HCl (Benadryl Inj) 25 mg IV.PUSH Q6H PRN PRN Reason: FOR ITCHING Last Admin: 01/04/18 04:19 Dose: 25 mg Fentanyl Citrate (Fentanyl Inj) 50 mcg IV.PUSH Q1H PRN PRN Reason: Pain Scale 3 - 5 Fentanyl Citrate (Fentanyl Inj) 100 mcg IV.PUSH Q1H PRN PRN Reason: PAIN SCALE 6 TO 10 Hydromorphone HCl (Dilaudid) 1 mg PO Q4H PRN PRN Reason: ABDOMINAL PAIN Last Admin: 01/03/18 04:49 Dose: 1 mg Lactated Ringer's (Lr 1000 Ml Inj) 1,000 mls @ 125 mls/hr IV.CONT .Q8H [facility] Last Admin: 01/02/18 08:05 Dose: 125 mls/hr Lactated Ringer's (Lr 1000 Ml Inj) 1,000 mls @ 3,000 mls/hr IV.SIG UNSCH PRN PRN Reason: compromise or epidural Sodium Chloride (Ns Inj) 1,000 mls @ 100 mls/hr IV.CONT .Q10H PRN PRN Reason: SEE LABEL COMMENTS Sodium Chloride (Ns Inj) 500 mls @ 1,000 mls/hr IV.SIG UNSCH PRN PRN Reason: SEE LABEL COMMENTS Lactated Ringer's (Lr 1000 Ml Inj) 1,000 mls @ 125 mls/hr IV.CONT .Q8H [facility] Last Admin: 12/31/17 22:26 Dose: Not Given Oxytocin (Pitocin 30 Units/Ns 500 Ml Premix) 30 units in 500 mls @ 2 mls/hr IV.SIG TITRATE PRN; Protocol PRN Reason: For induction of labor Last Admin: 01/02/18 08:05 Dose: 2 milliunit/min, 2 mls/hr Hydromorphone/Sodium Chloride (Dilaudid Canvass Manager Inj) 6 mg in 30 mls @ 0 mls/hr PIPE JEEPER UNSCH PRN PRN Reason: per PIPE JEEPER parameters Last Admin: 01/03/18 21:44 Dose: 0 mls/hr Ketorolac Tromethamine (Toradol Inj) 30 mg IM Q6H PRN PRN Reason: SEE LABEL COMMENTS Mineral Oil (Muri-Lube Oil) 10 ml TOPICAL PRN PRN PRN Reason: PRN perineal massage Misoprostol (Cytotec) 25 mcg VAGINAL Q4HR [facility] Last Admin: 01/02/18 07:59 Dose: Not Given Naloxone HCl (Narcan Inj) 0.1 mg IV.PUSH Q2M PRN PRN Reason: for opiate reversal Naloxone HCl (Narcan Inj) 0.4 mg IV.PUSH PRN PRN PRN Reason: SEE LABEL COMMENTS Ondansetron HCl (Zofran Inj) 4 mg IV.PUSH Q6H PRN PRN Reason: NAUSEA OR VOMITING Vit/Calcium/Iron/Folic Ac (Stuartnatal Plus 3) 1 tab PO DAILY [facility] Last Admin: 01/03/18 10:19 Dose: 1 tab Senna/Docusate Sodium (Rosmery-Colace) 2 tab PO Q12H PRN PRN Reason: CONSTIPATION Last Admin: 01/04/18 06:43 Dose: 2 tab Simethicone (Mylicon Chew) 80 mg PO QID PRN PRN Reason: FLATULENCE Sodium Chloride (Ns Flush) 2 ml IV.FLUSH BID ZACH Last Admin: 01/02/18 14:48 Dose: Not Given Sodium Chloride (Ns Flush) 2 ml IV.FLUSH PRN PRN PRN Reason: FLUSH AFTER USING IV ACCESS Sodium Chloride (Ns Flush) 2 ml IV.FLUSH BID ZACH Sodium Chloride (Ns Flush) 2 ml IV.FLUSH PRN PRN PRN Reason: FLUSH AFTER USING IV ACCESS Zolpidem Tartrate (Ambien) 5 mg PO HS PRN PRN Reason: INSOMNIA Assessment and Plan - Plan Assessment/plan: 1. IUP at 37.0 is now status post yesterday for failure to progress and failed induction Sickle cell anemia with crisis-like symptoms post Status post 2 unit blood transfusion after surgery initial hemoglobin 9 prior to surgery Plan-check H&H, continue a Dilaudid PIPE JEEPER for pain, advance postop care in a progressive fashion
--- NOTE | 2018-01-04 07:23 | P.PNOB ---
Subjective Post op day: 2 Interval history: day #2. AFVSS overnight. Pain is not well controlled per ETCH OPERATOR SEMICONDUCTOR WAFERS pump per patient report. She is feeding the baby via formula. No nausea or vomiting. No bowel movement in 2 days. Unable to urinate since yesterday when Gonsalez cath was pulled. Had to be straight cath'd x1 overnight, output was 900cc. No numbness or tingling in the lower extremities and pelvic area. Able to stand and walk around. No dribbling or urine or hematuria. Feels like she cannot urinate, thinks her labia is significantly swollen and blocking her urination. States her pain is so severe she cannot sit up in bed or roll over. Has been afebrile, no SOB, joint swelling, or unstable vitals. Objective Vital Signs/I&O: Vital Signs 01/03/18 08:00 01/03/18 12:00 01/03/18 16:00 Temperature 98.0 F 98.4 F 97.6 F Pulse Rate 73 84 91 H Respiratory Rate 18 24 22 Blood Pressure 116/57 L 111/56 L 123/60 01/03/18 20:00 01/03/18 23:50 01/04/18 04:00 Temperature 98.3 F 98.4 F 98.2 F Pulse Rate 86 106 H 109 H Respiratory Rate 20 18 19 Blood Pressure 118/62 114/71 119/70 Result Diagrams: 01/03/18 10:35 Objective Remarks: GENERAL: Well-nourished, well-developed patient. CARDIOVASCULAR: Regular rate and rhythm without murmurs, gallops, or rubs. RESPIRATORY: Breath sounds equal bilaterally. No accessory muscle use. ABDOMEN/GI: Abdomen soft, non-tender, bowel sounds present. Incision: Clean, dry and intact. Fundus: Firm, non-tender at umbilicus. No significant labial swelling. Sensation in perineal,pelvic, and LE intact. GENITOURINARY: Light to moderate bleeding. EXTREMITIES: No cyanosis or edema, non-tender, without signs of DVT. Medications and IVs: Active Medications Acetaminophen (Tylenol) 650 mg PO Q6H PRN PRN Reason: PAIN SCALE 1 TO 2 Albuterol (Ventolin Hfa Inh) 2 puff INH Q4H PRN PRN Reason: SHORTNESS OF BREATH/WHEEZING Citric Acid/Sodium Citrate (Sodium Citrate/Citric Acid Liq) 30 ml PO KETTLE LOADER [facility] Stop: 01/04/18 20:29 Last Admin: 01/02/18 18:41 Dose: 30 ml Diphenhydramine HCl (Benadryl Inj) 25 mg IV.PUSH Q6H PRN PRN Reason: FOR ITCHING Last Admin: 01/04/18 04:19 Dose: 25 mg Fentanyl Citrate (Fentanyl Inj) 50 mcg IV.PUSH Q1H PRN PRN Reason: Pain Scale 3 - 5 Fentanyl Citrate (Fentanyl Inj) 100 mcg IV.PUSH Q1H PRN PRN Reason: PAIN SCALE 6 TO 10 Hydromorphone HCl (Dilaudid) 1 mg PO Q4H PRN PRN Reason: ABDOMINAL PAIN Last Admin: 01/03/18 04:49 Dose: 1 mg Lactated Ringer's (Lr 1000 Ml Inj) 1,000 mls @ 125 mls/hr IV.CONT .Q8H [facility] Last Admin: 01/02/18 08:05 Dose: 125 mls/hr Lactated Ringer's (Lr 1000 Ml Inj) 1,000 mls @ 3,000 mls/hr IV.SIG UNSCH PRN PRN Reason: compromise or epidural Sodium Chloride (Ns Inj) 1,000 mls @ 100 mls/hr IV.CONT .Q10H PRN PRN Reason: SEE LABEL COMMENTS Sodium Chloride (Ns Inj) 500 mls @ 1,000 mls/hr IV.SIG UNSCH PRN PRN Reason: SEE LABEL COMMENTS Lactated Ringer's (Lr 1000 Ml Inj) 1,000 mls @ 125 mls/hr IV.CONT .Q8H [facility] Last Admin: 12/31/17 22:26 Dose: Not Given Oxytocin (Pitocin 30 Units/Ns 500 Ml Premix) 30 units in 500 mls @ 2 mls/hr IV.SIG TITRATE PRN; Protocol PRN Reason: For induction of labor Last Admin: 01/02/18 08:05 Dose: 2 milliunit/min, 2 mls/hr Hydromorphone/Sodium Chloride (Dilaudid Music Video Director Inj) 6 mg in 30 mls @ 0 mls/hr ETCH OPERATOR SEMICONDUCTOR WAFERS UNSCH PRN PRN Reason: per ETCH OPERATOR SEMICONDUCTOR WAFERS parameters Last Admin: 01/03/18 21:44 Dose: 0 mls/hr Ketorolac Tromethamine (Toradol Inj) 30 mg IM Q6H PRN PRN Reason: SEE LABEL COMMENTS Mineral Oil (Muri-Lube Oil) 10 ml TOPICAL PRN PRN PRN Reason: PRN perineal massage Misoprostol (Cytotec) 25 mcg VAGINAL Q4HR [facility] Last Admin: 01/02/18 07:59 Dose: Not Given Naloxone HCl (Narcan Inj) 0.1 mg IV.PUSH Q2M PRN PRN Reason: for opiate reversal Naloxone HCl (Narcan Inj) 0.4 mg IV.PUSH PRN PRN PRN Reason: SEE LABEL COMMENTS Ondansetron HCl (Zofran Inj) 4 mg IV.PUSH Q6H PRN PRN Reason: NAUSEA OR VOMITING Vit/Calcium/Iron/Folic Ac (Stuartnatal Plus 3) 1 tab PO DAILY [facility] Last Admin: 01/03/18 10:19 Dose: 1 tab Senna/Docusate Sodium (Rosmery-Colace) 2 tab PO Q12H PRN PRN Reason: CONSTIPATION Last Admin: 01/04/18 06:43 Dose: 2 tab Simethicone (Mylicon Chew) 80 mg PO QID PRN PRN Reason: FLATULENCE Sodium Chloride (Ns Flush) 2 ml IV.FLUSH BID [facility] Last Admin: 01/02/18 14:48 Dose: Not Given Sodium Chloride (Ns Flush) 2 ml IV.FLUSH PRN PRN PRN Reason: FLUSH AFTER USING IV ACCESS Sodium Chloride (Ns Flush) 2 ml IV.FLUSH BID ZACH Sodium Chloride (Ns Flush) 2 ml IV.FLUSH PRN PRN PRN Reason: FLUSH AFTER USING IV ACCESS Zolpidem Tartrate (Ambien) 5 mg PO HS PRN PRN Reason: INSOMNIA Assessment and Plan - Diagnosis (1) Sickle cell anemia Code(s): D57.1 - Sickle-cell disease without crisis Status: Acute (2) delivery delivered Code(s): O82 - Encounter for delivery without indication Status: Acute (3) Acute urinary retention Code(s): R33.8 - Other retention of urine Status: Acute - Plan A/P: 22 y/o @37/2 weeks s/p C/S for FTP and failed induction. HX of sickle cell anemia w/crisis. Currently experiencing "crisis" pain. 1. Post C/S - AFVSS - Incision c/d/i - S/p 2 units of blood after C/S. Post op H/H 8.9. - Continue ferrous sulfate 325 mg tid - Percocet and Motrin prn pain - Encouraged OOB, as tolerated - Advised pelvic rest x 6 weeks - Recommended f/u in 1 week with myself for incision check after stable for hospital discharge 2. Sickle cell anemia - Con't IVF and Dilaudid ETCH OPERATOR SEMICONDUCTOR WAFERS pump. Will not increase dose for now. 3. Urinary retention - If not able to urinate after 2nd straight cath, reinsert Gonsalez. Plan discussed w/Dr. Yap (1) Sickle cell anemia Qualifiers: Sickle-cell associated disorders: with unspecified crisis Qualified Code(s): D57.00 - Hb-SS disease with crisis, unspecified; D57.0 - Hb-SS disease with crisis
[2018-01-04] MEDS: Prenatal Vit/Ca/Iron/Folic Acid Tablet PO SCH (09:26)
--- NOTE | 2018-01-04 11:46 | P.PNOB ---
Subjective Interval history: Called to evaluate pt s/p passing large clot. She is AAO and appropriate. BP120's-130'/70-80s, HR 85-95 No active bleeding from perineum. Inc c/d/i fundus is firm A:delayed pph estimated at 500cc (disposed of prior to weighing) P:2u prbc's now, cbc now bladder scan q2h to r/o distention reinitiate lovenox if bleeding remains stable. Objective Vital Signs/I&O: Vital Signs 01/03/18 12:00 01/03/18 16:00 01/03/18 20:00 Temperature 98.4 F 97.6 F 98.3 F Pulse Rate 84 91 H 86 Respiratory Rate 24 22 20 Blood Pressure 111/56 L 123/60 118/62 01/03/18 23:50 01/04/18 04:00 01/04/18 09:30 Temperature 98.4 F 98.2 F 97.4 F L Pulse Rate 106 H 109 H 94 H Respiratory Rate 18 19 18 Blood Pressure 114/71 119/70 133/70 01/04/18 10:53 Temperature Pulse Rate 82 Respiratory Rate Blood Pressure 133/82 Result Diagrams: 01/03/18 10:35 Objective Remarks: GENERAL: Well-nourished, well-developed patient. CARDIOVASCULAR: Regular rate and rhythm without murmurs, gallops, or rubs. RESPIRATORY: Breath sounds equal bilaterally. No accessory muscle use. ABDOMEN/GI: Abdomen soft, non-tender. Fundus: Firm, non-tender at umbilicus. GENITOURINARY: Light to moderate bleeding. EXTREMITIES: No cyanosis or edema, non-tender, without signs of DVT. Medications and IVs: Active Medications Acetaminophen (Tylenol) 650 mg PO Q6H PRN PRN Reason: PAIN SCALE 1 TO 2 Albuterol (Ventolin Hfa Inh) 2 puff INH Q4H PRN PRN Reason: SHORTNESS OF BREATH/WHEEZING Citric Acid/Sodium Citrate (Sodium Citrate/Citric Acid Liq) 30 ml PO TRUCK GRE[employer]ER [facility] Stop: 01/04/18 20:29 Last Admin: 01/02/18 18:41 Dose: 30 ml Diphenhydramine HCl (Benadryl Inj) 25 mg IV.PUSH Q6H PRN PRN Reason: FOR ITCHING Last Admin: 01/04/18 11:00 Dose: 25 mg Enoxaparin Sodium (Lovenox Inj) 30 mg SQ DAILY [facility] Fentanyl Citrate (Fentanyl Inj) 50 mcg IV.PUSH Q1H PRN PRN Reason: Pain Scale 3 - 5 Fentanyl Citrate (Fentanyl Inj) 100 mcg IV.PUSH Q1H PRN PRN Reason: PAIN SCALE 6 TO 10 Hydromorphone HCl (Dilaudid) 1 mg PO Q4H PRN PRN Reason: ABDOMINAL PAIN Last Admin: 01/03/18 04:49 Dose: 1 mg Lactated Ringer's (Lr 1000 Ml Inj) 1,000 mls @ 125 mls/hr IV.CONT .Q8H [facility] Last Admin: 01/02/18 08:05 Dose: 125 mls/hr Lactated Ringer's (Lr 1000 Ml Inj) 1,000 mls @ 3,000 mls/hr IV.SIG UNSCH PRN PRN Reason: compromise or epidural Sodium Chloride (Ns Inj) 1,000 mls @ 100 mls/hr IV.CONT .Q10H PRN PRN Reason: SEE LABEL COMMENTS Sodium Chloride (Ns Inj) 500 mls @ 1,000 mls/hr IV.SIG UNSCH PRN PRN Reason: SEE LABEL COMMENTS Lactated Ringer's (Lr 1000 Ml Inj) 1,000 mls @ 125 mls/hr IV.CONT .Q8H [facility] Last Admin: 12/31/17 22:26 Dose: Not Given Oxytocin (Pitocin 30 Units/Ns 500 Ml Premix) 30 units in 500 mls @ 2 mls/hr IV.SIG TITRATE PRN; Protocol PRN Reason: For induction of labor Last Admin: 01/02/18 08:05 Dose: 2 milliunit/min, 2 mls/hr Hydromorphone/Sodium Chloride (Dilaudid Scientific Publications Editor Inj) 6 mg in 30 mls @ 0 mls/hr LITHOSTRIPPER UNSCH PRN PRN Reason: per LITHOSTRIPPER parameters Last Admin: 01/03/18 21:44 Dose: 0 mls/hr Sodium Chloride (Ns Inj) 250 mls @ 15 mls/hr IV.SIG ONCE [facility] Stop: 01/05/18 04:39 Ketorolac Tromethamine (Toradol Inj) 30 mg IM Q6H PRN PRN Reason: SEE LABEL COMMENTS Mineral Oil (Muri-Lube Oil) 10 ml TOPICAL PRN PRN PRN Reason: PRN perineal massage Misoprostol (Cytotec) 25 mcg VAGINAL Q4HR [facility] Last Admin: 01/02/18 07:59 Dose: Not Given Naloxone HCl (Narcan Inj) 0.1 mg IV.PUSH Q2M PRN PRN Reason: for opiate reversal Naloxone HCl (Narcan Inj) 0.4 mg IV.PUSH PRN PRN PRN Reason: SEE LABEL COMMENTS Ondansetron HCl (Zofran Inj) 4 mg IV.PUSH Q6H PRN PRN Reason: NAUSEA OR VOMITING Vit/Calcium/Iron/Folic Ac (Stuartnatal Plus 3) 1 tab PO DAILY [facility] Last Admin: 01/04/18 09:26 Dose: 1 tab Senna/Docusate Sodium (Rosmery-Colace) 2 tab PO Q12H PRN PRN Reason: CONSTIPATION Last Admin: 01/04/18 06:43 Dose: 2 tab Simethicone (Mylicon Chew) 80 mg PO QID PRN PRN Reason: FLATULENCE Sodium Chloride (Ns Flush) 2 ml IV.FLUSH BID [facility] Last Admin: 01/04/18 09:26 Dose: Not Given Sodium Chloride (Ns Flush) 2 ml IV.FLUSH PRN PRN PRN Reason: FLUSH AFTER USING IV ACCESS Sodium Chloride (Ns Flush) 2 ml IV.FLUSH BID [facility] Last Admin: 01/04/18 09:26 Dose: Not Given Sodium Chloride (Ns Flush) 2 ml IV.FLUSH PRN PRN PRN Reason: FLUSH AFTER USING IV ACCESS Zolpidem Tartrate (Ambien) 5 mg PO HS PRN PRN Reason: INSOMNIA Assessment and Plan - Diagnosis (1) Failure to progress in labor, delivered, current hospitalization Code(s): O62.2 - Other uterine inertia Status: Acute (2) delivery delivered Code(s): O82 - Encounter for delivery without indication Status: Acute (3) Sickle cell anemia of mother during Code(s): O99.019 - Anemia complicating , unspecified trimester; D57.1 - Sickle-cell disease without crisis Status: Acute - Plan A/P: 22 y/o @37/2 weeks s/p C/S for FTP and failed induction. HX of sickle cell anemia w/crisis. Currently experiencing "crisis" pain. 1. Post C/S - AFVSS - Incision c/d/i - S/p 2 units of blood after C/S. Post op H/H 8.9. - Continue ferrous sulfate 325 mg tid - Percocet and Motrin prn pain - Encouraged OOB, as tolerated - Advised pelvic rest x 6 weeks - Recommended f/u in 1 week with myself for incision check after stable for hospital discharge 2. Sickle cell anemia - Con't IVF and Dilaudid LITHOSTRIPPER pump. Will not increase dose for now. 3. Urinary retention - If not able to urinate after 2nd straight cath, reinsert Gonsalez. Plan discussed w/Dr. Yap
[2018-01-04] MEDS ORDERED: Sodium Chlor 0.9% Inj 250 ML IV.SIG SCH (12:00)
[2018-01-04 12:26] LABS: Hematocrit 25.3 % (35.0-46.0); Hemoglobin 8.4 gm/dL (11.6-15.3); Mean Corpuscular HGB Conc 33.2 % (32.0-36.0); Mean Corpuscular Hemoglobin 29.6 pg (27.0-34.0); Mean Corpuscular Volume 89.3 fL (80.0-100.0); Mean Platelet Volume 8.4 fL (7.0-11.0); Platelet Count 274 th/mm3 (150-450); Red Blood Count 2.84 mil/mm3 (4.00-5.30); Red Cell Distribution Width 17.1 % (11.6-17.2); White Blood Count 31.5 th/mm3 (4.0-11.0)
[2018-01-04] MEDS ORDERED: miSOPROStol 200 MCG Tablet PO ONE (14:03)
[2018-01-04] MEDS ORDERED: Oxytocin 30 Units/500ml Premix 30 UNITS/500 ML BAG IV.SIG SCH (15:00)
[2018-01-04] MEDS: Acetaminophen 325 MG Tablet PO PRN (15:05)
[2018-01-04] MEDS: Enoxaparin Inj 30 MG/0.3 ML Syringe SQ SCH (15:16)
[2018-01-04] MEDS: HYDROmorphone PCA Inj 6 MG/30 ML PCA.VIAL PCA PRN (15:33)
--- NOTE | 2018-01-04 16:51 | P.PNOB ---
Subjective Post day: 2 Interval history: The patient is without new complaint. She denies chest pain or shortness of breath. She had passed additional clots went up to the bedside commode earlier. 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 She is currently receiving transfusion of her second unit of packed red blood cells. She was given 800 mcg of Cytotec and additional IV Pitocin solution for hemorrhage which is currently stable. I have consulted with with hematology oncology for further input regarding her sickle cell crisis. CBC and coags after transfusion. Blood cultures, urine culture will be obtained due to postoperative fever. Initiate ampicillin, gentamicin and clindamycin for presumed endomyometritis. Objective Vital Signs/I&O: Vital Signs 01/03/18 20:00 01/03/18 23:50 01/04/18 04:00 Temperature 98.3 F 98.4 F 98.2 F Pulse Rate 86 106 H 109 H Respiratory Rate 20 18 19 Blood Pressure 118/62 114/71 119/70 01/04/18 09:30 01/04/18 10:53 01/04/18 14:05 Temperature 97.4 F L 99.2 F Pulse Rate 94 H 82 89 Respiratory Rate 18 18 Blood Pressure 133/70 133/82 137/66 01/04/18 14:15 01/04/18 14:30 01/04/18 14:32 Temperature 99.2 F 99.3 F 99.3 F Pulse Rate 89 90 90 Respiratory Rate 18 18 18 Blood Pressure 137/66 132/65 132/65 01/04/18 14:50 Temperature 99.5 F Pulse Rate Respiratory Rate Blood Pressure Intake & Output 01/03/18 01/04/18 01/04/18 18:59 06:59 18:59 Intake Total 0 / 0 Balance 0 / 0 Intake: Intake (Blood Product) Amt 0 / 0 Rbc As-3 Leukoreduced Unit 0 / 0 [id number] Result Diagrams: 01/04/18 12:15 Objective Remarks: GENERAL: Well-nourished, well-developed patient. CARDIOVASCULAR: Regular rate and rhythm without murmurs, gallops, or rubs. RESPIRATORY: Breath sounds equal bilaterally. No accessory muscle use. ABDOMEN/GI: Abdomen soft, non-tender. Fundus: Firm, non-tender at umbilicus. GENITOURINARY: Light to moderate bleeding. EXTREMITIES: No cyanosis or edema, non-tender, without signs of DVT. Medications and IVs: Active Medications Acetaminophen (Tylenol) 650 mg PO Q6H PRN PRN Reason: PAIN SCALE 1 TO 2 Last Admin: 01/04/18 15:05 Dose: 650 mg Albuterol (Ventolin Hfa Inh) 2 puff INH Q4H PRN PRN Reason: SHORTNESS OF BREATH/WHEEZING Citric Acid/Sodium Citrate (Sodium Citrate/Citric Acid Liq) 30 ml PO [employer]INTENANCE [employer]PER[employer] [facility] Stop: 01/04/18 20:29 Last Admin: 01/02/18 18:41 Dose: 30 ml Diphenhydramine HCl (Benadryl Inj) 25 mg IV.PUSH Q6H PRN PRN Reason: FOR ITCHING Last Admin: 01/04/18 11:00 Dose: 25 mg Enoxaparin Sodium (Lovenox Inj) 30 mg SQ DAILY [facility] Last Admin: 01/04/18 15:16 Dose: 30 mg Fentanyl Citrate (Fentanyl Inj) 50 mcg IV.PUSH Q1H PRN PRN Reason: Pain Scale 3 - 5 Fentanyl Citrate (Fentanyl Inj) 100 mcg IV.PUSH Q1H PRN PRN Reason: PAIN SCALE 6 TO 10 Hydromorphone HCl (Dilaudid) 1 mg PO Q4H PRN PRN Reason: ABDOMINAL PAIN Last Admin: 01/03/18 04:49 Dose: 1 mg Lactated Ringer's (Lr 1000 Ml Inj) 1,000 mls @ 125 mls/hr IV.CONT .Q8H [facility] Last Admin: 01/02/18 08:05 Dose: 125 mls/hr Lactated Ringer's (Lr 1000 Ml Inj) 1,000 mls @ 3,000 mls/hr IV.SIG UNSCH PRN PRN Reason: compromise or epidural Sodium Chloride (Ns Inj) 1,000 mls @ 100 mls/hr IV.CONT .Q10H PRN PRN Reason: SEE LABEL COMMENTS Sodium Chloride (Ns Inj) 500 mls @ 1,000 mls/hr IV.SIG UNSCH PRN PRN Reason: SEE LABEL COMMENTS Lactated Ringer's (Lr 1000 Ml Inj) 1,000 mls @ 125 mls/hr IV.CONT .Q8H [facility] Last Admin: 12/31/17 22:26 Dose: Not Given Hydromorphone/Sodium Chloride (Dilaudid Tape Cutter Inj) 6 mg in 30 mls @ 0 mls/hr ILLUSIONIST UNSCH PRN PRN Reason: per ILLUSIONIST parameters Last Admin: 01/04/18 15:33 Dose: 0 mls/hr Sodium Chloride (Ns Inj) 250 mls @ 15 mls/hr IV.SIG ONCE [facility] Stop: 01/05/18 04:39 Oxytocin (Pitocin 30 Units/Ns 500 Ml Premix) 30 units in 500 mls @ 100 mls/hr IV.SIG .Q5H [facility] Stop: 01/04/18 19:59 Last Admin: 01/04/18 14:47 Dose: 100 mls/hr Ampicillin Sodium 2,000 mg/ (Sodium Chloride) 100 mls @ 400 mls/hr IV.SIG Q6H [facility] Ampicillin Sodium 2,000 mg/ (Sodium Chloride) 100 mls @ 400 mls/hr IV.SIG Q6HR [facility] Clindamycin/Sodium Chloride (Cleocin 900 Mg/Ns Premix) 900 mg in 50 mls @ 100 mls/hr IV.SIG Q8H [facility] Gentamicin Sulfate 320 mg/ (Sodium Chloride) 108 mls @ 108 mls/hr IV.SIG Q24H [facility] Ketorolac Tromethamine (Toradol Inj) 30 mg IM Q6H PRN PRN Reason: SEE LABEL COMMENTS Mineral Oil (Muri-Lube Oil) 10 ml TOPICAL PRN PRN PRN Reason: PRN perineal massage Misoprostol (Cytotec) 25 mcg VAGINAL Q4HR [facility] Last Admin: 01/02/18 07:59 Dose: Not Given Naloxone HCl (Narcan Inj) 0.1 mg IV.PUSH Q2M PRN PRN Reason: for opiate reversal Naloxone HCl (Narcan Inj) 0.4 mg IV.PUSH PRN PRN PRN Reason: SEE LABEL COMMENTS Ondansetron HCl (Zofran Inj) 4 mg IV.PUSH Q6H PRN PRN Reason: NAUSEA OR VOMITING Last Admin: 01/04/18 15:12 Dose: 4 mg Vit/Calcium/Iron/Folic Ac (Stuartnatal Plus 3) 1 tab PO DAILY [facility] Last Admin: 01/04/18 09:26 Dose: 1 tab Senna/Docusate Sodium (Rosmery-Colace) 2 tab PO Q12H PRN PRN Reason: CONSTIPATION Last Admin: 01/04/18 06:43 Dose: 2 tab Simethicone (Mylicon Chew) 80 mg PO QID PRN PRN Reason: FLATULENCE Sodium Chloride (Ns Flush) 2 ml IV.FLUSH BID [facility] Last Admin: 01/04/18 09:26 Dose: Not Given Sodium Chloride (Ns Flush) 2 ml IV.FLUSH PRN PRN PRN Reason: FLUSH AFTER USING IV ACCESS Sodium Chloride (Ns Flush) 2 ml IV.FLUSH BID [facility] Last Admin: 01/04/18 09:26 Dose: Not Given Sodium Chloride (Ns Flush) 2 ml IV.FLUSH PRN PRN PRN Reason: FLUSH AFTER USING IV ACCESS Zolpidem Tartrate (Ambien) 5 mg PO HS PRN PRN Reason: INSOMNIA Assessment and Plan - Diagnosis (1) Failure to progress in labor, delivered, current hospitalization Code(s): O62.2 - Other uterine inertia Status: Acute (2) delivery delivered Code(s): O82 - Encounter for delivery without indication Status: Acute (3) Sickle cell anemia of mother during Code(s): O99.019 - Anemia complicating , unspecified trimester; D57.1 - Sickle-cell disease without crisis Status: Acute - Plan A/P: 22 y/o @37/2 weeks s/p C/S for FTP and failed induction. HX of sickle cell anemia w/crisis. Currently experiencing "crisis" pain. 1. Post C/S - AFVSS - Incision c/d/i - S/p 2 units of blood after C/S. Post op H/H 8.9. - Continue ferrous sulfate 325 mg tid - Percocet and Motrin prn pain - Encouraged OOB, as tolerated - Advised pelvic rest x 6 weeks - Recommended f/u in 1 week with myself for incision check after stable for hospital discharge 2. Sickle cell anemia - Con't IVF and Dilaudid ILLUSIONIST pump. Will not increase dose for now. 3. Urinary retention - If not able to urinate after 2nd straight cath, reinsert Gonsalez. Plan discussed w/Dr. Yap
[2018-01-04] MEDS: Clindamycin 900 mg/NS Premix 900 MG/50 ML PIGGYBACK IV.SIG SCH (19:34)
[2018-01-04] MEDS: GENTAMICIN IV.SIG SCH (21:09)
[2018-01-04] MEDS: SODIUM CHLOR 0.9% IV.SIG SCH (21:09)
[2018-01-05] MEDS: Clindamycin 900 mg/NS Premix 900 MG/50 ML PIGGYBACK IV.SIG SCH ×3 (02:06→17:37)
[2018-01-05 05:55] LABS: Hematocrit 29.4 % (35.0-46.0); Hemoglobin 10.3 gm/dL (11.6-15.3); Mean Corpuscular HGB Conc 34.8 % (32.0-36.0); Mean Corpuscular Hemoglobin 30.1 pg (27.0-34.0); Mean Corpuscular Volume 86.5 fL (80.0-100.0); Mean Platelet Volume 8.8 fL (7.0-11.0); Platelet Count 263 th/mm3 (150-450); Red Blood Count 3.41 mil/mm3 (4.00-5.30); Red Cell Distribution Width 16.9 % (11.6-17.2); White Blood Count 23.1 th/mm3 (4.0-11.0)
[2018-01-05 06:02] LABS: Activated Partial Thrombo Time 30.1 sec (24.3-30.1); Prothrombin Time 9.8 sec (9.8-11.6)
--- NOTE | 2018-01-05 07:50 | MB ---
cc: Karina Rutherford MD DATE: 01/04/2018 REASON FOR CONSULTATION: Consult requested by Dr. Campos for evaluation and management of sickle cell painful crisis. HISTORY OF PRESENT ILLNESS: This is a 22-year-old female. She is under the care of my associate, Dr. Ian Liu for sickle cell disease. The patient was monitored by Dr. Liu during her . She underwent at 37 weeks 2 days ago. She had a healthy baby delivered. The patient has developed fever and her white cell count has gone up from 15,000 to 34,000 yesterday, in 3 days. Today, the white count is still high at 31,500. The differential count is significant for neutrophilia and bandemia. The patient also had developed fever with a temperature of 102. The patient was started on antibiotics, clindamycin, ampicillin and gentamicin for possible endometritis by the OB. The patient has been complaining of more pain today, and I have been asked to see her. The patient is on Dilaudid CONSTRUCTION PERSON pump and she stated that her pain is still significant. She denies any chest pains. She denies any nausea or vomiting. Her appetite is not good. The rest of the review of systems is negative. PAST MEDICAL HISTORY: Sickle cell disease with painful crisis, asthma, sleep apnea, hemosiderosis. PAST SURGICAL HISTORY: 2 days ago. ALLERGIES: CODEINE. MEDICATIONS: Please see EMR. FAMILY HISTORY: Both her parents have sickle cell trait. SOCIAL HISTORY: The patient does not smoke cigarettes, does not drink alcohol. She lives with mother. PHYSICAL EXAMINATION: GENERAL: Reveals a well-developed, well-nourished female in no apparent distress. In mild to moderate distress because of the pain. VITAL SIGNS: Temperature 101, heart rate is 88, blood pressure 125/66. HEENT: PERRLA. EOMI. Anicteric. No oral lesions noted. NECK: No lymphadenopathy noted. LUNGS: Clear. No wheezing or crackles. HEART: Regular rate and rhythm. ABDOMEN: Distended, tenderness due to the recent surgery. EXTREMITIES: No pedal edema. NEUROLOGIC: Awake, alert, oriented x3. SKIN: No significant lesions noted. ASSESSMENT AND PLAN: History of sickle cell disease, now has sickle cell painful crisis, most likely triggered by the infection endometritis. PLAN: I have reviewed her available records, and I have discussed with the patient regarding her sickle cell painful crisis. Her white count on 12/31/2017 was 15K and yesterday was 34KL and today is 31K. She has leukocytosis with neutrophilia and bandemia. This is consistent with infection. I had discussed with the patient's OB, Dr. Campos. He had started her on ampicillin, clindamycin, and gentamicin for possible endometritis. The patient is currently on Dilaudid CONSTRUCTION PERSON pump 0.2 mg IV every 10 minutes and 1 hour lockout is 0.8 mg. My recommendation is to change the settings to 0.2 mg per every 10 minutes with a 1-hour limit of 1.2 mg. This was discussed with her OB who has agreed with increasing the TPA Dilaudid settings. The patient does not require any blood transfusion at this time. I will start her on folic acid and Hydrea. The patient used to take Hydrea, but it was stopped during the . The patient was advised not to nurse her baby while on Hydrea. Thank you for asking my opinion. MD MAYRA Kingsley/mac , 06:32 PM , 06:48 PM LEELA
[2018-01-05] MEDS: Prenatal Vit/Ca/Iron/Folic Acid Tablet PO SCH (08:27)
[2018-01-05] MEDS: Enoxaparin Inj 30 MG/0.3 ML Syringe SQ SCH (08:27)
[2018-01-05] MEDS: Hydroxyurea 500 MG Capsule PO SCH (08:27)
--- NOTE | 2018-01-05 09:33 | P.PNOB ---
Subjective Interval history: Patient is a 22-year-old delivered at 37 weeks and 2 days. Patient is day 3 after . Patient's pain is well-controlled. Patient reports eating and drinking without any nausea or vomiting. Patient reports minimal bleeding. Patient has passed gas but no bowel movements. Patient still has Gonsalez catheter in as she initially had urinary retention. Patient reports desire for contraception. Objective Vital Signs/I&O: Vital Signs 01/04/18 09:30 01/04/18 10:53 01/04/18 14:05 Temperature 97.4 F L 99.2 F Pulse Rate 94 H 82 89 Respiratory Rate 18 18 Blood Pressure 133/70 133/82 137/66 Pulse Oximetry 01/04/18 14:15 01/04/18 14:30 01/04/18 14:32 Temperature 99.2 F 99.3 F 99.3 F Pulse Rate 89 90 90 Respiratory Rate 18 18 18 Blood Pressure 137/66 132/65 132/65 Pulse Oximetry 01/04/18 14:50 01/04/18 15:30 01/04/18 16:12 Temperature 99.5 F 100.5 F H 102.1 F H Pulse Rate 102 H Respiratory Rate 18 Blood Pressure 140/70 Pulse Oximetry 01/04/18 17:24 01/04/18 17:50 01/04/18 17:55 Temperature 100.2 F H 101.0 F H 101.0 F H Pulse Rate 95 H 94 H 94 H Respiratory Rate 18 18 18 Blood Pressure 116/63 118/59 L 118/59 L Pulse Oximetry 100 01/04/18 18:15 01/04/18 19:13 01/04/18 20:00 Temperature 100.5 F H 99.4 F 100.5 F H Pulse Rate 88 98 H Respiratory Rate 20 18 Blood Pressure 125/66 123/71 Pulse Oximetry 01/05/18 01:00 01/05/18 02:13 01/05/18 04:00 Temperature 100.0 F H 98.4 F 97.9 F Pulse Rate 107 H 74 Respiratory Rate 17 16 Blood Pressure 107/51 L 116/68 Pulse Oximetry 01/05/18 05:20 01/05/18 08:00 01/05/18 08:27 Temperature 97.8 F 97.9 F Pulse Rate 75 Respiratory Rate 18 Blood Pressure 117/60 Pulse Oximetry 99 Intake & Output 0805/18 08/06/18 08/06/18 18:59 06:59 18:59 Intake Total 0 / 0 650 / 650 Balance 0 / 0 650 / 650 Intake: IV 250 / 250 Ampicillin Inj 2,000 MG In NS 200 / 200 Inj 100 ML @ 400 mls/hr IV.SIG Q6H [facility] Rx#:[id number] Cleocin 900 mg/NS Premix 900 mg 50 / 50 In 50 ml @ 100 mls/hr IV.SIG Q8H [facility] Rx#:[id number] Intake (Blood Product) Amt 0 / 0 400 / 400 Rbc As-3 Leukoreduced Unit 0 / 0 400 / 400 [id number] Rbc As-3 Leukoreduced Unit 0 / 0 [id number] Result Diagrams: 01/05/18 05:24 Objective Remarks: GENERAL: Well-nourished, well-developed patient. CARDIOVASCULAR: Regular rate and rhythm without murmurs, gallops, or rubs. RESPIRATORY: Breath sounds equal bilaterally. No accessory muscle use. ABDOMEN/GI: Abdomen soft, non-tender. Fundus: Firm, non-tender at umbilicus. GENITOURINARY: Light to moderate bleeding. EXTREMITIES: No cyanosis or edema, non-tender, without signs of DVT. Medications and IVs: Active Medications Acetaminophen (Tylenol) 650 mg PO Q6H PRN PRN Reason: PAIN SCALE 1 TO 2 Last Admin: 01/04/18 15:05 Dose: 650 mg Albuterol (Ventolin Hfa Inh) 2 puff INH Q4H PRN PRN Reason: SHORTNESS OF BREATH/WHEEZING Diphenhydramine HCl (Benadryl Inj) 25 mg IV.PUSH Q6H PRN PRN Reason: FOR ITCHING Last Admin: 01/05/18 00:40 Dose: 25 mg Enoxaparin Sodium (Lovenox Inj) 30 mg SQ DAILY [facility] Last Admin: 01/05/18 08:27 Dose: 30 mg Fentanyl Citrate (Fentanyl Inj) 50 mcg IV.PUSH Q1H PRN PRN Reason: Pain Scale 3 - 5 Fentanyl Citrate (Fentanyl Inj) 100 mcg IV.PUSH Q1H PRN PRN Reason: PAIN SCALE 6 TO 10 Hydromorphone HCl (Dilaudid) 1 mg PO Q4H PRN PRN Reason: ABDOMINAL PAIN Last Admin: 01/03/18 04:49 Dose: 1 mg Hydroxyurea (Hydrea) 1,000 mg PO DAILY [facility] Last Admin: 01/05/18 08:27 Dose: Not Given Lactated Ringer's (Lr 1000 Ml Inj) 1,000 mls @ 125 mls/hr IV.CONT .Q8H [facility] Last Admin: 01/02/18 08:05 Dose: 125 mls/hr Lactated Ringer's (Lr 1000 Ml Inj) 1,000 mls @ 3,000 mls/hr IV.SIG UNSCH PRN PRN Reason: compromise or epidural Sodium Chloride (Ns Inj) 1,000 mls @ 100 mls/hr IV.CONT .Q10H PRN PRN Reason: SEE LABEL COMMENTS Sodium Chloride (Ns Inj) 500 mls @ 1,000 mls/hr IV.SIG UNSCH PRN PRN Reason: SEE LABEL COMMENTS Lactated Ringer's (Lr 1000 Ml Inj) 1,000 mls @ 125 mls/hr IV.CONT .Q8H [facility] Last Admin: 12/31/17 22:26 Dose: Not Given Hydromorphone/Sodium Chloride (Dilaudid Powerplant Operator Inj) 6 mg in 30 mls @ 0 mls/hr [employer] UNSCH PRN PRN Reason: per TEACHER [employer]USTRI[employer]S parameters Last Admin: 01/04/18 15:33 Dose: 0 mls/hr Ampicillin Sodium 2,000 mg/ (Sodium Chloride) 100 mls @ 400 mls/hr IV.SIG Q6H [facility] Last Admin: 01/05/18 05:15 Dose: 400 mls/hr Clindamycin/Sodium Chloride (Cleocin 900 Mg/Ns Premix) 900 mg in 50 mls @ 100 mls/hr IV.SIG Q8H [facility] Last Admin: 01/05/18 02:06 Dose: 100 mls/hr Gentamicin Sulfate 320 mg/ (Sodium Chloride) 108 mls @ 108 mls/hr IV.SIG Q24H [facility] Last Admin: 01/04/18 21:09 Dose: 108 mls/hr Ketorolac Tromethamine (Toradol Inj) 30 mg IM Q6H PRN PRN Reason: SEE LABEL COMMENTS Mineral Oil (Muri-Lube Oil) 10 ml TOPICAL PRN PRN PRN Reason: PRN perineal massage Misoprostol (Cytotec) 25 mcg VAGINAL Q4HR [facility] Last Admin: 01/04/18 21:20 Dose: Not Given Naloxone HCl (Narcan Inj) 0.1 mg IV.PUSH Q2M PRN PRN Reason: for opiate reversal Naloxone HCl (Narcan Inj) 0.4 mg IV.PUSH PRN PRN PRN Reason: SEE LABEL COMMENTS Ondansetron HCl (Zofran Inj) 4 mg IV.PUSH Q6H PRN PRN Reason: NAUSEA OR VOMITING Last Admin: 01/04/18 15:12 Dose: 4 mg Vit/Calcium/Iron/Folic Ac (Stuartnatal Plus 3) 1 tab PO DAILY [facility] Last Admin: 01/05/18 08:27 Dose: 1 tab Senna/Docusate Sodium (Rosmery-Colace) 2 tab PO Q12H PRN PRN Reason: CONSTIPATION Last Admin: 01/04/18 23:18 Dose: 2 tab Simethicone (Mylicon Chew) 80 mg PO QID PRN PRN Reason: FLATULENCE Sodium Chloride (Ns Flush) 2 ml IV.FLUSH BID [facility] Last Admin: 01/04/18 09:26 Dose: Not Given Sodium Chloride (Ns Flush) 2 ml IV.FLUSH PRN PRN PRN Reason: FLUSH AFTER USING IV ACCESS Sodium Chloride (Ns Flush) 2 ml IV.FLUSH BID [facility] Last Admin: 01/04/18 21:19 Dose: Not Given Sodium Chloride (Ns Flush) 2 ml IV.FLUSH PRN PRN PRN Reason: FLUSH AFTER USING IV ACCESS Zolpidem Tartrate (Ambien) 5 mg PO HS PRN PRN Reason: INSOMNIA Assessment and Plan - Diagnosis (1) Failure to progress in labor, delivered, current hospitalization Code(s): O62.2 - Other uterine inertia Status: Acute (2) delivery delivered Code(s): O82 - Encounter for delivery without indication Status: Acute (3) Sickle cell anemia of mother during Code(s): O99.019 - Anemia complicating , unspecified trimester; D57.1 - Sickle-cell disease without crisis Status: Acute - Plan A/P: 22 y/o @37/2 weeks postop day 3 from C/S for FTP and failed induction. HX of sickle cell anemia w/crisis. Currently experiencing "crisis" pain. 1. Post C/S - AFVSS - Incision c/d/i - S/p 2 units of blood after C/S. Postop H&H 8.9/25.6. - s/p another 2 units of blood on 01/04. H&H responded from 8.4/25.3 to 10.3/29.4 - Continue ferrous sulfate 325 mg tid - Dilaudid TEACHER [employer]S for pain - Encouraged OOB, as tolerated - Advised pelvic rest x 6 weeks - Recommended f/u in 1 week with myself for incision check after stable for hospital discharge 2. Sickle cell anemia - Con't IVF and Dilaudid TE[employer]ER [employer] pump. Hematology gave recommendations on dosage. Will plan to transition to p.o. medications on 01/06 - Hematology consulted, gave recommendations on TEACHER [employer]UST[employer] pump and also started patient on folic acid and Hydrea. - Also currently on Lovenox daily 3. Urinary retention - Gonsalez catheter currently in place. Will try bladder training today 4. Endometritis - Patient had fever of 100.5 on 01/04, WBC in the 30s - Patient started on ampicillin, gentamicin and clindamycin on 01/04 - Will continue antibiotics until patient is 24 hours out from her last fever Attestation Attestation: The exam, history, and the medical decision-making described in the above note were completed with the assistance of the resident physician. I reviewed and agree with the findings presented. I attest that I had a [id number] encounter with the patient on the same day, and personally performed and documented my assessment and findings in the medical record.
--- NOTE | 2018-01-05 12:27 | P.PNONC ---
Subjective Interval history: T-max 100.5 8 PM last night Reports her pain is much better controlled On Dilaudid TAPE STRINGER Reports no further vaginal bleeding since yesterday Denies any shortness of breath Objective Vital Signs/Intake & Output: Vital Signs 01/04/18 14:05 01/04/18 14:15 01/04/18 14:30 Temperature 99.2 F 99.2 F 99.3 F Pulse Rate 89 89 90 Respiratory Rate 18 18 18 Blood Pressure 137/66 137/66 132/65 Pulse Oximetry 01/04/18 14:32 01/04/18 14:50 01/04/18 15:30 Temperature 99.3 F 99.5 F 100.5 F H Pulse Rate 90 Respiratory Rate 18 Blood Pressure 132/65 Pulse Oximetry 01/04/18 16:12 01/04/18 17:24 01/04/18 17:50 Temperature 102.1 F H 100.2 F H 101.0 F H Pulse Rate 102 H 95 H 94 H Respiratory Rate 18 18 18 Blood Pressure 140/70 116/63 118/59 L Pulse Oximetry 100 01/04/18 17:55 01/04/18 18:15 01/04/18 19:13 Temperature 101.0 F H 100.5 F H 99.4 F Pulse Rate 94 H 88 Respiratory Rate 18 20 Blood Pressure 118/59 L 125/66 Pulse Oximetry 01/04/18 20:00 01/05/18 01:00 01/05/18 02:13 Temperature 100.5 F H 100.0 F H 98.4 F Pulse Rate 98 H 107 H Respiratory Rate 18 17 Blood Pressure 123/71 107/51 L Pulse Oximetry 01/05/18 04:00 01/05/18 05:20 01/05/18 08:00 Temperature 97.9 F 97.8 F 97.9 F Pulse Rate 74 75 Respiratory Rate 16 18 Blood Pressure 116/68 117/60 Pulse Oximetry 01/05/18 08:27 Temperature Pulse Rate Respiratory Rate Blood Pressure Pulse Oximetry 99 Intake & Output 01/04/18 01/05/18 01/05/18 18:59 06:59 18:59 Intake Total 0 / 0 800 / 800 Balance 0 / 0 800 / 800 Intake: IV 400 / 400 Ampicillin Inj 2,000 MG In NS 300 / 300 Inj 100 ML @ 400 mls/hr IV.SIG Q6H [facility] Rx#:[id number] Cleocin 900 mg/NS Premix 900 mg 100 / 100 In 50 ml @ 100 mls/hr IV.SIG Q8H [facility] Rx#:[id number] Intake (Blood Product) Amt 0 / 0 400 / 400 Rbc As-3 Leukoreduced Unit 0 / 0 400 / 400 [id number] Rbc As-3 Leukoreduced Unit 0 / 0 [id number] Result Diagrams: 01/05/18 05:24 Laboratory Results: Laboratory Results - last 24 hr 12/31/17 01/04/18 01/04/18 20:40 12:15 12:15 WBC 31.5 H RBC 2.84 L Hgb 8.4 L Hct 25.3 L MCV 89.3 MCH 29.6 MCHC 33.2 RDW 17.1 Plt Count 274 MPV 8.4 PT INR APTT Fibrinogen Blood Type O Positive Antibody Screen Negative MTS Gel Crossmatch See Detail See Detail Bld Prod Order Comment 01/05/18 01/05/18 05:24 05:24 WBC 23.1 H RBC 3.41 L Hgb 10.3 L Hct 29.4 L MCV 86.5 MCH 30.1 MCHC 34.8 RDW 16.9 Plt Count 263 MPV 8.8 PT 9.8 INR 1.0 APTT 30.1 Fibrinogen 392 H Blood Type Antibody Screen MTS Gel Crossmatch Bld Prod Order Comment Culture Results: Microbiology 01/04/18 16:50 Aerobic Blood Culture - Preliminary Blood - Peripheral No growth in 1 day Anaerobic Blood Culture - Preliminary No growth in 1 day 12/31/17 20:45 Group B Streptococcus Screen ([facility]ICRU[facility]) - Final Genital - Genital Region No Group B Strep isolated Medications: Active Medications Generic Name Dose Route Start Last Admin Trade Name Freq PRN Reason Stop Dose Admin Acetaminophen 650 mg 01/02/18 20:04 01/04/18 15:05 Tylenol PO 650 mg Q6H PRN Administration PAIN SCALE 1 TO 2 Diphenhydramine HCl 25 mg 01/02/18 02:33 01/05/18 09:34 Benadryl Inj IV.PUSH 25 mg Q6H PRN Administration FOR ITCHING Enoxaparin Sodium 30 mg 01/04/18 14:00 01/05/18 08:27 Lovenox Inj SQ 30 mg DAILY [facility] Administration Hydromorphone HCl 1 mg 01/02/18 20:09 01/03/18 04:49 Dilaudid PO 1 mg Q4H PRN Administration ABDOMINAL PAIN Hydroxyurea 1,000 mg 01/05/18 09:00 01/05/18 08:27 Hydrea PO Not Given DAILY [facility] Lactated Ringer's 1,000 mls @ 125 mls/hr 12/31/17 20:30 01/02/18 08:05 Lr 1000 Ml Inj IV.CONT 125 mls/hr .Q8H [facility] Administration Lactated Ringer's 1,000 mls @ 125 mls/hr 12/31/17 20:45 12/31/17 22:26 Lr 1000 Ml Inj IV.CONT Not Given .Q8H [facility] Hydromorphone/Sodium Chloride 6 mg in 30 mls @ 0 mls/hr 01/03/18 08:10 15:33 Dilaudid Partner Inj TAPE STRINGER 0 mls/hr UNSCH PRN Administration per TAPE STRINGER parameters 0 MG/HR Ampicillin Sodium 2,000 mg/ 100 mls @ 400 mls/hr 01/04/18 17:00 01/05/18 11: 00 Sodium Chloride IV.SIG 400 mls/hr Q6H [facility] Administration Clindamycin/Sodium Chloride 900 mg in 50 mls @ 100 mls/hr 01/04/18 18:00 11/17 11:08 Cleocin 900 Mg/Ns Premix IV.SIG 100 mls/hr Q8H [facility] Infusion Gentamicin Sulfate 320 mg/ 108 mls @ 108 mls/hr 01/04/18 18:30 01/04/18 21:09 Sodium Chloride IV.SIG 108 mls/hr Q24H [facility] Administration Misoprostol 25 mcg 01/02/18 00:00 01/04/18 21:20 Cytotec VAGINAL Not Given Q4HR [facility] Ondansetron HCl 4 mg 01/02/18 20:04 01/04/18 15:12 Zofran Inj IV.PUSH 4 mg Q6H PRN Administration NAUSEA OR VOMITING Vit/Calcium/Iron/Folic Ac 1 tab 01/03/18 09:00 01/05/18 08:27 Stuartnatal Plus 3 PO 1 tab DAILY [facility] Administration Senna/Docusate Sodium 2 tab 01/02/18 20:04 01/04/18 23:18 Rosmery-Colace PO 2 tab Q12H PRN Administration CONSTIPATION Sodium Chloride 2 ml 12/31/17 21:00 01/04/18 09:26 Ns Flush IV.FLUSH Not Given BID [facility] Sodium Chloride 2 ml 01/02/18 21:00 01/04/18 21:19 Ns Flush IV.FLUSH Not Given BID [facility] Objective Remarks: GENERAL: Thin young female resting in bed in no obvious distress SKIN: Warm and dry. HEAD: Normocephalic. EYES: No scleral icterus. No injection or drainage. NECK: Supple, trachea midline. No JVD or lymphadenopathy. CARDIOVASCULAR: + 3/6 systolic murmur. Regular rate and rhythm. RESPIRATORY: Clear anteriorly. On 2 L nasal cannula. Breathing unlabored at rest. GASTROINTESTINAL: Abdomen soft, fundus approximately the level of the umbilicus. EXTREMITIES: No cyanosis. 1+ edema to bilateral lower extremities MUSCULOSKELETAL: Adequate muscle tone. NEUROLOGICAL: No obvious focal deficit. Awake, alert, and oriented x3. Assessment/Plan (1) Sickle cell anemia of mother during Code(s): O99.019 - Anemia complicating , unspecified trimester; D57.1 - Sickle-cell disease without crisis Status: Acute (2) delivery delivered Code(s): O82 - Encounter for delivery without indication Status: Acute - Plan 22-year-old female with history of sickle cell disease recently underwent C- section at 37 weeks 3 days ago. She was noted to have leukocytosis shortly after delivery and was started on antibiotics for possible endometritis. 1. Continue current pain regimen with Dilaudid TAPE STRINGER pump. Stop TAPE STRINGER once pain, leukocytosis improves. 2. Leukocytosis much improved today. Patient remains on gentamicin for endometritis. 3. Monitor CBC
[2018-01-05] MEDS: HYDROmorphone PCA Inj 6 MG/30 ML PCA.VIAL PCA PRN ×2 (12:36→23:08)
[2018-01-05] MEDS: Senna/Docusate Sodium 8.6/50 MG Tablet PO PRN (15:56)
[2018-01-05] MEDS: SODIUM CHLOR 0.9% IV.SIG SCH (18:20)
[2018-01-05] MEDS: GENTAMICIN IV.SIG SCH (18:20)
[2018-01-06] MEDS: Clindamycin 900 mg/NS Premix 900 MG/50 ML PIGGYBACK IV.SIG SCH (01:40)
[2018-01-06] MEDS ORDERED: Bisacodyl 10 MG Supp RECTAL PRN (07:16)
[2018-01-06] MEDS: Hydroxyurea 500 MG Capsule PO SCH (08:11)
--- NOTE | 2018-01-06 08:39 | P.PNOB ---
Subjective Interval history: Patient is a 22-year-old delivered at 37 weeks and 2 days. Patient is day 4 after primary . Patient's pain is well-controlled. Patient reports eating and drinking without any nausea or vomiting. Patient reports minimal bleeding. Patient has passed gas but no bowel movements. Patient is walking without lower extremity pain or shortness of breath. Objective Vital Signs/I&O: Vital Signs 01/06/18 01:40 01/06/18 05:00 01/06/18 08:00 Temperature 98.3 F 97.9 F 98.0 F Pulse Rate 74 82 84 Respiratory Rate 16 20 22 Blood Pressure 108/54 L 121/69 121/74 Intake & Output 01/05/18 01/06/18 01/06/18 18:59 06:59 18:59 Intake Total 300 / 300 100 / 100 Balance 300 / 300 100 / 100 Intake: IV 300 / 300 100 / 100 Ampicillin Inj 2,000 MG In NS 200 / 200 100 / 100 Inj 100 ML @ 400 mls/hr IV.SIG Q6H [facility] Rx#:[id number] Cleocin 900 mg/NS Premix 900 mg 100 / 100 In 50 ml @ 100 mls/hr IV.SIG Q8H [facility] Rx#:[id number] Result Diagrams: 01/05/18 05:24 Objective Remarks: GENERAL: Well-nourished, well-developed patient. CARDIOVASCULAR: Regular rate and rhythm without murmurs, gallops, or rubs. RESPIRATORY: Breath sounds equal bilaterally. No accessory muscle use. ABDOMEN/GI: Abdomen soft, non-tender. Fundus: Firm, non-tender at umbilicus. GENITOURINARY: Light to moderate bleeding. EXTREMITIES: No cyanosis or edema, non-tender, without signs of DVT. Medications and IVs: Active Medications Acetaminophen (Tylenol) 650 mg PO Q6H PRN PRN Reason: PAIN SCALE 1 TO 2 Last Admin: 01/04/18 15:05 Dose: 650 mg Al Hydroxide/Mg Hydroxide (Milk Of Magnfareed Liq) 30 ml PO Q12H PRN PRN Reason: Mild Constipation Albuterol (Ventolin Hfa Inh) 2 puff INH Q4H PRN PRN Reason: SHORTNESS OF BREATH/WHEEZING Bisacodyl (Dulcolax Supp) 10 mg RECTAL DAILY PRN PRN Reason: SEVERE CONSITIPATION Diphenhydramine HCl (Benadryl Inj) 25 mg IV.PUSH Q6H PRN PRN Reason: FOR ITCHING Last Admin: 01/06/18 03:54 Dose: 25 mg Enoxaparin Sodium (Lovenox Inj) 30 mg SQ DAILY [facility] Last Admin: 01/05/18 08:27 Dose: 30 mg Hydromorphone HCl (Dilaudid) 1 mg PO Q4H PRN PRN Reason: ABDOMINAL PAIN Last Admin: 01/03/18 04:49 Dose: 1 mg Hydroxyurea (Hydrea) 1,000 mg PO DAILY [facility] Last Admin: 01/06/18 08:11 Dose: Not Given Lactated Ringer's (Lr 1000 Ml Inj) 1,000 mls @ 125 mls/hr IV.CONT .Q8H [facility] Last Admin: 01/05/18 23:11 Dose: 125 mls/hr Hydromorphone/Sodium Chloride (Dilaudid Senior Business Broker Inj) 6 mg in 30 mls @ 0 mls/hr INSTRUCTOR NURSE UNSCH PRN PRN Reason: per INSTRUCTOR NURSE parameters Last Admin: 01/05/18 23:08 Dose: 0 mls/hr Ketorolac Tromethamine (Toradol Inj) 30 mg IM Q6H PRN PRN Reason: SEE LABEL COMMENTS Lactulose (Lactulose Liq) 30 ml PO DAILY PRN PRN Reason: SEVERE CONSITIPATION Misoprostol (Cytotec) 25 mcg VAGINAL Q4HR [facility] Last Admin: 01/04/18 21:20 Dose: Not Given Ondansetron HCl (Zofran Inj) 4 mg IV.PUSH Q6H PRN PRN Reason: NAUSEA OR VOMITING Last Admin: 01/04/18 15:12 Dose: 4 mg Vit/Calcium/Iron/Folic Ac (Stuartnatal Plus 3) 1 tab PO DAILY [facility] Last Admin: 01/05/18 08:27 Dose: 1 tab Sennosides (Senokot) 17.2 mg PO Q12H PRN PRN Reason: Moderate Constipation Simethicone (Mylicon Chew) 80 mg PO QID PRN PRN Reason: FLATULENCE Sodium Chloride (Ns Flush) 2 ml IV.FLUSH BID [facility] Last Admin: 01/04/18 09:26 Dose: Not Given Sodium Chloride (Ns Flush) 2 ml IV.FLUSH PRN PRN PRN Reason: FLUSH AFTER USING IV ACCESS Sodium Chloride (Ns Flush) 2 ml IV.FLUSH BID [facility] Last Admin: 01/04/18 21:19 Dose: Not Given Sodium Chloride (Ns Flush) 2 ml IV.FLUSH PRN PRN PRN Reason: FLUSH AFTER USING IV ACCESS Last Admin: 01/05/18 22:00 Dose: 2 ml Zolpidem Tartrate (Ambien) 5 mg PO HS PRN PRN Reason: INSOMNIA Assessment and Plan - Diagnosis (1) Sickle cell anemia Code(s): D57.1 - Sickle-cell disease without crisis Status: Acute (2) delivery delivered Code(s): O82 - Encounter for delivery without indication Status: Acute (3) Acute urinary retention Code(s): R33.8 - Other retention of urine Status: Acute - Plan A/P: 22 y/o @37/2 weeks postop day 4 from C/S for FTP and failed induction. HX of sickle cell anemia w/crisis. Currently experiencing "crisis" pain. 1. Post C/S - AFVSS - Incision c/d/i - S/p 2 units of blood after C/S. Postop H&H 8.9/25.6. - s/p another 2 units of blood on 01/04. H&H responded from 8.4/25.3 to 10.3/29.4 - Continue ferrous sulfate 325 mg tid - Encouraged OOB, as tolerated - Advised pelvic rest x 6 weeks - Recommended f/u in 1 week with OB physician for incision check after stable for hospital discharge - No further management needed from an OB standpoint, will consider discharging patient or transferring to [facility] pending hematology recommendations 2. Sickle cell anemia - Con't IVF and Dilaudid INSTRUCTOR NURSE pump. Hematology gave recommendations on dosage. Will plan to transition to p.o. medications with improvement of leukocytosis - Hematology consulted, gave recommendations on INSTRUCTOR NURSE pump and also started patient on folic acid and Hydrea. - Also currently on Lovenox daily 3. Urinary retention - Gonsalez catheter currently in place. Attempt bladder training on 01/05 and will DC Gonsalez catheter today 4. Endometritis - Patient had fever of 100.5 on 01/04, WBC in the 30s - Patient started on ampicillin, gentamicin and clindamycin on 01/04 - Patient has been afebrile since that time will DC antibiotics today (1) Sickle cell anemia Qualifiers: Sickle-cell associated disorders: with unspecified crisis Qualified Code(s): D57.00 - Hb-SS disease with crisis, unspecified; D57.0 - Hb-SS disease with crisis
[2018-01-06] MEDS: Prenatal Vit/Ca/Iron/Folic Acid Tablet PO SCH (09:27)
[2018-01-06] MEDS: Enoxaparin Inj 30 MG/0.3 ML Syringe SQ SCH (09:27)
[2018-01-06 09:47] LABS: Baso # (Auto) 0.1 th/mm3 (0.0-0.2); Baso % (Auto) 0.4 % (0.0-2.0); Eos # (Auto) 0.9 th/mm3 (0.0-0.4); Eos % (Auto) 5.1 % (0.0-4.0); Hematocrit 30.4 % (35.0-46.0); Hemoglobin 10.4 gm/dL (11.6-15.3); Lymph # (Auto) 2.4 th/mm3 (1.0-4.8); Lymph % (Auto) 14.4 % (9.0-44.0); Mean Corpuscular HGB Conc 34.3 % (32.0-36.0); Mean Corpuscular Hemoglobin 30.1 pg (27.0-34.0); Mean Corpuscular Volume 87.6 fL (80.0-100.0); Mean Platelet Volume 8.9 fL (7.0-11.0); Mono # (Auto) 2.7 th/mm3 (0.0-0.9); Mono % (Auto) 15.9 % (0.0-8.0); Neut # (Auto) 10.9 th/mm3 (1.8-7.7); Neut % (Auto) 64.2 % (16.0-70.0); Platelet Count 291 th/mm3 (150-450); Red Blood Count 3.47 mil/mm3 (4.00-5.30); Red Cell Distribution Width 16.5 % (11.6-17.2)
[2018-01-06 11:40] LABS: Howell-Jolly Bodies Present; Sickle Cells 1+
[2018-01-06 11:41] LABS: Pappenheimer Bodies Present; Platelet Estimate Normal (Normal); Platelet Morphology Normal (Normal)
[2018-01-06] MEDS ORDERED: Naloxone Inj 0.4 MG/ML Vial IV.PUSH PRN (13:48)
[2018-01-06] MEDS ORDERED: Morphine Inj 4 MG/ML Vial IV.PUSH PRN (13:48)
[2018-01-06] MEDS ORDERED: Acetaminophen 325 MG Tablet PO PRN (13:48)
[2018-01-06] MEDS: Acetaminophen 325 MG Tablet PO PRN (14:41)
[2018-01-06] MEDS: Ferrous Sulfate 325 MG Tablet PO SCH ×2 (14:51→20:06)
[2018-01-07] MEDS: Prenatal Vit/Ca/Iron/Folic Acid Tablet PO SCH (08:31)
[2018-01-07] MEDS: Enoxaparin Inj 30 MG/0.3 ML Syringe SQ SCH (08:31)
[2018-01-07] MEDS: Ferrous Sulfate 325 MG Tablet PO SCH (08:32)
[2018-01-07] MEDS: Hydroxyurea 500 MG Capsule PO SCH (08:34)
--- NOTE | 2018-01-07 08:50 | P.PNOB ---
Subjective Interval history: Patient is a 22-year-old delivered at 37 weeks and 2 days. Patient is day 5 after primary . Patient's pain is well-controlled. Patient reports eating and drinking without any nausea or vomiting. Patient reports minimal bleeding. Patient has passed gas and bowel movements. Patient is walking without lower extremity pain or shortness of breath. Patient reports desire for contraception. Objective Vital Signs/I&O: Vital Signs 01/07/18 00:05 Pulse Oximetry 98 Result Diagrams: 01/06/18 08:29 Objective Remarks: GENERAL: Well-nourished, well-developed patient. CARDIOVASCULAR: Regular rate and rhythm without murmurs, gallops, or rubs. RESPIRATORY: Breath sounds equal bilaterally. No accessory muscle use. ABDOMEN/GI: Abdomen soft, non-tender. Fundus: Firm, non-tender at umbilicus. GENITOURINARY: Light to moderate bleeding. EXTREMITIES: No cyanosis or edema, non-tender, without signs of DVT. Medications and IVs: Active Medications Acetaminophen (Tylenol) 650 mg PO Q6H PRN PRN Reason: PAIN SCALE 1 TO 2 Last Admin: 01/06/18 14:41 Dose: 650 mg Acetaminophen (Tylenol) 650 mg PO Q6HR PRN PRN Reason: PAIN SCALE 1 TO 5 Al Hydroxide/Mg Hydroxide (Milk Of Magnfareed Liq) 30 ml PO Q12H PRN PRN Reason: Mild Constipation Last Admin: 01/06/18 09:28 Dose: 30 ml Albuterol (Ventolin Hfa Inh) 2 puff INH Q4H PRN PRN Reason: SHORTNESS OF BREATH/WHEEZING Bisacodyl (Dulcolax Supp) 10 mg RECTAL DAILY PRN PRN Reason: SEVERE CONSITIPATION Last Admin: 01/06/18 21:18 Dose: 10 mg Cephalexin Monohydrate (Keflex) 500 mg PO Q8HR [facility] Last Admin: 01/07/18 05:05 Dose: 500 mg Diphenhydramine HCl (Benadryl Inj) 25 mg IV.PUSH Q6H PRN PRN Reason: FOR ITCHING Last Admin: 01/07/18 05:05 Dose: 25 mg Enoxaparin Sodium (Lovenox Inj) 30 mg SQ DAILY [facility] Last Admin: 01/07/18 08:31 Dose: 30 mg Ferrous Sulfate (Ferosul) 325 mg PO BID [facility] Last Admin: 01/07/18 08:32 Dose: 325 mg Hydroxyurea (Hydrea) 1,000 mg PO DAILY [facility] Last Admin: 01/07/18 08:34 Dose: Not Given Lactated Ringer's (Lr 1000 Ml Inj) 1,000 mls @ 125 mls/hr IV.CONT .Q8H [facility] Last Admin: 01/05/18 23:11 Dose: 125 mls/hr Ketorolac Tromethamine (Toradol Inj) 30 mg IM Q6H PRN PRN Reason: SEE LABEL COMMENTS Lactulose (Lactulose Liq) 30 ml PO DAILY PRN PRN Reason: SEVERE CONSITIPATION Misoprostol (Cytotec) 25 mcg VAGINAL Q4HR [facility] Last Admin: 01/04/18 21:20 Dose: Not Given Naloxone HCl (Narcan Inj) 0.4 mg IV.PUSH UNSCH PRN PRN Reason: SEE LABEL COMMENTS Ondansetron HCl (Zofran Inj) 4 mg IV.PUSH Q6H PRN PRN Reason: NAUSEA OR VOMITING Last Admin: 01/04/18 15:12 Dose: 4 mg Oxycodone HCl (Roxicodone) 5 mg PO Q6H [facility] Last Admin: 01/07/18 08:37 Dose: Not Given Oxycodone HCl (Roxicodone) 5 mg PO Q6H PRN PRN Reason: PAIN SCALE 6 TO 10 Last Admin: 01/07/18 08:31 Dose: 5 mg Vit/Calcium/Iron/Folic Ac (Stuartnatal Plus 3) 1 tab PO DAILY [facility] Last Admin: 01/07/18 08:31 Dose: 1 tab Sennosides (Senokot) 17.2 mg PO Q12H PRN PRN Reason: Moderate Constipation Last Admin: 01/07/18 08:34 Dose: 17.2 mg Simethicone (Mylicon Chew) 80 mg PO QID PRN PRN Reason: FLATULENCE Sodium Chloride (Ns Flush) 2 ml IV.FLUSH BID [facility] Last Admin: 01/04/18 09:26 Dose: Not Given Sodium Chloride (Ns Flush) 2 ml IV.FLUSH PRN PRN PRN Reason: FLUSH AFTER USING IV ACCESS Sodium Chloride (Ns Flush) 2 ml IV.FLUSH BID [facility] Last Admin: 01/04/18 21:19 Dose: Not Given Sodium Chloride (Ns Flush) 2 ml IV.FLUSH PRN PRN PRN Reason: FLUSH AFTER USING IV ACCESS Last Admin: 01/05/18 22:00 Dose: 2 ml Zolpidem Tartrate (Ambien) 5 mg PO HS PRN PRN Reason: INSOMNIA Assessment and Plan - Diagnosis (1) Sickle cell anemia Code(s): D57.1 - Sickle-cell disease without crisis Status: Acute (2) delivery delivered Code(s): O82 - Encounter for delivery without indication Status: Acute - Plan A/P: 22 y/o @37/2 weeks postop day 5 from C/S for FTP and failed induction. HX of sickle cell anemia w/crisis. Currently experiencing "crisis" pain. 1. Post C/S - AFVSS - Incision c/d/i - S/p 2 units of blood after C/S. Postop H&H 8.9/25.6. - s/p another 2 units of blood on 01/04. H&H responded from 8.4/25.3 to 10.3/29.4 - Continue ferrous sulfate 325 mg tid - Encouraged OOB, as tolerated - Advised pelvic rest x 6 weeks - Recommended f/u in 1 week with OB physician for incision check after stable for hospital discharge 2. Sickle cell anemia - Successfully transitioned to p.o. Roxicodone from Dilaudid METAL SPRAYER MACHINED PARTS on 01/06. Will discharge with p.o. roxicodone and follow-up with hematology in 1 week - Hematology consulted, gave recommendations for folic acid and Hydrea. - Also currently on Lovenox daily, will continue for 4 weeks per hematology recommendations 3. Urinary retention -Discontinued Gonsalez catheter on 01/06. Has had successful voluntary voiding since 4. Endometritis - Patient had fever of 100.5 on 01/04, WBC in the 30s - Patient started on ampicillin, gentamicin and clindamycin on 01/04 and was treated for an additional 24 hours after the fever - Started on p.o. Keflex 500 mg 3 times daily. Will discharge with 7 day supply (1) Sickle cell anemia Qualifiers: Sickle-cell associated disorders: with unspecified crisis Qualified Code(s): D57.00 - Hb-SS disease with crisis, unspecified; D57.0 - Hb-SS disease with crisis
[2018-01-07] MEDS: Acetaminophen 325 MG Tablet PO PRN (10:30)
== END 2018-01-07 16:43 | disposition home or self-care (01) ==
LOC: H2E 18:23 → H1EA 01-02 21:52
PROVIDERS: ADMIT Obstetrics & Gynecology; ATTEND Obstetrics & Gynecology

== ENCOUNTER 2018-06-07 14:27 | Inpatient (IN) ==
[2018-06-07] MEDS ORDERED: Morphine Inj 4 MG/ML Vial IV.PUSH ONE (14:49)
[2018-06-07] MEDS ORDERED: Sod Chloride 0.9% Inj 1,000 ML IV.SIG SCH (15:00)
--- NOTE | 2018-06-07 15:06 | XR ---
EXAM DATE: 06/07/2018 3:02 PM EST AGE/SEX: 22 years / Female INDICATIONS: Sickle cell crisis, short of breath CLINICAL DATA: This is the patient's initial encounter. Patient reports that signs and symptoms have been present for 1 day and indicates a pain score of 10/10. MEDICAL/SURGICAL HISTORY: Sickle Cell disease. None. COMPARISON: [facility] [place] 2V PA&LAT, 01/30/2018. . FINDINGS: The lungs are clear without infiltrate, nodule, or mass. There is no appreciable pleural effusion fo r technique. Heart and mediastinum are unremarkable. CONCLUSION: No acute cardiopulmonary disease. Electronically signed by: Stanford Restrepo MD Board Certified Radiologist 06/07/2018 3:05 PM EST
[2018-06-07 15:25] LABS: Baso # (Auto) 0.3 th/mm3 (0.0-0.2); Baso % (Auto) 2.2 % (0.0-2.0); Chloride 106 meq/L (98-107); Eos # (Auto) 0.1 th/mm3 (0.0-0.4); Eos % (Auto) 1.1 % (0.0-4.0); Hematocrit 25.5 % (35.0-46.0); Hemoglobin 8.9 gm/dL (11.6-15.3); Lymph # (Auto) 1.9 th/mm3 (1.0-4.8); Lymph % (Auto) 14.2 % (9.0-44.0); Mean Corpuscular HGB Conc 34.9 % (32.0-36.0); Mean Corpuscular Hemoglobin 30.5 pg (27.0-34.0); Mean Corpuscular Volume 87.4 fL (80.0-100.0); Mean Platelet Volume 8.6 fL (7.0-11.0); Mono # (Auto) 1.6 th/mm3 (0.0-0.9); Mono % (Auto) 11.9 % (0.0-8.0); Neut # (Auto) 9.4 th/mm3 (1.8-7.7); Neut % (Auto) 70.6 % (16.0-70.0); Platelet Count 346 th/mm3 (150-450); Red Blood Count 2.92 mil/mm3 (4.00-5.30); Red Cell Distribution Width 18.5 % (11.6-17.2); Sodium 136 meq/L (136-145); White Blood Count 13.3 th/mm3 (4.0-11.0)
[2018-06-07 15:29] LABS: Albumin 4.2 g/dL (3.4-5.0); Anion Gap 7 meq/L (5-15); Blood Urea Nitrogen 5 mg/dL (7-18); Calcium 9.1 mg/dL (8.5-10.1); Carbon Dioxide 22.9 meq/L (21.0-32.0); Glucose,Random 102 mg/dL (74-106)
--- NOTE | 2018-06-07 15:29 | ED ---
HPI General Chief complaint: Sickle Cell Stated complaint: sickle cell Time Seen by Provider: 06/07/18 14:40 Source: patient Mode of arrival: ambulatory Limitations: no limitations History of Present Illness HPI narrative: Patient is a 22 year old female, with history of sickle cell disease, who comes in complaining of sickle cell pain crisis. She says she has pain "all over my body." She says it is worse on her sides. She denies cough, but says she has felt short of breath. She says she had a temperature of 100 degrees yesterday. She has been taking her home hydrocodone for pain, but says it is not working. She says these symptoms are typical of her sickle cell pain crisis. Severity is mild to moderate. Related Data Home Medications Medication Instructions Recorded Confirmed albuterol sulfate 2 puff INHALATION Q4-6H PRN 12/21/17 06/07/18 folic acid 1 mg PO DAILY 03/09/18 06/07/18 Previous Rx's Medication Instructions Recorded hydrocodone-acetaminophen 1 tab PO Q6H PRN #12 tab 03/31/18 Allergies Allergy/AdvReac Type Severity Reaction Status Date / Time codeine Allergy Intermediate wheezing, Verified 06/07/18 14:33 SOB adhesive tape AdvReac Irritation Verified 06/07/18 14:33 Review of Systems ROS: all other systems reviewed are negative Constitutional Reports fever(s) ENT Denies dizziness Cardiovascular Denies chest pain and Denies edema Respiratory Denies cough and Reports dyspnea Gastrointestinal Denies abdominal pain, Denies nausea and Denies vomiting Musculoskeletal Reports myalgias and Reports arthralgias Integumentary/Breasts Denies sores and Denies wounds Neurologic Denies focal weakness and Denies numbness PMFSH Medical History Medical History Asthma (Acute) Sickle cell disease (Acute) Surgical History Surgical History H/O section (Acute) Social History Social History Substance History: No History of Abuse Second Hand Smoke Exposure: No Smoking Status: Never smoker How Often Do You Have a Drink Containing Alcohol: Never Recent Travel in [facility] within the Last 8 Weeks: No Recent Out of Country Travel within the Last 8 Weeks: No Immunization History Tetanus Immunization: Unsure Exam Narrative Exam Narrative: GENERAL: Awake and alert, in no acute distress. SKIN: Focused skin assessment warm/dry. No wounds or signs of infection. HEAD: Atraumatic. Normocephalic. EYES: Pupils equal and round. No scleral icterus. ENT: Mucous membranes pink and moist. NECK: Trachea midline. No JVD. CARDIOVASCULAR: Regular rate and rhythm. No murmur appreciated. RESPIRATORY: No accessory muscle use. Clear to auscultation. Breath sounds equal bilaterally. GASTROINTESTINAL: Abdomen soft, non-tender, nondistended. Hepatic and splenic margins not palpable. MUSCULOSKELETAL: No obvious deformities. No clubbing. No cyanosis. No edema. NEUROLOGICAL: Awake and alert. No obvious cranial nerve deficits. Motor grossly within normal limits. Normal speech. PSYCHIATRIC: Appropriate mood and affect; insight and judgment normal. Course Initial Documented Vital Signs Temperature 99.6 F 06/07/18 14:30 Pulse Rate 94 H 06/07/18 14:30 Respiratory Rate 16 06/07/18 14:30 Blood Pressure 118/60 06/07/18 14:30 Pulse Oximetry 96 06/07/18 14:30 Last Documented Vital Signs Temperature 99.6 F 06/07/18 14:30 Pulse Rate 89 06/07/18 18:05 Respiratory Rate 17 06/07/18 18:05 Blood Pressure 122/74 06/07/18 18:05 Pulse Oximetry 97 06/07/18 18:05 Medical Decision Making MDM Narrative Medical decision making narrative: Patient is a 22 year old female who comes in complaining of sickle cell pain. Exam shows no acute abnormalities. IV established, labs sent. Labs show a Hgb of 8.9, which is close to her baseline. Reticulocyte count is 2%. Given IVF, pain medicine. UA shows bacteria and WBCs. Given a dose of Rocephin. After 2 doses of pain medicine, patient reports still not feeling well. She will be admitted for further management. Medical Screen Exam Complete: Yes Emergency Medical Condition: Yes Differential Diagnosis Differential Diagnosis: vasoocclusive crisis vs anemia vs dehydration Medical Records Medical records reviewed: Yes I reviewed the patient's medical records. Lab Data Lab results reviewed: Yes I reviewed the patient's lab results. Result diagrams: 06/07/18 15:12 06/07/18 15:12 Lab Results 06/07/18 06/07/18 06/07/18 Range/Units 15:12 15:12 18:00 CBC w Diff Slide review pending WBC 13.3 H (4.0-11.0) th/mm3 RBC 2.92 L (4.00-5.30) mil/mm3 Hgb 8.9 L (11.6-15.3) gm/dL Hct 25.5 L (35.0-46.0) % MCV 87.4 (80.0-100.0) fL MCH 30.5 (27.0-34.0) pg MCHC 34.9 (32.0-36.0) % RDW 18.5 H (11.6-17.2) % Plt Count 346 (150-450) th/mm3 MPV 8.6 (7.0-11.0) fL Neut % (Auto) 70.6 H (16.0-70.0) % Lymph % (Auto) 14.2 (9.0-44.0) % [place] % (Auto) 11.9 H (0.0-8.0) % Eos % (Auto) 1.1 (0.0-4.0) % Baso % (Auto) 2.2 H (0.0-2.0) % Neut # (Auto) 9.4 H (1.8-7.7) th/mm3 Lymph # (Auto) 1.9 (1.0-4.8) th/mm3 [place] # (Auto) 1.6 H (0.0-0.9) th/mm3 Eos # (Auto) 0.1 (0.0-0.4) th/mm3 Baso # (Auto) 0.3 H (0.0-0.2) th/mm3 WBC Differential . Diff Scan Auto diff confirmed Differential Comment . Sickle Cells 1+ H (None) Target Cells 1+ H (None) Ovalocytes 2+ H (None) Retic Count 2.1 (0.4-3.0) % Absolute Retic 60.8 (20.0-150.0) mil/L Sodium 136 (136-145) meq/L Potassium 4.0 (3.5-5.1) meq/L Chloride 106 (98-107) meq/L Carbon Dioxide 22.9 (21.0-32.0) meq/L Anion Gap 7 (5-15) meq/L BUN 5 L (7-18) mg/dL Creatinine 0.39 L (0.50-1.00) mg/dL Estimated GFR Greater than 89 (>89) mL/min Random Glucose 102 (74-106) mg/dL Calcium 9.1 (8.5-10.1) mg/dL Total Bilirubin 3.0 H (0.2-1.0) mg/dL AST 52 H (16-38) U/L ALT 30 (9-42) U/L Alkaline Phosphatase 93 (45-117) U/L Total Protein 8.3 H (6.4-8.2) g/dL Albumin 4.2 (3.4-5.0) g/dL Urine Color Straw (Yellw/Straw) Urine Clarity Cloudy H (Clear) Urine pH 8.0 (5.0-8.5) Ur Specific [place] 1.010 (1.002-1.035) Urine Protein Trace (Neg-Trace) mg/dL Urine Glucose (UA) Negative (Negative) mg/dL Urine Ketones Negative (Negative) mg/dL Urine Occult Blood Trace (Negative) Urine Nitrate Negative (Negative) Urine Bilirubin Negative (Negative) Urine Urobilinogen 0.2 (Less than 2) mg/dL Ur Leukocyte Esterase Large H (Negative) Urine RBC 0-3 (0-3) /hpf Urine WBC 9-20 H (0-5) /hpf Ur Squamous Epith Cells Greater than 10 H (0-5) /hpf Urine Bacteria Few H (None) /hpf Micro UA Comment Culture indicated Ur Microscopic Review Microscopic reviewed Urine Culture Comments Culture indicated Imaging Data Radiologist's impression: Chest X-Ray 06/07/18 14:49 CONCLUSION: No acute cardiopulmonary disease. Discharge Plan Discharge Disposition Patient Disposition: ED Admit(ED Internal Use Only) Discharge Condition Condition: Stable Discharge Order Discharge Orders: ED Use Only Admit Order (Routine); Ordered 06/07/18 Ordered By: Ashely Dacosta Discharge Details Diagnosis: Sickle cell pain crisis Physicians Team ED Provider: Ashely Dacosta Primary Care Provider: Valerie Santos Attending Provider: Shira Kraft Status ED Status: Admitted Patient
[2018-06-07 15:32] LABS: Alanine Aminotransferase 30 U/L (9-42); Aspartate Aminotransferase 52 U/L (16-38); Glomerular Filtration Rate Greater Than 89 mL/min (>89)
[2018-06-07 15:34] LABS: Total Protein 8.3 g/dL (6.4-8.2)
[2018-06-07 15:35] LABS: Alkaline Phosphatase 93 U/L (45-117)
[2018-06-07 16:04] LABS: Ovalocytes 2+; Sickle Cells 1+; Target Cells 1+
[2018-06-07] MEDS ORDERED: HYDROmorphone PF Inj 0.5 MG/0.5 ML Syringe IV.PUSH STA (16:19)
[2018-06-07 16:25] LABS: Reticulocyte Percent 2.1 % (0.4-3.0)
[2018-06-07 18:17] LABS: Bilirubin,Urine Negative (Negative); Clarity,Urine Cloudy (Clear); Color,Urine Straw (Yellw/Straw); Glucose,Urine (UA) Negative (Negative); Leukocyte Esterase,Urine Large (Negative); Nitrite,Urine Negative (Negative); Urobilinogen,Urine 0.2 mg/dL (Less than 2)
[2018-06-07 18:22] LABS: Bacteria,Urine Few /hpf; RBC,Urine 0-3 /hpf (0-3); Squamous Epithelial Cell,Urine Greater than 10 /hpf (0-5)
[2018-06-07] MEDS: HYDROmorphone PF Inj 2 MG/ML Vial IV.PUSH PRN ×2 (18:34→22:32)
[2018-06-07] MEDS: Sod Chloride 0.9% Inj 1,000 ML IV.CONT SCH (20:09)
[2018-06-08] MEDS: HYDROmorphone PF Inj 2 MG/ML Vial IV.PUSH PRN ×4 (03:27→20:29)
[2018-06-08] MEDS: Sod Chloride 0.9% Inj 1,000 ML IV.CONT SCH ×4 (03:35→20:26)
[2018-06-08 06:59] LABS: Baso # (Auto) 0.3 th/mm3 (0.0-0.2); Baso % (Auto) 1.8 % (0.0-2.0); Eos # (Auto) 0.3 th/mm3 (0.0-0.4); Eos % (Auto) 1.4 % (0.0-4.0); Hematocrit 21.9 % (35.0-46.0); Hemoglobin 7.2 gm/dL (11.6-15.3); Lymph # (Auto) 3.2 th/mm3 (1.0-4.8); Lymph % (Auto) 16.3 % (9.0-44.0); Mean Corpuscular HGB Conc 33.1 % (32.0-36.0); Mean Corpuscular Hemoglobin 29.8 pg (27.0-34.0); Mean Corpuscular Volume 90.1 fL (80.0-100.0); Mono # (Auto) 2.5 th/mm3 (0.0-0.9); Mono % (Auto) 12.7 % (0.0-8.0); Neut # (Auto) 13.1 th/mm3 (1.8-7.7); Neut % (Auto) 67.8 % (16.0-70.0); Platelet Count 384 th/mm3 (150-450); Red Blood Count 2.43 mil/mm3 (4.00-5.30); Red Cell Distribution Width 17.5 % (11.6-17.2); White Blood Count 19.4 th/mm3 (4.0-11.0)
[2018-06-08 07:56] LABS: Platelet Estimate Normal (Normal); Platelet Morphology Normal (Normal)
[2018-06-08] MEDS: Folic Acid 1 MG Tablet PO SCH (09:01)
--- NOTE | 2018-06-08 13:42 | P.HPIM ---
History of Present Illness Primary Care Physician: Valerie Santos Chief Complaint: Sickle Cell Pain History of Present Illness: 22-year-old -[place] female presented to the ER with sickle cell pain in the lower legs and bilateral mid axillary/flank areas. Patient states the pain has been constant for over 1 week, rating the pain 8 out of 10 on the pain scale. Patient stated she had a temperature of 101.0 orally and took Motrin at home prior to arrival to ER. Patient complains of nausea, sweating, chest pain and chills. Patient denies vomiting, diarrhea, or cough. Patient also complained of shortness of breath yesterday and this morning. Patient stated she did use her nebulizer treatment at home with some relief. Patient was currently complains of burning with urination and foul smell to the urine. Patient does have history of asthma, sickle cell disease and eczema. Patient's last menstrual cycle May 30, 2018. Patient's contract programmer is Dr. Myers. Patient indicates that she was just in the hospital 2 weeks ago in which he states that she received transfusions for her sickle cell crisis. Inpatient Certification Inpatient Certification: I certify that the inpatient services were ordered in accordance with Medicare regulations governing the order. This includes certification that hospital inpatient services are reasonable and necessary and in the case of services not specified as inpatient-only under 42 CFR 419.22(n), that they are appropriately provided as inpatient services in accordance to with the 2-midnight benchmark under 43 CFR 412.3(e) Estimated Total Length of Stay (Days): 2 Plans for Post Hospital Care: Home Review of Systems Constitutional: Reports system reviewed and no additional complaints, except as docu, Reports chills, Reports excessive sweating and Reports fever(s) Cardiovascular: Reports system reviewed and no additional complaints, except as docu and Reports chest pain Respiratory: Reports system reviewed and no additional complaints, except as docu and Reports dyspnea on exertion Gastrointestinal: Reports system reviewed and no additional complaints, except as docu and Reports nausea Genitourinary: Reports system reviewed and no additional complaints, except as docu, Reports dysuria and Reports other Musculoskeletal: Reports system reviewed and no additional complaints, except as docu and Reports myalgias Neurologic: Reports system reviewed and no additional complaints, except as docu [facility] Medical History Medical History Eczema (Acute) Asthma (Acute) Sickle cell disease (Acute) Surgical History Surgical History H/O section (Acute) Family History Family History Mother Sickle cell disease Father Sickle cell trait Social History Social History Substance History: No History of Abuse Second Hand Smoke Exposure: No Smoking Status: Never smoker How Often Do You Have a Drink Containing Alcohol: Never Hx Recent Travel: No Recent Travel in [facility] within the Last 8 Weeks: No Recent Out of Country Travel within the Last 8 Weeks: No Immunization History Tetanus Immunization: Unsure Hx Influenza Vaccine This Season: No Medications and Allergies Allergies Allergy/AdvReac Type Severity Reaction Status Date / Time codeine Allergy Intermediate wheezing, Verified 06/07/18 14:33 SOB adhesive tape AdvReac Irritation Verified 06/07/18 14:33 latex AdvReac Itching, Verified 06/08/18 13:26 Generalized Home Medications Medication Instructions Recorded Confirmed Type albuterol sulfate 2 puff INHALATION Q4-6H PRN 12/21/17 06/07/18 History folic acid 1 mg PO DAILY 03/09/18 06/07/18 History Active Medications: Active Medications Hydrocodone Bitart/Acetaminophen ([place] 5/325) 1 tab PO Q4H PRN PRN Reason: pain 1-3 Hydrocodone Bitart/Acetaminophen ([place] 5/325) 2 tab PO Q4H PRN PRN Reason: pain 4-7 Last Admin: 06/08/18 11:42 Dose: 2 tab Albuterol (Ventolin Hfa Inh) 2 puff INH Q4H PRN PRN Reason: Shortness Of Breath Or Wheezing Diphenhydramine HCl (Benadryl Inj) 25 mg IV.PUSH Q6H PRN PRN Reason: ITCHING Last Admin: 06/08/18 09:01 Dose: 25 mg Folic Acid (Folic Acid) 1 mg PO DAILY ZACH Last Admin: 06/08/18 09:01 Dose: 1 mg Hydromorphone HCl (Dilaudid Pf Inj) 1 mg IV.PUSH Q4H PRN PRN Reason: pain 8-10 Last Admin: 06/08/18 09:01 Dose: 1 mg Sodium Chloride (Ns Inj) 1,000 mls @ 125 mls/hr IV.CONT .Q8H ZACH Last Admin: 06/08/18 11:43 Dose: 125 mls/hr Ondansetron HCl (Zofran Inj) 4 mg IV.PUSH Q6H PRN PRN Reason: NAUSEA Last Admin: 06/08/18 03:29 Dose: 4 mg Sodium Chloride (Ns Flush) 2 ml IV.FLUSH PRN PRN PRN Reason: FLUSH AFTER USING IV ACCESS Physical Exam Vital signs: Last Vital Signs Temp 98.0 F 06/08/18 08:00 Pulse 80 06/08/18 08:00 Resp 18 06/08/18 12:48 BP 108/53 L 06/08/18 08:00 Pulse Ox 95 06/08/18 08:00 Intake & Output 06/06/18 06/07/18 06/08/18 06/09/18 06:59 06:59 06:59 06:59 Intake Total 2860 / 2860 1000 / 1000 Balance 2860 / 2860 1000 / 1000 Weight 58 kg Constitutional no acute distress and cooperative Routine HEENT Exam Head: Present normocephalic Eye: Present PERRL ENT: Present mucous membranes moist Routine Neck Exam Present supple and full ROM Routine Respiratory Exam Present CTA bilaterally Routine Cardiovascular Exam Present RRR Routine Abdominal Exam Present soft, normoactive bowel sounds and tenderness (bilateral lower quadrants with palpation) Routine Extremities Exam Present pulses intact and normal capillary refill Routine Neurological Exam Present alert, oriented X3 and CN II-XII intact Results Labs CBC & Chem 7: 06/08/18 05:25 06/07/18 15:12 Imaging Impressions Chest X-Ray 06/07/18 14:49 CONCLUSION: No acute cardiopulmonary disease. Caprini VTE Risk Assessment Caprini VTE Risk Assessment: No/Low Risk (score <= 1) Caprini Risk Assessment Model: Point Value = 1 Point Value = 2 Point Value = 3 Point Value = 5 Age 41-60 Minor surgery BMI > 25 kg/m2 Swollen legs Varicose veins or History of unexplained or recurrent spontaneous Oral contraceptives or hormone replacement Sepsis (< 1 month) Serious lung disease, including pneumonia (< 1 month) Abnormal pulmonary function Acute myocardial infarction Congestive heart failure (< 1 month) History of inflammatory bowel disease Medical patient at bed rest Age 61-74 Arthroscopic surgery Major open surgery (> 45 min) Laparoscopic surgery (> 45 min) Malignancy Confined to bed (> 72 hours) Immobilizing plaster cast Central venous access Age >= 75 History of VTE Family history of VTE Factor V Leiden Prothrombin [id number] Lupus anticoagulant Anticardiolipin antibodies Elevated serum homocysteine Heparin-induced thrombocytopenia Other congenital or acquired thrombophilia Stroke (< 1 month) Elective arthroplasty Hip, pelvis, or leg fracture Acute spinal cord injury (< 1 month) Prophylaxis Regimen: Total Risk Factor Score Risk Level Prophylaxis Regimen 0-1 Low Early ambulation 2 Moderate Order ONE of the following: *Sequential Compression Device (SCD) *Heparin 5000 units SQ BID 3-4 Higher Order ONE of the following medications: *Heparin 5000 units SQ TID *Enoxaparin/Lovenox 40 mg SQ daily (WT < 150 kg, CrCl > 30 mL/min) *Enoxaparin/Lovenox 30 mg SQ daily (WT < 150 kg, CrCl > 10-29 mL/min) *Enoxaparin/Lovenox 30 mg SQ BID (WT < 150 kg, CrCl > 30 mL/min) AND/OR *Sequential Compression Device (SCD) 5 or more Highest Order ONE of the following medications: *Heparin 5000 units SQ TID (Preferred with Epidurals) *Enoxaparin/Lovenox 40 mg SQ daily (WT < 150 kg, CrCl > 30 mL/min) *Enoxaparin/Lovenox 30 mg SQ daily (WT < 150 kg, CrCl > 10-29 mL/min) *Enoxaparin/Lovenox 30 mg SQ BID (WT < 150 kg, CrCl > 30 mL/min) AND *Sequential Compression Device (SCD) Assessment and Plan Plan 22-year-old female with sickle cell pain and dysuria Sickle Cell Crisis -Retic count was 2.1 and absolute retic count was 60.8. -Continue folic acid Hydrocodone for pain control as needed -Hydration, pain control and monitor hemoglobin. Transfusion if hemoglobin goes below 7. Dysuria / UTI -UA was negative for nitrites, WBC elevated with greater than 10 squamous epith. cells. Urine culture pending -Continue Rocephin until urine culture is back Asthma -Maintain O2 saturation greater than 92% -DuoNebs as needed DVT -low risk and early ambulation H&P: Quality VTE Deep Vein Thrombosis/Pulmonary Embolism Present on Admission: No
[2018-06-09] MEDS: HYDROmorphone PF Inj 2 MG/ML Vial IV.PUSH PRN ×5 (01:13→20:10)
[2018-06-09] MEDS: Sod Chloride 0.9% Inj 1,000 ML IV.CONT SCH ×3 (04:40→20:20)
[2018-06-09 06:59] LABS: Baso # (Auto) 0.2 th/mm3 (0.0-0.2); Baso % (Auto) 1.5 % (0.0-2.0); Eos # (Auto) 0.3 th/mm3 (0.0-0.4); Eos % (Auto) 2.4 % (0.0-4.0); Lymph % (Auto) 30.6 % (9.0-44.0); Mean Corpuscular HGB Conc 34.2 % (32.0-36.0); Mean Corpuscular Hemoglobin 30.7 pg (27.0-34.0); Mean Corpuscular Volume 89.9 fL (80.0-100.0); Mean Platelet Volume 8.8 fL (7.0-11.0); Mono # (Auto) 2.1 th/mm3 (0.0-0.9); Mono % (Auto) 16.2 % (0.0-8.0); Neut # (Auto) 6.6 th/mm3 (1.8-7.7); Neut % (Auto) 49.3 % (16.0-70.0); Platelet Count 419 th/mm3 (150-450); Red Blood Count 2.27 mil/mm3 (4.00-5.30); Red Cell Distribution Width 18.4 % (11.6-17.2); White Blood Count 13.2 th/mm3 (4.0-11.0)
[2018-06-09 08:03] LABS: Hematocrit 20.4 % (35.0-46.0)
[2018-06-09 08:15] LABS: Eosinophils 1 % (0-4); Monocytes 14 % (0-8); Tallied Nucleated RBC 2 (0-0)
[2018-06-09 08:16] LABS: Lymphocytes 34 % (9-44)
[2018-06-09 08:17] LABS: Ovalocytes 1+; Sickle Cells 2+
[2018-06-09] MEDS: Folic Acid 1 MG Tablet PO SCH (08:17)
[2018-06-09 08:18] LABS: Platelet Estimate Normal (Normal); Platelet Morphology Normal (Normal)
[2018-06-09 10:04] LABS: Reticulocyte Percent 7.1 % (0.4-3.0)
--- NOTE | 2018-06-09 10:55 | P.PNIM ---
Subjective Interval history: Follow-up sickle cell crisis/anemia. Patient seen and examined, lying in bed with complaints of pain in her lower extremities. He states that the pain has not really improved. Does state that she has a poor appetite. Continue IV fluids and pain medications as needed. H&H low today will transfuse 1 unit. No chest pain, lightheadedness, dizziness or shortness of breath. Physical Exam Vital signs: Vital Signs 06/08/18 12:00 06/08/18 12:48 06/08/18 15:23 Temperature 98.8 F Pulse Rate 91 H Respiratory Rate 18 18 18 Blood Pressure 117/57 L Pulse Oximetry 95 06/08/18 16:00 06/08/18 16:43 06/08/18 20:00 Temperature 98.8 F 98.7 F Pulse Rate 85 85 Respiratory Rate 18 18 18 Blood Pressure 111/56 L 103/52 L Pulse Oximetry 97 95 06/09/18 00:00 06/09/18 10:11 Temperature 98.9 F Pulse Rate 98 H Respiratory Rate 18 Blood Pressure 109/65 Pulse Oximetry 96 98 Intake & Output 06/08/18 06/09/18 06/09/18 18:59 06:59 18:59 Intake Total 1100 / 1100 2350 / 2350 Output Total 1200 / 1200 Balance 1100 / 1100 1150 / 1150 Weight 60.4 kg Intake: IV 1100 / 1100 1999 / 1999 NS Inj 1,000 ML @ 125 mls/hr IV 1000 / 1000 1999 / 1999 .CONT .Q8H ZACH Rx#:[id number] Rocephin Inj 1,000 MG In NS Inj 100 / 100 100 ML @ 200 mls/hr IV.SIG Q24H ZACH Rx#:[id number] Oral 350 / 350 Output: Urine 1200 / 1200 Other: # Voids 4 # Bowel Movements 1 Narrative: GENERAL: Well-developed, well-nourished patient planes of lower extremity pain. SKIN: Warm and dry. No rash. HEAD: Normocephalic. Atraumatic. EYES: Pupils equal and round. No scleral icterus. No injection or drainage. ENT: No nasal bleeding or discharge. Mucous membranes pink and moist. NECK: Supple. Trachea midline. CARDIOVASCULAR: Regular rate and rhythm. 2/6 systolic murmur noted. This is chronic for patient. RESPIRATORY: No accessory muscle use. Clear to auscultation. Breath sounds equal bilaterally. GASTROINTESTINAL: Abdomen soft, non-tender, nondistended. Normoactive bowel sounds x4. MUSCULOSKELETAL: No obvious deformities. Extremities without clubbing, cyanosis , or edema. NEUROLOGICAL: Awake and alert. No obvious cranial nerve deficits. Motor grossly within normal limits. 5/5 muscle strength in bilateral upper and lower extremities. Normal speech. PSYCHIATRIC: Appropriate mood and affect; insight and judgment normal. Results - Labs CBC & Chem 7: 06/09/18 06:37 06/07/18 15:12 Laboratory Results - last 24 hr 06/07/18 06/09/18 06/09/18 18:00 06:37 06:37 CBC w Diff Slide review pending WBC 13.2 H RBC 2.27 L Hgb 7.0 L Hct 20.4 L* MCV 89.9 MCH 30.7 MCHC 34.2 RDW 18.4 H Plt Count 419 MPV 8.8 Neut % (Auto) 49.3 Lymph % (Auto) 30.6 [place] % (Auto) 16.2 H Eos % (Auto) 2.4 Baso % (Auto) 1.5 Neut # (Auto) 6.6 Lymph # (Auto) 4.0 [place] # (Auto) 2.1 H Eos # (Auto) 0.3 Baso # (Auto) 0.2 WBC Differential Manual diff final Seg Neuts % (Manual) 50 Band Neuts % (Manual) 1 Lymphocytes % (Manual) 34 Monocytes % (Manual) 14 H Eosinophils % (Manual) 1 Abs Neuts (Manual) 6.7 Nucleated RBCs/100 WBC 2 H Differential Comment . Platelet Estimate Normal Platelet Morphology Normal Sickle Cells 2+ H Ovalocytes 1+ H Retic Count 7.1 H Absolute Retic 154.8 H Urine Color Straw Urine Clarity Cloudy H Urine pH 8.0 Ur Specific [place] 1.010 Urine Protein Trace Urine Glucose (UA) Negative Urine Ketones Negative Urine Occult Blood Trace Urine Nitrate Negative Urine Bilirubin Negative Urine Urobilinogen 0.2 Ur Leukocyte Esterase Large H Urine RBC 0-3 Urine WBC 9-20 H Ur Squamous Epith Cells Greater than 10 H Urine Bacteria Few H Micro UA Comment Culture indicated Ur Microscopic Review Microscopic reviewed Urine Culture Comments Culture indicated Microbiology 06/07/18 18:00 Clean Catch Urine Urine Culture - Final Escherichia coli Assessment and Plan - Plan 22-year-old female with sickle cell pain and dysuria Sickle Cell Crisis -Retic count was 2.1 and absolute retic count was 60.8. -Continue folic acid Hydrocodone for pain control as needed -Hydration, pain control and monitor hemoglobin. Acute anemia suspect secondary to sickle cell -Will transfuse 1 unit PRBC. Hemoglobin 7 today. -Repeat labs in a.m. Urinary tract infection, E. coli -Does complain of dysuria. -UA was negative for nitrites, WBC elevated with greater than 10 squamous epith. cells. Urine culture positive for E. coli. -Sensitive to Rocephin. Will continue for now. Switch to p.o. antibiotics tomorrow. Continue IV fluid. Asthma -Maintain O2 saturation greater than 92% -DuoNebs as needed DVT -low risk and early ambulation Discharge Planning: Await clinical improvement.
[2018-06-09] MEDS ORDERED: Sodium Chlor 0.9% Inj 250 ML IV.SIG SCH (11:00)
[2018-06-09 11:47] LABS: Hemoglobin 7.4 gm/dL (11.6-15.3)
[2018-06-10] MEDS: HYDROmorphone PF Inj 2 MG/ML Vial IV.PUSH PRN ×6 (00:33→21:23)
[2018-06-10] MEDS: Sod Chloride 0.9% Inj 1,000 ML IV.CONT SCH ×3 (03:43→17:45)
[2018-06-10 07:17] LABS: Chloride 107 meq/L (98-107); Potassium 3.7 meq/L (3.5-5.1); Sodium 138 meq/L (136-145)
[2018-06-10 07:20] LABS: Calcium 8.5 mg/dL (8.5-10.1)
[2018-06-10 07:21] LABS: Anion Gap 7 meq/L (5-15); Blood Urea Nitrogen 4 mg/dL (7-18); Carbon Dioxide 24.1 meq/L (21.0-32.0); Glucose,Random 86 mg/dL (74-106)
[2018-06-10 07:24] LABS: Glomerular Filtration Rate Greater Than 89 mL/min (>89)
[2018-06-10 08:01] LABS: Baso # (Auto) 0.2 th/mm3 (0.0-0.2); Baso % (Auto) 1.3 % (0.0-2.0); Eos # (Auto) 0.2 th/mm3 (0.0-0.4); Eos % (Auto) 1.6 % (0.0-4.0); Hematocrit 26.1 % (35.0-46.0); Hemoglobin 8.7 gm/dL (11.6-15.3); Lymph # (Auto) 3.3 th/mm3 (1.0-4.8); Lymph % (Auto) 24.6 % (9.0-44.0); Mean Corpuscular HGB Conc 33.2 % (32.0-36.0); Mean Corpuscular Hemoglobin 29.5 pg (27.0-34.0); Mean Corpuscular Volume 88.9 fL (80.0-100.0); Mean Platelet Volume 9.2 fL (7.0-11.0); Mono # (Auto) 2.1 th/mm3 (0.0-0.9); Mono % (Auto) 16.1 % (0.0-8.0); Neut # (Auto) 7.6 th/mm3 (1.8-7.7); Neut % (Auto) 56.4 % (16.0-70.0); Platelet Count 452 th/mm3 (150-450); Red Blood Count 2.94 mil/mm3 (4.00-5.30); Red Cell Distribution Width 19.4 % (11.6-17.2); White Blood Count 13.4 th/mm3 (4.0-11.0)
[2018-06-10 08:03] LABS: Corrected White Blood Count 12.4 th/mm3 (4.0-11.0); Eosinophils 4 % (0-4); Lymphocytes 23 % (9-44); Monocytes 8 % (0-8); Ovalocytes 2+; Platelet Estimate Normal (Normal); Platelet Morphology Normal (Normal); Sickle Cells 1+; Tallied Nucleated RBC 8 (0-0); Target Cells 1+
[2018-06-10] MEDS: Folic Acid 1 MG Tablet PO SCH (08:15)
--- NOTE | 2018-06-10 08:45 | P.PNIM ---
Subjective Interval history: Follow-up sickle cell crisis. Patient seen and examined, lying in bed comfortably no apparent distress. Patient states that her pain does improve with narcotics although does not last. She also complains of intermittent chest discomfort overnight as well. Vital signs are stable. Afebrile. Improvement in hemoglobin after transfusion. Physical Exam Vital signs: Vital Signs 06/09/18 10:11 06/09/18 12:00 06/09/18 16:00 Temperature 97.9 F 97.3 F L Pulse Rate 91 H 65 Respiratory Rate 22 21 Blood Pressure 148/83 H 109/72 Pulse Oximetry 98 96 98 06/09/18 20:00 06/09/18 23:34 06/10/18 00:00 Temperature 98.6 F 98.1 F 98.1 F Pulse Rate 78 97 H 97 H Respiratory Rate 18 18 18 Blood Pressure 119/58 L 108/59 L 108/59 L Pulse Oximetry 97 97 97 06/10/18 00:11 06/10/18 01:14 06/10/18 03:28 Temperature 97.5 F L 98.1 F 97.5 F L Pulse Rate 87 84 85 Respiratory Rate 18 18 18 Blood Pressure 112/72 110/66 111/57 L Pulse Oximetry 98 97 97 Intake & Output 06/09/18 06/10/18 06/10/18 18:59 06:59 18:59 Intake Total 1115 / 1115 2090 / 2090 1000 / 1000 Output Total 240 / 240 450 / 450 Balance 875 / 875 1640 / 1640 1000 / 1000 Weight 62 kg Intake: IV 875 / 875 1600 / 1600 1000 / 1000 NS Inj 1,000 ML @ 125 mls/hr IV 875 / 875 1500 / 1500 1000 / 1000 .CONT .Q8H [facility] Rx#:[id number] Rocephin Inj 1,000 MG In NS Inj 100 / 100 100 ML @ 200 mls/hr IV.SIG Q24H [facility] Rx#:[id number] Oral 240 / 240 90 / 90 Intake (Blood Product) Amt 400 / 400 Rbc As-3 Leukoreduced Unit 400 / 400 [id number] Output: Urine 240 / 240 450 / 450 Stool 0 / 0 Other: Date of Last Bowel Movement 06/09/18 Narrative: GENERAL: Well-developed, well-nourished patient complains of lower extremity pain. SKIN: Warm and dry. No rash. HEAD: Normocephalic. Atraumatic. EYES: Pupils equal and round. No scleral icterus. No injection or drainage. ENT: No nasal bleeding or discharge. Mucous membranes pink and moist. NECK: Supple. Trachea midline. CARDIOVASCULAR: Regular rate and rhythm. 2/6 systolic murmur noted. This is chronic for patient. RESPIRATORY: No accessory muscle use. Clear to auscultation. Breath sounds equal bilaterally. GASTROINTESTINAL: Abdomen soft, non-tender, nondistended. Normoactive bowel sounds x4. MUSCULOSKELETAL: No obvious deformities. Extremities without clubbing, cyanosis , or edema. NEUROLOGICAL: Awake and alert. No obvious cranial nerve deficits. Motor grossly within normal limits. 5/5 muscle strength in bilateral upper and lower extremities. Normal speech. PSYCHIATRIC: Appropriate mood and affect; insight and judgment normal. Results - Labs CBC & Chem 7: 06/10/18 06:30 06/10/18 06:30 Laboratory Results - last 24 hr 06/09/18 06/09/18 06/09/18 06:37 11:06 11:06 CBC w Diff WBC Corrected WBC RBC Hgb 7.4 L Hct 22.0 L MCV MCH MCHC RDW Plt Count MPV Neut % (Auto) Lymph % (Auto) Butts % (Auto) Eos % (Auto) Baso % (Auto) Neut # (Auto) Lymph # (Auto) Butts # (Auto) Eos # (Auto) Baso # (Auto) WBC Differential Seg Neuts % (Manual) Lymphocytes % (Manual) Monocytes % (Manual) Eosinophils % (Manual) Abs Neuts (Manual) Nucleated RBCs/100 WBC Differential Comment Platelet Estimate Platelet Morphology Sickle Cells Target Cells Ovalocytes Retic Count 7.1 H Absolute Retic 154.8 H Sodium Potassium Chloride Carbon Dioxide Anion Gap BUN Creatinine Estimated GFR Random Glucose Calcium Blood Type O Positive Antibody Screen Negative MTS Gel Crossmatch See Detail 06/10/18 06/10/18 06:30 06:30 CBC w Diff Slide review pending WBC 13.4 H Corrected WBC 12.4 H RBC 2.94 L Hgb 8.7 L Hct 26.1 L MCV 88.9 MCH 29.5 MCHC 33.2 RDW 19.4 H Plt Count 452 H MPV 9.2 Neut % (Auto) 56.4 Lymph % (Auto) 24.6 Butts % (Auto) 16.1 H Eos % (Auto) 1.6 Baso % (Auto) 1.3 Neut # (Auto) 7.6 Lymph # (Auto) 3.3 Butts # (Auto) 2.1 H Eos # (Auto) 0.2 Baso # (Auto) 0.2 WBC Differential Manual diff final Seg Neuts % (Manual) 65 Lymphocytes % (Manual) 23 Monocytes % (Manual) 8 Eosinophils % (Manual) 4 Abs Neuts (Manual) 8.1 H Nucleated RBCs/100 WBC 8 H Differential Comment . Platelet Estimate Normal Platelet Morphology Normal Sickle Cells 1+ H Target Cells 1+ H Ovalocytes 2+ H Retic Count Absolute Retic Sodium 138 Potassium 3.7 Chloride 107 Carbon Dioxide 24.1 Anion Gap 7 BUN 4 L Creatinine 0.36 L Estimated GFR Greater than 89 Random Glucose 86 Calcium 8.5 Blood Type Antibody Screen MTS Gel Crossmatch Microbiology 06/07/18 18:00 Clean Catch Urine Urine Culture - Final Escherichia coli Assessment and Plan - Assessment (1) Urinary tract infection Code(s): N39.0 - Urinary tract infection, site not specified Status: Acute (2) Sickle cell anemia with crisis Code(s): D57.00 - Hb-SS disease with crisis, unspecified Status: Acute - Plan 22-year-old female with sickle cell pain and dysuria Sickle Cell Crisis -Retic count was 2.1 and absolute retic count was 60.8. -Continue folic acid. Hydrocodone for pain control as needed. Dilaudid IV as needed. -Hydration, pain control and monitor hemoglobin. -Patient complaints that pain improves with medication but does not last. Changed frequency. Acute anemia suspect secondary to sickle cell -Hemoglobin 7, s/p 1 unit PRBC transfusion. -Stable today 8.7. Will continue to monitor CBC. Urinary tract infection, E. coli -Does complain of dysuria. -UA was negative for nitrites, WBC elevated with greater than 10 squamous epith. cells. Urine culture positive for E. coli. -Sensitive to Cefuroxime PO from Rocephin. Asthma -Maintain O2 saturation greater than 92% -DuoNebs as needed DVT -low risk and early ambulation Discharge Planning: Await clinical improvement.
--- NOTE | 2018-06-10 18:37 | ECG ---
Date Performed: 06/10/2018 Time Performed: 10:57:02 PTAGE: 22 years EKG: Sinus rhythm NORMAL ECG PREVIOUS TRACING : 08/15/2016 10.16 Since the previous tracing, no significant change noted DOCTOR: Selena Culp Interpretating Date/Time 06/10/2018 18:34:29
[2018-06-11] MEDS: HYDROmorphone PF Inj 2 MG/ML Vial IV.PUSH PRN ×3 (00:29→06:46)
[2018-06-11] MEDS: Sod Chloride 0.9% Inj 1,000 ML IV.CONT SCH ×3 (03:34→21:14)
[2018-06-11] MEDS: Folic Acid 1 MG Tablet PO SCH (09:30)
--- NOTE | 2018-06-11 09:51 | P.PNIM ---
Subjective Interval history: Follow-up sickle cell anemia crisis. Patient seen and examined, states that she continued pain, will attempt to transition over to p.o. medications, discontinue IV Dilaudid. Will follow up later this afternoon for possible discharge. Patient is stable. Agreeable to plan. Vital signs are stable. Eating well without any nausea or vomiting. Denies any chest pain this morning. Physical Exam Vital signs: Vital Signs 06/10/18 12:00 06/10/18 16:00 06/10/18 20:00 Temperature 97.7 F 98.5 F 98.6 F Pulse Rate 85 78 81 Respiratory Rate 20 20 20 Blood Pressure 115/56 L 107/53 L 110/53 L Pulse Oximetry 99 99 96 06/11/18 00:00 Temperature 97.5 F L Pulse Rate 78 Respiratory Rate 20 Blood Pressure 103/55 L Pulse Oximetry 98 Intake & Output 06/10/18 06/11/18 06/11/18 18:59 06:59 18:59 Intake Total 2645 / 2645 1240 / 1240 Output Total 750 / 750 Balance 1895 / 1895 1240 / 1240 Weight 62.1 kg Intake: IV 5 / 2045 1000 / 1000 NS Inj 1,000 ML @ 125 mls/hr IV 1945 / 1945 1000 / 1000 .CONT .Q8H [facility] Rx#:[id number] Oral 600 / 600 240 / 240 Output: Urine 750 / 750 Other: # Voids 3 4 Date of Last Bowel Movement 06/09/18 06/09/18 Narrative: GENERAL: Well-developed, well-nourished patient in [facility]. SKIN: Warm and dry. No rash. HEAD: Normocephalic. Atraumatic. EYES: Pupils equal and round. No scleral icterus. No injection or drainage. ENT: No nasal bleeding or discharge. Mucous membranes pink and moist. NECK: Supple. Trachea midline. CARDIOVASCULAR: Regular rate and rhythm. S1, S2 noted. No murmur appreciated. RESPIRATORY: No accessory muscle use. Clear to auscultation. Breath sounds equal bilaterally. GASTROINTESTINAL: Abdomen soft, non-tender, nondistended. Normoactive bowel sounds x4. MUSCULOSKELETAL: No obvious deformities. Extremities without clubbing, cyanosis , or edema. NEUROLOGICAL: Awake and alert. No obvious cranial nerve deficits. Motor grossly within normal limits. 5/5 muscle strength in bilateral upper and lower extremities. Normal speech. PSYCHIATRIC: Appropriate mood and affect; insight and judgment normal. Results - Labs CBC & Chem 7: 06/10/18 06:30 06/10/18 06:30 Assessment and Plan - Assessment (1) Urinary tract infection Code(s): N39.0 - Urinary tract infection, site not specified Status: Acute (2) Sickle cell anemia with crisis Code(s): D57.00 - Hb-SS disease with crisis, unspecified Status: Acute - Plan 22-year-old female with sickle cell pain and dysuria Sickle Cell Crisis, slowly improving. -Retic count was 2.1 and absolute retic count was 60.8. -Continue folic acid. Hydrocodone for pain control as needed. Will discontinue IV Dilaudid for now. -Hydration, pain control and monitor hemoglobin. Stable. -Patient complaints that pain improves with medication. Will attempt to use p.o. medication. Acute anemia suspect secondary to sickle cell -Hemoglobin 7, s/p 1 unit PRBC transfusion. -Stable 8.7. Will continue to monitor CBC. Awaiting labs today. Urinary tract infection, E. coli -Does complain of dysuria initially. Has improved. Urine culture positive for E. coli. -Sensitive to Cefuroxime PO switched from Rocephin. Asthma. Stable. -Maintain O2 saturation greater than 92% -DuoNebs as needed DVT -low risk and early ambulation Discharge Planning: Await clinical improvement. Possible discharge later this afternoon pain is controlled with p.o. medications.
[2018-06-11 12:23] LABS: White Blood Count 12.4 th/mm3 (4.0-11.0)
[2018-06-11 12:24] LABS: Baso # (Auto) 0.2 th/mm3 (0.0-0.2); Baso % (Auto) 1.6 % (0.0-2.0); Eos # (Auto) 0.2 th/mm3 (0.0-0.4); Eos % (Auto) 1.7 % (0.0-4.0); Hematocrit 26.9 % (35.0-46.0); Lymph # (Auto) 3.1 th/mm3 (1.0-4.8); Lymph % (Auto) 25.4 % (9.0-44.0); Mean Corpuscular HGB Conc 33.4 % (32.0-36.0); Mean Corpuscular Hemoglobin 30.2 pg (27.0-34.0); Mean Corpuscular Volume 90.2 fL (80.0-100.0); Mean Platelet Volume 9.1 fL (7.0-11.0); Mono # (Auto) 1.9 th/mm3 (0.0-0.9); Mono % (Auto) 15.6 % (0.0-8.0); Neut % (Auto) 55.7 % (16.0-70.0); Platelet Count 466 th/mm3 (150-450); Red Blood Count 2.98 mil/mm3 (4.00-5.30); Red Cell Distribution Width 19.8 % (11.6-17.2)
[2018-06-11] MEDS: oxyCODONE/Acetaminophen 10/325 Tablet PO PRN ×2 (12:33→18:35)
[2018-06-11 13:00] LABS: Sickle Cells 1+; Target Cells 1+; Tear Drop Cells 1+
[2018-06-11] MEDS: Morphine Inj 4 MG/ML Vial IV.PUSH PRN ×2 (14:49→21:20)
[2018-06-12 00:13] VITALS: BP 113/58; PULSE 96; TEMP 98.3; O2SAT 95
[2018-06-12] MEDS: oxyCODONE/Acetaminophen 10/325 Tablet PO PRN ×2 (00:36→06:56)
[2018-06-12 01:40] VITALS: RESP 20
[2018-06-12] MEDS: Morphine Inj 4 MG/ML Vial IV.PUSH PRN (01:40)
[2018-06-12] MEDS: Sod Chloride 0.9% Inj 1,000 ML IV.CONT SCH ×2 (03:17→06:57)
--- NOTE | 2018-06-12 07:29 | P.DS ---
Date of admission: 06/07/18 18:07 Primary care physician: Valerie Santos Anticipated date of discharge: 06/12/18 Brief History from admission: 22-year-old -[place] female presented to the ER with sickle cell pain in the lower legs and bilateral mid axillary/flank areas. Patient states the pain has been constant for over 1 week, rating the pain 8 out of 10 on the pain scale. Patient stated she had a temperature of 101.0 orally and took Motrin at home prior to arrival to ER. Patient complains of nausea, sweating, chest pain and chills. Patient denies vomiting, diarrhea, or cough. Patient also complained of shortness of breath yesterday and this morning. Patient stated she did use her nebulizer treatment at home with some relief. Patient was currently complains of burning with urination and foul smell to the urine. Patient does have history of asthma, sickle cell disease and eczema. Patient's last menstrual cycle May 30, 2018. Patient's property inspector is Dr. Myers. Patient indicates that she was just in the hospital 2 weeks ago in which he states that she received transfusions for her sickle cell crisis. Patient update on day of discharge: Follow up sickle cell crisis. Patient seen and examined. Sitting up in bed comfortably no apparent distress. Had a good night. Slept well. Pain is well controlled. Will discharge home today follow-up with property inspector and PCP. Patient is eating well and hydrated. Rx is written. DC home. Activity as tolerated. Heart healthy diet. DS: Diagnosis - Discharge Diagnosis (1) Urinary tract infection Status: Acute (2) Sickle cell anemia with crisis Status: Acute DS: Medications - Discharge Medications Prescriptions: cefuroxime axetil 250 mg PO Q12HR 7 Days tab oxycodone-acetaminophen 1 tab PO Q6H PRN #5 tab PRN Reason: Pain (Scale Score 7-10) DS: Summary Hospital Course: 22-year-old female with sickle cell pain and dysuria. SHe presented with sickle Cell Crisis retic count was 2.1 and absolute retic count was 60.8. Was placed on folic acid and IVF. Patient was given hydrocodone for pain as well as IV Dilaudid. She was hydrated with IV fluids. Hemoglobin did drop over the course of the hospitalization to 7, we did transfuse 1 unit PRBC. Her hemoglobin has been stable since. Follow-up with PCP and property inspector outpatient. Patient also had a urinary tract infection growing E. coli. She did complain of dysuria initially, was placed on Rocephin and eventually switched to cefuroxime. Patient has history of asthma which is stable during hospitalization. Patient is stable for discharge. Pain control. Follow-up with PCP hematology. Rx is written. Activity as tolerated. Diet as tolerated. - Time Spent with Patient Total time spent providing and/or coordinating discharge services: Greater than 30 minutes - Quality: VTE Deep Vein Thrombosis/Pulmonary Embolism Present on Admission: No Exam Vital signs: Vital Signs 06/11/18 08:00 06/11/18 12:00 06/11/18 16:00 Temperature 98.9 F 98.4 F 98.8 F Pulse Rate 86 104 H 95 H Respiratory Rate 20 20 20 Blood Pressure 113/58 L 128/67 131/64 Pulse Oximetry 100 97 98 06/11/18 20:00 06/11/18 20:33 06/12/18 00:00 Temperature 97.4 F L 98.3 F Pulse Rate 70 96 H Respiratory Rate 16 16 Blood Pressure 118/58 L 113/58 L Pulse Oximetry 96 98 95 06/12/18 01:00 Temperature Pulse Rate Respiratory Rate 20 Blood Pressure Pulse Oximetry Intake & Output 06/11/18 06/12/18 06/12/18 18:59 06:59 18:59 Intake Total 1600 / 1600 3000 / 3000 Output Total 700 / 700 Balance 900 / 900 3000 / 3000 Weight 63.5 kg Intake: IV 1000 / 1000 1999 / 1999 NS Inj 1,000 ML @ 125 mls/hr IV 1000 / 1000 1999 / 1999 .CONT .Q8H [facility] Rx#:[id number] Oral 600 / 600 Other 1000 / 1000 Output: Urine 700 / 700 Other: Other Intake Source Saline Solution # Voids 1 Date of Last Bowel Movement 06/09/18 Narrative: GENERAL: Well-developed, well-nourished patient complains of lower extremity pain. SKIN: Warm and dry. No rash. HEAD: Normocephalic. Atraumatic. EYES: Pupils equal and round. No scleral icterus. No injection or drainage. ENT: No nasal bleeding or discharge. Mucous membranes pink and moist. NECK: Supple. Trachea midline. CARDIOVASCULAR: Regular rate and rhythm. 2/6 systolic murmur noted. This is chronic for patient. RESPIRATORY: No accessory muscle use. Clear to auscultation. Breath sounds equal bilaterally. GASTROINTESTINAL: Abdomen soft, non-tender, nondistended. Normoactive bowel sounds x4. MUSCULOSKELETAL: No obvious deformities. Extremities without clubbing, cyanosis , or edema. NEUROLOGICAL: Awake and alert. No obvious cranial nerve deficits. Motor grossly within normal limits. 5/5 muscle strength in bilateral upper and lower extremities. Normal speech. PSYCHIATRIC: Appropriate mood and affect; insight and judgment normal. Results Procedures completed during hospitalization: See above. Labs on day of discharge: Labs from last 24 hours 06/11/18 06:10 CBC w Diff Auto diff final WBC 12.4 H RBC 2.98 L Hgb 9.0 L Hct 26.9 L MCV 90.2 MCH 30.2 MCHC 33.4 RDW 19.8 H Plt Count 466 H MPV 9.1 Neut % (Auto) 55.7 Lymph % (Auto) 25.4 Luna % (Auto) 15.6 H Eos % (Auto) 1.7 Baso % (Auto) 1.6 Neut # (Auto) 7.0 Lymph # (Auto) 3.1 Luna # (Auto) 1.9 H Eos # (Auto) 0.2 Baso # (Auto) 0.2 WBC Differential . Differential Comment . Sickle Cells 1+ H Target Cells 1+ H Tear Drop Cells 1+ H Keratocytes Occ H - Impressions ITS Impressions Chest X-Ray 06/07/18 14:49 CONCLUSION: No acute cardiopulmonary disease. Discharge Plan - Discharge Disposition Patient Disposition: 01 Discharge Home - Discharge Condition Condition: Stable - Discharge Order Discharge Orders: Discharge Order (Routine); Ordered 06/12/18 Ordered By: Ashely Garcia ED Use Only Admit Order (Routine); Ordered 06/07/18 Ordered By: Ashely Dacosta - Discharge Details Anticipated Discharge Date: 06/12/18 - Physicians Team Primary Care Provider: Valerie Santos Attending Provider: Shira Kraft
[2018-06-12] MEDS: Folic Acid 1 MG Tablet PO SCH (09:34)
== END 2018-06-12 09:55 | disposition home or self-care (01) | DRG 812 ==
LOC: PHED 14:27 → PHEDA 18:07 → PH3 18:55
PROVIDERS: ADMIT Internal Medicine; ATTEND Internal Medicine
CPT/HCPCS: 36430; 71010; 71045; 76937; 80048; 80053; 81001; 85014; 85018; 85025; 85044; 85660; 86850; 86900; 86901; 86902; 86920; 86922; 87077; 87086; 87186; 90761; 90774; 90775; 93005; 96361; 96374; 96375; 99285; C8952; J0696; J1170; J1200; J2270; J2405; J7030; J7050; P9016